=== PATIENT | male | born 1930 | race Caucasian/White ===

== ENCOUNTER 2017-07-18 13:16 | Inpatient (IN) | payer OTHER, MEDICARE ==
[~2017-07-18] VITALS: Ht 165.1 cm; Wt 74.8 kg
[~2017-07-18 13:16] MED LIST: 8 HOUR650 MG PO; ALLOPURINOL100 M1 PO; ALLOPURINOL100 MG PO; ASPIRIN EC81 M1 PO; BICARSIM80 MG PO; BUFFERIN LOW DO81 MG PO; CALCIUM ACETAT667 M3 PO; CLOPIDOGREL75 M1 PO; CLOPIDOGREL75 MG PO; COUMADIN3 M1 PO; DIOVAN80 M1 PO; DIOVAN80 MG PO; FLOMAX(MONOGRA0.4 MG PO; FLOMAX0.4 M1 PO; HYDROXYZINE HCL10 M1 PO; HYDROXYZINE HCL10 MG PO; HYDROXYZINE HCL25 M2 PO; LEVOTHYROXIN0.112 MG PO; LEVOTHYROXIN0.175 MG PO; LEVOTHYROXINE150 MCG PO; LIDODERM 5% PAT1 PAT TOP; LORATADINE10 M1 PO; LUBRIDERM DAIL177 ML TOP; LYRICA25 M1 PO; METOPROLOL SUCC25 M1 PO; MIDODRINE HCL2.5 M1 PO; MIDODRINE HCL5 M1 PO; MIRALAX119 GM PO; NEPHRO-VITE TA0.8 MG PO; NEPHROCAPS1 TAB PO; OMEPRAZOLE20 M2 PO; PERCOCET 5-3251 EACH PO; PROCRIT3000 UNIT/ IV; PROTONIX 20MG T20 MG PO; PROTONIX20 M1 PO; RENVELA800 M1 PO; RENVELA800 MG PO; RESTORIL30 M1 PO; ROBITUSSIN200 MG/10 PO; SENOKOT-S TABL1 EACH PO; SENSIPAR30 M1 PO; SENSIPAR30 MG PO; SYNTHROID0.137 MG PO; SYNTHROID112 MCG PO; TAMIFLU 75MG75 MG PO; TAMIFLU30 MG PO; TEMAZEPAM30 MG PO; TOPROL XL25 MG PO; TRAVATAN Z5 ML OPH; TRAVATAN Z50 GTT/1 B OPH; VALACYCLOVIR1000 MG PO; ZEMPLAR5 MCG/1 ML IV; ZOFRAN4 MG PO
[2017-07-18] MEDS ORDERED: DIOVAN80 M1 PO (14:19)
[2017-07-18] MEDS ORDERED: AMLODIPINE BESY10 M1 PO (14:20)
[2017-07-18] MEDS ORDERED: PANTOPRAZOLE SO20 M1 PO (14:20)
[2017-07-18] MEDS ORDERED: VITAMIN B-121000 MC3 PO (14:21)
[2017-07-18] MEDS ORDERED: TRAZODONE HCL50 M1 PO (14:21)
[2017-07-18] MEDS ORDERED: TRAMADOL HCL50 M1 PO (14:22)
--- NOTE | 2017-07-18 14:38 | ED GENERAL ADULT ---
History of Present Illness General Chief Complaint: Neuro Symptoms/ Deficit Stated Complaint: WEAK, SLURRED SPEACH, CONFUSION Source: family Exam Limitations: clinical condition Allergies Coded Allergies: No Known Allergies (08/21/15) Reconcile Medications Allopurinol 100 MG TABLET 1 TAB PO DAILY GOUT (Reported) Amlodipine Besylate 10 MG TABLET 1 TAB PO DAILY HEART (Reported) Aspirin (Ecotrin*) 81 MG TABLET.DR 1 TAB PO DAILY HEART/BLOOD (Reported) Cinacalcet HCl (Sensipar) 30 MG TABLET 1 TAB PO DAILY KIDNEY DISEASE ( Reported) Cyanocobalamin (Vitamin B-12) 1,000 MCG TABLET 1 TAB PO DAILY VITAMIN SUPPORT (Reported) Hydroxyzine Hydrochloride (Atarax) 25 MG TABLET 1 TAB PO BID PRN itching ( Reported) Levothyroxine Sodium 150 MCG TABLET 1 TAB PO DAILY thyropid (Reported) Metoprolol Succinate 25 MG TAB.ER.24H 1 TAB PO DAILY HEART/BP (Reported) Nephro-Vitamins (Nephro-Tye Tablet) (Unknown Strength) TABLET 1 TAB PO DAILY SUPPLEMENT (Reported) Omeprazole 20 MG CAPSULE.DR 1 CAP PO DAILY stomach (Reported) Pantoprazole Sodium 20 MG TABLET.DR 1 TAB PO DAILY GI (Reported) Sevelamer Carbonate (Renvela) 800 MG TABLET 1 TAB PO WITH MEALS kidney ( Reported) Tamsulosin HCl (Flomax) 0.4 MG CAP.ER.24H 1 CAP PO DAILY PROSTATE (Reported) Tramadol HCl 50 MG TABLET 1 TAB PO BID PAIN (Reported) Travoprost (Travatan Z) 5 ML DROPS 1 GTT OPH QPM BOTH EYES (Reported) Trazodone HCl 50 MG TABLET 1 TAB PO QPM SLEEP (Reported) Valsartan (Diovan) 80 MG TABLET 1 TAB PO DAILY HEART (Reported) Triage Note: PT TO ED WITH DAUGHTER FOR GENERALIZED WEAKNESS, CONFUSION, LETHARGY. PT WAS DISCHARGED FROM REHAB LAST WEDNESDAY 07/12. PT HAS BEEN LIVING WITH DAUGHTER. PT WAS SEEN AT [facility] ON 06/09 AND SENT TO [facility] FOR "BLOOD ON THE BRAIN" PER DAUGHTER. MORE TESTS WERE DONE AT [facility] AND NOTHING WAS FOUND PER DAUGHTER. PT WAS DISCHARGED TO REHAB FROM [facility]. PT ARRIVES TO ED, ALERT, WEAK. PT BROUGHT TO ROOM 10 VIA W/C. ASSIST OF 3 TO STRETCHER. NO NEURO S/S NOTED. Triage Nurses Notes Reviewed? yes Onset: Abrupt Duration: day(s): (1) Injury Environment: home Severity: moderate HPI: 87 yo M with PMH of , TIA, ESRD, HTN, HLD, prostate cancer, gout brought in to the ED after a mechanical fall yesterday. The patient was discharged from [facility] last week. The daughter states that the patient has been doing well for the most part since he was discharged. Yesterday the daughter feels that he was acting a little off and confused. Yesterday, she left him in the living room to use the bathroom and the went into the kitchen. During that time the patient got up and presumably lost his balance and fell down. The daughter found him on the floor. He complained of some pain in his left hip at the time. The daughter states the patient is not much of a complainer. Earlier today, when the OT/PT came in to see him, the patient refused to work with them since he was not feeling well. They called their PCP and he advised them to go to the ER. At his baseline the patient uses a walker. The daughter states the patient's mental status 'goes in and out' (Mary HENSON,Berna) Vital Signs & Intake/Output Vital Signs & Intake/Output Vital Signs Date Time Temp Pulse Resp B/P B/P Pulse O2 O2 Flow FiO2 Mean Ox Delivery Rate 07/18 1946 98.1 62 20 176/81 96 Room Air 07/18 1541 97.9 62 16 149/69 97 Room Air 07/18 1321 96.0 60 20 137/73 94 Room Air (Carol HENSON,Lucas Moreno) Past History Travel History Traveled to [place] past 21 day No Medical History Any Pertinent Medical History? 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 No (Berna Hernandez MD) Review of Systems Review of Systems Constitutional: Reports: fever. Denies: chills. EENTM: Reports: no symptoms. Respiratory: Reports: cough, short of breath. Cardiovascular: Denies: chest pain, palpitations. GI: Reports: diarrhea. Denies: abdominal pain. Genitourinary: Reports: no symptoms. Musculoskeletal: Reports: joint pain. Skin: Reports: rash. Neurological/Psychological: Reports: no symptoms. (Berna Hernandez MD) Review of Systems Hematologic/Endocrine: Reports: no symptoms. Immunologic/Allergic: Reports: no symptoms. All Other Systems: Reviewed and Negative (Nadir Headley MD) Physical Exam Physical Exam General Appearance: well developed/nourished, no apparent distress, alert, awake Head: atraumatic, normal appearance Eyes: Bilateral: normal appearance. Respiratory: normal breath sounds, chest non-tender, lungs clear Cardiovascular: regular rate/rhythm Gastrointestinal: soft, non-tender Extremities: no edema Neurologic/Psych: awake, alert, oriented x 2 Skin: rash Core Measures ACS in differential dx? No CVA/TIA Diagnosis: No Sepsis Present: No Sepsis Focused Exam Completed? No (Berna Hernandez MD) Physical Exam Ears, Nose, Throat: normal pharynx, normal ENT inspection Neck: normal inspection, supple, full range of motion Peripheral Pulses: 4+ carotid (R), 4+ carotid (L) Back: normal inspection, normal range of motion, no vertebral tenderness Reflexes: 2+: bicep (R), bicep (L). Lymphatic: no anterior cervical yousif (Nadir Headley MD) Progress Differential Diagnoses I considered the following diagnoses in my evaluation of the patient: [ mechanical fall, hip fracture, mastoiditis] Initial ED EKG: none Comments: His CT head showed evidence of mastoiditis on the right side. However, no pain/ symptoms can be elicited on physical examination which is suggestive of the findings being in chronic in nature. The patient himself denies any complains of pain. (Berna Hernandez MD) Differential Diagnoses I considered the following diagnoses in my evaluation of the patient: Plan of Care: Orders Procedure Date/time Status Regular Diet 07/19 B Active OXYGEN SETUP (GEN) 07/18 2129 Active Saline Lock 07/18 2129 Active Admit to inpatient 07/18 2129 Active Vital Signs 07/18 2129 Active Activity/Ambulation 07/18 2129 Active Code Status 07/18 2129 Active Add-on Test (ER Only) 07/18 2009 Active EKG 07/18 2009 Active CASE MANAGEMENT CONSULT 07/18 190 Active TROPONIN LEVEL 07/18 153 Complete COMPREHENSIVE METABOLIC PANEL 07/18 1441 Complete CBC WITHOUT DIFFERENTIAL 07/18 144 Complete Laboratory Tests 07/18/17 1530: Anion Gap 16, Estimated GFR 7 L, BUN/Creatinine Ratio 4.6 L, Glucose 95, Calcium 8.3 L, Total Bilirubin 1.0, AST 11 L, ALT 16 L, Alkaline Phosphatase 116, Troponin I 0.06, Total Protein 6.1 L, Albumin 3.5, Globulin 2.6, Albumin/ Globulin Ratio 1.3, CBC w Diff NO MAN DIFF REQ, RBC 3.55 L, MCV 107.3 H, MCH 34.0 H, MCHC 31.6 L, RDW 17.0 H, MPV 7.8, Gran % 66.7, Lymphocytes % 24.4, Monocytes % 6.2, Eosinophils % 2.6, Basophils % 0.1, Absolute Granulocytes 5.9, Absolute Lymphocytes 2.2, Absolute Monocytes 0.6, Absolute Eosinophils 0.2, Absolute Basophils 0 07/18/17 1442: Urine Color Cancelled, Urine Clarity Cancelled, Urine pH Cancelled, Ur Specific Sodus Cancelled, Urine Protein Cancelled, Urine Ketones Cancelled, Urine Nitrite Cancelled, Urine Bilirubin Cancelled, Urine Urobilinogen Cancelled, Ur Leukocyte Esterase Cancelled, Ur Microscopic Cancelled, Urine Hemoglobin Cancelled, Urine Glucose Cancelled Comments: 07/18/2017 8:11:35 PM patient's case discussed with the hospitalist who has asked for EKG and troponin prior to admission. Patient signed out to Dr. Headley. (Carol HENSON,Lucsa Moreno) Differential Diagnoses I considered the following diagnoses in my evaluation of the patient: (Fang HENSON,Nadir) Departure Departure Condition: Stable Referrals: Becki HENSON,Reggie Harman (PCP/Family) Departure Forms: Customer Survey General Discharge Information Comments Patient will require admission in the setting of gait instability, he is below level of functioning and unable to perform ADLs Admission Note Documentation of Exam: Documentation of any treatments & extenuating circumstances including Concerns Regarding Discharge (functional status, medication knowledge or non-compliance, living conditions, etc.) that warrant an admission rather than observation: ([facility] Departure Disposition: STILL A PATIENT Clinical Impression Primary Impression: Gait instability Secondary Impressions: Chronic kidney disease with end stage renal failure on dialysis, History of left hip replacement Admission Note Spoke With: Shawn Mitchell MD Documentation of Exam: Documentation of any treatments & extenuating circumstances including Concerns Regarding Discharge (functional status, medication knowledge or non-compliance, living conditions, etc.) that warrant an admission rather than observation: Patient presents for evaluation of weakness and confusion along with gait instability. Patient has not returned to baseline ambulation and continues to require two-person assist with a walker in order to ambulate. He is therefore a poor candidate for outpatient management at this time and would likely return in worse clinical condition, being at very high risk of fall with subsequent injury. Given his gait instability I feel that he would have great difficulty in complying with outpatient treatment plan. Likewise I feel he will be poorly capable of managing his ADLs. He now requires hospitalization for further evaluation of his gait instability to better define the cause and outline treatment. Physical therapy consultation should be obtained. Neurology consultation should be considered. Given this patient's advanced age and medical comorbidities, including left hip prosthesis, I predict his treatment and recovery will be prolonged and somewhat complicated. I feel he will require a multiple day hospitalization. PA/SHAG TRUCK DRIVER Co-Sign Statement Statement: ED Attending supervision documentation- [] I saw and evaluated the patient. I have also reviewed all the pertinent lab results and diagnostic results. I agree with the findings and the plan of care as documented in the PA's/SHAG TRUCK DRIVER's documentation. [] I have reviewed the ED Record and agree with the PA's/SHAG TRUCK DRIVER's documentation. [] Additions or exceptions (if any) to the PAs/SHAG TRUCK DRIVER's note and plan are summarized below: [] Resident Co-Sign Statement Statement: ED Attending supervision documentation- [x] I saw and evaluated the patient. I have also reviewed all the pertinent lab results and diagnostic results. I agree with the findings and the plan of care as documented in the Resident's documentation. [] I have reviewed the ED Record and agree with the Resident's documentation. [] Additions or exceptions (if any) to the Resident's note and plan are summarized below: [] (Carol HENSON,Lucas Moreno) Admission Note Documentation of Exam: Documentation of any treatments & extenuating circumstances including Concerns Regarding Discharge (functional status, medication knowledge or non-compliance, living conditions, etc.) that warrant an admission rather than observation: Resident Co-Sign Statement Statement: ED Attending supervision documentation- x I saw and evaluated the patient. I have also reviewed all the pertinent lab results and diagnostic results. I agree with the findings and the plan of care as documented in the Resident's documentation. [] I have reviewed the ED Record and agree with the Resident's documentation. [] Additions or exceptions (if any) to the Resident's note and plan are summarized below: [] (Fang HENSON,Nadir) Critical Care Note Critical Care Note Critical Care Time: non-applicable (Mary HENSON,Berna)
--- NOTE | 2017-07-18 14:40 | CT SCAN REPORT ---
EXAMINATION: CT HEAD WITHOUT CONTRAST CLINICAL INFORMATION: Slurred speech. COMPARISON: CT scan of the head dated 06/09/2017. TECHNIQUE: Contiguous axial imaging was performed from the skull base to vertex without intravenous administration of contrast. DLP: 307.75 mGy-cm FINDINGS: There is no evidence of acute intracranial hemorrhage or territorial infarction. No abnormal mass effect or midline shift is seen. Garcia to white matter differentiation is well preserved. No extra-axial fluid collections are identified. Again noted is substantial prominence of the bilateral ventricles, sulci, sylvian fissures and frontal extra-axial spaces, which are stable compared to the prior study. No new extra-axial fluid collection is present, however there are stable bilateral frontal subdural hematomas. No associated mass effect is noted. Prominent periventricular white matter changes are stable compared to the prior study consistent with chronic small vessel ischemic disease. The osseous structures and soft tissues are normal. The visualized portions of the paranasal sinuses are well aerated; there is interval development of fluid opacification of the right mastoid air cells with air-fluid levels in the inferior mastoid air cells.. IMPRESSION: 1. No acute intracranial pathology, no significant interval change is present compared to the recent previous study of 06/09/2017. 2. Stable significant cortical volume loss and small frontal subdural hematomas all stable compared to the prior study. 3. Interval development of fluid opacification of the right mastoid air cells with multiple air-fluid levels.
[2017-07-18 15:37] LABS: ABSOLUTE BASOPHIL COUNT 0 /CUMM (0.0-0.2); ABSOLUTE EOSINOPHIL COUNT 0.2 /CUMM (0.0-0.7); ABSOLUTE GRANULOCYTE CT 5.9 /CUMM (1.4-6.5); ABSOLUTE LYMPH COUNT 2.2 /CUMM (1.2-3.4); ABSOLUTE MONOCYTE COUNT 0.6 /CUMM (0.10-0.60); BASOPHIL % 0.1 % (0.0-2.0); EOSINOPHIL % 2.6 % (0-5); GRANULOCYTE % 66.7 % (42.2-75.2); HEMATOCRIT 38.1 % (42-52); MEAN CORPUSCULAR HGB CONC 31.6 G/DL (33.0-37.0); MEAN CORPUSCULAR VOLUME 107.3 FL (80.0-94.0); MEAN PLATELET VOLUME 7.8 FL (7.4-10.4); PLATELET COUNT 155 /CUMM (130-400); RED BLOOD CELL CT 3.55 /CUMM (4.70-6.10); WHITE BLOOD CELL COUNT 8.9 /CUMM (4.8-10.8)
--- NOTE | 2017-07-18 15:42 | RADIOLOGY REPORT ---
EXAMINATION: LEFT HIP. CLINICAL INFORMATION: Fall. COMPARISON: None TECHNIQUE: 2 views FINDINGS: No acute fracture or dislocation. There is osteopenia. Compression screw in place in the hip. Hardware intact. There is sclerosis along the intratrochanteric line consistent with healed fracture of the femur. No radiolucent fracture line. Heavy vascular calcification of the iliac and femoral arteries. IMPRESSION: Compression screw in left hip. Healed intratrochanteric fracture left hip. No acute abnormality.
--- NOTE | 2017-07-18 23:37 | History & Physical ---
Rosana HENSON,Mery 07/18/17 5277: General Information and HPI MD Statement: I have seen and personally examined HO LOPEZ and documented this H&P. The patient is a 87 year old M who presented with a patient stated chief complaint of [confusion, weakness]. 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 Most of the history was provided by his daughter on the phone because of language barrier and mild confusion of the patient. As per the daughter The patient was on the floor for a few minutes after which his and daughter helped him to get up. She also noticed that he was intermittently confused over the past few days after he was discharged from [facility] last week. The patient has a visiting physical therapist at home however this morning wasn't able to walk and he was dragging his feet, his daughter also noticed that he was slurring his speech and thought that he is having stroke. Patient was also noticed to have watery nonbloody diarrhea over the past week, 6 with Tamiflu when he was in the [facility] because there were many patients who had the flu and he was given Tamiflu prophylactically because he had fever and body aches however he wasn't tested for the flu. Patient had poor oral intake in the past few days due to loss of appetite, he also complained of widespread itchiness and scratches of his skin in addition to left-sided hip pain. Was not patient was recently discharged from [facility] in for brain hemorrhage and was sent to rehabilitation for 1 months thereafter. Patient has also history of hip fracture on February 2017 S/P ORIF Patient has history of ESRD, he receives dialysis Saturday, Saturday, Saturday, his last dialysis was on Saturday when he completed 34 hours however his daughter is not sure about his dry weight before and after the dialysis. He follow with Dr. Young He lives home and use a walker to ambulate. ED course: Vital signs: Blood pressure 176/81, pulse 62, temp 98.1, pulse ox 96 on room air Admission: WBC 8.9, Hemoglobin 12.1, Platelets 155, Sodium 142, Potassium 3.8. 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 spouse, child Services at Home: Nursing ETOH Use: denies use Illicit Drug Use: denies illicit drug use Functional Ability ADLs Independent: dressing, eating, toileting, bathing. Ambulation: independent, cane Review of Systems Review of Systems Constitutional: Reports: see HPI, malaise, weakness. Denies: chills, diaphoresis, fever. Cardiovascular: Denies: chest pain, edema, orthopena, palpitations, peripheral edema. Respiratory: Denies: cough, orthopnea, short of breath, sputum production. GI: Reports: diarrhea, nausea. Genitourinary: Denies: no symptoms. Musculoskeletal: Reports: joint pain. Skin: Denies: no symptoms. Neurological/Psychological: Reports: confusion, weakness. Exam & Diagnostic Data Last 24 Hrs of Vital Signs/I&O Vital Signs Date Time Temp Pulse Resp B/P B/P Pulse O2 O2 Flow FiO2 Mean Ox Delivery Rate 07/19 0021 98.9 59 20 144/70 97 Room Air 07/18 2158 98.6 59 16 142/67 97 Room Air 07/18 1947 98.1 62 20 176/81 96 Room Air 07/18 1541 97.9 62 16 149/69 97 Room Air 07/18 1321 96.0 60 20 137/73 94 Room Air Intake & Output 07/19 0800 07/19 0000 07/18 1600 Intake Total Output Total Balance Patient 145 lb 145 lb Weight Weight Bed scale Estimated Measurement Method Physical Exam General Appearance Alert, Cooperative, No Acute Distress, oriented X2 HEENT Atraumatic, PERRLA, EOMI, Mucous Membr. moist/pink Neck Supple, No JVD Cardiovascular Normal S1, Normal S2, No Murmurs Lungs Clear to Auscultation Abdomen Normal Bowel Sounds, Soft, No Tenderness Neurological Normal Speech, Strength at 5/5 X4 Ext, Normal Tone Extremities No Clubbing, No Cyanosis, No Edema, A-V shunt in the left arm , thrill was not felt Vascular Normal Pulses Last 24 Hrs of Labs/Jarod: Laboratory Tests 07/18/17 1530: Anion Gap 16, Estimated GFR 7 L, BUN/Creatinine Ratio 4.6 L, Glucose 95, Calcium 8.3 L, Total Bilirubin 1.0, AST 11 L, ALT 16 L, Alkaline Phosphatase 116, Troponin I 0.06, Total Protein 6.1 L, Albumin 3.5, Globulin 2.6, Albumin/ Globulin Ratio 1.3, CBC w Diff NO MAN DIFF REQ, RBC 3.55 L, MCV 107.3 H, MCH 34.0 H, MCHC 31.6 L, RDW 17.0 H, MPV 7.8, Gran % 66.7, Lymphocytes % 24.4, Monocytes % 6.2, Eosinophils % 2.6, Basophils % 0.1, Absolute Granulocytes 5.9, Absolute Lymphocytes 2.2, Absolute Monocytes 0.6, Absolute Eosinophils 0.2, Absolute Basophils 0 07/18/17 1442: Urine Color Cancelled, Urine Clarity Cancelled, Urine pH Cancelled, Ur Specific [employer] Cancelled, Urine Protein Cancelled, Urine Ketones Cancelled, Urine Nitrite Cancelled, Urine Bilirubin Cancelled, Urine Urobilinogen Cancelled, Ur Leukocyte Esterase Cancelled, Ur Microscopic Cancelled, Urine Hemoglobin Cancelled, Urine Glucose Cancelled Diagnostic Data EKG Results regular NSR , HR 63, QTC 488, no ST-Twave changes Other Results CT head: 1. No acute intracranial pathology, no significant interval change is present compared to the recent previous study of 06/09/2017. 2. Stable significant cortical volume loss and small frontal subdural hematomas all stable compared to the prior study. 3. Interval development of fluid opacification of the right mastoid air cells with multiple air-fluid levels. 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 In addition to intermittent confusion, nausea, vomiting, diarrhea, skin itchiness. Patient received hemodialysis yesterday. In addition the patient has a history of subdural hematoma and was admitted to [facility] last month however CT on admission didn't show any acute intracranial changes, fluid opacification of right mastoid air cells with multiple air-fluid level was noticed #Weakness and confusion: Differential diagnosis includes dehydration, deconditioning Admitted to general medicine floor Vitals every shift PT evaluation #Left frontal subdural hematoma CT didn't show any acute intracranial pathology or significant changes from previous one Avoid blood thinners #ESRD on hemodialysis Patient is due for his hemodialysis today Saturday hemodialysis Saturday Nephrology consult appreciated Close monitoring of kidney function #Chronic medical condition: Continue home meds DNR/DNI Renal dialysis Diet DVT prophylaxis with Alps As Ranked By This Provider Problem List: 1. Subdural hematoma 2. ESRD (end stage renal disease) on dialysis Core Measures/Misc (02/10) Acute Coronary Syndrome ACS Diagnosis: No Congestive Heart Failure Congestive Heart Failure Diagnosis No Cerebrovascular Accident CVA/TIA Diagnosis: No VTE (View Protocol) VTE Risk Factors Age>40 No Mechanical VTE Prophylaxis d/t N/A MechProphylax Ordered No VTE Pharm Prophylaxis d/t Medical Contraindication Sepsis (View protocol) Sepsis Present: No Kt Lee 07/19/17 0430: General Information and HPI Allergies/Medications Home Med list Allopurinol 100 MG TABLET 1 TAB PO DAILY GOUT (Reported) Amlodipine Besylate 10 MG TABLET 1 TAB PO DAILY HEART (Reported) Cinacalcet HCl (Sensipar) 30 MG TABLET 1 TAB PO DAILY KIDNEY DISEASE ( Reported) Cyanocobalamin (Vitamin B-12) 1,000 MCG TABLET 1 TAB PO DAILY VITAMIN SUPPORT (Reported) Hydroxyzine Hydrochloride (Atarax) 25 MG TABLET 1 TAB PO BID PRN itching ( Reported) Levothyroxine Sodium 150 MCG TABLET 1 TAB PO DAILY thyropid (Reported) Metoprolol Succinate 25 MG TAB.ER.24H 1 TAB PO DAILY HEART/BP (Reported) Nephro-Vitamins (Nephro-Tye Tablet) (Unknown Strength) TABLET 1 TAB PO DAILY SUPPLEMENT (Reported) Pantoprazole Sodium 20 MG TABLET.DR 1 TAB PO DAILY GI (Reported) Sevelamer Carbonate (Renvela) 800 MG TABLET 1 TAB PO WITH MEALS kidney ( Reported) Tamsulosin HCl (Flomax) 0.4 MG CAP.ER.24H 1 CAP PO DAILY PROSTATE (Reported) Travoprost (Travatan Z) 5 ML DROPS 1 GTT OPH QPM BOTH EYES (Reported) Trazodone HCl 50 MG TABLET 1 TAB PO QPM SLEEP (Reported) Valsartan (Diovan) 80 MG TABLET 1 TAB PO DAILY HEART (Reported) Resident Review Statement Resident Statement: examined this patient, discussed with brand marketing intern, agreed with brand marketing intern, discussed with family, reviewed EMR data (avail), discussed with nursing , discussed with case mgmt, reviewed images, amended to note Other Findings: This is 87-year-old gentleman with medical history of aortic stenosis, previous TIA, 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 Patient presented to the emergency department with a chief complain off mechanical fall. As per the daughter The patient was on the floor for a few minutes after which his and daughter helped him to get up. She also noticed that he was intermittently confused over the past few days after he was discharged from [facility] last week, where he spent one month of rehabilitation status post discharge from [facility] after been transferred from Hospital As a CAT Scan of the Head at That Time Showed Subdural Hematoma that was done 06/09/2017. Patient went for his scheduled dialysis on Saturday, he states his dry weight is 155 pound, he stated that he doesn't make any urine. Patient denies any dizziness or loss of consciousness, heart racing, chest pain, feeling nauseated, vomiting, seizure activity before or after the fall. Physical examination, laboratory and imaging as above. Problem list: -Status post mechanical fall -Generalized weakness/Confusion -Skin itchiness -History of left frontal subdural hematoma/stable. -End-stage renal disease on hemodialysis Plan: -Admit patient to general medicine floor -Vitals every shift -Nephrology consultation a.m. -Patient will need assessment of his AV fistula -Hydrocortisone 1% cream twice -Physical therapy consultation in a.m. -Continue his home medication for now -Renal dialysis diet -Pain pathway -DVT prophylaxis: subcutaneous heparin -DNI DNR according to his daughter. Stephen HENSON, [facility] 07/19/17 0810: Attending MD Review Statement Attending Statement Attending MD Statement: examined this patient, discuss w/resident/PA/PLASTIC MOLDER, agreed w/resident/PA/PLASTIC MOLDER, reviewed images, amended to note Attending Assessment/Plan: 87 yo M with h/o ESRD on HD (MWF), , TIA, HTN, is brought in from home after a mechanical fall and reported confusion one day prior to admission. He also c/o left hip pain and refused to work with PT this morning. They called their PCP who then advised patient to be brought to ER. Patient was recently diagnosed with subdural hematoma ([facility]) and went to short term rehab ([facility]), from where he was discharged 1 week ago. Since discharge, patient has had intermittent diarrhea that seems to be resolving now. Vitals stable. Exam remarkable for left AV fistula site CDI but unable to palpate a thrill. Labs: macrocytic anemia, BUN 36, creat 7.9, Ca 8.3, trop neg. CT head: no acute pathology, small frontal SDH stable, fluid opacification of right mastoid air cells. Hip/pelvis Xray: compression screw in left hip. Healed intertrochanteric fracture left hip, no acute abnormality. EKG: sinus rhythm, LVH, Qtc 488. Assessment and plan: 1. Mechanical fall, inability to ambulate 2. Physical deconditioning 3. Confusion, acute delirium 4. ESRD on hemodialysis 5. ?malfunction of AV fistula 6. History of subdural hematoma - Admit to General medicine - Fall precautions - Pain management with tylenol or tramadol - Avoid NSAIDS or opiates - Avoid delirium triggers - Nephro consult for dialysis - ?Vascular consult to assess AV fistula malfunction - PT eval - Case management consult DVT ppx Alps (due to SDH). DNR/I.
[2017-07-19 00:21] VITALS: BP 144/70
--- NOTE | 2017-07-19 03:55 | Admission Certification ---
Admission Certification Certification Statement - As attending physician, I certify that at the time of - admission, based on clinical presentation, severity of - symptoms, need for further diagnostic testing and - therapeutic interventions, and risk of adverse outcomes - without in-hospital treatment, in my clinical assessment, - this patient requires an acute hospital stay for a minimum - of two nights or longer. I have also considered psychsocial - factors such as support system, advanced age, financial - issues, cognitive issues, and failed out-patient treatments, - past re-admission history, safety of patient, and lack of - compliance as applicable. Specific rationale supporting this admission is: Gait instability, confusion, ESRD on dialysis, malfunctioning AV fistula.
[2017-07-19 06:48] VITALS: BP 140/68
[2017-07-19 08:58] LABS: ABSOLUTE BASOPHIL COUNT 0 /CUMM (0.0-0.2); ABSOLUTE EOSINOPHIL COUNT 0.2 /CUMM (0.0-0.7); ABSOLUTE LYMPH COUNT 2.3 /CUMM (1.2-3.4); ABSOLUTE MONOCYTE COUNT 0.4 /CUMM (0.10-0.60); GRANULOCYTE % 60.5 % (42.2-75.2); MEAN PLATELET VOLUME 8.1 FL (7.4-10.4); RED BLOOD CELL CT 3.11 /CUMM (4.70-6.10)
[2017-07-19 09:13] LABS: ABSOLUTE GRANULOCYTE CT 4.5 /CUMM (1.4-6.5); BASOPHIL % 0.3 % (0.0-2.0); EOSINOPHIL % 2.2 % (0-5); MEAN CORPUSCULAR HGB 34.9 PG (27.0-31.0); MEAN CORPUSCULAR VOLUME 105.7 FL (80.0-94.0); PLATELET COUNT 140 /CUMM (130-400); RBC DISTRIBUTION WIDTH 17.1 % (11.5-14.5); WHITE BLOOD CELL COUNT 7.4 /CUMM (4.8-10.8)
--- NOTE | 2017-07-19 09:14 | Cons- Nephrology ---
General Information and HPI Consulting Request Date of Consult: 07/19/17 Requested By: Juliet HENSON,Irene History of Present Illness: 87 yo male with ESRD due to obstructive uropathy from stones, hypertension, Chron's disease. He has had multiple falls over the last year. In May 2017 he conner a fall and subdural hematoma, was transferred to [facility] and then to [facility]. He came home last week, but daughter has noted intermittant confusion. He had a mechnanical fall yesterday, was complaining of some hip pain and had difficulty ambulating so was sent to the ED. CT scan showed no acute intracranial process but patient was unable to walk and was still confused, so he was admitted. FH: negative for renal diseas.e Allergies/Medications Allergies: Coded Allergies: No Known Allergies (08/21/15) Home Med List: Allopurinol 100 MG TABLET 1 TAB PO DAILY GOUT (Reported) Amlodipine Besylate 10 MG TABLET 1 TAB PO DAILY HEART (Reported) Cinacalcet HCl (Sensipar) 30 MG TABLET 1 TAB PO DAILY KIDNEY DISEASE ( Reported) Cyanocobalamin (Vitamin B-12) 1,000 MCG TABLET 1 TAB PO DAILY VITAMIN SUPPORT (Reported) Hydroxyzine Hydrochloride (Atarax) 25 MG TABLET 1 TAB PO BID PRN itching ( Reported) Levothyroxine Sodium 150 MCG TABLET 1 TAB PO DAILY thyropid (Reported) Metoprolol Succinate 25 MG TAB.ER.24H 1 TAB PO DAILY HEART/BP (Reported) Nephro-Vitamins (Nephro-Tye Tablet) (Unknown Strength) TABLET 1 TAB PO DAILY SUPPLEMENT (Reported) Pantoprazole Sodium 20 MG TABLET.DR 1 TAB PO DAILY GI (Reported) Sevelamer Carbonate (Renvela) 800 MG TABLET 1 TAB PO WITH MEALS kidney ( Reported) Tamsulosin HCl (Flomax) 0.4 MG CAP.ER.24H 1 CAP PO DAILY PROSTATE (Reported) Travoprost (Travatan Z) 5 ML DROPS 1 GTT OPH QPM BOTH EYES (Reported) Trazodone HCl 50 MG TABLET 1 TAB PO QPM SLEEP (Reported) Valsartan (Diovan) 80 MG TABLET 1 TAB PO DAILY HEART (Reported) Current Medications: Current Medications Sig/Harmeet Start time Last Medication Dose Route Stop Time Status Admin Acetaminophen 650 MG Q6P PRN 07/18 2345 AC PO Allopurinol 100 MG DAILY 07/19 1000 AC PO Amlodipine Besylate 10 MG DAILY 07/19 1000 AC PO Heparin Sodium 5,000 UNIT Q8 07/19 0600 CAN (Porcine) SC Hydrocodone Bitart/ 1 TAB Q6P PRN 07/18 2345 AC Acetaminophen PO Hydrocortisone 1 ZHANNA BID 07/18 2345 AC 07/19 EXT 0639 Hydroxyzine HCl 25 MG BID PRN 07/19 0015 AC 07/19 PO 0638 Hydroxyzine HCl 0 .STK-MED ONE 07/18 1927 DC PO Hydroxyzine HCl 25 MG ONCE ONE 07/18 1914 DC 07/18 PO 07/18 Levothyroxine Sodium 0.15 MG DAILY AC 07/19 0700 AC 07/19 PO 0638 Losartan Potassium 25 MG DAILY 07/19 1000 AC PO Metoprolol Succinate 25 MG DAILY 07/19 1000 AC PO Nystatin 1 ZHANNA BID 07/19 0047 AC 07/19 TOP 0639 Omeprazole 20 MG DAILY AC 07/19 0700 AC 07/19 PO 0638 Sevelamer Carbonate 800 MG WITH MEALS 07/19 0800 AC PO Tamsulosin HCl 0.4 MG DAILY 07/19 1000 AC PO Trazodone HCl 50 MG QPM 07/19 2200 AC PO Review of Systems Review of Systems: Negative except as noted above. 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 Home Who Do You Live With? spouse, child Services at Home: Nursing Smoking Status: Never Smoked ETOH Use: denies use Illicit Drug Use: denies illicit drug use Functional Ability ADLs Independent: dressing, eating, toileting, bathing. Ambulation: independent, cane Exam & Diagnostic Data Vital Signs and I&O Vital Signs Date Time Temp Pulse Resp B/P B/P Pulse O2 O2 Flow FiO2 Mean Ox Delivery Rate 07/19 0648 98.4 67 20 140/68 93 Room Air 07/19 0021 98.9 59 20 144/70 97 Room Air 07/18 2158 98.6 59 16 142/67 97 Room Air 07/18 1947 98.1 62 20 176/81 96 Room Air 07/18 1541 97.9 62 16 149/69 97 Room Air 07/18 1321 96.0 60 20 137/73 94 Room Air Intake & Output 07/19 1600 07/19 0400 07/18 0400 07/17 0400 Intake Total 100 Output Total Balance 100 Intake, Oral 100 Number 1 Bowel Movements Patient 145 lb 145 lb Weight Weight Bed scale Estimated Measurement Method Physical Exam: NAD VS as above. Eyes: anicteric, PERRLA Neck: no mass or thryomegaly Nodes: negative cervical/inguinal Skin: no rash or induration Lungs: clear P&A CV: no rub or murmur Abd: nontender, bs positive no organomegaly Exts: no edema, no bruit KEMI AVF Neuro: A&O, no asterixis. Results Pertinent Lab Results: Laboratory Tests 07/19 07/18 07/18 0805 1530 1442 Chemistry Sodium (137 - 145 mmol/L) Pending 142 Potassium (3.5 - 5.1 mmol/L) Pending 3.8 Chloride (98 - 107 mmol/L) Pending 101 Carbon Dioxide (22 - 30 mmol/L) Pending 25 Anion Gap (5 - 16) Pending 16 BUN (9 - 20 mg/dL) Pending 36 H Creatinine (0.7 - 1.2 mg/dL) Pending 7.9 *H Estimated GFR (>60 ml/min) 7 L BUN/Creatinine Ratio (7 - 25 %) Pending 4.6 L Glucose (65 - 99 mg/dL) 95 Calcium (8.4 - 10.2 mg/dL) 8.3 L Total Bilirubin (0.2 - 1.3 mg/dL) 1.0 AST (17 - 59 U/L) 11 L ALT (21 - 72 U/L) 16 L Alkaline Phosphatase (< 127 U/L) 116 Troponin I (<0.11 ng/ml) 0.06 Total Protein (6.3 - 8.2 g/dL) 6.1 L Albumin (3.5 - 5.0 g/dL) 3.5 Globulin (1.9 - 4.2 gm/dL) 2.6 Albumin/Globulin Ratio (1.1 - 2.2 %) 1.3 Hematology CBC w Diff Pending NO MAN DIFF REQ WBC (4.8 - 10.8 /CUMM) Pending 8.9 RBC (4.70 - 6.10 /CUMM) Pending 3.55 L Hgb (14.0 - 18.0 G/DL) Pending 12.1 L Hct (42 - 52 %) Pending 38.1 L MCV (80.0 - 94.0 FL) Pending 107.3 H MCH (27.0 - 31.0 PG) Pending 34.0 H MCHC (33.0 - 37.0 G/DL) Pending 31.6 L RDW (11.5 - 14.5 %) Pending 17.0 H Plt Count (130 - 400 /CUMM) Pending 155 MPV (7.4 - 10.4 FL) Pending 7.8 Gran % (42.2 - 75.2 %) 66.7 Lymphocytes % (20.5 - 51.1 %) 24.4 Monocytes % (1.7 - 9.3 %) 6.2 Eosinophils % (0 - 5 %) 2.6 Basophils % (0.0 - 2.0 %) 0.1 Absolute Granulocytes (1.4 - 6.5 /CUMM) 5.9 Absolute Lymphocytes (1.2 - 3.4 /CUMM) 2.2 Absolute Monocytes (0.10 - 0.60 /CUMM) 0.6 Absolute Eosinophils (0.0 - 0.7 /CUMM) 0.2 Absolute Basophils (0.0 - 0.2 /CUMM) 0 Urines Urine Color Cancelled Urine Clarity Cancelled Urine pH Cancelled Ur Specific [place] Cancelled Urine Protein Cancelled Urine Ketones Cancelled Urine Nitrite Cancelled Urine Bilirubin Cancelled Urine Urobilinogen Cancelled Ur Leukocyte Esterase Cancelled Ur Microscopic Cancelled Urine Hemoglobin Cancelled Urine Glucose Cancelled Assessment/Plan Assessment/Recommendations Assessment: ESRD s/p fall. He has had multiple falls over last year with hip fracture and SDH. After fall yesterday had difficulty with ambulation. Not clear patient is going to be able to return home. His AVF is occluded. This has been problematic in past as occluded in March, and according to daughter again while at [facility]. Labs yesterday acceptable and he does not appear extremely volume overloaded. Recommendations: I have spoke with Dr. Poole from IR and patient will either get thrombolysis or Eliu cathter today. If done early enough he can get dialysis today, otherwise may have to be held until tomorrow. No other dialysis issues today and would resume his usual medications.
[2017-07-19 09:23] LABS: HEMATOCRIT 32.9 % (42-52)
--- NOTE | 2017-07-19 11:04 | PN- Housestaff ---
See Addendum Rhett Sutherland MD,[facility] 07/19/17 1104: Subjective Follow-up For: Altered mental status ESRD on dialysis Failed AV fistula Subjective: Patient visited today, was lying in bed comfortably in no acute distress, patient was alert and oriented which is improvement compared to last night. No fever or chills, no shortness of breathing, no chest pain, no other events. Patient was complaining of itchiness. scratch murphy all over bilateral LEs. Patient ate breakfast, contacted IR for AV fistula who recommended to place patient NPO for tunneled catheter placement. We will follow. Review of Systems Constitutional: Reports: see HPI. Objective Last 24 Hrs of Vital Signs/I&O Vital Signs Date Time Temp Pulse Resp B/P B/P Pulse O2 O2 Flow FiO2 Mean Ox Delivery Rate 07/19 0942 98.4 67 20 140/68 07/19 0942 140/68 07/19 0941 98.4 67 140/68 07/19 0941 98.4 67 20 140/68 07/19 0648 98.4 67 20 140/68 93 Room Air 07/19 0021 98.9 59 20 144/70 97 Room Air 07/18 2158 98.6 59 16 142/67 97 Room Air 07/18 1947 98.1 62 20 176/81 96 Room Air 07/18 1541 97.9 62 16 149/69 97 Room Air Intake & Output 07/19 1600 07/19 0800 07/19 0000 Intake Total 100 Output Total Balance 100 Intake, Oral 100 Number 1 Bowel Movements Patient 145 lb Weight Weight Bed scale Measurement Method Physical Exam General Appearance: Alert, Oriented X3, Cooperative, No Acute Distress Skin: bilateral LE scratch murphy Skin Temp/Moisture Exam: Warm/Dry Sepsis Skin Exam (color): Normal for Ethnicity HEENT: Atraumatic, EOMI, Mucous Membr. moist/pink Cardiovascular: Normal S1, Normal S2 Lungs: Normal Air Movement Neurological: Normal Speech, grossly normal, mental condition grossly improved compared to last night Extremities: LUE fistula, no bruit Current Medications: Current Medications Sig/Harmeet Start time Last Medication Dose Route Stop Time Status Admin Acetaminophen 650 MG Q6P PRN 07/18 2345 AC PO Allopurinol 100 MG DAILY 07/19 1000 AC 07/19 PO 0941 Amlodipine Besylate 10 MG DAILY 07/19 1000 AC 07/19 PO 0941 Fentanyl Citrate 0 .STK-MED ONE 07/19 1324 DC .ROUTE Heparin Sodium 0 .STK-MED ONE 07/19 1235 DC (Porcine) IV Heparin Sodium 5,000 UNIT Q8 07/19 0600 CAN (Porcine) SC Hydrocodone Bitart/ 1 TAB Q6P PRN 07/18 2345 AC Acetaminophen PO Hydrocortisone 1 ZHANNA BID 07/18 2345 AC 07/19 EXT 0942 Hydroxyzine HCl 25 MG BID PRN 07/19 0015 AC 07/19 PO 0638 Hydroxyzine HCl 0 .STK-MED ONE 07/18 1928 DC PO Hydroxyzine HCl 25 MG ONCE ONE 07/18 191 DC 07/18 PO 07/18 Ioversol 0 .STK-MED ONE 07/19 1343 DC IV Levothyroxine Sodium 0.15 MG DAILY AC 07/19 0700 AC 07/19 PO 0638 Lidocaine 0 .STK-MED ONE 07/19 1235 DC .ROUTE Lidocaine/Epinephrine 0 .STK-MED ONE 07/19 1235 DC .ROUTE Losartan Potassium 25 MG DAILY 07/19 1000 AC 07/19 PO 0942 Metoprolol Succinate 25 MG DAILY 07/19 1000 AC 07/19 PO 0941 Nystatin 1 ZHANNA BID 07/19 0047 AC 07/19 TOP 0942 Omeprazole 20 MG DAILY AC 07/19 0700 AC 07/19 PO 0638 Sevelamer Carbonate 800 MG WITH MEALS 07/19 0800 AC 07/19 PO 0800 Tamsulosin HCl 0.4 MG DAILY 07/19 1000 AC 07/19 PO 0942 Trazodone HCl 50 MG QPM 07/19 2200 AC PO Last 24 Hrs of Lab/Jarod Results Last 24 Hrs of Labs/Mics: Laboratory Tests 07/19/17 0805: Anion Gap 16, Estimated GFR 5 L, BUN/Creatinine Ratio 4.8 L, CBC w Diff NO MAN DIFF REQ, RBC 3.11 L, MCV 105.7 H, MCH 34.9 H, MCHC 33.0, RDW 17.1 H, MPV 8.1, Gran % 60.5, Lymphocytes % 31.3, Monocytes % 5.7, Eosinophils % 2.2, Basophils % 0.3, Absolute Granulocytes 4.5, Absolute Lymphocytes 2.3, Absolute Monocytes 0.4, Absolute Eosinophils 0.2, Absolute Basophils 0 07/18/17 1530: Anion Gap 16, Estimated GFR 7 L, BUN/Creatinine Ratio 4.6 L, Glucose 95, Calcium 8.3 L, Total Bilirubin 1.0, AST 11 L, ALT 16 L, Alkaline Phosphatase 116, Troponin I 0.06, Total Protein 6.1 L, Albumin 3.5, Globulin 2.6, Albumin/ Globulin Ratio 1.3, CBC w Diff NO MAN DIFF REQ, RBC 3.55 L, MCV 107.3 H, MCH 34.0 H, MCHC 31.6 L, RDW 17.0 H, MPV 7.8, Gran % 66.7, Lymphocytes % 24.4, Monocytes % 6.2, Eosinophils % 2.6, Basophils % 0.1, Absolute Granulocytes 5.9, Absolute Lymphocytes 2.2, Absolute Monocytes 0.6, Absolute Eosinophils 0.2, Absolute Basophils 0 07/18/17 1442: Urine Color Cancelled, Urine Clarity Cancelled, Urine pH Cancelled, Ur Specific [place] Cancelled, Urine Protein Cancelled, Urine Ketones Cancelled, Urine Nitrite Cancelled, Urine Bilirubin Cancelled, Urine Urobilinogen Cancelled, Ur Leukocyte Esterase Cancelled, Ur Microscopic Cancelled, Urine Hemoglobin Cancelled, Urine Glucose Cancelled Assessment/Plan Assessment: 87-year-old gentleman presented after a fall complained of intermittent confusion, nausea, vomiting, diarrhea, skin itchiness h/o subdural hematoma and was admitted to [facility] last month PMH: aortic stenosis, previous TIA, 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 BUN 36, creatinine 7.9, glucose 95, AST 11, AST 16 Imagings at admission: hip Xray: Compression screw in left hip. Healed intratrochanteric fracture left hip. No acute abnormality. Head CT: 1. No acute intracranial pathology, no significant interval change is present compared to the recent previous study of 06/09/2017. 2. Stable significant cortical volume loss and small frontal subdural hematomas all stable compared to the prior study. 3. Interval development of fluid opacification of the right mastoid air cells with multiple air-fluid levels. Patient was admitted to GM floor for management of following conditions: #ESRD on hemodialysis hemodialysis Saturday, AV fistula most likely occluded per examination. - Nephrology consult appreciated - Close monitoring of kidney function - Tunneled catheter placement by IR -Hemodialysis today #Weakness and confusion: Differential diagnosis includes dehydration, deconditioning, as well as uremia. Intracranial acute pathology was rule out - continue general medicine floor - Vitals every shift - PT evaluation #Left frontal subdural hematoma CT didn't show any acute intracranial pathology or significant changes from previous one Avoid blood thinners - continue to monitor #Chronic medical condition: Continue home meds DNR/DNI Renal dialysis Diet DVT prophylaxis with Alps Problem List: 1. Chronic kidney disease with end stage renal failure on dialysis Pain Ratin Pain Location: None Pain Goal: Pain 4 or less Pain Plan: continue current plan Tomorrow's Labs & Rationales: CBC BEP Irene Chung 07/19/17 1111: Attending MD Review Statement Attending Statement Attending MD Statement: examined this patient, discuss w/resident/PA/ELECTRICAL ENGINEERING DESIGNER, agreed w/resident/PA/ELECTRICAL ENGINEERING DESIGNER, discussed with family, reviewed EMR data (avail), discussed with nursing, discussed with case mgmt, reviewed images, amended to note Attending Assessment/Plan: Patient seen/examined bedside. Working with PT. Nephrolgy noted. IR consult. Assessment and plan: 1. Mechanical fall, inability to ambulate, recurrent falls. 2. Physical deconditioning 3. Confusion, acute delirium 4. ESRD on hemodialysis 5. h/o SDH - CT head with stable findings. Frequent neurochecks. - Fall precautions - Pain management with tylenol or tramadol - Avoid NSAIDS or opiates - Avoid delirium triggers - Nephrology noted for dialysis, IR consult for cathter placement. AV fistula malfunctioning. Dilaysis plan as per nephrology. - PT eval ongoing. - Case management consult DVT ppx Hep SC. DNR/I.
[2017-07-19 14:45] VITALS: BP 114/70
--- NOTE | 2017-07-19 15:51 | ULTRASOUND REPORT ---
CLINICAL HISTORY: This patient is a 87 years old Male with ESRD and clotted fistula with contraindications to declotting (recent intracranial hemorrhage), who presents to Interventional Radiology for placement of a tunneled central venous catheter for hemodialysis. PROCEDURES: 1. Real-time ultrasound-guided access into the right internal jugular vein after documentation of selected vessel patency, and permanent imaging storing in the patient records. 2. Placement of a tunneled 16-Fr 23 cm tip to cuff dual lumen central venous catheter. PHYSICIANS: Dr. Jesica Poole (attending). MONITORING: The procedure was performed with continuous blood pressure, pulse oximetry as well as heart rate monitoring was performed by an independent registered nurse. MEDICATIONS: 1. Versed 0 mg, fentanyl 50 mcg IV were administered. 2. Lidocaine 1%, 5 mL SQ. 3. Lidocaine 1%, 10 mL with epinephrine SQ. CONTRAST: None FLUOROSCOPY TIME: 0.9 minutes DAP: 1.8 uGym2 COMPLICATIONS: None ESTIMATED BLOOD LOSS: <50 mL SPECIMENS: None IMPLANT: None SITE MARKING: As part of the preprocedure verification policy, a site marking procedure was initiated. Due to the nature the procedure, the insertion site could not be predetermined thus invoking the policy of exemption to site laterality and marking. Insertion site marking was performed in the procedure room in conjunction with imaging confirmation. PROCEDURE NOTE: Informed consent was obtained from the patient prior to the procedure. During this process, the procedure and potential alternatives were explained along with the intended outcome and benefits. The risks of the procedure, including the possibility of an unsuccessful procedure, as well as the risk of not doing the procedure, were discussed. The patient was given the opportunity to ask questions regarding the procedure and appeared competent to make decisions. A signed consent form documenting this discussion was placed in the medical record. A time-out procedure was performed. The patient was placed supine on the fluoroscopy table. All elements of maximal sterile barrier technique followed including use of cap, mask, sterile gown, sterile gloves, a sterile full body drape and hand hygiene. Also followed skin preparation with 2% chlorhexidine for cutaneous antisepsis, and sterile ultrasound preparation with sterile gel and probe cover when applicable. Local anesthesia was administered to the access site with lidocaine. The right internal jugular vein was accessed using ultrasound with a micropuncture Micropuncture set. The wire did not advance easily. Considering the patient's history of multiple axis series 4 dialysis, a venogram was performed through the needle which demonstrated a stenotic but patent superior vena cava. A 0.018 wire was able to be advanced into the high right atrium for measuring purposes. The 0.018 wire was subsequently exchanged for a 0.035 J wire that was advanced to the IVC to maintain access during the tunneling process. Next, subcutaneous lidocaine was administered to the chest, and a subcutaneous tunnel that connects to the venotomy site was created using blunt dissection. The dialysis catheter was sized for the correct tunnel length. The catheter was then pulled through the tunnel. The sheath in the IJ was exchanged over the wire for sequential dilators and lastly a peel-away sheath. The inner dilator and J wire were removed, and the catheter was advanced through the sheath. The sheath was peeled away. The catheter was tested, flushed, and sutured to the skin with its tip in the high right atrium. A Biopatch and sterile dressing were applied. A single nylon stitch was utilized to close the dermatotomy at the neck and to secure the catheter at its entry site. The patient tolerated the procedure well. FINDINGS: 1. Patent right internal jugular vein. Stenotic superior vena cava. 2. Tip of catheter in the high right atrium. 3. Catheter flushes and aspirates very well with a 10 mL syringe. 4. No pneumothorax. IMPRESSION: Successful and uncomplicated placement of a tunneled hemodialysis catheter. PLAN: 1. The patient was stable after the procedure and was transferred to the interventional recovery area. The patient will be transferred to the floor. 2. The catheter may be used immediately. 3. The suture securing the catheter should remain in place for 4 weeks or greater.
[2017-07-19 19:25] VITALS: BP 144/60
[2017-07-19 21:26] VITALS: BP 130/64
[2017-07-20 06:59] VITALS: BP 130/62
[2017-07-20 09:30] LABS: ABSOLUTE BASOPHIL COUNT 0 /CUMM (0.0-0.2); ABSOLUTE EOSINOPHIL COUNT 0.1 /CUMM (0.0-0.7); ABSOLUTE GRANULOCYTE CT 3.8 /CUMM (1.4-6.5); ABSOLUTE LYMPH COUNT 2.5 /CUMM (1.2-3.4); ABSOLUTE MONOCYTE COUNT 0.4 /CUMM (0.10-0.60); BASOPHIL % 0.4 % (0.0-2.0); GRANULOCYTE % 55.5 % (42.2-75.2); HEMATOCRIT 35.7 % (42-52); MEAN CORPUSCULAR HGB 34.6 PG (27.0-31.0); MEAN CORPUSCULAR HGB CONC 32.7 G/DL (33.0-37.0); MEAN CORPUSCULAR VOLUME 105.9 FL (80.0-94.0); MEAN PLATELET VOLUME 8.2 FL (7.4-10.4); PLATELET COUNT 167 /CUMM (130-400); RBC DISTRIBUTION WIDTH 16.9 % (11.5-14.5); RED BLOOD CELL CT 3.37 /CUMM (4.70-6.10); WHITE BLOOD CELL COUNT 6.9 /CUMM (4.8-10.8)
[2017-07-20 15:01] VITALS: BP 120/64
--- NOTE | 2017-07-20 16:35 | PN- Att Addend ---
Assessment/Plan Assessment/Plan ESRD on dialysis with non working AV fistula- Pt had Tunneled catheter placement by IR and got Hemodialysis on Saturday. Plan was to dc pt home but pts daughter feels the pt is not safe to go home. Pt complains of ringing in ears that has been going on for few months. Pt will be reevaluated by PT tomorrow as pt has had some falls recently at home. Left frontal subdural hematoma CT didn't show any acute intracranial pathology or significant changes from previous one Avoid blood thinners - continue to monitor Consult Acknowledgment - Thank you for your consult request. Review of Systems Review of Systems Constitutional: Denies: chills, fever. EENTM: Reports: see HPI (tinnitus b/l). Cardiovascular: Denies: chest pain. Respiratory: Denies: cough, short of breath. GI: Denies: abdominal pain. Genitourinary: Denies: pain. Neurological/Psychological: Denies: anxiety. Physical Exam Physical Exam General Appearance: well developed/nourished, no apparent distress Comments: General Appearance: Alert, Oriented X3, Cooperative, No Acute Distress Skin: bilateral LE scratch murphy Skin Temp/Moisture Exam: Warm/Dry Sepsis Skin Exam (color): Normal for Ethnicity HEENT: Atraumatic, EOMI, Mucous Membr. moist/pink Cardiovascular: Normal S1, Normal S2 Lungs: Normal Air Movement Neurological: Normal Speech, grossly normal, mental condition grossly improved compared to last night Core Measures ACS in differential dx? No CVA/TIA Diagnosis: No Sepsis Present: No Sepsis Focused Exam Completed? No
[2017-07-20 22:10] VITALS: BP 148/82
[2017-07-21 06:20] VITALS: BP 140/76
--- NOTE | 2017-07-21 08:19 | PN- Housestaff ---
Rhett Sutherland MD,[facility] 07/21/17 0819: Subjective Follow-up For: AMS ESRD on HD itchiness Subjective: Patient visited today, was lying in bed comfortably in no acute distress, patient was alert and oriented. No fever or chills, no shortness of breathing, no chest pain, no other events. Patient was still complaining of itchiness. scratch murphy all over bilateral LEs. adminstered benadryl cream. Review of Systems Constitutional: Reports: see HPI. Objective Last 24 Hrs of Vital Signs/I&O Vital Signs Date Time Temp Pulse Resp B/P B/P Pulse O2 O2 Flow FiO2 Mean Ox Delivery Rate 07/21 2212 98.6 57 20 138/62 95 Room Air 07/21 1458 98.0 64 20 136/88 95 07/21 0756 80 140/74 07/21 0756 80 140/74 07/21 0756 80 140/74 07/21 0756 80 140/74 Intake & Output 07/22 0800 07/22 0000 07/21 1600 Intake Total 900 Output Total Balance 900 Intake, Oral 900 Number 1 2 Bowel Movements Physical Exam General Appearance: Alert, Oriented X3, Cooperative, No Acute Distress Skin: scratch murphy Skin Temp/Moisture Exam: Warm/Dry Sepsis Skin Exam (color): Normal for Ethnicity HEENT: Atraumatic, EOMI, Mucous Membr. moist/pink Neck: tunneled cath in place Cardiovascular: Normal S1, Normal S2 Lungs: Normal Air Movement Abdomen: Soft, No Tenderness Neurological: Normal Speech Current Medications: Current Medications Sig/Harmeet Start time Last Medication Dose Route Stop Time Status Admin Acetaminophen 650 MG Q6P PRN 07/18 2344 AC 07/20 PO 0618 Allopurinol 100 MG DAILY 07/19 1000 AC 07/21 PO 0756 Amlodipine Besylate 10 MG DAILY 07/19 1000 AC 07/21 PO 0756 Diphenhydramine HCl 1 ZHANNA DAILY 07/21 1229 AC 07/21 TOP 1703 Epoetin [place] 1,000 UNIT MoWeFr PRN 07/19 1515 AC IV Hydrocodone Bitart/ 1 TAB Q6P PRN 07/18 2344 AC 07/20 Acetaminophen PO 0139 Hydrocortisone 1 ZHANNA BID 07/18 2345 AC 07/21 EXT 2017 Hydroxyzine HCl 25 MG BID PRN 07/19 0015 AC 07/21 PO 0800 Latanoprost 1 GTT AT BEDTIME 07/20 2200 AC 07/21 OPH 2108 Levothyroxine Sodium 0.15 MG DAILY AC 07/19 0700 AC 07/22 PO 0558 Losartan Potassium 25 MG DAILY 07/19 1000 AC 07/21 PO 0756 Metoprolol Succinate 25 MG DAILY 07/19 1000 AC 07/21 PO 0756 Nystatin 1 ZHANNA BID 07/19 0047 AC 07/21 TOP 210 Omeprazole 20 MG DAILY AC 07/19 0700 AC 07/22 PO 0557 Sevelamer Carbonate 800 MG WITH MEALS 07/19 0800 AC 07/21 PO 1703 Tamsulosin HCl 0.4 MG DAILY 07/19 1000 AC 07/21 PO 0756 Trazodone HCl 50 MG QPM 07/19 2199 AC 07/21 PO 210 Assessment/Plan Assessment: 87-year-old gentleman presented after a fall complained of intermittent confusion, nausea, vomiting, diarrhea, skin itchiness h/o subdural hematoma and was admitted to [facility] last month PMH: aortic stenosis, previous TIA, 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 BUN 36, creatinine 7.9, glucose 95, AST 11, AST 16 Imagings at admission: hip Xray: Compression screw in left hip. Healed intratrochanteric fracture left hip. No acute abnormality. Head CT: 1. No acute intracranial pathology, no significant interval change is present compared to the recent previous study of 06/09/2017. 2. Stable significant cortical volume loss and small frontal subdural hematomas all stable compared to the prior study. 3. Interval development of fluid opacification of the right mastoid air cells with multiple air-fluid levels. Patient was admitted to floor for management of following conditions: #ESRD on hemodialysis hemodialysis Saturday, AV fistula most likely occluded per examination. - Nephrology consult appreciated - Close monitoring of kidney function - Tunneled catheter placement by IR -Hemodialysis tomorrow #Weakness and confusion: Differential diagnosis includes dehydration, deconditioning, as well as uremia. Intracranial acute pathology was rule out - continue general medicine floor - Vitals every shift - PT evaluation #Left frontal subdural hematoma CT didn't show any acute intracranial pathology or significant changes from previous one Avoid blood thinners - continue to monitor #Chronic medical condition: Continue home meds Itchiness - benadryl cream DNR/DNI Renal dialysis Diet DVT prophylaxis with Alps Problem List: 1. Chronic kidney disease with end stage renal failure on dialysis Pain Ratin Pain Location: none Pain Goal: Pain 4 or less Pain Plan: continue current plan Tomorrow's Labs & Rationales: CBC bEp ItaloRaffylinda 07/21/17 1511: Attending MD Review Statement Attending Statement Attending MD Statement: examined this patient, discuss w/resident/PA/RUN BOAT OPERATOR, agreed w/resident/PA/RUN BOAT OPERATOR, reviewed EMR data (avail), discussed with nursing, discussed with case mgmt Attending Assessment/Plan: PT to reeval on saturday for possible placement on STR. Complaining of itching on the legs and have been scratching his legs. Getting Atarax prn and will add benadryl cream for itching. case management to work on placement.
[2017-07-21 14:58] VITALS: BP 136/88
[2017-07-21 22:13] VITALS: BP 138/62
[2017-07-22 06:20] VITALS: BP 132/60
--- NOTE | 2017-07-22 06:38 | PN- Housestaff ---
Rhett Sutherland MD,[facility] [address] 07/22/17 0638: Subjective Follow-up For: AMS ESRD on HD Itch[place] Subjective: Patient visited today, was lying in bed comfortably in no acute distress, was alert and oriented. was complaining of itchiness, minimal improvement with Benadryl cream No fever or chills, no shortness of breathing, no chest pain, no other events. Will had HD today pending placement considering family want to placement in STR Review of Systems Constitutional: Reports: see HPI. Objective Last 24 Hrs of Vital Signs/I&O Vital Signs Date Time Temp Pulse Resp B/P B/P Pulse O2 O2 Flow FiO2 Mean Ox Delivery Rate 07/22 1537 68 162/70 07/22 1530 99.0 68 18 162/70 95 Room Air 07/22 0620 98.4 62 18 132/60 93 Room Air 07/21 2213 98.6 57 20 138/62 95 Room Air Intake & Output 07/22 1600 07/22 0800 07/22 0000 Intake Total 400 Output Total Balance 400 Intake, Oral 400 Number 1 1 Bowel Movements Patient 146 lb 146 lb Weight Weight Bed scale Bed scale Measurement Method Physical Exam General Appearance: Alert, Oriented X3, Cooperative, No Acute Distress Skin: scratch murphy Skin Temp/Moisture Exam: Warm/Dry Sepsis Skin Exam (color): Normal for Ethnicity HEENT: Atraumatic, EOMI, Mucous Membr. moist/pink Cardiovascular: Normal S1, Normal S2 Lungs: Normal Air Movement Abdomen: Soft, No Tenderness Neurological: Normal Speech Extremities: AVF Current Medications: Current Medications Sig/Harmeet Start time Last Medication Dose Route Stop Time Status Admin Acetaminophen 650 MG Q6P PRN 07/185 AC 07/20 PO 0618 Allopurinol 100 MG DAILY 07/19 1000 AC 07/22 PO 0939 Amlodipine Besylate 10 MG DAILY 07/19 1000 AC 07/22 PO 1537 Diphenhydramine HCl 1 ZHANNA DAILY 07/21 1229 07/22 TOP 0939 Epoetin Bolivar 1,000 UNIT MoWeFr PRN 07/19 1515 AC IV Hydrocodone Bitart/ 1 TAB Q6P PRN 07/18 2345 AC 07/20 Acetaminophen PO 0139 Hydrocortisone 1 ZHANNA BID 07/18 2345 AC 07/22 EXT 0939 Hydroxyzine HCl 25 MG BID PRN 07/19 0015 AC 07/21 PO 0800 Latanoprost 1 GTT AT BEDTIME 07/200 AC 07/21 OPH 2108 Levothyroxine Sodium 0.15 MG DAILY AC 07/19 0700 AC 07/22 PO 0558 Losartan Potassium 25 MG DAILY 07/19 1000 AC 07/22 PO 1537 Metoprolol Succinate 25 MG DAILY 07/19 1000 AC 07/22 PO 1537 Nystatin 1 ZHANNA BID 07/19 0047 AC 07/22 TOP 1000 Omeprazole 20 MG DAILY AC 07/19 0700 AC 07/22 PO 0557 Sevelamer Carbonate 800 MG WITH MEALS 07/19 0800 AC 07/22 PO 1211 Tamsulosin HCl 0.4 MG DAILY 07/19 1000 AC 07/22 PO 1537 Trazodone HCl 50 MG QPM 07/19 2199 AC 07/21 PO 210 Last 24 Hrs of Lab/Jarod Results Last 24 Hrs of Labs/Mics: Laboratory Tests 07/22/17 1100: Anion Gap 16, Estimated GFR 5 L, BUN/Creatinine Ratio 5.2 L, CBC w Diff NO MAN DIFF REQ, RBC 3.12 L, MCV 104.1 H, MCH 34.7 H, MCHC 33.3, RDW 15.7 H, MPV 8.3, Gran % 57.5, Lymphocytes % 34.1, Monocytes % 6.1, Eosinophils % 1.9, Basophils % 0.4, Absolute Granulocytes 3.6, Absolute Lymphocytes 2.1, Absolute Monocytes 0.4, Absolute Eosinophils 0.1, Absolute Basophils 0 Assessment/Plan Assessment: 87-year-old gentleman presented after a fall complained of intermittent confusion, nausea, vomiting, diarrhea, skin itchiness h/o subdural hematoma and was admitted to [facility] last month PMH: aortic stenosis, previous TIA, 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 BUN 36, creatinine 7.9, glucose 95, AST 11, AST 16 Imagings at admission: hip Xray: Compression screw in left hip. Healed intratrochanteric fracture left hip. No acute abnormality. Head CT: 1. No acute intracranial pathology, no significant interval change is present compared to the recent previous study of 06/09/2017. 2. Stable significant cortical volume loss and small frontal subdural hematomas all stable compared to the prior study. 3. Interval development of fluid opacification of the right mastoid air cells with multiple air-fluid levels. Patient was admitted to GM floor for management of following conditions: # safe Placement Family requested to be placed in STR - case management associate consulted - will follow placement #ESRD on hemodialysis hemodialysis Saturday, AV fistula most likely occluded per examination. - Nephrology consult appreciated - Close monitoring of kidney function - Tunneled catheter placement by IR - Hemodialysis today #Weakness and confusion: Differential diagnosis includes dehydration, deconditioning, as well as uremia. Intracranial acute pathology was rule out - continue general medicine floor - Vitals every shift - PT evaluation #Left frontal subdural hematoma CT didn't show any acute intracranial pathology or significant changes from previous one Avoid blood thinners - continue to monitor #Chronic medical condition: Continue home meds Itchiness - benadryl cream DNR/DNI Renal dialysis Diet DVT prophylaxis with Alps Problem List: 1. ESRD (end stage renal disease) on dialysis Pain Ratin Pain Location: None Pain Goal: Pain 4 or less Pain Plan: Continue current plan Tomorrow's Labs & Rationales: CBC BEP JulietIrene sotelo 07/22/17 1243: Attending Review Statement Attending Statement Attending MD Statement: examined this patient, discuss w/resident/PA/DEICER INSPECTOR ELECTRIC, agreed w/resident/PA/DEICER INSPECTOR ELECTRIC, discussed with family, reviewed EMR data (avail), discussed with nursing, discussed with case mgmt, reviewed images, amended to note Attending Assessment/Plan: PT to reeval for possible placement on STR. Patient receiving dialysis as per nephrology. Continue Atarax prn and benadryl cream for itching. case management to work on placement.
--- NOTE | 2017-07-22 12:18 | PN- Nephrology ---
Assessment/Plan Nephrology Assessment: 1 end-stage renal disease on hemodialysis 2. Thrombosed access. Suggestion: 1. Hemodialysis again on Saturday Subjective Subjective: Patient seen with hemodialysis in progress. He offers no complaints. Objective Vital Signs and I&Os Vital Signs Date Time Temp Pulse Resp B/P B/P Pulse O2 O2 Flow FiO2 Mean Ox Delivery Rate 07/22 0620 98.4 62 18 132/60 93 Room Air 07/21 2213 98.6 57 20 138/62 95 Room Air 07/21 1458 98.0 64 20 136/88 95 Intake & Output 07/22 1600 07/22 0400 07/21 1600 07/21 0400 07/20 1600 07/20 040 Intake Total 1100 2150 480 Output Total Balance 1100 2150 480 Intake, Oral 1100 2150 480 Number 1 1 4 1 Bowel Movements Patient 146 lb 145 lb Weight Weight Bed scale Measurement Method Physical Exam General Appearance: well developed/nourished, no apparent distress, alert Head: atraumatic, normal appearance Ears, Nose, Throat: normal pharynx, normal ENT inspection Neck: tender midline Respiratory: normal breath sounds, chest non-tender, lungs clear Cardiovascular: regular rate/rhythm, JVD Abdomen: normal bowel sounds, soft, non-tender, no organomegaly Extremities: normal inspection, normal capillary refill, normal range of motion Neurologic/Psychiatric: no motor/sensory deficits, awake, alert, confusion? Current Medications: Current Medications Sig/Harmeet Start time Last Medication Dose Route Stop Time Status Admin Acetaminophen 650 MG Q6P PRN 07/18 2344 AC 07/20 PO 0618 Allopurinol 100 MG DAILY 07/19 1000 07/22 PO 0939 Amlodipine Besylate 10 MG DAILY 07/19 1000 AC 07/21 PO 0756 Diphenhydramine HCl 1 ZHANNA DAILY 07/21 1229 07/22 TOP 0939 Epoetin Bolivar 1,000 UNIT MoWeFr PRN 07/19 1515 AC IV Hydrocodone Bitart/ 1 TAB Q6P PRN 07/18 Acetaminophen PO 0139 Hydrocortisone 1 ZHANNA BID 07/185 07/22 EXT 0939 Hydroxyzine HCl 25 MG BID PRN 07/19 0015 AC 07/21 PO 0800 Latanoprost 1 GTT AT BEDTIME 07/20 2200 07/21 OPH 2108 Levothyroxine Sodium 0.15 MG DAILY AC 07/19 0700 AC 07/22 PO 0558 Losartan Potassium 25 MG DAILY 07/19 1000 AC 07/21 PO 0756 Metoprolol Succinate 25 MG DAILY 07/19 1000 AC 07/21 PO 0756 Nystatin 1 ZHANNA BID 07/19 0047 AC 07/21 TOP 2106 Omeprazole 20 MG DAILY AC 07/19 0700 AC 07/22 PO 0557 Sevelamer Carbonate 800 MG WITH MEALS 07/19 0800 AC 07/22 PO 1211 Tamsulosin HCl 0.4 MG DAILY 07/19 1000 AC 07/21 PO 0756 Trazodone HCl 50 MG QPM 07/19 220 AC 07/21 PO 2106 Results Pertinent Lab Results: Laboratory Tests 07/20 08 Chemistry Sodium (137 - 145 mmol/L) 140 Potassium (3.5 - 5.1 mmol/L) 4.3 Chloride (98 - 107 mmol/L) 102 Carbon Dioxide (22 - 30 mmol/L) 25 Anion Gap (5 - 16) 14 BUN (9 - 20 mg/dL) 24 H Creatinine (0.7 - 1.2 mg/dL) 6.0 *H Estimated GFR (>60 ml/min) 9 L BUN/Creatinine Ratio (7 - 25 %) 4.0 L Hematology CBC w Diff NO MAN DIFF REQ WBC (4.8 - 10.8 /CUMM) 6.9 RBC (4.70 - 6.10 /CUMM) 3.37 L Hgb (14.0 - 18.0 G/DL) 11.7 L Hct (42 - 52 %) 35.7 L MCV (80.0 - 94.0 FL) 105.9 H MCH (27.0 - 31.0 PG) 34.6 H MCHC (33.0 - 37.0 G/DL) 32.7 L RDW (11.5 - 14.5 %) 16.9 H Plt Count (130 - 400 /CUMM) 167 MPV (7.4 - 10.4 FL) 8.2 Gran % (42.2 - 75.2 %) 55.5 Lymphocytes % (20.5 - 51.1 %) 36.3 Monocytes % (1.7 - 9.3 %) 5.8 Eosinophils % (0 - 5 %) 2.0 Basophils % (0.0 - 2.0 %) 0.4 Absolute Granulocytes (1.4 - 6.5 /CUMM) 3.8 Absolute Lymphocytes (1.2 - 3.4 /CUMM) 2.5 Absolute Monocytes (0.10 - 0.60 /CUMM) 0.4 Absolute Eosinophils (0.0 - 0.7 /CUMM) 0.1 Absolute Basophils (0.0 - 0.2 /CUMM) 0
[2017-07-22 13:40] LABS: ABSOLUTE BASOPHIL COUNT 0 /CUMM (0.0-0.2); ABSOLUTE EOSINOPHIL COUNT 0.1 /CUMM (0.0-0.7); ABSOLUTE GRANULOCYTE CT 3.6 /CUMM (1.4-6.5); ABSOLUTE LYMPH COUNT 2.1 /CUMM (1.2-3.4); ABSOLUTE MONOCYTE COUNT 0.4 /CUMM (0.10-0.60); BASOPHIL % 0.4 % (0.0-2.0); EOSINOPHIL % 1.9 % (0-5); GRANULOCYTE % 57.5 % (42.2-75.2); HEMATOCRIT 32.5 % (42-52); MEAN CORPUSCULAR HGB 34.7 PG (27.0-31.0); MEAN CORPUSCULAR HGB CONC 33.3 G/DL (33.0-37.0); MEAN CORPUSCULAR VOLUME 104.1 FL (80.0-94.0); MEAN PLATELET VOLUME 8.3 FL (7.4-10.4); PLATELET COUNT 162 /CUMM (130-400); RBC DISTRIBUTION WIDTH 15.7 % (11.5-14.5); RED BLOOD CELL CT 3.12 /CUMM (4.70-6.10); WHITE BLOOD CELL COUNT 6.3 /CUMM (4.8-10.8)
[2017-07-22 15:30] VITALS: BP 162/70
[2017-07-22 22:14] VITALS: BP 132/60
[2017-07-23 06:39] VITALS: BP 150/64
--- NOTE | 2017-07-23 08:02 | PN- Housestaff ---
Rhett Sutherland MD,[facility] 07/23/17 0802: Subjective Follow-up For: AMS ESRD on dialysis Subjective: Initial evaluation on 7:30: Patient visited today, south african speaking gentleman, was lying in bed comfortably in no acute distress, was alert and oriented. No fever or chills, no shortness of breathing, no chest pain, no other events. Patient was complaining of itichiness with relative improvement with lotion. HD was done yesterday, pending placement. 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 on hemodialysis Saturday, prostate cancer in 2008 after chemotherapy and radiation, hypertension, hyperlipidemia, and gout complained of intermittent confusion, nausea, vomiting, diarrhea, skin itchiness h/o subdural hematoma and was admitted to [facility] last month intial CT scan was negative patient was placed in GM floor, HD was done through tunneled cath patient was pending palcement A and P: There was obvious deterioration in patient's mental condition, despite he was completely alert and oriented in the a.m., he was not oriented at the time of event, was talking in Occitan, could not respond to questions, neuro exam grossly no change compared to yesterday. CT scan stat was ordered, patient was then transferred to [facility] (placed in ICU pending placement). ICU team will follow. please see residents note for further info. Review of Systems Constitutional: Reports: see HPI. Objective Last 24 Hrs of Vital Signs/I&O Vital Signs Date Time Temp Pulse Resp B/P B/P Pulse O2 O2 Flow FiO2 Mean Ox Delivery Rate 07/23 1110 97.9 60 18 158/74 95 Room Air 07/23 0917 87 148/74 07/23 0916 87 148/74 07/23 0916 87 148/74 07/23 0915 87 148/74 07/23 0639 98.0 63 20 150/64 92 Room Air 07/22 2214 99.2 63 20 132/60 95 07/22 1537 68 162/70 07/22 1530 99.0 68 18 162/70 95 Room Air Intake & Output 07/23 1600 07/23 0800 07/23 0000 Intake Total 240 240 Output Total Balance 240 240 Intake, Oral 240 240 Number 1 Bowel Movements Patient 142 lb Weight Physical Exam General Appearance: Alert, Oriented X3, Cooperative, No Acute Distress Skin: scratch murphy, relative improvement Skin Temp/Moisture Exam: Warm/Dry Sepsis Skin Exam (color): Normal for Ethnicity HEENT: Atraumatic, EOMI, Mucous Membr. moist/pink Cardiovascular: Normal S1, Normal S2 Lungs: Clear to Auscultation, Normal Air Movement Abdomen: Soft, No Tenderness Neurological: Strength at 5/5 X4 Ext, Cranial Nerves 3-12 NL, grossly normal, no change compared to yesterday. Extremities: No Edema Current Medications: Current Medications Sig/Harmeet Start time Last Medication Dose Route Stop Time Status Admin Acetaminophen 650 MG Q6P PRN 07/18 2345 AC 07/20 PO 0618 Allopurinol 100 MG DAILY 07/19 1000 AC 07/23 PO 0916 Amlodipine Besylate 10 MG DAILY 07/19 1000 AC 07/23 PO 0916 Aspirin 81 MG DAILY 07/23 1306 AC 07/23 PO 1319 Atorvastatin Calcium 80 MG 1700 07/23 1700 AC PO Diphenhydramine HCl 1 ZHANNA DAILY 07/21 1229 AC 07/23 TOP 0918 Epoetin Bolivar 1,000 UNIT MoWeFr PRN 07/19 1515 AC IV Hydrocodone Bitart/ 1 TAB Q6P PRN 07/18 2345 AC 07/20 Acetaminophen PO 0139 Hydrocortisone 1 ZHANNA BID 07/18 2345 AC 07/23 EXT 0918 Hydroxyzine HCl 25 MG BID PRN 07/19 0015 AC 07/21 PO 0800 Latanoprost 1 GTT AT BEDTIME 07/20 2200 AC 07/22 OPH 2138 Levothyroxine Sodium 0.15 MG DAILY AC 07/19 0700 AC 07/23 PO 0609 Losartan Potassium 25 MG DAILY 07/19 1000 AC 07/23 PO 0917 Metoprolol Succinate 25 MG DAILY 07/19 1000 AC 07/23 PO 0915 Nystatin 1 ZHANNA BID 07/19 0047 DC 07/22 TOP 2138 Omeprazole 20 MG DAILY AC 07/19 0700 AC 07/23 PO 0609 Sevelamer Carbonate 800 MG WITH MEALS 07/19 0800 AC 07/23 PO 1319 Tamsulosin HCl 0.4 MG DAILY 07/19 1000 AC 07/23 PO 0916 Trazodone HCl 50 MG QPM 07/19 2200 AC 07/22 PO 2138 Last 24 Hrs of Lab/Jarod Results Last 24 Hrs of Labs/Mics: Laboratory Tests 07/23/17 1230: Sodium Pending, Potassium Pending, Chloride Pending, Carbon Dioxide Pending, Anion Gap Pending, BUN Pending, Creatinine Pending, BUN/Creatinine Ratio Pending , Prolactin Pending 07/23/17 0750: Anion Gap 13, Estimated GFR 8 L, BUN/Creatinine Ratio 3.8 L, CBC w Diff NO MAN DIFF REQ, RBC 3.16 L, MCV 104.9 H, MCH 34.1 H, MCHC 32.5 L, RDW 16.8 H, MPV 8.0, Gran % 56.8, Lymphocytes % 35.1, Monocytes % 6.1, Eosinophils % 1.6, Basophils % 0.4, Absolute Granulocytes 3.2, Absolute Lymphocytes 2.0, Absolute Monocytes 0.3, Absolute Eosinophils 0.1, Absolute Basophils 0 Assessment/Plan Assessment: 87-year-old gentleman presented after a fall complained of intermittent confusion, nausea, vomiting, diarrhea, skin itchiness h/o subdural hematoma and was admitted to [facility] last month PMH: aortic stenosis, previous TIA, 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 BUN 36, creatinine 7.9, glucose 95, AST 11, AST 16 Imagings at admission: hip Xray: Compression screw in left hip. Healed intratrochanteric fracture left hip. No acute abnormality. Head CT: 1. No acute intracranial pathology, no significant interval change is present compared to the recent previous study of 06/09/2017. 2. Stable significant cortical volume loss and small frontal subdural hematomas all stable compared to the prior study. 3. Interval development of fluid opacification of the right mastoid air cells with multiple air-fluid levels. Patient was admitted to floor for management of following conditions: # safe Placement Family requested to be placed in STR - case technician consulted - will follow placement #ESRD on hemodialysis hemodialysis Saturday, AV fistula most likely occluded per examination. - Nephrology consult appreciated - Close monitoring of kidney function - Tunneled catheter placement by IR - Hemodialysis today #Weakness and confusion: Differential diagnosis includes dehydration, deconditioning, as well as uremia. Intracranial acute pathology was rule out - continue general medicine floor - Vitals every shift - PT evaluation #Left frontal subdural hematoma CT didn't show any acute intracranial pathology or significant changes from previous one Avoid blood thinners - continue to monitor #Chronic medical condition: Continue home meds Itchiness - benadryl cream DNR/DNI Renal dialysis Diet DVT prophylaxis with Alps Change in mental status: intial CT scan was negative for acute pathology. Current change in mental status is new. - CT scan stat - transfer to tele floor Problem List: 1. ESRD (end stage renal disease) on dialysis 2. Confusion Pain Ratin Pain Location: None Pain Goal: Pain 4 or less Pain Plan: Continue current plan Tomorrow's Labs & Rationales: CBC ICU bundle Irene Chung 07/23/17 1229: Attending MD Review Statement Attending Statement Attending MD Statement: examined this patient, discuss w/resident/PA/SINGEING TORCH OPERATOR, agreed w/resident/PA/SINGEING TORCH OPERATOR, discussed with family, reviewed EMR data (avail), discussed with nursing, discussed with case mgmt, reviewed images, amended to note Attending Assessment/Plan: Patient found to have slurred speech. Rapid response and stroke alert called. Patient underwent CT head with no acute change, stable subdural hematoma and no large infarct. NIHSS score 2. Patient not candidate of tpa. Neurology employee relations assistant Dr Stevens consulted and recommended telemetry monitoring, frequent neurochecks, if clinical worsens call neurology. NPO , consult speech/swallow, PT/OT ongoing. hbaic, lipid profile. Inform nephrology. cont current care.. gi/dvt prophyalxis
[2017-07-23 08:51] LABS: ABSOLUTE BASOPHIL COUNT 0 /CUMM (0.0-0.2); ABSOLUTE EOSINOPHIL COUNT 0.1 /CUMM (0.0-0.7); ABSOLUTE GRANULOCYTE CT 3.2 /CUMM (1.4-6.5); ABSOLUTE MONOCYTE COUNT 0.3 /CUMM (0.10-0.60); BASOPHIL % 0.4 % (0.0-2.0); EOSINOPHIL % 1.6 % (0-5); GRANULOCYTE % 56.8 % (42.2-75.2); HEMATOCRIT 33.1 % (42-52); MEAN CORPUSCULAR HGB 34.1 PG (27.0-31.0); MEAN CORPUSCULAR HGB CONC 32.5 G/DL (33.0-37.0); MEAN CORPUSCULAR VOLUME 104.9 FL (80.0-94.0); PLATELET COUNT 154 /CUMM (130-400); RBC DISTRIBUTION WIDTH 16.8 % (11.5-14.5); RED BLOOD CELL CT 3.16 /CUMM (4.70-6.10); WHITE BLOOD CELL COUNT 5.7 /CUMM (4.8-10.8)
[2017-07-23 11:10] VITALS: BP 158/74
--- NOTE | 2017-07-23 11:49 | Event Note ---
Event Note Event Note: Stroke alert called for patient last seen normal at 10:50 am. Patient developed slurring of his speech and replied with inappropriate words. Stroke alert and rapid response was called at 11:05 am. On examination patient had slight slurring of speech which appeared to be resolving compared to initial and also had wrong answers to questions to identify objects. He was alert and oriented X 3 and his aphasia improved during evaluation. Neurological exam showed normal strength in all limbs with no drift. No facial assymetry. PERRLA, EOMI, No visual field defects. NIH stroke scale was 2 Cardiovascular exam showed normal S1, S2 with aortic stenosis murmur. Chest was clear to auscultation. Bedside side swallow deferred for quick head CT scan. Stat EKG showed Sinus rhythym and heart rate of 59 bpm. Attending, Dr. Chung present during evaluation. Case was discussed with stroke alert neurologist, Dr. Stevens. Patient was not deemed to be a candidate for TPA given recent subdural bleed and the fact that his symptoms appeared to be resolving. She advised stat CT head and to reevaluate the patient and discuss with her. Plan -CT head stat -Transfer to ICU after head CT for frequent Q 2 hr neurochecks -Reevaluate with NIH stroke scale and neuroexam and discuss with neurologist, Dr. Stevens -Do bedside swallow evaluation.
--- NOTE | 2017-07-23 11:50 | CT SCAN REPORT ---
EXAMINATION: CT HEAD WITHOUT CONTRAST CLINICAL INFORMATION: Evaluation for stroke. TIA. Change in orientation with slurred speech. COMPARISON: Head CT 07/18/2017. TECHNIQUE: Contiguous axial imaging was performed from the skull base to vertex without intravenous administration of contrast. DLP: 613 mGy-cm. FINDINGS: There is redemonstration of small bilateral frontal convexity subdural collections which are predominantly isoattenuating to hypoattenuating and measuring up to 6 mm on the right and up to 2 mm on the left. No new hyperdense components have developed within the small collections. There is no associated mass effect. There is no parenchymal hemorrhage or CT evidence of large territory infarction. There is redemonstration of a chronic lacunar infarct within the posterior right lentiform nucleus. There is mild scattered hypoattenuation in the bilateral cerebral white matter, which is nonspecific but likely reflects small vessel disease. There is mild diffuse brain parenchymal volume loss with prominence of the ventricles and sulci. There is no evidence of hydrocephalus. There is no mass lesion. The paranasal sinuses are clear. There is mild fluid in the right mastoid air cells, middle ear cavities, and petrous apex. There are atherosclerotic calcification of the carotid siphons and vertebral arteries. There are severe atheromatous calcifications of the extracranial vessels reflecting sequela of end-stage renal disease. IMPRESSION: 1. Stable appearance of small subdural collections along the bilateral frontal convexities measuring up to 6 mm on the right and without associated mass effect. 2. No new intracranial hemorrhage, mass, or CT evidence of large territory infarction. 3. Mild diffuse brain parenchymal volume loss and background of mild small vessel ischemic changes. 4. Redemonstration of opacification of the right mastoid, middle ear, and petrous apex.
--- NOTE | 2017-07-23 12:11 | Event Note ---
Event Note Event Note: Reassessed patient at 12:00 PM. He has no neurological deficit and his NIH stroke scale score is now 0. Patient states that he feels less confused. Patient passed a bedside swallow evaluation now. His head CT scan showed no evidence of a large infarct and a stable appearance of his known bilateral subdural hematoma. Patient was discussed with on stroke alert neurologist, Dr. Stevens. She recommended continued telemetry monitoring, neurochecks and carotid doppler ultrasound scan. She also recommended placing the patient on aspirin and statin if no contraindication. Primary ICU team informed.
--- NOTE | 2017-07-23 13:06 | Event Note ---
Event Note Event Note: Spoke over the phone with the neurologist, Dr. Stevens. Dr. Sauceda states that she has checked patient's records and at that time, his Plavix was stopped given intracranial bleed and he was maintained on aspirin. Dr. Stevens suggests starting the patient on low-dose aspirin. Also statin.
--- NOTE | 2017-07-23 13:16 | PN- Nephrology ---
Assessment/Plan Nephrology Assessment: 1 end-stage renal disease on hemodialysis 2. Thrombosed access. 3. TIA? Suggestion: 1. Hemodialysis tomorrow 2. Await neuro eval. Subjective Subjective: Patient was discussing his episode earlier today with slurred speech and difficulty finding words. He feels better now. Objective Vital Signs and I&Os Vital Signs Date Time Temp Pulse Resp B/P B/P Pulse O2 O2 Flow FiO2 Mean Ox Delivery Rate 07/23 1110 97.9 60 18 158/74 95 Room Air 07/23 0917 87 148/74 07/23 0916 87 148/74 07/23 0916 87 148/74 07/23 0915 87 148/74 07/23 0639 98.0 63 20 150/64 92 Room Air 07/22 2214 99.2 63 20 132/60 95 07/22 1537 68 162/70 07/22 1530 99.0 68 18 162/70 95 Room Air Intake & Output 07/23 1600 07/23 0400 07/22 1600 07/22 0400 07/21 1600 07/21 0400 Intake Total 240 709 789 6754 Output Total Balance 240 605 333 6755 Intake, Oral 240 549 030 7795 Number 1 1 1 4 Bowel Movements Patient 142 lb 146 lb Weight Weight Bed scale Measurement Method Physical Exam: General Appearance: well developed/nourished, no apparent distress, alert Head: atraumatic, normal appearance Neck: No midline tenderness Respiratory: normal breath sounds, chest non-tender, lungs clear Cardiovascular: regular rate/rhythm, JVD Abdomen: normal bowel sounds, soft, non-tender, no organomegaly Extremities: normal inspection, normal capillary refill, normal range of motion Neurologic/Psychiatric: Actually more awake and alert than yesterday. Current Medications: Current Medications Sig/Harmeet Start time Last Medication Dose Route Stop Time Status Admin Acetaminophen 650 MG Q6P PRN 07/18 2345 AC 07/20 PO 0618 Allopurinol 100 MG DAILY 07/19 1000 AC 07/23 PO 0916 Amlodipine Besylate 10 MG DAILY 07/19 1000 AC 07/23 PO 0916 Aspirin 81 MG DAILY 07/23 1306 UNVr PO Atorvastatin Calcium 80 MG 1700 07/23 1700 UNVr PO Diphenhydramine HCl 1 ZHANNA DAILY 07/21 1229 AC 07/23 TOP 0918 Epoetin Bolivar 1,000 UNIT MoWeFr PRN 07/19 1515 AC IV Hydrocodone Bitart/ 1 TAB Q6P PRN 07/18 2345 AC 07/20 Acetaminophen PO 0139 Hydrocortisone 1 ZHANNA BID 07/18 2345 AC 07/23 EXT 0918 Hydroxyzine HCl 25 MG BID PRN 07/19 0015 AC 07/21 PO 0800 Latanoprost 1 GTT AT BEDTIME 07/20 2200 AC 07/22 OPH 2138 Levothyroxine Sodium 0.15 MG DAILY AC 07/19 0700 AC 07/23 PO 0609 Losartan Potassium 25 MG DAILY 07/19 1000 AC 07/23 PO 0917 Metoprolol Succinate 25 MG DAILY 07/19 1000 AC 07/23 PO 0915 Nystatin 1 ZHANNA BID 07/19 0047 DC 07/22 TOP 2138 Omeprazole 20 MG DAILY AC 07/19 0700 AC 07/23 PO 0609 Sevelamer Carbonate 800 MG WITH MEALS 07/19 0800 AC 07/23 PO 0755 Tamsulosin HCl 0.4 MG DAILY 07/19 1000 AC 07/23 PO 0916 Trazodone HCl 50 MG QPM 07/19 2200 AC 07/22 PO 2138 Results Pertinent Lab Results: Laboratory Tests 07/23 07/23 1230 0750 Chemistry Sodium (137 - 145 mmol/L) Pending 140 Potassium (3.5 - 5.1 mmol/L) Pending 4.6 Chloride (98 - 107 mmol/L) Pending 102 Carbon Dioxide (22 - 30 mmol/L) Pending 25 Anion Gap (5 - 16) Pending 13 BUN (9 - 20 mg/dL) Pending 26 H Creatinine (0.7 - 1.2 mg/dL) Pending 6.8 *H Estimated GFR (>60 ml/min) 8 L BUN/Creatinine Ratio (7 - 25 %) Pending 3.8 L Prolactin Pending Hematology CBC w Diff NO MAN DIFF REQ WBC (4.8 - 10.8 /CUMM) 5.7 RBC (4.70 - 6.10 /CUMM) 3.16 L Hgb (14.0 - 18.0 G/DL) 10.8 L Hct (42 - 52 %) 33.1 L MCV (80.0 - 94.0 FL) 104.9 H MCH (27.0 - 31.0 PG) 34.1 H MCHC (33.0 - 37.0 G/DL) 32.5 L RDW (11.5 - 14.5 %) 16.8 H Plt Count (130 - 400 /CUMM) 154 MPV (7.4 - 10.4 FL) 8.0 Gran % (42.2 - 75.2 %) 56.8 Lymphocytes % (20.5 - 51.1 %) 35.1 Monocytes % (1.7 - 9.3 %) 6.1 Eosinophils % (0 - 5 %) 1.6 Basophils % (0.0 - 2.0 %) 0.4 Absolute Granulocytes (1.4 - 6.5 /CUMM) 3.2 Absolute Lymphocytes (1.2 - 3.4 /CUMM) 2.0 Absolute Monocytes (0.10 - 0.60 /CUMM) 0.3 Absolute Eosinophils (0.0 - 0.7 /CUMM) 0.1 Absolute Basophils (0.0 - 0.2 /CUMM) 0 02/26 1100 Chemistry Sodium (137 - 145 mmol/L) 138 Potassium (3.5 - 5.1 mmol/L) 4.5 Chloride (98 - 107 mmol/L) 99 Carbon Dioxide (22 - 30 mmol/L) 24 Anion Gap (5 - 16) 16 BUN (9 - 20 mg/dL) 55 H Creatinine (0.7 - 1.2 mg/dL) 10.5 *H Estimated GFR (>60 ml/min) 5 L BUN/Creatinine Ratio (7 - 25 %) 5.2 L Hematology CBC w Diff NO MAN DIFF REQ WBC (4.8 - 10.8 /CUMM) 6.3 RBC (4.70 - 6.10 /CUMM) 3.12 L Hgb (14.0 - 18.0 G/DL) 10.8 L Hct (42 - 52 %) 32.5 L MCV (80.0 - 94.0 FL) 104.1 H MCH (27.0 - 31.0 PG) 34.7 H MCHC (33.0 - 37.0 G/DL) 33.3 RDW (11.5 - 14.5 %) 15.7 H Plt Count (130 - 400 /CUMM) 162 MPV (7.4 - 10.4 FL) 8.3 Gran % (42.2 - 75.2 %) 57.5 Lymphocytes % (20.5 - 51.1 %) 34.1 Monocytes % (1.7 - 9.3 %) 6.1 Eosinophils % (0 - 5 %) 1.9 Basophils % (0.0 - 2.0 %) 0.4 Absolute Granulocytes (1.4 - 6.5 /CUMM) 3.6 Absolute Lymphocytes (1.2 - 3.4 /CUMM) 2.1 Absolute Monocytes (0.10 - 0.60 /CUMM) 0.4 Absolute Eosinophils (0.0 - 0.7 /CUMM) 0.1 Absolute Basophils (0.0 - 0.2 /CUMM) 0
--- NOTE | 2017-07-23 15:24 | ULTRASOUND REPORT ---
EXAMINATION: US DUPLEX CAROTID AND VERTEBRAL CLINICAL INFORMATION: 87-year-old male with TIA. COMPARISON: None TECHNIQUE: Real-time ultrasound and Doppler techniques (integrating B-mode 2D vascular images, Doppler spectral analysis and color flow Doppler imaging) were utilized to interrogate the extracranial carotid and vertebral arteries bilaterally. The degree of stenosis determined by criteria similar to NASCET. FINDINGS: 1. On the right: No plaque is present at the carotid bifurcation and all velocity measurements are normal and do not suggest a stenosis of greater than 50% diameter reduction in the right ICA. The vertebral artery is patent demonstrating antegrade flow. The common carotid artery velocity is 65 cm/s. The internal carotid artery velocities are 47 cm/s systolic and 10 cm/s diastolic. The external carotid artery velocity is 86 cm/s. 2. On the left: Plaque is present at the carotid bifurcation but velocity measurements are normal and do not suggest a stenosis of greater than 50% diameter reduction in the left ICA. The vertebral artery is patent demonstrating antegrade flow. The common carotid artery velocity is 76 cm/s. The internal carotid artery velocities are 50 cm/s systolic and 11 cm/s diastolic. The external carotid artery velocity is 63 cm/s. The external carotid arteries appear unremarkable. IMPRESSION: There is plaque present in the left internal carotid artery with normal velocities consistent with a minimal 0-49% stenosis. The right side is normal with no plaque seen.
[2017-07-23 16:00] VITALS: BP 132/70
[2017-07-23 23:00] VITALS: BP 150/60
[2017-07-24 04:40] LABS: ABSOLUTE BASOPHIL COUNT 0 /CUMM (0.0-0.2); ABSOLUTE EOSINOPHIL COUNT 0.2 /CUMM (0.0-0.7); ABSOLUTE GRANULOCYTE CT 3.7 /CUMM (1.4-6.5); ABSOLUTE LYMPH COUNT 1.9 /CUMM (1.2-3.4); ABSOLUTE MONOCYTE COUNT 0.5 /CUMM (0.10-0.60); BASOPHIL % 0.4 % (0.0-2.0); EOSINOPHIL % 2.5 % (0-5); GRANULOCYTE % 58.7 % (42.2-75.2); HEMATOCRIT 32.4 % (42-52); MEAN CORPUSCULAR HGB 34.3 PG (27.0-31.0); MEAN CORPUSCULAR HGB CONC 32.7 G/DL (33.0-37.0); MEAN PLATELET VOLUME 7.6 FL (7.4-10.4); PLATELET COUNT 150 /CUMM (130-400); RBC DISTRIBUTION WIDTH 16.7 % (11.5-14.5); RED BLOOD CELL CT 3.09 /CUMM (4.70-6.10); WHITE BLOOD CELL COUNT 6.3 /CUMM (4.8-10.8)
[2017-07-24 08:00] VITALS: BP 154/60
--- NOTE | 2017-07-24 08:05 | PN- Housestaff ---
Farnaz Rutledge 07/24/17 0804: Subjective Follow-up For: Possible TIA AMS ESRD on dialysis Subjective: The patient was seen and examined. AAO 3, normal speech. Denies any headache, dizziness, lightheadedness, nausea, vomiting, chest pain, shortness of breath, abdominal pain. Vital signs remained stable. No overnight events reported. Carotid Doppler study reveals: plaque present in the left internal carotid artery with normal velocities consistent with a minimal 0-49% stenosis. The right side is normal with no plaque seen. Review of Systems Constitutional: Reports: no symptoms. Objective Last 24 Hrs of Vital Signs/I&O Vital Signs Date Time Temp Pulse Resp B/P B/P Pulse O2 O2 Flow FiO2 Mean Ox Delivery Rate 07/24 1445 98.2 60 18 144/60 07/24 1400 98.3 58 20 118/78 95 Room Air 07/24 1227 64 168/70 07/24 1200 98.7 64 18 168/70 95 Room Air 07/24 0800 Room Air 07/24 0800 99.0 60 18 154/60 96 Room Air 07/24 0000 96 Room Air 07/23 2300 99.5 64 15 150/60 96 Room Air Intake & Output 07/24 1600 07/24 0800 07/24 0000 Intake Total 480 120 240 Output Total Balance 480 120 240 Intake, Oral 480 120 240 Number 1 1 Bowel Movements Patient 144 lb Weight Weight Bed scale Measurement Method Physical Exam General Appearance: Alert, Oriented X3, Cooperative, No Acute Distress Skin: No Rashes, scratch murphy Skin Temp/Moisture Exam: Warm/Dry Sepsis Skin Exam (color): Normal for Ethnicity HEENT: Atraumatic, PERRLA, EOMI, Mucous Membr. moist/pink Neck: Supple, No JVD, No thryomegaly, +2 Carotid Pulse wo Bruit, No LAD Lymphatic: Axillary nl, Cervical nl Cardiovascular: Regular Rate, Systolic murmur Lungs: Clear to Auscultation, Normal Air Movement Abdomen: Normal Bowel Sounds, Soft, No Tenderness, No Hepatospenomegaly, No Masses Neurological: Normal Speech, Strength at 5/5 X4 Ext, Normal Tone, Sensation Intact, Cranial Nerves 3-12 NL, Reflexes 2+ Extremities: No Clubbing, No Cyanosis, No Edema, Normal Pulses, No Tenderness/ Swelling Vascular: Normal Pulses, Pulses Symmetrical Current Medications: Current Medications Sig/Harmeet Start time Last Medication Dose Route Stop Time Status Admin Acetaminophen 650 MG Q6P PRN 07/18 2345 AC 07/20 PO 0618 Allopurinol 100 MG DAILY 07/19 1000 AC 07/24 PO 1227 Amlodipine Besylate 10 MG DAILY 07/19 1000 AC 07/24 PO 1228 Aspirin 81 MG DAILY 07/23 1306 AC 07/24 PO 1227 Atorvastatin Calcium 80 MG 1700 07/23 1700 AC 07/23 PO 1701 Diphenhydramine HCl 1 ZHANNA DAILY 07/21 1229 AC 07/24 TOP 0819 Epoetin Bolivar 1,000 UNIT MoWeFr PRN 07/19 1515 AC IV Hydrocodone Bitart/ 1 TAB Q6P PRN 07/18 2345 AC 07/20 Acetaminophen PO 0139 Hydrocortisone 1 ZHANNA BID 07/18 2345 AC 07/24 EXT 0819 Hydroxyzine HCl 25 MG BID PRN 07/19 0015 AC 07/24 PO 1854 Latanoprost 1 GTT AT BEDTIME 07/20 2200 AC 07/23 OPH 2114 Levothyroxine Sodium 0.15 MG DAILY AC 07/19 0700 AC 07/24 PO 0548 Losartan Potassium 25 MG DAILY 07/19 1000 AC 07/24 PO 1227 Metoprolol Succinate 25 MG DAILY 07/19 1000 AC 07/23 PO 0915 Omeprazole 20 MG DAILY AC 07/19 0700 AC 07/24 PO 0548 Sevelamer Carbonate 800 MG WITH MEALS 07/19 0800 AC 07/24 PO 1646 Tamsulosin HCl 0.4 MG DAILY 07/19 1000 AC 07/24 PO 1228 Trazodone HCl 50 MG QPM 07/19 2200 AC 07/23 PO 2114 Last 24 Hrs of Lab/Jarod Results Last 24 Hrs of Labs/Mics: Laboratory Tests 07/24/17 0331: Anion Gap 14, Estimated GFR 6 L, Glucose 104 H, Calcium 9.3, Phosphorus 4.0, Magnesium 1.3 L, Total Bilirubin 0.5, AST 10 L, ALT 9 L, Albumin 3.0 L, CBC w Diff NO MAN DIFF REQ, RBC 3.09 L, MCV 105.0 H, MCH 34.3 H, MCHC 32.7 L, RDW 16.7 H, MPV 7.6, Gran % 58.7, Lymphocytes % 30.8, Monocytes % 7.6, Eosinophils % 2.5, Basophils % 0.4, Absolute Granulocytes 3.7, Absolute Lymphocytes 1.9, Absolute Monocytes 0.5, Absolute Eosinophils 0.2, Absolute Basophils 0 Assessment/Plan Assessment: This is a 87-year-old gentleman with past medical history significant for previous TIAs, recent subdural hematoma(was admitted to [facility] last month), aortic stenosis, ESRD on hemodialysis prostate cancer in 2008 after chemotherapy and radiation, hypertension, hyperlipidemia, and gout who was brought to the hospital status post fall. Was transferred to the ICU as attending hold after rapid response yesterday(brief episode of aphasia); now is back to baseline. Problem list: #Possible TIA #Altered mental status, weakness and confusion #ESRD on hemodialysis #Left frontal subdural hematoma Plan: * Continue neuro checks * Was not a candidate for TPA given her recent subdural hematoma; neurology recommended aspirin and statin. * Lipid panel, TFT, Hb A1c checked * Swallow evaluation, speech therapy, physical therapy * No intervention recommended for left carotid plaque. * Continue with hemodialysis * Continue with [employer] medications * DVT prophylaxis: Alps * Patient is DNI/DNR Problem List: 1. Subdural hematoma 2. Weakness Pain Ratin Pain Location: NA Pain Goal: Remain pain free Pain Plan: NA Tomorrow's Labs & Rationales: CBC to monitor H&H BEP to monitor electrolytes Irene Chung 07/24/17 1148: Attending MD Review Statement Attending Statement Attending MD Statement: examined this patient, discuss w/resident/PA[employer], agreed w/resident/[employer], discussed with family, reviewed EMR data (avail), discussed with nursing, discussed with case mgmt, reviewed images, amended to note Attending Assessment/Plan: Patient seen/examined bedside. Patient was transferred to telemetry for stroke alert likely had TIA. Patient underwent CT head with no acute change, stable subdural hematoma and no large infarct. NIHSS score 0. Patient not candidate of tpa. Neurology exploration driller Dr Stevens consulted and recommended telemetry monitoring, frequent neurochecks, asa, statin started, if clinical worsens call neurology. Bedside speech/swallow, PT/OT ongoing. hbaic f/u, lipid profile f/u. Carotid USG wit plaque with minimal stenosis. f/u nephrology and neurology. cont current care.. gi/dvt prophyalxis. Stable patient can be transferred out of ICU.
--- NOTE | 2017-07-24 09:13 | Cons- Neurology ---
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 Underwent Eliu cath placement. Yesterday, July 23, a stroke alert was called when he was found to have an episode of garbled speech, which he states lasted several hours. Head CT showed no acute abnormalities, and speech had completely returned to normal after he returned from the head CT. He does have a history of bilateral subdural hematomas/hygromas, first noted during a recent hospitalization at [facility], and stable on repeat imaging done here on admission and also done yesterday as part of the stroke alert. He denies headache, dizziness, visual changes, numbness or tingling, limb weakness, facial droop. There is no history of seizures. Allergies/Medications Allergies: Coded Allergies: lactose (DIARRHEA 07/24/17) Home Med List: Allopurinol 100 MG TABLET 1 TAB PO DAILY GOUT (Reported) Amlodipine Besylate 10 MG TABLET 1 TAB PO DAILY HEART (Reported) Cinacalcet HCl (Sensipar) 30 MG TABLET 1 TAB PO DAILY KIDNEY DISEASE ( Reported) Cyanocobalamin (Vitamin B-12) 1,000 MCG TABLET 1 TAB PO DAILY VITAMIN SUPPORT (Reported) Hydroxyzine Hydrochloride (Atarax) 25 MG TABLET 1 TAB PO BID PRN itching ( Reported) Levothyroxine Sodium 150 MCG TABLET 1 TAB PO DAILY thyropid (Reported) Metoprolol Succinate 25 MG TAB.ER.24H 1 TAB PO DAILY HEART/BP (Reported) Nephro-Vitamins (Nephro-Tye Tablet) (Unknown Strength) TABLET 1 TAB PO DAILY SUPPLEMENT (Reported) Pantoprazole Sodium 20 MG TABLET.DR 1 TAB PO DAILY GI (Reported) Sevelamer Carbonate (Renvela) 800 MG TABLET 1 TAB PO WITH MEALS kidney ( Reported) Tamsulosin HCl (Flomax) 0.4 MG CAP.ER.24H 1 CAP PO DAILY PROSTATE (Reported) Travoprost (Travatan Z) 5 ML DROPS 1 GTT OPH QPM BOTH EYES (Reported) Trazodone HCl 50 MG TABLET 1 TAB PO QPM SLEEP (Reported) Valsartan (Diovan) 80 MG TABLET 1 TAB PO DAILY HEART (Reported) Current Medications: Current Medications Sig/Harmeet Start time Last Medication Dose Route Stop Time Status Admin Acetaminophen 650 MG Q6P PRN 07/18 2345 AC 07/20 PO 0618 Allopurinol 100 MG DAILY 07/19 1000 AC 07/23 PO 0916 Amlodipine Besylate 10 MG DAILY 07/19 1000 AC 07/23 PO 0916 Aspirin 81 MG DAILY 07/23 1306 AC 07/23 PO 1319 Atorvastatin Calcium 80 MG 1700 07/23 1700 AC 07/23 PO 1701 Diphenhydramine HCl 1 ZHANNA DAILY 07/21 1229 AC 07/24 TOP 0819 Epoetin Bolivar 1,000 UNIT MoWeFr PRN 07/19 1515 AC IV Hydrocodone Bitart/ 1 TAB Q6P PRN 07/18 2345 AC 07/20 Acetaminophen PO 0139 Hydrocortisone 1 ZHANNA BID 07/18 2345 AC 07/24 EXT 0819 Hydroxyzine HCl 25 MG BID PRN 07/19 0015 AC 07/21 PO 0800 Latanoprost 1 GTT AT BEDTIME 07/20 2200 AC 07/23 OPH 2114 Levothyroxine Sodium 0.15 MG DAILY AC 07/19 0700 AC 07/24 PO 0548 Losartan Potassium 25 MG DAILY 07/19 1000 AC 07/23 PO 0917 Metoprolol Succinate 25 MG DAILY 07/19 1000 AC 07/23 PO 0915 Omeprazole 20 MG DAILY AC 07/19 0700 AC 07/24 PO 0548 Sevelamer Carbonate 800 MG WITH MEALS 07/19 0800 AC 07/24 PO 0819 Tamsulosin HCl 0.4 MG DAILY 07/19 1000 AC 07/23 PO 0916 Trazodone HCl 50 MG QPM 07/19 2200 AC 07/23 PO 2114 Review of Systems Review of Systems: REVIEW OF SYSTEMS: (-) = negative / normal blank = not discussed Neurologic: see HPI Eyes: Wears eyeglasses ENT: Hard of hearing Constitutional: (-) CV: (-) Respiratory: (-) /Renal: See HPI Musculoskeletal: (-) Skin: Chronic itching attributed to renal disease. Multiple excoriations on his legs. Reports mild left heel discomfort. 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 Home Who Do You Live With? spouse, child Services at Home: Nursing Smoking Status: Never Smoked ETOH Use: denies use Illicit Drug Use: denies illicit drug use Functional Ability ADLs Independent: dressing, eating, toileting, bathing. Ambulation: independent, cane Exam & Diagnostic Data Vital Signs and I&O Vital Signs Date Time Temp Pulse Resp B/P B/P Pulse O2 O2 Flow FiO2 Mean Ox Delivery Rate 07/24 0800 Room Air 07/24 0800 99.0 60 18 154/60 96 Room Air 07/24 0000 96 Room Air 07/23 2300 99.5 64 15 150/60 96 Room Air 07/23 1600 97 07/23 1600 99.2 63 20 132/70 97 Room Air 07/23 1507 Room Air 07/23 1110 97.9 60 18 158/74 95 Room Air 07/23 0917 87 148/74 07/23 0916 87 148/74 07/23 0916 87 148/74 07/23 0915 87 148/74 Intake & Output 07/24 1600 07/24 0800 07/24 0000 Intake Total 120 240 Output Total Balance 120 240 Intake, Oral 120 240 Number 1 Bowel Movements Patient 144 lb Weight Weight Bed scale Measurement Method Physical Exam: Awake, alert, pleasant, cooperative, in no apparent distress Head normocephalic atraumatic Neck supple No audible carotid or cranial bruits Heart regular rate and rhythm Extremities without clubbing cyanosis or edema. Arthritic changes noted. Multiple excoriations on the legs. Intact peripheral pulses Neurologic exam: Awake, alert, oriented to person, stated the year was "78 ", then changed his answer to "82 ", then changed his answer to "1918" he knew the month and knew that it was the last day in June. He knew the name of the current [place] president. He knew he was in a hospital in [place], but could not recall the name Speech was fluent with intact naming repetition and comprehension Cranial nerves: Visual pizarro full to confrontation Unable to visualize fundi Pupils equal round and reactive to light Extra ocular movements full Facial sensation intact Intact muscles of mastication and facial expression Symmetric elevation of the uvula and palate Symmetric shoulder shrug Midline tongue protrusion Hearing reduced to finger rub Motor: Normal muscle bulk, tone, and strength No abnormal involuntary movements No ataxia on finger-nose or [id number] testing Sensation of light touch and joint position intact Tendon reflexes symmetrically trace to absent Plantar responses flexor Gait not tested Last 48 Hours of Lab Results: Laboratory Tests 07/24 07/23 0331 1230 Chemistry Sodium (137 - 145 mmol/L) 141 140 Potassium (3.5 - 5.1 mmol/L) 4.6 4.6 Chloride (98 - 107 mmol/L) 104 101 Carbon Dioxide (22 - 30 mmol/L) 23 23 Anion Gap (5 - 16) 14 15 BUN (9 - 20 mg/dL) 38 H 27 H Creatinine (0.7 - 1.2 mg/dL) 8.3 *H 7.3 *H Estimated GFR (>60 ml/min) 6 L 7 L BUN/Creatinine Ratio (7 - 25 %) 3.7 L Glucose (65 - 99 mg/dL) 104 H Hemoglobin A1c (4.2 - 5.8 %) 4.7 Calcium (8.4 - 10.2 mg/dL) 9.3 Phosphorus (2.5 - 4.5 mg/dL) 4.0 Magnesium (1.6 - 2.3 mg/dL) 1.3 L Total Bilirubin (0.2 - 1.3 mg/dL) 0.5 AST (17 - 59 U/L) 10 L ALT (21 - 72 U/L) 9 L Albumin (3.5 - 5.0 g/dL) 3.0 L Triglycerides (<150 mg/dL) 142 Cholesterol (< 200 MG/DL) 95 LDL Cholesterol, Calc (65 - 129 mg/dL) 35 L HDL Cholesterol (40 - 60 mg/dL) 32 L Cholesterol/HDL Ratio (0.00 - 4.88 %) 3 Prolactin (3.7 - 17.9 ng/mL) 33.1 H Hematology CBC w Diff NO MAN DIFF REQ WBC (4.8 - 10.8 /CUMM) 6.3 RBC (4.70 - 6.10 /CUMM) 3.09 L Hgb (14.0 - 18.0 G/DL) 10.6 L Hct (42 - 52 %) 32.4 L MCV (80.0 - 94.0 FL) 105.0 H MCH (27.0 - 31.0 PG) 34.3 H MCHC (33.0 - 37.0 G/DL) 32.7 L RDW (11.5 - 14.5 %) 16.7 H Plt Count (130 - 400 /CUMM) 150 MPV (7.4 - 10.4 FL) 7.6 Gran % (42.2 - 75.2 %) 58.7 Lymphocytes % (20.5 - 51.1 %) 30.8 Monocytes % (1.7 - 9.3 %) 7.6 Eosinophils % (0 - 5 %) 2.5 Basophils % (0.0 - 2.0 %) 0.4 Absolute Granulocytes (1.4 - 6.5 /CUMM) 3.7 Absolute Lymphocytes (1.2 - 3.4 /CUMM) 1.9 Absolute Monocytes (0.10 - 0.60 /CUMM) 0.5 Absolute Eosinophils (0.0 - 0.7 /CUMM) 0.2 Absolute Basophils (0.0 - 0.2 /CUMM) 0 07/23 07/22 0750 1100 Chemistry Sodium (137 - 145 mmol/L) 140 138 Potassium (3.5 - 5.1 mmol/L) 4.6 4.5 Chloride (98 - 107 mmol/L) 102 99 Carbon Dioxide (22 - 30 mmol/L) 25 24 Anion Gap (5 - 16) 13 16 BUN (9 - 20 mg/dL) 26 H 55 H Creatinine (0.7 - 1.2 mg/dL) 6.8 *H 10.5 *H Estimated GFR (>60 ml/min) 8 L 5 L BUN/Creatinine Ratio (7 - 25 %) 3.8 L 5.2 L Hematology CBC w Diff NO MAN DIFF REQ NO MAN DIFF REQ WBC (4.8 - 10.8 /CUMM) 5.7 6.3 RBC (4.70 - 6.10 /CUMM) 3.16 L 3.12 L Hgb (14.0 - 18.0 G/DL) 10.8 L 10.8 L Hct (42 - 52 %) 33.1 L 32.5 L MCV (80.0 - 94.0 FL) 104.9 H 104.1 H MCH (27.0 - 31.0 PG) 34.1 H 34.7 H MCHC (33.0 - 37.0 G/DL) 32.5 L 33.3 RDW (11.5 - 14.5 %) 16.8 H 15.7 H Plt Count (130 - 400 /CUMM) 154 162 MPV (7.4 - 10.4 FL) 8.0 8.3 Gran % (42.2 - 75.2 %) 56.8 57.5 Lymphocytes % (20.5 - 51.1 %) 35.1 34.1 Monocytes % (1.7 - 9.3 %) 6.1 6.1 Eosinophils % (0 - 5 %) 1.6 1.9 Basophils % (0.0 - 2.0 %) 0.4 0.4 Absolute Granulocytes (1.4 - 6.5 /CUMM) 3.2 3.6 Absolute Lymphocytes (1.2 - 3.4 /CUMM) 2.0 2.1 Absolute Monocytes (0.10 - 0.60 /CUMM) 0.3 0.4 Absolute Eosinophils (0.0 - 0.7 /CUMM) 0.1 0.1 Absolute Basophils (0.0 - 0.2 /CUMM) 0 0 Imaging/Other Studies: EXAM TYPE: CAT - CT HEAD WO IV CONTRAST EXAMINATION: CT HEAD WITHOUT CONTRAST CLINICAL INFORMATION: Evaluation for stroke. TIA. Change in orientation with slurred speech. COMPARISON: Head CT 07/18/2017. TECHNIQUE: Contiguous axial imaging was performed from the skull base to vertex without intravenous administration of contrast. DLP: 613 mGy-cm. FINDINGS: There is redemonstration of small bilateral frontal convexity subdural collections which are predominantly isoattenuating to hypoattenuating and measuring up to 6 mm on the right and up to 2 mm on the left. No new hyperdense components have developed within the small collections. There is no associated mass effect. There is no parenchymal hemorrhage or CT evidence of large territory infarction. There is redemonstration of a chronic lacunar infarct within the posterior right lentiform nucleus. There is mild scattered hypoattenuation in the bilateral cerebral white matter, which is nonspecific but likely reflects small vessel disease. There is mild diffuse brain parenchymal volume loss with prominence of the ventricles and sulci. There is no evidence of hydrocephalus. There is no mass lesion. The paranasal sinuses are clear. There is mild fluid in the right mastoid air cells, middle ear cavities, and petrous apex. There are atherosclerotic calcification of the carotid siphons and vertebral arteries. There are severe atheromatous calcifications of the extracranial vessels reflecting sequela of end-stage renal disease. IMPRESSION: 1. Stable appearance of small subdural collections along the bilateral frontal convexities measuring up to 6 mm on the right and without associated mass effect. 2. No new intracranial hemorrhage, mass, or CT evidence of large territory infarction. 3. Mild diffuse brain parenchymal volume loss and background of mild small vessel ischemic changes. 4. Redemonstration of opacification of the right mastoid, middle ear, and petrous apex. DICTATED BY: Kalin Nguyen MD DATE/TIME DICTATED:07/23/179 EXAM TYPE: US - [id number] DOPPLER EXAMINATION: US DUPLEX CAROTID AND VERTEBRAL CLINICAL INFORMATION: 87-year-old male with TIA. COMPARISON: None TECHNIQUE: Real-time ultrasound and Doppler techniques (integrating B-mode 2D vascular images, Doppler spectral analysis and color flow Doppler imaging) were utilized to interrogate the extracranial carotid and vertebral arteries bilaterally. The degree of stenosis determined by criteria similar to NASCET. FINDINGS: 1. On the right: No plaque is present at the carotid bifurcation and all velocity measurements are normal and do not suggest a stenosis of greater than 50% diameter reduction in the right ICA. The vertebral artery is patent demonstrating antegrade flow. The common carotid artery velocity is 65 cm/s. The internal carotid artery velocities are 47 cm/s systolic and 10 cm/s diastolic. The external carotid artery velocity is 86 cm/s. 2. On the left: Plaque is present at the carotid bifurcation but velocity measurements are normal and do not suggest a stenosis of greater than 50% diameter reduction in the left ICA. The vertebral artery is patent demonstrating antegrade flow. The common carotid artery velocity is 76 cm/s. The internal carotid artery velocities are 50 cm/s systolic and 11 cm/s diastolic. The external carotid artery velocity is 63 cm/s. The external carotid arteries appear unremarkable. IMPRESSION: There is plaque present in the left internal carotid artery with normal velocities consistent with a minimal 0-49% stenosis. The right side is normal with no plaque seen. DICTATED BY: Reji Tran DO DATE/TIME DICTATED:07/23/171518 Assessment/Plan Assessment: Probable left MCA territory TIA Asymptomatic bilateral subdural fluid collections Of note, while he was a patient at [facility], he was taken off of Plavix but continued on aspirin. At the time of yesterday's event, he had been off aspirin Recommendations: Okay to transfer out of the critical care unit from a neurologic standpoint Continue aspirin and statin Reconsult if we can be of further assist Consult Acknowledgment - Thank you for your consult request.
--- NOTE | 2017-07-24 11:57 | PN- Nephrology ---
Assessment/Plan Nephrology Assessment: 1 end-stage renal disease on hemodialysis. Hemodialysis planned for this afternoon 2. Thrombosed access. This will be adjusted later date. 3. TIA seen earlier by Dr. Stevens Suggestion: 1. Hemodialysis this afternoon Subjective Subjective: Patient feels fairly well. Just finished his lunch. He may have had another episode. He was seen by Dr. Stevens earlier today. Objective Vital Signs and I&Os Vital Signs Date Time Temp Pulse Resp B/P B/P Pulse O2 O2 Flow FiO2 Mean Ox Delivery Rate 07/24 0800 Room Air 07/24 0800 99.0 60 18 154/60 96 Room Air 07/24 0000 96 Room Air 07/23 2300 99.5 64 15 150/60 96 Room Air 07/23 1600 97 07/23 1600 99.2 63 20 132/70 97 Room Air 07/23 1507 Room Air Intake & Output 07/24 1600 07/24 0400 07/23 1600 07/23 0400 07/22 1600 07/22 0400 Intake Total 120 240 480 240 400 Output Total Balance 120 240 480 240 400 Intake, IV 0 Intake, Oral 120 240 480 240 400 Number 1 1 1 1 1 Bowel Movements Patient 144 lb 142 lb 146 lb Weight Weight Bed scale Bed scale Measurement Method Physical Exam: General Appearance: well developed/nourished, no apparent distress, alert Head: atraumatic, normal appearance Neck: No midline tenderness Respiratory: normal breath sounds, chest non-tender, lungs clear Cardiovascular: regular rate/rhythm, JVD Abdomen: normal bowel sounds, soft, non-tender, no organomegaly Extremities: normal inspection, normal capillary refill, normal range of motion Neurologic/Psychiatric: Actually more awake and alert than yesterday. Current Medications: Current Medications Sig/Harmeet Start time Last Medication Dose Route Stop Time Status Admin Acetaminophen 650 MG Q6P PRN 07/18 2345 AC 07/20 PO 0618 Allopurinol 100 MG DAILY 07/19 1000 AC 07/23 PO 0916 Amlodipine Besylate 10 MG DAILY 07/19 1000 AC 07/23 PO 0916 Aspirin 81 MG DAILY 07/23 1306 AC 07/23 PO 1319 Atorvastatin Calcium 80 MG 1700 07/23 1700 AC 07/23 PO 1701 Diphenhydramine HCl 1 ZHANNA DAILY 07/21 1229 AC 07/24 TOP 0819 Epoetin Bolivar 1,000 UNIT MoWeFr PRN 07/19 1515 AC IV Hydrocodone Bitart/ 1 TAB Q6P PRN 07/18 2345 AC 07/20 Acetaminophen PO 0139 Hydrocortisone 1 ZHANNA BID 07/18 234 AC 07/24 EXT 0819 Hydroxyzine HCl 25 MG BID PRN 07/19 0015 AC 07/21 PO 0800 Latanoprost 1 GTT AT BEDTIME 07/20 2200 AC 07/23 OPH 2114 Levothyroxine Sodium 0.15 MG DAILY AC 07/19 0700 AC 07/24 PO 0548 Losartan Potassium 25 MG DAILY 07/19 1000 AC 07/23 PO 0917 Metoprolol Succinate 25 MG DAILY 07/19 1000 AC 07/23 PO 0915 Omeprazole 20 MG DAILY AC 07/19 07 AC 07/24 PO 0548 Sevelamer Carbonate 800 MG WITH MEALS 07/19 0800 AC 07/24 PO 0819 Tamsulosin HCl 0.4 MG DAILY 07/19 1000 AC 07/23 PO 0916 Trazodone HCl 50 MG QPM 07/19 2199 AC 07/23 PO 211 Results Pertinent Lab Results: Laboratory Tests 07/24 07/23 0331 1230 Chemistry Sodium (137 - 145 mmol/L) 141 140 Potassium (3.5 - 5.1 mmol/L) 4.6 4.6 Chloride (98 - 107 mmol/L) 104 101 Carbon Dioxide (22 - 30 mmol/L) 23 23 Anion Gap (5 - 16) 14 15 BUN (9 - 20 mg/dL) 38 H 27 H Creatinine (0.7 - 1.2 mg/dL) 8.3 *H 7.3 *H Estimated GFR (>60 ml/min) 6 L 7 L BUN/Creatinine Ratio (7 - 25 %) 3.7 L Glucose (65 - 99 mg/dL) 104 H Hemoglobin A1c (4.2 - 5.8 %) 4.7 Calcium (8.4 - 10.2 mg/dL) 9.3 Phosphorus (2.5 - 4.5 mg/dL) 4.0 Magnesium (1.6 - 2.3 mg/dL) 1.3 L Total Bilirubin (0.2 - 1.3 mg/dL) 0.5 AST (17 - 59 U/L) 10 L ALT (21 - 72 U/L) 9 L Albumin (3.5 - 5.0 g/dL) 3.0 L Triglycerides (<150 mg/dL) 142 Cholesterol (< 200 MG/DL) 95 LDL Cholesterol, Calc (65 - 129 mg/dL) 35 L HDL Cholesterol (40 - 60 mg/dL) 32 L Cholesterol/HDL Ratio (0.00 - 4.88 %) 3 Prolactin (3.7 - 17.9 ng/mL) 33.1 H Hematology CBC w Diff NO MAN DIFF REQ WBC (4.8 - 10.8 /CUMM) 6.3 RBC (4.70 - 6.10 /CUMM) 3.09 L Hgb (14.0 - 18.0 G/DL) 10.6 L Hct (42 - 52 %) 32.4 L MCV (80.0 - 94.0 FL) 105.0 H MCH (27.0 - 31.0 PG) 34.3 H MCHC (33.0 - 37.0 G/DL) 32.7 L RDW (11.5 - 14.5 %) 16.7 H Plt Count (130 - 400 /CUMM) 150 MPV (7.4 - 10.4 FL) 7.6 Gran % (42.2 - 75.2 %) 58.7 Lymphocytes % (20.5 - 51.1 %) 30.8 Monocytes % (1.7 - 9.3 %) 7.6 Eosinophils % (0 - 5 %) 2.5 Basophils % (0.0 - 2.0 %) 0.4 Absolute Granulocytes (1.4 - 6.5 /CUMM) 3.7 Absolute Lymphocytes (1.2 - 3.4 /CUMM) 1.9 Absolute Monocytes (0.10 - 0.60 /CUMM) 0.5 Absolute Eosinophils (0.0 - 0.7 /CUMM) 0.2 Absolute Basophils (0.0 - 0.2 /CUMM) 0 07/23 07/22 0750 1100 Chemistry Sodium (137 - 145 mmol/L) 140 138 Potassium (3.5 - 5.1 mmol/L) 4.6 4.5 Chloride (98 - 107 mmol/L) 102 99 Carbon Dioxide (22 - 30 mmol/L) 25 24 Anion Gap (5 - 16) 13 16 BUN (9 - 20 mg/dL) 26 H 55 H Creatinine (0.7 - 1.2 mg/dL) 6.8 *H 10.5 *H Estimated GFR (>60 ml/min) 8 L 5 L BUN/Creatinine Ratio (7 - 25 %) 3.8 L 5.2 L Hematology CBC w Diff NO MAN DIFF REQ NO MAN DIFF REQ WBC (4.8 - 10.8 /CUMM) 5.7 6.3 RBC (4.70 - 6.10 /CUMM) 3.16 L 3.12 L Hgb (14.0 - 18.0 G/DL) 10.8 L 10.8 L Hct (42 - 52 %) 33.1 L 32.5 L MCV (80.0 - 94.0 FL) 104.9 H 104.1 H MCH (27.0 - 31.0 PG) 34.1 H 34.7 H MCHC (33.0 - 37.0 G/DL) 32.5 L 33.3 RDW (11.5 - 14.5 %) 16.8 H 15.7 H Plt Count (130 - 400 /CUMM) 154 162 MPV (7.4 - 10.4 FL) 8.0 8.3 Gran % (42.2 - 75.2 %) 56.8 57.5 Lymphocytes % (20.5 - 51.1 %) 35.1 34.1 Monocytes % (1.7 - 9.3 %) 6.1 6.1 Eosinophils % (0 - 5 %) 1.6 1.9 Basophils % (0.0 - 2.0 %) 0.4 0.4 Absolute Granulocytes (1.4 - 6.5 /CUMM) 3.2 3.6 Absolute Lymphocytes (1.2 - 3.4 /CUMM) 2.0 2.1 Absolute Monocytes (0.10 - 0.60 /CUMM) 0.3 0.4 Absolute Eosinophils (0.0 - 0.7 /CUMM) 0.1 0.1 Absolute Basophils (0.0 - 0.2 /CUMM) 0 0
[2017-07-24 12:00] VITALS: BP 168/70
[2017-07-24 14:00] VITALS: BP 118/78
[2017-07-24 14:45] VITALS: BP 144/60
[2017-07-24 22:20] VITALS: BP 160/80
[2017-07-25 06:53] VITALS: BP 194/86
--- NOTE | 2017-07-25 07:08 | PN- Housestaff ---
Rosana HENSON,Mery 07/25/17 0708: Subjective Follow-up For: Possible TIA AMS ESRD on dialysis Tele-Events Since Last Visit: Sinus bradycardia 58/65 no events Subjective: The patient was seen and examined. 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 Denies any headache, dizziness, lightheadedness, nausea, vomiting, chest pain, shortness of breath, abdominal pain. The patient was noticed to be increasingly confused and agitated during the night's likely because he changed his room and was confused about that Review of Systems Constitutional: Reports: see HPI. Objective Last 24 Hrs of Vital Signs/I&O Vital Signs Date Time Temp Pulse Resp B/P B/P Pulse O2 O2 Flow FiO2 Mean Ox Delivery Rate 07/25 0810 64 170/80 07/25 0810 64 170/80 07/25 0809 64 170/80 07/25 0653 98.2 56 20 194/86 95 Room Air 07/25 0627 58 194/86 07/24 2220 98.3 73 20 160/80 95 Room Air 07/24 2048 70 166/80 07/24 1445 98.2 60 18 144/60 07/24 1400 98.3 58 20 118/78 95 Room Air 07/24 1227 64 168/70 Intake & Output 07/25 1600 07/25 0800 07/25 0000 Intake Total 210 380 Output Total Balance 210 380 Intake, 0 Dialysate Intake, IV 10 Intake, Oral 200 380 Number 1 Bowel Movements Patient 145 lb Weight Physical Exam General Appearance: Alert, Oriented X3, Cooperative, No Acute Distress HEENT: Atraumatic, PERRLA, EOMI Neck: Supple, No JVD Cardiovascular: Normal S1, Normal S2, No Murmurs Lungs: Clear to Auscultation Abdomen: Normal Bowel Sounds, Soft, No Tenderness Neurological: Normal Speech, Strength at 5/5 X4 Ext, Normal Tone Extremities: No Clubbing, No Cyanosis, No Edema Vascular: Normal Pulses Assessment/Plan Assessment: This is a 87-year-old gentleman with past medical history significant for previous TIAs, recent subdural hematoma(was admitted to [facility] last month), aortic stenosis, ESRD on hemodialysis prostate cancer in 2008 after chemotherapy and radiation, hypertension, hyperlipidemia, and gout who was brought to the hospital status post fall. Was transferred to the ICU as attending hold after rapid response yesterday(brief episode of aphasia); now is back to baseline. Problem list: #AMS, weakness and confusion #? TIA #ESRD on hemodialysis #Left frontal subdural hematoma( Stable) Plan: Continue to monitor on telemetry -Continue aspirin and statin. -Continue neuro checks - left carotid plaque( no role for surgical intervention) -Continue with hemodialysis -Continue with home medications -Avoid delirium triggers -DVT prophylaxis: Alps -Patient is DNI/DNR Problem List: 1. Weakness 2. Confusion 3. 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 Agree with plan of care as outlined. Nephrology input appreciated.
[2017-07-25 08:20] LABS: ABSOLUTE BASOPHIL COUNT 0 /CUMM (0.0-0.2); ABSOLUTE EOSINOPHIL COUNT 0.2 /CUMM (0.0-0.7); ABSOLUTE LYMPH COUNT 2.4 /CUMM (1.2-3.4); ABSOLUTE MONOCYTE COUNT 0.5 /CUMM (0.10-0.60); BASOPHIL % 0.3 % (0.0-2.0); EOSINOPHIL % 2.2 % (0-5); GRANULOCYTE % 61.2 % (42.2-75.2); HEMATOCRIT 34.7 % (42-52); MEAN CORPUSCULAR HGB 34.9 PG (27.0-31.0); MEAN CORPUSCULAR HGB CONC 33.1 G/DL (33.0-37.0); MEAN CORPUSCULAR VOLUME 105.5 FL (80.0-94.0); PLATELET COUNT 169 /CUMM (130-400); RBC DISTRIBUTION WIDTH 16.5 % (11.5-14.5); RED BLOOD CELL CT 3.29 /CUMM (4.70-6.10); WHITE BLOOD CELL COUNT 8.2 /CUMM (4.8-10.8)
--- NOTE | 2017-07-25 13:24 | PN- Nephrology ---
Assessment/Plan Nephrology Assessment: ESRD - No HD need today. TIA - Neuro following. On ASA and statin. Suggestion: -HD tomorrow Please call [phone] with ?'s Subjective Subjective: c/o some expressive aphasia but no issues with comprehension Head CT on 07/23 neg - has been seen by Neuro - thought to have a propable L MCA territory TIA c/o pruritis with lesions (?from scratching) on legs/arms Objective Vital Signs and I&Os Vital Signs Date Time Temp Pulse Resp B/P B/P Pulse O2 O2 Flow FiO2 Mean Ox Delivery Rate 07/25 0810 64 170/80 07/25 0810 64 170/80 07/25 0809 64 170/80 07/25 0653 98.2 56 20 194/86 95 Room Air 07/25 0627 58 194/86 07/24 2220 98.3 73 20 160/80 95 Room Air 07/24 2048 70 166/80 07/24 1445 98.2 60 18 144/60 07/24 1400 98.3 58 20 118/78 95 Room Air Intake & Output 07/25 1600 07/25 0400 07/24 1600 07/24 0400 07/23 1600 07/23 0400 Intake Total 210 380 600 240 480 240 Output Total Balance 210 380 600 240 480 240 Intake, 0 Dialysate Intake, IV 10 0 Intake, Oral 200 380 600 240 480 240 Number 1 2 1 1 Bowel Movements Patient 145 lb 144 lb 142 lb Weight Weight Bed scale Measurement Method Physical Exam: Gen - OK appearance HEENT - supple CV - RRR, no m/r/g Chest - clear, no w/r/r, +CVC Abd - soft, NTND Ext - no edema, KEMI AVF thrombosed Neuro - AOX3, grossly nonfocal Current Medications: Current Medications Sig/Harmeet Start time Last Medication Dose Route Stop Time Status Admin Acetaminophen 650 MG Q6P PRN 07/18 2345 AC 07/20 PO 0618 Allopurinol 100 MG DAILY 07/19 1000 AC 07/25 PO 0810 Amlodipine Besylate 10 MG DAILY 07/19 1000 AC 07/25 PO 0627 Aspirin 81 MG DAILY 07/23 1306 AC 07/25 PO 0809 Atorvastatin Calcium 80 MG 1700 07/23 1700 AC 07/24 PO 2048 Diphenhydramine HCl 1 ZHANNA DAILY 07/21 1229 AC 07/25 TOP 0810 Epoetin Bolivar 1,000 UNIT MoWeFr PRN 07/19 1515 AC IV Hydrocodone Bitart/ 1 TAB Q6P PRN 07/18 2345 AC 07/20 Acetaminophen PO 0139 Hydrocortisone 1 ZHANNA BID 07/18 2345 AC 07/25 EXT 0810 Hydroxyzine HCl 25 MG BID PRN 07/19 0015 AC 07/24 PO 1854 Latanoprost 1 GTT AT BEDTIME 07/20 2200 AC 07/24 OPH 2120 Levothyroxine Sodium 0.15 MG DAILY AC 07/19 0700 AC 07/25 PO 0615 Losartan Potassium 25 MG DAILY 07/19 1000 AC 07/25 PO 0809 Metoprolol Succinate 25 MG DAILY 07/19 1000 AC 07/25 PO 0810 Omeprazole 20 MG DAILY AC 07/19 0700 AC 07/25 PO 0615 Sevelamer Carbonate 800 MG WITH MEALS 07/19 0800 AC 07/25 PO 1151 Tamsulosin HCl 0.4 MG DAILY 07/19 1000 AC 07/25 PO 0810 Trazodone HCl 50 MG QPM 07/19 220 AC 07/24 PO 2120 Results Pertinent Lab Results: Laboratory Tests 07/25 07/24 0627 0331 Chemistry Sodium (137 - 145 mmol/L) 143 141 Potassium (3.5 - 5.1 mmol/L) 5.0 4.6 Chloride (98 - 107 mmol/L) 106 104 Carbon Dioxide (22 - 30 mmol/L) 23 23 Anion Gap (5 - 16) 14 14 BUN (9 - 20 mg/dL) 26 H 38 H Creatinine (0.7 - 1.2 mg/dL) 5.5 *H 8.3 *H Estimated GFR (>60 ml/min) 10 L 6 L BUN/Creatinine Ratio (7 - 25 %) 4.7 L Glucose (65 - 99 mg/dL) 104 H Calcium (8.4 - 10.2 mg/dL) 9.3 Phosphorus (2.5 - 4.5 mg/dL) 4.0 Magnesium (1.6 - 2.3 mg/dL) 1.3 L Total Bilirubin (0.2 - 1.3 mg/dL) 0.5 AST (17 - 59 U/L) 10 L ALT (21 - 72 U/L) 9 L Albumin (3.5 - 5.0 g/dL) 3.0 L Hematology CBC w Diff NO MAN DIFF REQ NO MAN DIFF REQ WBC (4.8 - 10.8 /CUMM) 8.2 6.3 RBC (4.70 - 6.10 /CUMM) 3.29 L 3.09 L Hgb (14.0 - 18.0 G/DL) 11.5 L 10.6 L Hct (42 - 52 %) 34.7 L 32.4 L MCV (80.0 - 94.0 FL) 105.5 H 105.0 H MCH (27.0 - 31.0 PG) 34.9 H 34.3 H MCHC (33.0 - 37.0 G/DL) 33.1 32.7 L RDW (11.5 - 14.5 %) 16.5 H 16.7 H Plt Count (130 - 400 /CUMM) 169 150 MPV (7.4 - 10.4 FL) 8.0 7.6 Gran % (42.2 - 75.2 %) 61.2 58.7 Lymphocytes % (20.5 - 51.1 %) 29.7 30.8 Monocytes % (1.7 - 9.3 %) 6.6 7.6 Eosinophils % (0 - 5 %) 2.2 2.5 Basophils % (0.0 - 2.0 %) 0.3 0.4 Absolute Granulocytes (1.4 - 6.5 /CUMM) 5.0 3.7 Absolute Lymphocytes (1.2 - 3.4 /CUMM) 2.4 1.9 Absolute Monocytes (0.10 - 0.60 /CUMM) 0.5 0.5 Absolute Eosinophils (0.0 - 0.7 /CUMM) 0.2 0.2 Absolute Basophils (0.0 - 0.2 /CUMM) 0 0 07/23 07/23 1230 0750 Chemistry Sodium (137 - 145 mmol/L) 140 140 Potassium (3.5 - 5.1 mmol/L) 4.6 4.6 Chloride (98 - 107 mmol/L) 101 102 Carbon Dioxide (22 - 30 mmol/L) 23 25 Anion Gap (5 - 16) 15 13 BUN (9 - 20 mg/dL) 27 H 26 H Creatinine (0.7 - 1.2 mg/dL) 7.3 *H 6.8 *H Estimated GFR (>60 ml/min) 7 L 8 L BUN/Creatinine Ratio (7 - 25 %) 3.7 L 3.8 L Hemoglobin A1c (4.2 - 5.8 %) 4.7 Triglycerides (<150 mg/dL) 142 Cholesterol (< 200 MG/DL) 95 LDL Cholesterol, Calc (65 - 129 mg/dL) 35 L HDL Cholesterol (40 - 60 mg/dL) 32 L Cholesterol/HDL Ratio (0.00 - 4.88 %) 3 Prolactin (3.7 - 17.9 ng/mL) 33.1 H Hematology CBC w Diff NO MAN DIFF REQ WBC (4.8 - 10.8 /CUMM) 5.7 RBC (4.70 - 6.10 /CUMM) 3.16 L Hgb (14.0 - 18.0 G/DL) 10.8 L Hct (42 - 52 %) 33.1 L MCV (80.0 - 94.0 FL) 104.9 H MCH (27.0 - 31.0 PG) 34.1 H MCHC (33.0 - 37.0 G/DL) 32.5 L RDW (11.5 - 14.5 %) 16.8 H Plt Count (130 - 400 /CUMM) 154 MPV (7.4 - 10.4 FL) 8.0 Gran % (42.2 - 75.2 %) 56.8 Lymphocytes % (20.5 - 51.1 %) 35.1 Monocytes % (1.7 - 9.3 %) 6.1 Eosinophils % (0 - 5 %) 1.6 Basophils % (0.0 - 2.0 %) 0.4 Absolute Granulocytes (1.4 - 6.5 /CUMM) 3.2 Absolute Lymphocytes (1.2 - 3.4 /CUMM) 2.0 Absolute Monocytes (0.10 - 0.60 /CUMM) 0.3 Absolute Eosinophils (0.0 - 0.7 /CUMM) 0.1 Absolute Basophils (0.0 - 0.2 /CUMM) 0 Imaging/Other Studies: CT Head reviewed
[2017-07-25 14:00] VITALS: BP 188/78
[2017-07-25 22:23] VITALS: BP 162/78
[2017-07-26 06:36] VITALS: BP 180/80
--- NOTE | 2017-07-26 07:04 | PN- Housestaff ---
Rosana HENSON,Mery 07/26/17 0703: Subjective Follow-up For: Possible TIA AMS improved ESRD on dialysis Subjective: The patient was seen and examined. Alert and oriented for place normal speech. Denies any headache, dizziness, lightheadedness, nausea, vomiting, chest pain, shortness of breath, abdominal pain. Patient had hemodialysis today The patient was noticed hypertertensive over night with systolic blood pressure 180, will discuss with her bag adjuster Review of Systems Constitutional: Reports: see HPI. Objective Last 24 Hrs of Vital Signs/I&O Vital Signs Date Time Temp Pulse Resp B/P B/P Pulse O2 O2 Flow FiO2 Mean Ox Delivery Rate 07/26 0636 97.7 52 20 180/80 92 Room Air 07/25 2223 98.0 54 16 162/78 97 Room Air 07/25 1400 98.3 60 20 188/78 96 Intake & Output 07/26 1600 07/26 0800 07/26 0000 Intake Total 110 338 Output Total 0 Balance 110 338 Intake, IV 10 Intake, Oral 100 338 Number 2 Bowel Movements Output, Urine 0 Patient 164 lb Weight Weight Bed scale Measurement Method Physical Exam General Appearance: Alert, Cooperative, No Acute Distress, oriented X2 HEENT: Atraumatic, PERRLA, EOMI, Mucous Membr. moist/pink Neck: Supple, No JVD Cardiovascular: Normal S1, Normal S2, No Murmurs Lungs: Clear to Auscultation Abdomen: Normal Bowel Sounds, Soft, No Tenderness Neurological: Normal Speech, Strength at 5/5 X4 Ext, Normal Tone, Sensation Intact Extremities: No Clubbing, No Cyanosis, No Edema Vascular: Normal Pulses Assessment/Plan Assessment: This is a 87-year-old gentleman with past medical history significant for previous TIAs, recent subdural hematoma(was admitted to [facility] last month), aortic stenosis, ESRD on hemodialysis prostate cancer in 2008 after chemotherapy and radiation, hypertension, hyperlipidemia, and gout who was brought to the hospital status post fall. Was transferred to the ICU as attending hold after rapid response yesterday(brief episode of aphasia); now is back to baseline. Problem list: #AMS, weakness and confusion #? TIA #ESRD on hemodialysis #Left frontal subdural hematoma( Stable) Plan: DC telemetry -DC neuro checks -Continue aspirin and statin. - left carotid plaque( no role for surgical intervention) -Continue with hemodialysis -Continue with home medications -Patient was noticed to have high blood pressure in the past few days, discussed with bag adjuster who recommended to follow up the blood pressure after dialysis today - If blood pressure remains elevated will Increase the dose of Cozaar to 50 mg -Avoid delirium triggers Pt is stable to be discharged to STR today -DVT prophylaxis: Alps -Patient is DNI/DNR Problem List: 1. Hypertension 2. Weakness 3. Confusion Pain Ratin Pain Location: N/A Pain Goal: Remain pain free Pain Plan: PATWAY Tomorrow's Labs & Rationales: CBC BEP DVT/Prophylaxis: mechanical Luis Pena MD 07/26/17 2243: Attending MD Review Statement Attending Statement Attending MD Statement: examined this patient, discuss w/resident/PA/STUDENT LIFE VICE PRESIDENT, agreed w/resident/PA/STUDENT LIFE VICE PRESIDENT, reviewed EMR data (avail), discussed with case mgmt, amended to note Attending Assessment/Plan: The patient was seen and discussed with house staff and case management. OK to discharge to STR today.
[2017-07-26 07:57] LABS: ABSOLUTE BASOPHIL COUNT 0 /CUMM (0.0-0.2); ABSOLUTE EOSINOPHIL COUNT 0.1 /CUMM (0.0-0.7); ABSOLUTE GRANULOCYTE CT 4.1 /CUMM (1.4-6.5); ABSOLUTE MONOCYTE COUNT 0.4 /CUMM (0.10-0.60); BASOPHIL % 0.3 % (0.0-2.0); EOSINOPHIL % 2.2 % (0-5); GRANULOCYTE % 60.8 % (42.2-75.2); HEMATOCRIT 32.7 % (42-52); MEAN CORPUSCULAR HGB 34.5 PG (27.0-31.0); MEAN CORPUSCULAR VOLUME 104.6 FL (80.0-94.0); MEAN PLATELET VOLUME 8.1 FL (7.4-10.4); PLATELET COUNT 150 /CUMM (130-400); RBC DISTRIBUTION WIDTH 15.9 % (11.5-14.5); RED BLOOD CELL CT 3.12 /CUMM (4.70-6.10); WHITE BLOOD CELL COUNT 6.7 /CUMM (4.8-10.8)
[2017-07-26 08:23] LABS: ABSOLUTE BASOPHIL COUNT 0 /CUMM (0.0-0.2); ABSOLUTE EOSINOPHIL COUNT 0.1 /CUMM (0.0-0.7); ABSOLUTE GRANULOCYTE CT 4.3 /CUMM (1.4-6.5); ABSOLUTE LYMPH COUNT 2.1 /CUMM (1.2-3.4); ABSOLUTE MONOCYTE COUNT 0.4 /CUMM (0.10-0.60); BASOPHIL % 0.3 % (0.0-2.0); EOSINOPHIL % 1.8 % (0-5); GRANULOCYTE % 62.8 % (42.2-75.2); HEMATOCRIT 32.8 % (42-52); MEAN CORPUSCULAR HGB 34.6 PG (27.0-31.0); MEAN CORPUSCULAR HGB CONC 33.3 G/DL (33.0-37.0); MEAN CORPUSCULAR VOLUME 103.9 FL (80.0-94.0); MEAN PLATELET VOLUME 8.1 FL (7.4-10.4); PLATELET COUNT 161 /CUMM (130-400); RED BLOOD CELL CT 3.15 /CUMM (4.70-6.10); WHITE BLOOD CELL COUNT 6.9 /CUMM (4.8-10.8)
--- NOTE | 2017-07-26 10:06 | Patient Discharge Instructions ---
Discharge Instructions General Discharge Information You were seen/treated for: Possible TIA AMS ESRD on dialysis Special Instructions: 1- please follow up with your PCP in 1 week of discharge 2- Please follow up with your planning rn in 1 week of discharge Diet Continue normal diet: Yes Acute Coronary Syndrome Inclusion Criteria At DC or during hospital stay patient has or had the following: ACS DIAGNOSIS No Discharge Core Measures Meds if any: Prescribed or Continued at Discharge Meds if any: NOT Prescribed or Continued at Discharge Congestive Heart Failure Inclusion Criteria At DC or during hospital stay patient has or had the following: CHF DIAGNOSIS No Discharge Core Measures Meds if any: Prescribed or Continued at Discharge Meds if any: NOT Prescribed or Continued at Discharge Cerebrovascular accident Inclusion Criteria At DC or during hospital stay patient has or had the following: CVA/TIA Diagnosis No Discharge Core Measures Meds if any: Prescribed or Continued at Discharge Meds if any: NOT Prescribed or Continued at Discharge Venous thromboembolism Inclusion Criteria VTE Diagnosis No VTE Type NONE VTE Confirmed by (Test) NONE Discharge Core Measures - Per Current guidelines, there needs to be overlap - treatment for the first 5 days of Warfarin therapy. - If discharged on Warfarin prior to 5 days of - overlap therapy, the patient will need to be - assessed for post discharge needs including - *Post discharge parental anticoagulation - *Warfarin and/or parental anticoagulation education - *Follow up date to check INR post discharge At least 5 days overlap therapy as Inpatient No Meds if any: Prescribed or Continued at Discharge Note: Overlap Therapy is Warfarin and Anticoagulant Meds if any: NOT Prescribed or Continued at Discharge
--- NOTE | 2017-07-26 11:03 | PN- Nephrology ---
Assessment/Plan Nephrology Assessment: ESRD - Routine HD today. Will need to pursue new permanent access as outpatient. Switching to 2K bath today because of elevated potassium - will need to be closely monitored as outpatient. HTN - BP has been elevated the last couple of days. Well controlled previously and as an outpatient. I am a bit hesitant to go up on his meds given his age and fragility just based on how things have been the last couple of days. He will be finishing up dialysis soon and has not gotten his BP meds yet - hopefully this will help. Skin lesions - appears to be secondary to pruritis. Suspicion for calciphylaxis much lower - his calcium x phos product is low. Suggestion: -HD today - UF to EDW -Monitor K as outpatient -Maintain current BP meds -PRN anti-pruritics such as Hydroxyzine - may need derm referral as outpatient depending on clinical course Please call [phone] with ?'s Subjective Subjective: Pt seen and examined on dialysis No specific complaints BP elevated Objective Vital Signs and I&Os Vital Signs Date Time Temp Pulse Resp B/P B/P Pulse O2 O2 Flow FiO2 Mean Ox Delivery Rate 07/26 0953 Room Air 07/26 0636 97.7 52 20 180/80 92 Room Air 07/25 2223 98.0 54 16 162/78 97 Room Air 07/25 1400 98.3 60 20 188/78 96 Intake & Output 07/26 1600 07/26 0400 07/25 1600 07/25 0400 07/24 1600 07/24 0400 Intake Total 110 338 710 380 600 240 Output Total 0 0 Balance 110 338 710 380 600 240 Intake, 0 Dialysate Intake, IV 10 10 Intake, Oral 100 338 700 380 600 240 Number 2 2 2 Bowel Movements Output, Urine 0 0 Patient 164 lb 145 lb 144 lb Weight Weight Bed scale Bed scale Measurement Method Physical Exam: Gen - NAD HEENT - supple CV - RRR, no m/r/g Chest - clear anteriorly, no m/r/g, CVC Abd - soft, NTND Ext - warm, no edema, thrombosed KEMI AVF Skin - multiple macular and papular skin lesions on arms/legs Neuro - AOX3, grossly nonfocal Current Medications: Current Medications Sig/Harmeet Start time Last Medication Dose Route Stop Time Status Admin Acetaminophen 650 MG Q6P PRN 07/18 2345 AC 07/20 PO 0618 Allopurinol 100 MG DAILY 07/19 1000 AC 07/25 PO 0810 Amlodipine Besylate 10 MG DAILY 07/19 1000 AC 07/25 PO 0627 Aspirin 81 MG DAILY 07/23 1306 AC 07/25 PO 0809 Atorvastatin Calcium 80 MG 1700 07/23 1700 AC 07/25 PO 1703 Diphenhydramine HCl 1 ZHANNA DAILY 07/21 1229 AC 07/25 TOP 0810 Epoetin Bolivar 1,000 UNIT MoWeFr PRN 07/19 1515 AC IV Hydrocodone Bitart/ 1 TAB Q6P PRN 07/18 2345 DC 07/20 Acetaminophen PO 0139 Hydrocortisone 1 ZHANNA BID 07/18 2345 AC 07/25 EXT 2115 Hydroxyzine HCl 25 MG BID PRN 07/19 0015 AC 07/24 PO 1854 Latanoprost 1 GTT AT BEDTIME 07/20 2200 AC 07/25 OPH 2115 Levothyroxine Sodium 0.15 MG DAILY AC 07/19 0700 AC 07/26 PO 0444 Losartan Potassium 25 MG DAILY 07/19 1000 AC 07/25 PO 0809 Metoprolol Succinate 25 MG DAILY 07/19 1000 AC 07/25 PO 0810 Omeprazole 20 MG DAILY AC 07/19 0700 AC 07/26 PO 0444 Sevelamer Carbonate 800 MG WITH MEALS 07/19 0800 AC 07/25 PO 1703 Tamsulosin HCl 0.4 MG DAILY 07/19 1000 AC 07/25 PO 0810 Trazodone HCl 50 MG QPM 07/19 2200 AC 07/25 PO 2115 Results Pertinent Lab Results: Laboratory Tests 07/26 07/26 0745 0626 Chemistry Sodium (137 - 145 mmol/L) 144 142 Potassium (3.5 - 5.1 mmol/L) 5.5 H 5.4 H Chloride (98 - 107 mmol/L) 106 107 Carbon Dioxide (22 - 30 mmol/L) 24 22 Anion Gap (5 - 16) 13 14 BUN (9 - 20 mg/dL) 42 H 39 H Creatinine (0.7 - 1.2 mg/dL) 7.8 *H 7.8 *H Estimated GFR (>60 ml/min) 7 L 7 L BUN/Creatinine Ratio (7 - 25 %) 5.4 L 5.0 L Calcium (8.4 - 10.2 mg/dL) 9.7 Hematology CBC w Diff NO MAN DIFF REQ NO MAN DIFF REQ WBC (4.8 - 10.8 /CUMM) 6.9 6.7 RBC (4.70 - 6.10 /CUMM) 3.15 L 3.12 L Hgb (14.0 - 18.0 G/DL) 10.9 L 10.8 L Hct (42 - 52 %) 32.8 L 32.7 L MCV (80.0 - 94.0 FL) 103.9 H 104.6 H MCH (27.0 - 31.0 PG) 34.6 H 34.5 H MCHC (33.0 - 37.0 G/DL) 33.3 33.0 RDW (11.5 - 14.5 %) 16.0 H 15.9 H Plt Count (130 - 400 /CUMM) 161 150 MPV (7.4 - 10.4 FL) 8.1 8.1 Gran % (42.2 - 75.2 %) 62.8 60.8 Lymphocytes % (20.5 - 51.1 %) 30.0 30.2 Monocytes % (1.7 - 9.3 %) 5.1 6.5 Eosinophils % (0 - 5 %) 1.8 2.2 Basophils % (0.0 - 2.0 %) 0.3 0.3 Absolute Granulocytes (1.4 - 6.5 /CUMM) 4.3 4.1 Absolute Lymphocytes (1.2 - 3.4 /CUMM) 2.1 2.0 Absolute Monocytes (0.10 - 0.60 /CUMM) 0.4 0.4 Absolute Eosinophils (0.0 - 0.7 /CUMM) 0.1 0.1 Absolute Basophils (0.0 - 0.2 /CUMM) 0 0 07/25 07/24 0627 0331 Chemistry Sodium (137 - 145 mmol/L) 143 141 Potassium (3.5 - 5.1 mmol/L) 5.0 4.6 Chloride (98 - 107 mmol/L) 106 104 Carbon Dioxide (22 - 30 mmol/L) 23 23 Anion Gap (5 - 16) 14 14 BUN (9 - 20 mg/dL) 26 H 38 H Creatinine (0.7 - 1.2 mg/dL) 5.5 *H 8.3 *H Estimated GFR (>60 ml/min) 10 L 6 L BUN/Creatinine Ratio (7 - 25 %) 4.7 L Glucose (65 - 99 mg/dL) 104 H Calcium (8.4 - 10.2 mg/dL) 9.3 Phosphorus (2.5 - 4.5 mg/dL) 4.0 Magnesium (1.6 - 2.3 mg/dL) 1.3 L Total Bilirubin (0.2 - 1.3 mg/dL) 0.5 AST (17 - 59 U/L) 10 L ALT (21 - 72 U/L) 9 L Albumin (3.5 - 5.0 g/dL) 3.0 L Hematology CBC w Diff NO MAN DIFF REQ NO MAN DIFF REQ WBC (4.8 - 10.8 /CUMM) 8.2 6.3 RBC (4.70 - 6.10 /CUMM) 3.29 L 3.09 L Hgb (14.0 - 18.0 G/DL) 11.5 L 10.6 L Hct (42 - 52 %) 34.7 L 32.4 L MCV (80.0 - 94.0 FL) 105.5 H 105.0 H MCH (27.0 - 31.0 PG) 34.9 H 34.3 H MCHC (33.0 - 37.0 G/DL) 33.1 32.7 L RDW (11.5 - 14.5 %) 16.5 H 16.7 H Plt Count (130 - 400 /CUMM) 169 150 MPV (7.4 - 10.4 FL) 8.0 7.6 Gran % (42.2 - 75.2 %) 61.2 58.7 Lymphocytes % (20.5 - 51.1 %) 29.7 30.8 Monocytes % (1.7 - 9.3 %) 6.6 7.6 Eosinophils % (0 - 5 %) 2.2 2.5 Basophils % (0.0 - 2.0 %) 0.3 0.4 Absolute Granulocytes (1.4 - 6.5 /CUMM) 5.0 3.7 Absolute Lymphocytes (1.2 - 3.4 /CUMM) 2.4 1.9 Absolute Monocytes (0.10 - 0.60 /CUMM) 0.5 0.5 Absolute Eosinophils (0.0 - 0.7 /CUMM) 0.2 0.2 Absolute Basophils (0.0 - 0.2 /CUMM) 0 0 07/23 1230 Chemistry Sodium (137 - 145 mmol/L) 140 Potassium (3.5 - 5.1 mmol/L) 4.6 Chloride (98 - 107 mmol/L) 101 Carbon Dioxide (22 - 30 mmol/L) 23 Anion Gap (5 - 16) 15 BUN (9 - 20 mg/dL) 27 H Creatinine (0.7 - 1.2 mg/dL) 7.3 *H Estimated GFR (>60 ml/min) 7 L BUN/Creatinine Ratio (7 - 25 %) 3.7 L Hemoglobin A1c (4.2 - 5.8 %) 4.7 Triglycerides (<150 mg/dL) 142 Cholesterol (< 200 MG/DL) 95 LDL Cholesterol, Calc (65 - 129 mg/dL) 35 L HDL Cholesterol (40 - 60 mg/dL) 32 L Cholesterol/HDL Ratio (0.00 - 4.88 %) 3 Prolactin (3.7 - 17.9 ng/mL) 33.1 H Imaging/Other Studies: None new
--- NOTE | 2017-07-26 13:45 | Discharge Summary ---
See Addendum Visit Information Visit Dates Admission Date: 07/18/17 Discharge Date: 07/26/2017 Hospital Course Course Attending Physician: Luis Pena MD Primary Care Physician: Reggie Connell MD Hospital Course: 87 yo M with h/o ESRD on HD (MWF), , TIA, HTN, is brought in from home after a mechanical fall and reported confusion one day prior to admission. He also c/o left hip pain and refused to work with PT this morning. They called their PCP who then advised patient to be brought to ER. ED course - Vitals stable. Exam remarkable for left AV fistula site CDI but unable to palpate a thrill. Labs: macrocytic anemia, BUN 36, creat 7.9, Ca 8.3, trop neg. CT head: no acute pathology, small frontal SDH stable, fluid opacification of right mastoid air cells. Hip/pelvis Xray: compression screw in left hip. Healed intertrochanteric fracture left hip, no acute abnormality. EKG: sinus rhythm, LVH, Qtc 488. Mechanical fall, most likely secondary to TIA and inability to ambulate secondary to physical deconditioning - no evidence of stoke. Patient was initially admitted to general medicine floor but later he was transferred to the ICU secondary to slight slurring of speech ? stroke. CT scan of the head did not show any new evidence of ischemia or infarct or hemorrhage. Discussed with Dr. Stevens over the phone as the patient has history of subdural hematoma it was decided that he is not a candidate for TPA to transfer for the ICU for observation. ICU course was uneventful. Carotid Dopplers showed plaque in the left internal carotid artery otherwise normal flow. He was transferred to telemetry floor. We discharged him to rehabilitation. We advised to follow up with neurologist /geriatric psychiatrist for further evaluation and management. Altered mental status -multifactorial, dementia/chronic disease/hospital/ unfamiliar surrounding - We treated him symptomatically. End-stage renal disease -on hemodialysis Patient has history of ESRD, he receives dialysis Saturday, Saturday, Saturday. We obtained a consult from the fish cleaner machine tender. As his AV fistula was occluded, we did IR guided Eliu catheter( 07/19/2017).He got hemodialysis on 07/22;07/24;07/26. At the time of discharge patient was not fluid overloaded. We advised to follow with fish cleaner machine tender for further evaluation and management of the end-stage renal disease and regular hemodialysis. Hypertension - Patient was having high blood pressure.We discussed with fish cleaner machine tender,advised to continue the same medicine as we decrease the blood pressure and there is more chances for fall. Advised to follow-up with the fish cleaner machine tender and regular monitoring of serum electrolyte. Allergies: Coded Allergies: lactose (DIARRHEA 07/24/17) Disposition Summary Disposition Principal Diagnosis: Mechanical fall, most likely secondary to TIA and inability to ambulate secondary to physical deconditioning - no evidence of stoke. 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 Please follow-up with fish cleaner machine tender within a week of discharge Please go for regular dialysis Please take all fall precaution Medications at Discharge Discharge Medications: Continue taking these medications: Cinacalcet HCl (Sensipar) 30 MG TABLET 1 Tablet ORAL DAILY Comments: Last Taken: 03/14/17 Time: 10:30 AM Allopurinol (Allopurinol) 100 MG TABLET 1 Tablet ORAL DAILY Comments: Last Taken: 03/14/17 Time: 10:30 AM Sevelamer Carbonate (Renvela) 800 MG TABLET 1 Tablet ORAL WITH MEALS Comments: Last Taken: 03/14/17 Time: 1230 Tamsulosin HCl (Flomax) 0.4 MG CAP.ER.24H 1 Capsule ORAL DAILY Comments: Last Taken: 03/14/17 Time: 10:30 AM Metoprolol Succinate (Metoprolol Succinate) 25 MG TAB.ER.24H 1 Tablet ORAL DAILY Comments: Last Taken: 03/14/17 Time: 10:30 AM Nephro-Vitamins (Nephro-Tye Tablet) (Unknown Strength) TABLET 1 Tablet ORAL DAILY Comments: Last Taken: 03/14/17 Time: 1230 Travoprost (Travatan Z) 5 ML DROPS 1 Drop In the eye Every night Comments: NOT GIVEN IN HOSPITAL Levothyroxine Sodium (Levothyroxine Sodium) 150 MCG TABLET 1 Tablet ORAL DAILY Comments: Last Taken: 03/14/17 Time: 10:30 AM Hydroxyzine Hydrochloride (Atarax) 25 MG TABLET 1 Tablet ORAL TWICE DAILY as needed for itching Comments: NOT GIVEN IN HOSPITAL Valsartan (Diovan) 80 MG TABLET 1 Tablet ORAL DAILY Pantoprazole Sodium (Pantoprazole Sodium) 20 MG TABLET.DR 1 Tablet ORAL DAILY Amlodipine Besylate (Amlodipine Besylate) 10 MG TABLET 1 Tablet ORAL DAILY Trazodone HCl (Trazodone HCl) 50 MG TABLET 1 Tablet ORAL Every night Cyanocobalamin (Vitamin B-12) 1,000 MCG TABLET 1 Tablet ORAL DAILY Copies To: Becki HENSON,Reggie Harman; Nabil HENSON,Luis Harman; Rodney HENSON,Laureen Mercedes Attending MD Review Statement Documenting Attending: Luis Pena MD
[2017-07-26 14:18] VITALS: BP 150/72
[2017-07-26 17:09] VITALS: BP 150/72
== END 2017-07-26 19:45 | DRG 69 ==
LOC: ERH 13:16 → ERHI 21:30 → CRI 21:30 → 2NA 21:30 → ENRESERV 22:21 → ENTRNSPT 23:04 → 2NA 23:19 → CMPTRNSPT 07-19 07:15 → 2NA 07-19 08:39 → CRI 07-23 11:46 → ENTRNSPT 07-24 14:34 → CMPTRNSPT 07-24 14:43 → 1NO 07-24 14:46 → ENPENDDIS 07-26 15:24 → 1NO 07-26 15:28 → ENPENDDIS 07-26 16:11 → 1NO 07-26 19:45
PROVIDERS: Internal Medicine; Internal Medicine Hematology & Oncology; Internal Medicine Nephrology; Radiology Vascular & Interventional Radiology; Student in an Organized Health Care Education/Training Program
PROC: 0JH63XZ Insertion of Tunneled Vascular Access Device into Chest Subcutaneous Tissue and Fascia, Percutaneous Approach (ICD-10-PCS; principal; 2017-07-19)
PROC: 02H633Z Insertion of Infusion Device into Right Atrium, Percutaneous Approach (ICD-10-PCS; principal; 2017-07-19)
PROC: 5A1D70Z Performance of Urinary Filtration, Intermittent, Less than 6 Hours Per Day (ICD-10-PCS; 2017-07-19)
DX: G45.9 Transient cerebral ischemic attack, unspecified (principal); I12.0 Hypertensive chronic kidney disease with stage 5 chronic kidney disease or end stage renal disease; F05 Delirium due to known physiological condition; B02.9 Zoster without complications; N18.6 End stage renal disease; T82.898A Other specified complication of vascular prosthetic devices, implants and grafts, initial encounter; K50.90 Crohn's disease, unspecified, without complications; R47.01 Aphasia; I35.0 Nonrheumatic aortic (valve) stenosis; E03.9 Hypothyroidism, unspecified; E78.5 Hyperlipidemia, unspecified; R53.1 Weakness; Z86.73 Personal history of transient ischemic attack (TIA), and cerebral infarction without residual deficits; Z99.2 Dependence on renal dialysis; Z85.46 Personal history of malignant neoplasm of prostate; M10.9 Gout, unspecified; K21.9 Gastro-esophageal reflux disease without esophagitis; Z66 Do not resuscitate; S06.5X9D Traumatic subdural hemorrhage with loss of consciousness of unspecified duration, subsequent encounter; W19.XXXD Unspecified fall, subsequent encounter; Z87.81 Personal history of (healed) traumatic fracture; Z96.642 Presence of left artificial hip joint; Y83.8 Other surgical procedures as the cause of abnormal reaction of the patient, or of later complication, without mention of misadventure at the time of the procedure
CPT/HCPCS: 04007; 1NP; 2NASP; CCU; 36415; 36592; 73523; 77001; 82436; 93005; 93010; 97110-GO; 97116-GO; 97161-GP; 97164-GP; 97530-GO; C1752; C1769; J0885; J1644; J3490

== ENCOUNTER 2017-08-07 10:50 | Inpatient (IN) | payer OTHER, MEDICARE ==
[~2017-08-07] VITALS: Ht 160 cm; Wt 65.5 kg
[~2017-08-07 10:50] MED LIST changes: +AMLODIPINE BESY10 M1 PO; +PANTOPRAZOLE SO20 M1 PO; +TRAMADOL HCL50 M1 PO; +TRAZODONE HCL50 M1 PO; +VITAMIN B-121000 MC3 PO
--- NOTE | 2017-08-07 11:11 | ED INFLUENZA/URI COMPLAINT ---
History of Present Illness General Chief Complaint: General Adult Stated Complaint: PORT INFECTION Source: patient, family, old records Exam Limitations: confusion, poor historian Vital Signs & Intake/Output Vital Signs & Intake/Output Vital Signs Date Time Temp Pulse Resp B/P B/P Pulse O2 O2 Flow FiO2 Mean Ox Delivery Rate 08/08 2304 99.2 67 20 152/68 94 Room Air 08/08 1335 98.0 70 20 140/70 95 Room Air 08/08 0907 81 144/70 08/08 0907 81 144/70 08/08 0907 81 144/70 08/08 0907 81 144/70 08/08 0628 99.1 81 20 144/70 98 Room Air ED Intake and Output 08/09 0000 08/08 1200 Intake Total 900 290 Output Total 0 Balance 900 290 Intake, IV 60 240 Intake, Oral 840 50 Number 9 2 Bowel Movements Output, Urine 0 Patient 145 lb Weight Weight Standing Scale Measurement Method Allergies Coded Allergies: lactose (DIARRHEA 07/24/17) Reconcile Medications Acetaminophen 325 MG TABLET 2 TAB PO Q4H PRN PAIN/TEMP>100 (Reported) Acetaminophen (Acephen) 650 MG SUPP.RECT 1 SUPP [place] Q4H PRN PAIN/TEMP>100 ( Reported) Allopurinol 100 MG TABLET 1 TAB PO DAILY GOUT (Reported) Amlodipine Besylate 10 MG TABLET 1 TAB PO DAILY HEART (Reported) Bisacodyl 10 MG SUPP.RECT 1 SUP RC PRN CONSTIPATION (Reported) Ceftriaxone Sodium (Ceftriaxone) 500 MG VIAL 1 GM IM DAILY ABX (Reported) Cinacalcet HCl (Sensipar) 30 MG TABLET 1 TAB PO DAILY KIDNEY DISEASE ( Reported) Cyanocobalamin (Vitamin B-12) 1,000 MCG TABLET 1 TAB PO DAILY VITAMIN SUPPORT (Reported) Guaifenesin 100 MG/5 ML LIQUID 10 ML PO TID EXPECTORANT (Reported) Hydroxyzine Hydrochloride (Atarax) 25 MG TABLET 1 TAB PO BID PRN itching ( Reported) Levothyroxine Sodium (Levoxyl) 175 MCG TABLET 1 TAB PO DAILY THYROID ( Reported) Magnesium Hydroxide (Milk Of Magnesia) 400 MG/5 ML ORAL.SUSP 30 ML PO DAILY PRN CONSTIPATION (Reported) Metoprolol Succinate 25 MG TAB.ER.24H 1 TAB PO DAILY HEART/BP (Reported) Na Phos,M-B/Na Phos,Di-Ba (Fleet Enema) 19 GRAM-7 GRAM/118 ML ENEMA 1 E RC DAILY PRN CONSTIPATION (Reported) [NEPHRO] 120 ML PO DAILY SUPPLEMENT (Reported) Nephro-Vitamins (Nephro-Tye Tablet) (Unknown Strength) TABLET 1 TAB PO DAILY SUPPLEMENT (Reported) Pantoprazole Sodium 20 MG TABLET.DR 1 TAB PO DAILY GI (Reported) Sevelamer Carbonate (Renvela) 800 MG TABLET 1 TAB PO WITH MEALS kidney ( Reported) Tamsulosin HCl (Flomax) 0.4 MG CAP.ER.24H 1 CAP PO DAILY PROSTATE (Reported) Travoprost (Travatan Z) 5 ML DROPS 1 GTT OPH QPM BOTH EYES (Reported) Trazodone HCl 50 MG TABLET 1 TAB PO QPM SLEEP (Reported) Trazodone HCl 50 MG TABLET 12.5 MG PO Q8H PRN ANXIETY & AGITATION (Reported) Valsartan (Diovan) 80 MG TABLET 1 TAB PO DAILY HEART (Reported) Triage Nurses Notes Reviewed? yes HPI: Patient presents for evaluation of a fever and possible dialysis catheter infection. According to the patient's family he has been spiking a fever since yesterday. He tested negative yesterday for influenza. Although patient's family told he had a "infection", the source was unclear. The patient himself is unable to provide history given confusion likely induced by fever. Thong received dialysis today but was sent to the emergency department for evaluation for possible dialysis catheter infection. Past History Travel History Traveled to [place] past 21 day No Medical History Any Pertinent Medical History? 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 No Review of Systems Review of Systems Constitutional: Reports: fever. EENTM: Reports: no symptoms. Respiratory: Reports: no symptoms. Cardiovascular: Reports: no symptoms. GI: Reports: no symptoms. Genitourinary: Reports: no symptoms. Musculoskeletal: Reports: no symptoms. Skin: Reports: see HPI. Neurological/Psychological: Reports: no symptoms. Hematologic/Endocrine: Reports: no symptoms. Immunologic/Allergic: Reports: no symptoms. All Other Systems: Reviewed and Negative Physical Exam Physical Exam Ears, Nose, Throat: SEE BELOW Comments: Gen.: Well-nourished, well-developed, no acute respiratory distress. Head: Normocephalic, atraumatic. Eyes: Normal inspection bilaterally Ears: Normal inspection bilaterally Nose: Normal inspection Throat/mouth : Moist mucosa Neck: Supple, full range of motion, no goiter Heart: Regular rate and rhythm, 2 over 5 systolic murmur best appreciated at the left sternal border Lungs: Clear to auscultation bilaterally with normal air entry Chest: Nontender Back: Normal range of motion Abdomen: Soft, diffuse tenderness without rebound or guarding, mildly distended and tympanitic on exam, normal bowel sounds Extremities: Normal range of motion grossly, equal radial pulses, no cyanosis clubbing or edema Neurologic: Cranial nerves grossly intact, speech is clear Skin: warm and dry Psychiatric: Calm, cooperative, no apparent delusions or hallucinations Core Measures Sepsis Present: No Sepsis Focused Exam Completed? No Progress Differential Diagnosis: CATHETER INFECTION, CELLULITIS, ABSCESS Plan of Care: Orders Procedure Date/time Status Nothing by Mouth 08/09 B Active CBC WITHOUT DIFFERENTIAL 08/09 0600 Active BASIC ELECTROLYTES PLUS BUN&CR 08/09 0600 Active Renal Dialysis Diet 08/08 D Complete C.DIFFICILE 08/08 1649 Active BLOOD CULTURE 08/08 1310 Active Wound Care/Dressing 08/08 1117 Active Hemo-Dialysis 08/08 1117 Active CBC WITHOUT DIFFERENTIAL 08/08 0911 Complete BASIC ELECTROLYTES PLUS BUN&CR 08/08 0911 Complete Change service to 08/08 0758 Active XRY-FLUOROSCOPY,INDEPEND PROC 08/08 UNK Active ECHOCARDIOGRAM 08/08 UNK Active OXYGEN SETUP CHG 08/07 UNK Complete OXYGEN 08/07 UNK Complete OXYGEN TRANSPORT 08/07 UNK Complete Current Medications Sig/Harmeet Start time Last Medication Dose Stop Time Status Admin Cinacalcet 30 MG DAILY 08/08 1000 AC 08/08 (Sensipar) 0907 Cyanocobalamin 1,000 MCG DAILY 08/08 1000 AC 08/08 (Vitamin B12) 0907 Losartan Potassium 50 MG DAILY 08/08 1000 AC 08/08 (Cozaar) 0907 Metoprolol Succinate 25 MG DAILY 08/08 1000 AC 08/08 (Toprol XL) 0907 Tamsulosin HCl 0.4 MG DAILY 08/08 1000 AC 08/08 (Flomax) 0907 Levothyroxine Sodium 0.15 MG DAILY AC 08/08 0700 AC 08/08 (Synthroid) 0604 Omeprazole 20 MG DAILY AC 08/08 0700 AC 08/08 (Prilosec) 0604 Trazodone HCl 50 MG QPM 08/07 2200 AC 08/08 (Desyrel) 211 Diphenhydramine HCl 1 ZHANNA BID PRN 08/07 2015 AC 08/08 (Benadryl) 211 Sevelamer Carbonate 800 MG WITH MEALS 08/07 1700 AC 08/08 (Renvela) 1741 Hydroxyzine HCl 25 MG BID PRN 08/07 1430 AC 08/09 (Atarax) 0035 Heparin Sodium 5,000 UNIT Q8 08/07 1428 AC 08/08 (Porcine) 2119 Multivitamins 1 TAB DAILY 08/07 1417 AC 08/08 (Nephrocaps) 0907 Allopurinol 100 MG DAILY 08/07 1416 AC 08/08 (Zyloprim) 0907 Amlodipine Besylate 10 MG DAILY 08/07 1416 AC 08/08 (Norvasc) 0907 Laboratory Tests 08/08/17 1355: Anion Gap 14, Estimated GFR 7 L, BUN/Creatinine Ratio 5.2 L, CBC w Diff NO MAN DIFF REQ, RBC 2.86 L, MCV 103.8 H, MCH 34.0 H, MCHC 32.7 L, RDW 16.1 H, MPV 8.0, Gran % 72.4, Lymphocytes % 16.2 L, Monocytes % 9.8 H, Eosinophils % 1.3, Basophils % 0.3, Absolute Granulocytes 6.1, Absolute Lymphocytes 1.4, Absolute Monocytes 0.8 H, Absolute Eosinophils 0.1, Absolute Basophils 0 Microbiology 08/08 1655 STOOL: Clostridium difficile Toxin A & B - RECD 08/08 1417 BLOOD: Blood Culture - RECD 08/08 1355 BLOOD: Blood Culture - RECD Initial ED EKG: none Comments: 08/07/2017 11:56:04 AM according to the patient's nurse, ton has been treated with a dose of IV Rocephin yesterday and an IV dose of vancomycin at the conclusion of his dialysis today. 08/07/2017 12:08:28 PM patient's case discussed with the interventional radiologist who feels that if the catheter requires removal that it could be done via their department. I will contact the guest experience manager. 08/07/2017 12:20:33 PM patient's case discussed with Dr. Posada who feels he should be admitted and treated initially with antibiotics. The catheter may remain in place unless the patient's fever does not resolve at which point the catheter should be removed and cultured. 08/07/2017 12:40:35 PM after evaluating patient in the emergency department, Dr. Posada recommends admission for IV antibiotics. Patient's case discussed with Dr. Ritchie. Departure Departure Disposition: STILL A PATIENT Condition: Stable Clinical Impression Primary Impression: Hemodialysis catheter infection Qualifiers: Encounter type: initial encounter Qualified Code: T82.7XXA - Infection and inflammatory reaction due to other cardiac and vascular devices, implants and grafts, initial encounter Referrals: Reggie Connell MD (PCP/Family) Departure Forms: Customer Survey General Discharge Information Admission Note Spoke With: Sydney Nicole MD Documentation of Exam: Documentation of any treatments & extenuating circumstances including Concerns Regarding Discharge (functional status, medication knowledge or non-compliance, living conditions, etc.) that warrant an admission rather than observation: Patient presents for evaluation of fever likely secondary to a temporary dialysis catheter. There is purulent drainage emanating from the site of the catheter and this must now be removed in order to prevent secondary bacteremia and sepsis. Since the patient is spiking a fever and is likely that he has become bacteremic and should be treated aggressively with IV antibiotics and close clinical monitoring due to the possibility of sepsis and mortality. I do not feel he can be treated safely as an outpatient under the circumstances and would likely return in worse clinical condition. In addition he would no longer have an access for dialysis and would be at high risk of consequences of renal failure including metabolic acidosis and volume overload. He should have a nephrology consultation. He should have consultation with interventional radiology to remove the catheter and send it for testing. He should be treated until he defervesces and dialysis access obtained. I feel he will require a multiple day hospitalization.
[2017-08-07 11:29] LABS: ABSOLUTE BASOPHIL COUNT 0 /CUMM (0.0-0.2); ABSOLUTE EOSINOPHIL COUNT 0 /CUMM (0.0-0.7); ABSOLUTE GRANULOCYTE CT 13.5 /CUMM (1.4-6.5); ABSOLUTE LYMPH COUNT 0.3 /CUMM (1.2-3.4); ABSOLUTE MONOCYTE COUNT 0.5 /CUMM (0.10-0.60); BASOPHIL % 0.1 % (0.0-2.0); EOSINOPHIL % 0 % (0-5); GRANULOCYTE % 94.6 % (42.2-75.2); HEMATOCRIT 32.9 % (42-52); MEAN CORPUSCULAR HGB 34.1 PG (27.0-31.0); MEAN CORPUSCULAR HGB CONC 33.4 G/DL (33.0-37.0); MEAN CORPUSCULAR VOLUME 102.2 FL (80.0-94.0); MEAN PLATELET VOLUME 7.4 FL (7.4-10.4); PLATELET COUNT 143 /CUMM (130-400); RBC DISTRIBUTION WIDTH 15.9 % (11.5-14.5); RED BLOOD CELL CT 3.22 /CUMM (4.70-6.10); WHITE BLOOD CELL COUNT 14.3 /CUMM (4.8-10.8)
--- NOTE | 2017-08-07 11:47 | RADIOLOGY REPORT ---
EXAMINATION: XR PORTABLE CHEST CLINICAL INFORMATION: Fever. Possible right subclavian catheter infection. COMPARISON: 06/09/2017 TECHNIQUE: Portable frontal view of the chest was obtained. FINDINGS: Partial visualization of a right axillary stent. Left axillary and subclavian stents also noted. Right subclavian central venous catheter terminates over the right atrium. Right upper quadrant surgical clips noted. Lung volumes are low. Mild central vascular prominence without overt edema. No pleural effusion or pneumothorax. No dense consolidation. The cardiomediastinal silhouette is unchanged, with a tortuous and calcified aorta. IMPRESSION: Central vascular prominence without overt edema. No consolidation.
--- NOTE | 2017-08-07 11:57 | CT SCAN REPORT ---
EXAMINATION: CT ABDOMEN AND PELVIS WITHOUT CONTRAST CLINICAL INFORMATION: Fever. Abdominal pain and tenderness. COMPARISON: None TECHNIQUE: Multidetector volumetric imaging was performed from the superior aspect of the liver through the pubic symphysis. Sagittal and coronal reformatted images were obtained on the technologist's workstation. DLP: 290 mGy-cm FINDINGS: LUNG BASES: Small pleural effusions. Bibasilar atelectasis. Coronary artery calcifications are noted. Partial visualization of a central venous catheter. LIVER, GALLBLADDER, AND BILIARY TREE: The liver is normal in size, shape, and attenuation. There is a 3.1 cm cyst in the caudate. No additional hepatic lesion or biliary ductal dilatation is present. Cholecystectomy. PANCREAS: Mild atrophy with no focal abnormality. SPLEEN: Unremarkable. ADRENAL GLANDS: Unremarkable. KIDNEYS AND URETERS: The kidneys are atrophic. Multiple calcifications seen at both kidneys. Some of which are likely vascular, although bilateral renal calculi are also likely present. For instance, there is a cluster of calcifications at the left lower pole measuring 0.9 x 0.5 cm, 7 cm from the posterior axillary line, measuring 350 Hounsfield units. Additional cluster of calcifications of the right lower pole measures up to 0.6 cm, 8.5 cm from the posterior axillary line. There are multiple exophytic lesions from both kidneys. Many of which are cysts. Hyperdense lesion extends superiorly from the left kidney measuring 0.7 cm. BLADDER: Unremarkable. GASTROINTESTINAL TRACT: The stomach is unremarkable. The small bowel is normal in caliber. No obstruction. There is an anastomotic suture line noted involving the colon in the right abdomen. There is no bowel wall thickening or inflammatory change. No free air or free fluid. ABDOMINAL WALL: Bilateral fat-containing inguinal hernias. LYMPH NODES: Normal. VASCULAR: Normal caliber aorta with extensive atherosclerotic calcifications. PELVIC VISCERA: Radiopaque seeds in the prostate. The seminal vesicles are unremarkable. OSSEOUS STRUCTURES: No acute or suspicious osseous abnormality. Radiopaque hardware in the left femur. DISH. Heterogeneous appearance of the right hemipelvis with mild cortical thickening and trabeculation. Paget's disease is a consideration. IMPRESSION: No acute findings in the abdomen or pelvis. No inflammatory changes. Small bilateral pleural effusions. Atrophic kidneys. No hydronephrosis. Bilateral calculi and vascular calcifications. Bilateral renal cysts. Additional hyperattenuating lesions noted which favor hemorrhagic or proteinaceous cysts.
--- NOTE | 2017-08-07 13:09 | Cons- Nephrology ---
General Information and HPI Consulting Request Date of Consult: 08/07/17 Requested By: Dr. Lucas Medina Reason for Consult: ESRD Source of Information: family, old records, Dialysis unit Exam Limitations: confusion History of Present Illness: Patient is an 87-year-old male with past medical history most significant for end-stage renal disease on hemodialysis, HFpEF with moderate , prior TIA, HTN who presents with fever/confusion. The patient has been undergoing HD via a R chest wall tunneled dialysis catheter because of clotting of his permanent access. He has been staying at an ECF after a recent hospitalization and they noticed a fever for which he was given Ceftriaxone (sounds like initially thought to be a lung source). He went to his HD treatment earlier today where the nurses that I spoke to report that he had a significant amount of pus drainage from the catheter site. He reportedly had a fever up to 102 while at dialysis. The patient himself is with his daughter who reports that he is confused and he is unable to contribute to the history. Should note that he was given 1g of Vancomycin at the end of dialysis today. No issues with his blood pressure with dialysis today - not sure what his post- weight was but he has not been having issues reaching his dry weight. On presentation, BP 130/72 - Temp 99.0. Chest x-ray with central vascular prominence without over edema. CT A/P pelvis performed as well - no acute findings. Labs notable for WBC 14.3. Allergies/Medications Allergies: Coded Allergies: lactose (DIARRHEA 07/24/17) Home Med List: Allopurinol 100 MG TABLET 1 TAB PO DAILY GOUT (Reported) Amlodipine Besylate 10 MG TABLET 1 TAB PO DAILY HEART (Reported) Cinacalcet HCl (Sensipar) 30 MG TABLET 1 TAB PO DAILY KIDNEY DISEASE ( Reported) Cyanocobalamin (Vitamin B-12) 1,000 MCG TABLET 1 TAB PO DAILY VITAMIN SUPPORT (Reported) Hydroxyzine Hydrochloride (Atarax) 25 MG TABLET 1 TAB PO BID PRN itching ( Reported) Levothyroxine Sodium 150 MCG TABLET 1 TAB PO DAILY thyropid (Reported) Metoprolol Succinate 25 MG TAB.ER.24H 1 TAB PO DAILY HEART/BP (Reported) Nephro-Vitamins (Nephro-Tye Tablet) (Unknown Strength) TABLET 1 TAB PO DAILY SUPPLEMENT (Reported) Pantoprazole Sodium 20 MG TABLET.DR 1 TAB PO DAILY GI (Reported) Sevelamer Carbonate (Renvela) 800 MG TABLET 1 TAB PO WITH MEALS kidney ( Reported) Tamsulosin HCl (Flomax) 0.4 MG CAP.ER.24H 1 CAP PO DAILY PROSTATE (Reported) Travoprost (Travatan Z) 5 ML DROPS 1 GTT OPH QPM BOTH EYES (Reported) Trazodone HCl 50 MG TABLET 1 TAB PO QPM SLEEP (Reported) Valsartan (Diovan) 80 MG TABLET 1 TAB PO DAILY HEART (Reported) Review of Systems Review of Systems: Unable to obtain ROS 2/2 confusion Past History Travel History Traveled to [place] past 21 day No Medical History Neurological: TIA EENT: NONE Cardiovascular: hypertension, hyperlipidemia Respiratory: NONE Gastrointestinal: GERD Hepatic: NONE Renal: KIDNEY FAILURE DIALYSIS M,W,F Musculoskeletal: gout, L HIP REPL Psychiatric: NONE Endocrine: hypothyroidism Blood Disorders: NONE 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 spouse, child Services at Home: Nursing ETOH Use: denies use Illicit Drug Use: denies illicit drug use Functional Ability ADLs Independent: dressing, eating, toileting, bathing. Ambulation: independent, cane Exam & Diagnostic Data Vital Signs and I&O Vital Signs Date Time Temp Pulse Resp B/P B/P Pulse O2 O2 Flow FiO2 Mean Ox Delivery Rate 08/07 1131 99.0 94 22 130/72 96 Nasal 2.0L Cannula Physical Exam: Gen - OK appearing, confused Head - NCAT Eyes - anicteric sclera, EOMI Neck - supple, no LAD CV - RRR, no m/r/g Chest - clear to auscultation anteriorly, R chest wall ENZO cath with expressable pus Abd - soft, NTND Upper ext - warm, no edema, KEMI access without bruit/thrill Lower ext - warm, no edema Skin - no rash or jaundice Neuro - confused but trying to converse, limited exam Results Pertinent Lab Results: Laboratory Tests 08/07 08/07 1115 1113 Chemistry Sodium (137 - 145 mmol/L) 137 Potassium (3.5 - 5.1 mmol/L) 3.9 Chloride (98 - 107 mmol/L) 100 Carbon Dioxide (22 - 30 mmol/L) 19 L Anion Gap (5 - 16) 17 H BUN (9 - 20 mg/dL) 18 Creatinine (0.7 - 1.2 mg/dL) 4.9 H Estimated GFR (>60 ml/min) 11 L BUN/Creatinine Ratio (7 - 25 %) 3.7 L Glucose (65 - 99 mg/dL) 117 H Lactic Acid (0.7 - 2.1 mmol/L) 3.4 H Cancelled Calcium (8.4 - 10.2 mg/dL) 9.1 Total Bilirubin (0.2 - 1.3 mg/dL) 1.5 H AST (17 - 59 U/L) 16 L ALT (21 - 72 U/L) 26 Alkaline Phosphatase (< 127 U/L) 127 H Total Protein (6.3 - 8.2 g/dL) 6.7 Albumin (3.5 - 5.0 g/dL) 3.7 Globulin (1.9 - 4.2 gm/dL) 3.0 Albumin/Globulin Ratio (1.1 - 2.2 %) 1.2 Hematology CBC w Diff MAN DIFF ORDERED WBC (4.8 - 10.8 /CUMM) 14.3 H RBC (4.70 - 6.10 /CUMM) 3.22 L Hgb (14.0 - 18.0 G/DL) 11.0 L Hct (42 - 52 %) 32.9 L MCV (80.0 - 94.0 FL) 102.2 H MCH (27.0 - 31.0 PG) 34.1 H MCHC (33.0 - 37.0 G/DL) 33.4 RDW (11.5 - 14.5 %) 15.9 H Plt Count (130 - 400 /CUMM) 143 MPV (7.4 - 10.4 FL) 7.4 Gran % (42.2 - 75.2 %) 94.6 H Lymphocytes % (20.5 - 51.1 %) 1.9 L Monocytes % (1.7 - 9.3 %) 3.4 Eosinophils % (0 - 5 %) 0 Basophils % (0.0 - 2.0 %) 0.1 Absolute Granulocytes (1.4 - 6.5 /CUMM) 13.5 H Segmented Neutrophils (42.2 - 75.2 %) 89 H Band Neutrophils (0.0 - 5.0 %) 3 Absolute Lymphocytes (1.2 - 3.4 /CUMM) 0.3 L Lymphocytes (20.5 - 51.1 %) 2 L Monocytes (1.7 - 9.3 %) 6 Absolute Monocytes (0.10 - 0.60 /CUMM) 0.5 Absolute Eosinophils (0.0 - 0.7 /CUMM) 0 Absolute Basophils (0.0 - 0.2 /CUMM) 0 Platelet Estimate (ADEQUATE) ADEQUATE Normochromic RBCs VERIFIED Poikilocytosis 1+ Anisocytosis 1+ Macrocytic Cells 1+ Stomatocytes 1+ Other Body Source Fld Total RBCs Counted (%) 100 Imaging/Other Studies: Chest X-ray and CT A/P reviewed Assessment/Plan Assessment/Recommendations Assessment: ESRD - Received HD earlier today. Appears to have tunnel infection of dialysis catheter which needs to be removed. No HD need today but will eventually need a catheter to be replaced - either a tunneled or nontunneled on Saturday depending on clinical situation. Fever - Catheter the likely source. Received 1g IV Vanc after HD today and had received Ceftriaxone previously at the [facility]. Needs the catheter to be taken out. \ Confusion - Likely related to the infection. Recommendations: -No HD need for today -IR consult to remove HD catheter -Tentative plans for new catheter placement on Saturday - either tunneled or nontunneled depending on clinical situation - plans for dialysis either Saturday or Saturday -f/u cultures; would get wound culture as well - ?need for Ceftazidime (already got Vanc) - would get culture of catheter tip once removed - may need ID input Please call [phone] with ?'s
--- NOTE | 2017-08-07 13:16 | History & Physical ---
Rubin HENSON,Macy 08/07/17 1258: General Information and HPI MD Statement: I have seen and personally examined HO LOPEZ and documented this H&P. The patient is a 87 year old M who presented with a patient stated chief complaint of []. 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 Most of the history is taken from the daughter.He was recently discharged from the [facility] (07/18/2017-07/26/2017) and treated for mechanical fall possibly secondary TIA. He was discharged to the extended care facility -[facility]. He was anorexic since couple of days and even had episodes of falls and confusion. Yesterday he had temperature of 101 and was given Tylenol.They talked to Dr. Connell, who advised to be tested for flu which was negative. He went to the dialysis in the morning and was found to have temperature of 102 and there was brownish discharge, coming out of the Abdirizak catheter.He was given 1 g of vancomycin at the dialysis in the morning. Past medical history - Hypertension Hyperlipidemia History of TIA ( Multiple episodes) History of dialysis for end-stage renal disease x 8yrs (MWF) Hypothyroidism History of prostate cancer s/p CT/RT History of herpes zoster History of gout History of subdural hematoma Surgical history - history of appendicectomy History of cholecystectomy History of hip replacement History of exploratory laparotomy secondary to bowel obstruction Personal history -patient was at [facility], baseline confusion, history of recurrent fall, walks with a walker, denies smoking, alcohol use, illicit drug abuse. Allergies/Medications Allergies: Coded Allergies: lactose (DIARRHEA 07/24/17) Home Med list Acetaminophen 325 MG TABLET 2 TAB PO Q4H PRN PAIN/TEMP>100 (Reported) Acetaminophen (Acephen) 650 MG SUPP.RECT 1 SUPP AZ Q4H PRN PAIN/TEMP>100 ( Reported) Allopurinol 100 MG TABLET 1 TAB PO DAILY GOUT (Reported) Amlodipine Besylate 10 MG TABLET 1 TAB PO DAILY HEART (Reported) Bisacodyl 10 MG SUPP.RECT 1 SUP RC PRN CONSTIPATION (Reported) Ceftriaxone Sodium (Ceftriaxone) 500 MG VIAL 1 GM IM DAILY ABX (Reported) Cinacalcet HCl (Sensipar) 30 MG TABLET 1 TAB PO DAILY KIDNEY DISEASE ( Reported) Cyanocobalamin (Vitamin B-12) 1,000 MCG TABLET 1 TAB PO DAILY VITAMIN SUPPORT (Reported) Guaifenesin 100 MG/5 ML LIQUID 10 ML PO TID EXPECTORANT (Reported) Hydroxyzine Hydrochloride (Atarax) 25 MG TABLET 1 TAB PO BID PRN itching ( Reported) Levothyroxine Sodium (Levoxyl) 175 MCG TABLET 1 TAB PO DAILY THYROID ( Reported) Magnesium Hydroxide (Milk Of Magnesia) 400 MG/5 ML ORAL.SUSP 30 ML PO DAILY PRN CONSTIPATION (Reported) Metoprolol Succinate 25 MG TAB.ER.24H 1 TAB PO DAILY HEART/BP (Reported) Na Phos,M-B/Na Phos,Di-Ba (Fleet Enema) 19 GRAM-7 GRAM/118 ML ENEMA 1 E RC DAILY PRN CONSTIPATION (Reported) [NEPHRO] 120 ML PO DAILY SUPPLEMENT (Reported) Nephro-Vitamins (Nephro-Tye Tablet) (Unknown Strength) TABLET 1 TAB PO DAILY SUPPLEMENT (Reported) Pantoprazole Sodium 20 MG TABLET.DR 1 TAB PO DAILY GI (Reported) Sevelamer Carbonate (Renvela) 800 MG TABLET 1 TAB PO WITH MEALS kidney ( Reported) Tamsulosin HCl (Flomax) 0.4 MG CAP.ER.24H 1 CAP PO DAILY PROSTATE (Reported) Travoprost (Travatan Z) 5 ML DROPS 1 GTT OPH QPM BOTH EYES (Reported) Trazodone HCl 50 MG TABLET 1 TAB PO QPM SLEEP (Reported) Trazodone HCl 50 MG TABLET 12.5 MG PO Q8H PRN ANXIETY & AGITATION (Reported) Valsartan (Diovan) 80 MG TABLET 1 TAB PO DAILY HEART (Reported) Past History Travel History Traveled to [place] past 21 day No Medical History Neurological: TIA EENT: NONE Cardiovascular: hypertension, hyperlipidemia Respiratory: NONE Gastrointestinal: GERD Hepatic: NONE Renal: KIDNEY FAILURE DIALYSIS M,W,F Musculoskeletal: gout, L HIP REPL Psychiatric: NONE Endocrine: hypothyroidism Blood Disorders: NONE Cancer(s): 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 spouse, child Services at Home: Nursing ETOH Use: denies use Illicit Drug Use: denies illicit drug use Functional Ability ADLs Independent: dressing, eating, toileting, bathing. Ambulation: independent, cane Review of Systems Review of Systems Constitutional: Reports: no symptoms, weakness. EENTM: Reports: no symptoms (tinnitus/ itching). Exam & Diagnostic Data Last 24 Hrs of Vital Signs/I&O Vital Signs Date Time Temp Pulse Resp B/P B/P Pulse O2 O2 Flow FiO2 Mean Ox Delivery Rate 08/07 1335 97.2 88 22 122/74 96 Nasal 2.0L Cannula 08/07 1131 99.0 94 22 130/72 96 Nasal 2.0L Cannula Physical Exam General Appearance Alert, Cooperative, No Acute Distress Skin pale, multiple scrach murphy HEENT Atraumatic, PERRLA, EOMI Neck right upper part of chest swelling and tenderness with brownish secretions coming out of the catheter. Cardiovascular Normal S1, Normal S2 Lungs Clear to Auscultation, Normal Air Movement Abdomen Soft, mild tenderness in epigastrium Neurological Normal Speech Extremities No Clubbing, No Cyanosis, No Edema Last 24 Hrs of Labs/Jarod: Laboratory Tests 08/07/17 1430: Lactic Acid Pending 08/07/17 1115: Anion Gap 17 H, Estimated GFR 11 L, BUN/Creatinine Ratio 3.7 L, Glucose 117 H, Lactic Acid 3.4 H, Calcium 9.1, Total Bilirubin 1.5 H, AST 16 L, ALT 26, Alkaline Phosphatase 127 H, Total Protein 6.7, Albumin 3.7, Globulin 3.0, Albumin/Globulin Ratio 1.2, CBC w Diff MAN DIFF ORDERED, RBC 3.22 L, MCV 102.2 H, MCH 34.1 H, MCHC 33.4, RDW 15.9 H, MPV 7.4, Gran % 94.6 H, Lymphocytes % 1.9 L, Monocytes % 3.4, Eosinophils % 0, Basophils % 0.1, Absolute Granulocytes 13.5 H, Segmented Neutrophils 89 H, Band Neutrophils 3, Absolute Lymphocytes 0.3 L, Lymphocytes 2 L, Monocytes 6, Absolute Monocytes 0.5, Absolute Eosinophils 0, Absolute Basophils 0, Platelet Estimate ADEQUATE, Normochromic RBCs VERIFIED, Poikilocytosis 1+, Anisocytosis 1+, Macrocytic Cells 1+, Stomatocytes 1+, Fld Total RBCs Counted 100 08/07/17 1113: Lactic Acid Cancelled Microbiology 08/07 1415 CATH TIP: Catheter Tip Culture - RECD 08/07 1230 BLOOD: Blood Culture - RECD 08/07 1115 BLOOD: Blood Culture - RECD Assessment/Plan Assessment: Patient is an 87-year-old male past medical history of 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 ED course - Vital signs -temperature 99.0, pulse 94, respiratory 22, blood pressure 130/72, SPO2 96% on 2 L of nasal cannula. blood workup -hemoglobin 11.0, hematocrit 32.9, MCV 102, platelet count 143, lactic acid 2.4 lymphocytes 1.9, absolute granulocyte 13.5, segmented neutrophils 89, Band cells 3, serum sodium 137, potassium 3.9, chloride 100, carbon 19, anion gap 17, BUN 18, creatinine 4.9, GFR 11, glucose 117, Calcium 9.5,Total bilirubin 1.5, AST 16, ALT 16, alkaline phosphatase 127, albumin 3.7.Blood cultures were already sent. Chest x-ray -Central vascular prominence without overt edema. No consolidation. CT abdomen and pelvis - 1. No acute findings in the abdomen or pelvis. No inflammatory changes. 2. Small bilateral pleural effusions. 3. Atrophic kidneys. No hydronephrosis. Bilateral calculi and vascular calcifications. Bilateral renal cysts. Additional hyperattenuating lesions noted which favor hemorrhagic or proteinaceous cysts. Patient was already seen by Dr. Posada in the ED and he advised to have a cardiac consult and remove the hemodialysis catheter and send the tip for the culture.We will start patient on injection ceftazidime after removal of the catheter. Assessment and plan - Patient is an 87-year-old male, end-stage renal disease currently on hemodialysis presented with, history of fever, anorexia, confusion and found to have brown secretions and swelling surrounding the Abdirizak catheter on the right side of the chest. He was given an injection ceftriaxone at the facility and 1 g vancomycin at the dialysis today.In the ED he was conscious, cooperative, having temperature of 99. His blood workup showed 3 band cells.We took the blood culture and send the patient to IR for removal of Abdirizak catheter and send the tip for culture and followed by injection ceftazidime 1 g IV state.We obtain a consult from nephrology and infectious disease. Patient's right-sided fistula is not working left-sided was clotted, and need evaluation by vascular surgery.He is due for his outpatient appointment with vascular surgery tomorrow.We will place a consult with vascular surgery and ask for recommendation. Sepsis secondary to Abdirizak catheter infection -leading to anion gap metabolic acidosis, lactic acidosis, hyperbilirubinemia, high alkaline phosphatase - * Admitted to general medicine floor * Follow nephrology recommendation * Follow ID Recommendation * We will start patient on injection ceftazidime 1 g IV state and then reconsider the dose according to the creatinine clearance * Hemodialysis on Saturday or Saturday according to nephrology recommendation * We will start patient on IV fluids normal saline 30 cc/h * Please place vascular surgery consult and a recommendation regarding recanalization of left-sided AV fistula. * Follow lactic acid CODE STATUS -full code, discussed with the daughter in the detail who is a power of ip attorney. DVT prophylaxis - ALP S/ heparin Diet -renal dialysis diet. As Ranked By This Provider Problem List: 1. Hemodialysis catheter infection Qualifiers Encounter type: initial encounter Qualified Code: T82.7XXA - Infection and inflammatory reaction due to other cardiac and vascular devices, implants and grafts, initial encounter 2. Chronic kidney disease with end stage renal failure on dialysis Core Measures/Misc (02/10) Acute Coronary Syndrome ACS Diagnosis: No Congestive Heart Failure Congestive Heart Failure Diagnosis No Cerebrovascular Accident CVA/TIA Diagnosis: No VTE (View Protocol) VTE Risk Factors Age>40 No Mechanical VTE Prophylaxis d/t N/A MechProphylax Ordered No VTE Pharm Prophylaxis d/t Other Comment: PATIENT IS ON ALPS Sepsis (View protocol) Sepsis Present: No Neli Gee MD 08/07/17 1339: Attending MD Review Statement Attending Statement Attending MD Statement: examined this patient, discuss w/resident/PA/COMPUTER TYPESETTER KEYLINER, agreed w/resident/PA/COMPUTER TYPESETTER KEYLINER, discussed with family, reviewed EMR data (avail), reviewed images, amended to note Attending Assessment/Plan: 87 y/o M with pmh sig for aortic stenosis, previous TIA, ESRD status post obstructive uropathy on dialysis for 8 years on hemodialysis Saturday, prostate cancer in 2008 after chemotherapy and radiation, hypertension, hyperlipidemia, chronic diastolic congestive heart failure and gout with recent admission to [facility] with a fall/TIA. At that point patient's permanent access was obstructed and he was started on dialysis through right chest wall tunneled catheter. Patient spiked a fever yesterday at the rehabilitation. He was given ceftriaxone for an unknown source of infection. According to patient's daughter the blood work showed evidence of infection. Today a dialysis patient spiked another fever of 102 and according to the report from the dialysis nurse the catheter site did drain pustular discharge. Patient did complain of dry cough. He has these skin lesions on the skin which according to the daughter have been chronic. He has followed up with a ribbon tier. The skin lesions do not look infected. There is some erythema around the chest wall catheter site. It is nontender on palpation. Patient also complained of lower abdominal pain. He does not make any urine and he denies constipation. His CT abdomen and pelvis does not show anything acute. Off note his flu swab was negative at that the rehabilitation. Vital Signs Date Time Temp Pulse Resp B/P B/P Pulse O2 O2 Flow FiO2 Mean Ox Delivery Rate 08/07 1131 99.0 94 22 130/72 96 Nasal 2.0L Cannula on exam; awake, nad. cv; s1,s2, rrr, + systolic murmur. resp; mil b/l basal crackles. abd; soft, nt, bs+ ext; no edema skin; scar murphy on the skin at multiple sites especially lower extremities from scratching. Laboratory Tests 08/07 08/07 1115 1113 Chemistry Sodium (137 - 145 mmol/L) 137 Potassium (3.5 - 5.1 mmol/L) 3.9 Chloride (98 - 107 mmol/L) 100 Carbon Dioxide (22 - 30 mmol/L) 19 L Anion Gap (5 - 16) 17 H BUN (9 - 20 mg/dL) 18 Creatinine (0.7 - 1.2 mg/dL) 4.9 H Estimated GFR (>60 ml/min) 11 L BUN/Creatinine Ratio (7 - 25 %) 3.7 L Glucose (65 - 99 mg/dL) 117 H Lactic Acid (0.7 - 2.1 mmol/L) 3.4 H Cancelled Calcium (8.4 - 10.2 mg/dL) 9.1 Total Bilirubin (0.2 - 1.3 mg/dL) 1.5 H AST (17 - 59 U/L) 16 L ALT (21 - 72 U/L) 26 Alkaline Phosphatase (< 127 U/L) 127 H Total Protein (6.3 - 8.2 g/dL) 6.7 Albumin (3.5 - 5.0 g/dL) 3.7 Globulin (1.9 - 4.2 gm/dL) 3.0 Albumin/Globulin Ratio (1.1 - 2.2 %) 1.2 Hematology CBC w Diff MAN DIFF ORDERED WBC (4.8 - 10.8 /CUMM) 14.3 H RBC (4.70 - 6.10 /CUMM) 3.22 L Hgb (14.0 - 18.0 G/DL) 11.0 L Hct (42 - 52 %) 32.9 L MCV (80.0 - 94.0 FL) 102.2 H MCH (27.0 - 31.0 PG) 34.1 H MCHC (33.0 - 37.0 G/DL) 33.4 RDW (11.5 - 14.5 %) 15.9 H Plt Count (130 - 400 /CUMM) 143 MPV (7.4 - 10.4 FL) 7.4 Gran % (42.2 - 75.2 %) 94.6 H Lymphocytes % (20.5 - 51.1 %) 1.9 L Monocytes % (1.7 - 9.3 %) 3.4 Eosinophils % (0 - 5 %) 0 Basophils % (0.0 - 2.0 %) 0.1 Absolute Granulocytes (1.4 - 6.5 /CUMM) 13.5 H Segmented Neutrophils (42.2 - 75.2 %) 89 H Band Neutrophils (0.0 - 5.0 %) 3 Absolute Lymphocytes (1.2 - 3.4 /CUMM) 0.3 L Lymphocytes (20.5 - 51.1 %) 2 L Monocytes (1.7 - 9.3 %) 6 Absolute Monocytes (0.10 - 0.60 /CUMM) 0.5 Absolute Eosinophils (0.0 - 0.7 /CUMM) 0 Absolute Basophils (0.0 - 0.2 /CUMM) 0 Platelet Estimate (ADEQUATE) ADEQUATE Normochromic RBCs VERIFIED Poikilocytosis 1+ Anisocytosis 1+ Macrocytic Cells 1+ Stomatocytes 1+ Other Body Source Fld Total RBCs Counted (%) 100 All imaging studies reviewed. A/P; 87 y/o M with pmh sig for aortic stenosis, previous TIA, ESRD status post obstructive uropathy on dialysis for 8 years on hemodialysis Saturday, prostate cancer in 2008 after chemotherapy and radiation, hypertension, hyperlipidemia, chronic diastolic congestive heart failure and gout with recent admission to [facility] with a fall/TIA. At that point patient's permanent access was obstructed and he was started on dialysis through right chest wall tunneled catheter. Patient today will be admitted with fever with likely source of infection from the dialysis catheter. He received vancomycin at the dialysis. He did receive ceftriaxone yesterday at the rehabilitation. Appreciate nephrology input. Please contact IR for the removal of the dialysis catheter and culture the catheter tip. Blood cultures have been obtained, will follow. Will give 1 dose off IV ceftaz after confirming with infectious disease. Please consult infectious disease. Trend lactate, gentle IV hydration x 500 cc. Please confirm and continue the rest of the home medications. Will avoid any narcotics, benzos, any other unnecessary medications that would lead to confusion. Further hemodialysis plans per nephrology. DVT px: Heparin subcutaneous. D/W patient's daughter at bedside.
--- NOTE | 2017-08-07 15:24 | Cons- Infect Disease ---
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, maintained on hemodialysis Mondays, Wednesdays and Fridays via a left upper extremity fistula until recently, prostate cancer, status post chemotherapy and radiation therapy, status post multiple TIAs and multiple falls , resulting in a left hip fracture 5 months prior to admission, requiring repair , subdural hematomas 2 months prior to admission, for which he was hospitalized at [facility], and a more recent hospitalization at [facility] 3 weeks prior to admission , with his hospital course complicated by a TIA and occlusion of his fistula, requiring placement of a Abdirizak catheter in the right IJ, with the development of a fever one day prior to admission, associated with a white blood cell count of 16,000 and a negative rapid flu swab, given one dose of Ceftriaxone, with no blood cultures obtained, admitted today after he was found to be febrile at dialysis with purulent drainage from the Abdirizak catheter site. He was given 1 dose of Vancomycin at the end of dialysis and transferred to the ER. On admission he was afebrile. Laboratory data revealed a white blood cell count of 14,000, BUN/creatinine 18 and 4.9, lactic acid 3.4, bilirubin 1.5, alkaline phosphatase 127. Chest x-ray revealed central vascular prominence. CT of the abdomen and pelvis was negative for any acute process. His Abdirizak catheter was removed, and he was given 1 dose of Ceftazidime. At present he notes mild nausea but offers no other complaints. He denies any chest pain, shortness of breath or cough and he reports no abdominal pain. Allergies/Medications Allergies: Coded Allergies: lactose (DIARRHEA 07/24/17) Home Med List: Allopurinol 100 MG TABLET 1 TAB PO DAILY GOUT (Reported) Amlodipine Besylate 10 MG TABLET 1 TAB PO DAILY HEART (Reported) Cinacalcet HCl (Sensipar) 30 MG TABLET 1 TAB PO DAILY KIDNEY DISEASE ( Reported) Cyanocobalamin (Vitamin B-12) 1,000 MCG TABLET 1 TAB PO DAILY VITAMIN SUPPORT (Reported) Hydroxyzine Hydrochloride (Atarax) 25 MG TABLET 1 TAB PO BID PRN itching ( Reported) Levothyroxine Sodium 150 MCG TABLET 1 TAB PO DAILY thyropid (Reported) Metoprolol Succinate 25 MG TAB.ER.24H 1 TAB PO DAILY HEART/BP (Reported) Nephro-Vitamins (Nephro-Tye Tablet) (Unknown Strength) TABLET 1 TAB PO DAILY SUPPLEMENT (Reported) Pantoprazole Sodium 20 MG TABLET.DR 1 TAB PO DAILY GI (Reported) Sevelamer Carbonate (Renvela) 800 MG TABLET 1 TAB PO WITH MEALS kidney ( Reported) Tamsulosin HCl (Flomax) 0.4 MG CAP.ER.24H 1 CAP PO DAILY PROSTATE (Reported) Travoprost (Travatan Z) 5 ML DROPS 1 GTT OPH QPM BOTH EYES (Reported) Trazodone HCl 50 MG TABLET 1 TAB PO QPM SLEEP (Reported) Valsartan (Diovan) 80 MG TABLET 1 TAB PO DAILY HEART (Reported) Past History Travel History Traveled to [place] past 21 day No Medical History Neurological: TIA, status post recent subdural hematomas EENT: NONE Cardiovascular: diastolic CHF, hypertension, hyperlipidemia Respiratory: NONE Gastrointestinal: GERD Hepatic: NONE Renal: KIDNEY FAILURE DIALYSIS M,W,F Musculoskeletal: gout Psychiatric: NONE Endocrine: hypothyroidism Blood Disorders: NONE Cancer(s): prostate cancer 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 spouse, child Services at Home: Nursing ETOH Use: denies use Illicit Drug Use: denies illicit drug use Functional Ability ADLs Independent: dressing, eating, toileting, bathing. Ambulation: independent, cane Review of Systems Review of Systems All Other Systems: Reviewed and Negative Exam & Diagnostic Data Last 24 Hrs of Vital Signs/I&O Vital Signs Date Time Temp Pulse Resp B/P B/P Pulse O2 O2 Flow FiO2 Mean Ox Delivery Rate 08/07 1505 97.2 88 22 122/74 08/07 1335 97.2 88 22 122/74 96 Nasal 2.0L Cannula 08/07 1131 99.0 94 22 130/72 96 Nasal 2.0L Cannula Physical Exam Other Physical Findings: Afebrile. He is awake and alert in no acute distress. Skin reveals no rash. HEENT negative. Neck is supple with no adenopathy. Chest dressing intact over the right upper chest status post removal of the Abdirizak catheter. Lungs are clear. Heart regular rhythm with no murmur. Abdomen is soft, nontender with positive bowel sounds. Back no CVA tenderness. Extremities no cyanosis, clubbing or edema; left upper extremity fistula with no bruit or thrill, with no surrounding inflammation. Neuro is without focality. Last 24 Hours of Lab Results: Laboratory Tests 08/07 08/07 08/07 1430 1115 1113 Chemistry Sodium (137 - 145 mmol/L) 137 Potassium (3.5 - 5.1 mmol/L) 3.9 Chloride (98 - 107 mmol/L) 100 Carbon Dioxide (22 - 30 mmol/L) 19 L Anion Gap (5 - 16) 17 H BUN (9 - 20 mg/dL) 18 Creatinine (0.7 - 1.2 mg/dL) 4.9 H Estimated GFR (>60 ml/min) 11 L BUN/Creatinine Ratio (7 - 25 %) 3.7 L Glucose (65 - 99 mg/dL) 117 H Lactic Acid (0.7 - 2.1 mmol/L) 1.5 3.4 H Cancelled Calcium (8.4 - 10.2 mg/dL) 9.1 Total Bilirubin (0.2 - 1.3 mg/dL) 1.5 H AST (17 - 59 U/L) 16 L ALT (21 - 72 U/L) 26 Alkaline Phosphatase (< 127 U/L) 127 H Total Protein (6.3 - 8.2 g/dL) 6.7 Albumin (3.5 - 5.0 g/dL) 3.7 Globulin (1.9 - 4.2 gm/dL) 3.0 Albumin/Globulin Ratio (1.1 - 2.2 %) 1.2 Hematology CBC w Diff MAN DIFF ORDERED WBC (4.8 - 10.8 /CUMM) 14.3 H RBC (4.70 - 6.10 /CUMM) 3.22 L Hgb (14.0 - 18.0 G/DL) 11.0 L Hct (42 - 52 %) 32.9 L MCV (80.0 - 94.0 FL) 102.2 H MCH (27.0 - 31.0 PG) 34.1 H MCHC (33.0 - 37.0 G/DL) 33.4 RDW (11.5 - 14.5 %) 15.9 H Plt Count (130 - 400 /CUMM) 143 MPV (7.4 - 10.4 FL) 7.4 Gran % (42.2 - 75.2 %) 94.6 H Lymphocytes % (20.5 - 51.1 %) 1.9 L Monocytes % (1.7 - 9.3 %) 3.4 Eosinophils % (0 - 5 %) 0 Basophils % (0.0 - 2.0 %) 0.1 Absolute Granulocytes (1.4 - 6.5 /CUMM) 13.5 H Segmented Neutrophils (42.2 - 75.2 %) 89 H Band Neutrophils (0.0 - 5.0 %) 3 Absolute Lymphocytes (1.2 - 3.4 /CUMM) 0.3 L Lymphocytes (20.5 - 51.1 %) 2 L Monocytes (1.7 - 9.3 %) 6 Absolute Monocytes (0.10 - 0.60 /CUMM) 0.5 Absolute Eosinophils (0.0 - 0.7 /CUMM) 0 Absolute Basophils (0.0 - 0.2 /CUMM) 0 Platelet Estimate (ADEQUATE) ADEQUATE Normochromic RBCs VERIFIED Poikilocytosis 1+ Anisocytosis 1+ Macrocytic Cells 1+ Stomatocytes 1+ Other Body Source Fld Total RBCs Counted (%) 100 Last 24 Hours of Jarod Results: Blood cultures 2 August 07 negative Abdirizak catheter tip culture August 07 pending Diagnostic Data Recent Imaging Findings: Chest x-ray August [address] of the abdomen and pelvis August 07 no acute process Assessment/Plan Assessment/Plan Impression: This is an 87-year-old man with a history of 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 His clinical picture is consistent with a catheter-related infection. This is most likely secondary to Staph aureus, including MRSA, though gram negatives are also possible. He has no other obvious source of infection. His elevated liver enzymes might suggest a biliary process (status post cholecystectomy) and he does report nausea, though he has no abdominal tenderness and suspect this is secondary to sepsis. He was given a dose of Vancomycin at dialysis and received a dose of Ceftazidime in the emergency room; therefore he can be followed off antibiotics overnight with reevaluation in the a.m. based on his preliminary cultures. Suggestion: 1. Follow-up blood and catheter tip cultures 2. New catheter placement later this week as noted per Renal, based on cultures and clinical picture 3. Further antibiotics based on above Consult Acknowledgment - Thank you for your consult request.
--- NOTE | 2017-08-07 17:21 | INTERVENTIONAL RADIOLOGY RPT ---
CLINICAL HISTORY: This patient is a 87 years old Male with persistent fevers of unknown etiology, who requires removal of a right internal jugular hemodialysis catheter as there is discharge coming out from around the catheter entry site. This case was discussed with Dr. Posada from nephrology as this could be the patient's sole remaining jugular access. During placement in June, it was noted that the SVC was quite stenotic and access was difficult. Removing this line could result in lack of access if the left internal jugular vein is unavailable. The patient has had multiple jugular access these in the past, although at outside institutions and the imaging is not available to me. These issues were discussed with Dr. Posada who still wishes for the line to be removed completely for a line holiday. PROCEDURES: 1. Removal of central venous catheter. 2. Culture of catheter tip. PHYSICIANS: Dr. Jesica Poole (attending). MEDICATIONS: Lidocaine 1%, 0 mL SQ. CONTRAST: None FLUOROSCOPY TIME: 0 minutes DAP: 0 uGym2 COMPLICATIONS: None ESTIMATED BLOOD LOSS: <5 mL SPECIMENS: Catheter tip IMPLANT: None SITE MARKING: As part of the preprocedure verification policy, a site marking procedure was initiated. Due to the nature the procedure, the insertion site could not be predetermined thus invoking the policy of exemption to site laterality and marking. Insertion site marking was performed in the procedure room in conjunction with imaging confirmation. PROCEDURE NOTE: Informed consent was obtained from the patient prior to the procedure. During this process, the procedure and potential alternatives were explained along with the intended outcome and benefits. The risks of the procedure, including the possibility of an unsuccessful procedure, as well as the risk of not doing the procedure, were discussed. The patient was given the opportunity to ask questions regarding the procedure and appeared competent to make decisions. A signed consent form documenting this discussion was placed in the medical record. A time-out procedure was performed. The patient was placed supine on the stretcher. The catheter entry site was prepped and draped in the usual sterile fashion. All elements of maximal sterile barrier technique followed including use of cap, mask, sterile gown, sterile gloves, a sterile full body drape and hand hygiene. Also followed skin preparation with 2% chlorhexidine for cutaneous antisepsis, and sterile ultrasound preparation with sterile gel and probe cover when applicable. The catheter was removed using traction. The cuff was removed with the catheter. Direct pressure was applied at the venotomy site and along the tunnel until hemostasis was achieved. The exit site of the tunnel was covered with a sterile dressing. The catheter tip was sent for culture. The patient tolerated the procedure well. FINDINGS: The exit site of the catheter tunnel was nonerythematous and nontender. IMPRESSION: Successful removal of the tunneled central venous catheter in the right chest. PLAN: The patient was stable after the procedure and will be transferred back to the emergency room for final disposition.
[2017-08-07] MEDS ORDERED: LEVOXYL175 MCG PO (18:31)
[2017-08-07] MEDS ORDERED: TRAZODONE HCL50 M1 PO (18:32)
[2017-08-07] MEDS ORDERED: CEFTRIAXONE500 MG IM (18:34)
[2017-08-07] MEDS ORDERED: GUAIFENESI100 MG/5 M PO (18:35)
[2017-08-07] MEDS ORDERED: NEPHRO PO (18:36)
[2017-08-07] MEDS ORDERED: MILK OF MA400 MG/52 PO (18:37)
[2017-08-07] MEDS ORDERED: BISACODYL10 M1 RC (18:37)
[2017-08-07] MEDS ORDERED: FLEET ENEMA133 ML RC (18:38)
[2017-08-07] MEDS ORDERED: ACETAMINOPHEN325 M2 PO (18:39)
[2017-08-07] MEDS ORDERED: ACEPHEN650 M1 PR (18:40)
[2017-08-07 19:00] VITALS: BP 130/80
[2017-08-07 22:19] VITALS: BP 132/70
[2017-08-08 06:28] VITALS: BP 144/70
--- NOTE | 2017-08-08 07:54 | PN- Housestaff ---
Juve HENSON,Carmen 08/08/17 0754: Subjective Follow-up For: tunneled catheter infection with s.aureus Altered mentation Subjective: Seen at bedside He is alert and oriented X 3. Reports he still have some pain. Review of Systems Constitutional: Reports: see HPI. Objective Last 24 Hrs of Vital Signs/I&O Vital Signs Date Time Temp Pulse Resp B/P B/P Pulse O2 O2 Flow FiO2 Mean Ox Delivery Rate 08/08 0628 99.1 81 20 144/70 98 Room Air 08/07 2219 98.2 84 20 132/70 99 Nasal Cannula 08/07 1900 99.0 79 20 130/80 95 Nasal Cannula 08/07 1851 Nasal 2.0L Cannula 08/07 1720 100.2 88 20 140/67 98 Room Air 08/07 1704 Room Air 08/07 1535 84 20 128/72 98 Nasal 2.0L Cannula 08/07 1505 97.2 88 22 122/74 08/07 1335 97.2 88 22 122/74 96 Nasal 2.0L Cannula 08/07 1131 99.0 94 22 130/72 96 Nasal 2.0L Cannula Intake & Output 08/08 0800 08/08 0000 08/07 1600 Intake Total 810 Output Total Balance 810 Intake, IV 90 Intake, Oral 720 Number 1 Bowel Movements Patient 65.771 kg 70.307 kg Weight Weight Standing Scale Reported by Patient Measurement Method Physical Exam General Appearance: Alert, Oriented X3, Cooperative Skin: No Rashes, No Breakdown HEENT: Atraumatic, PERRLA, EOMI Neck: Supple Cardiovascular: Normal S1, Normal S2, pansystolic murmur Lungs: Clear to Auscultation, Normal Air Movement Abdomen: Normal Bowel Sounds, Soft, No Tenderness Neurological: Normal Speech Extremities: No Clubbing, No Cyanosis Vascular: Normal Pulses Current Medications: Current Medications Sig/Harmeet Start time Last Medication Dose Route Stop Time Status Admin Allopurinol 100 MG DAILY 08/07 1416 AC 08/08 PO 09 Amlodipine Besylate 10 MG DAILY 08/07 1416 AC 08/08 PO 09 Cinacalcet 30 MG DAILY 08/08 1000 AC 08/08 PO 0907 Cyanocobalamin 1,000 MCG DAILY 08/08 1000 AC 08/08 PO 09 Diphenhydramine HCl 1 ZHANNA BID PRN 032014 AC 08/08 [facility] 1411 Heparin Sodium 5,000 UNIT Q8 08/07 1428 AC 08/08 (Porcine) SC 1411 Hydroxyzine HCl 25 MG BID PRN 08/07 1430 AC 08/08 PO 1426 Levothyroxine Sodium 0.15 MG DAILY AC 08/08 0700 AC 08/08 PO 0604 Losartan Potassium 50 MG DAILY 08/08 1000 AC 08/08 PO 0907 Metoprolol Succinate 25 MG DAILY 08/08 1000 AC 08/08 PO 0907 Metoprolol Tartrate 25 MG DAILY 08/08 1000 DC PO Multivitamins 1 TAB DAILY 08/07 1417 AC 08/08 PO 0907 Omeprazole 20 MG DAILY AC 08/08 0700 AC 08/08 PO 0604 Sevelamer Carbonate 800 MG WITH MEALS 08/07 1700 AC 08/08 PO 1741 Sodium Chloride 1,000 ML Q24H 08/07 1430 DC 08/07 IV 1658 Tamsulosin HCl 0.4 MG DAILY 08/08 1000 AC 08/08 PO 0907 Trazodone HCl 50 MG QPM 08/07 2200 AC 08/07 PO 2144 Last 24 Hrs of Lab/Jarod Results Last 24 Hrs of Labs/Mics: Laboratory Tests 08/08/17 1355: Anion Gap 14, Estimated GFR 7 L, BUN/Creatinine Ratio 5.2 L, CBC w Diff NO MAN DIFF REQ, RBC 2.86 L, MCV 103.8 H, MCH 34.0 H, MCHC 32.7 L, RDW 16.1 H, MPV 8.0, Gran % 72.4, Lymphocytes % 16.2 L, Monocytes % 9.8 H, Eosinophils % 1.3, Basophils % 0.3, Absolute Granulocytes 6.1, Absolute Lymphocytes 1.4, Absolute Monocytes 0.8 H, Absolute Eosinophils 0.1, Absolute Basophils 0 Microbiology 08/08 1655 STOOL: Clostridium difficile Toxin A & B - RECD 08/08 1417 BLOOD: Blood Culture - RECD 08/08 135 BLOOD: Blood Culture - RECD Assessment/Plan Assessment: Patient is 87-year-old male with past medical history of 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 Vital signs at presentation Tmax 99.0, pulse 94, blood pressure 130/72, SPO2 96% on 2 L of nasal cannula. Physical exam altered with pansystolic murmur, yellowish discharge from the catheter site. Labs did show H/H 11/32.9, MCV 102, platelet count 143, lactic acid 2.4 lymphocytes 1.9, absolute granulocyte 13.5, segmented neutrophils 89, Band cells 3, serum Na 137, K 3.9, Cl 100, HCo3 19, AG 17, BUN/cr 18/4.9, GFR 11, glucose 117, Calcium 9.5,Total bilirubin 1.5, AST 16, ALT 16, alkaline phosphatase 127, albumin 3.7.Blood cultures were already sent. Chest x-ray -Central vascular prominence without overt edema. No consolidation. CT abdomen and pelvis did show Small bilateral pleural effusions with Atrophic kidneys. Problem list: Tunneled catheter infection ESRD on dialysis - AVF bilateral nonfunctional HTN Hypothyroidism Moderate Multiple falls Hemodialysis Catheter infection Patient did have significant discharge from his catheter site. He did have elevated white count with lactic acidosis. Spiked a temperature of 100.2 max yesterday. Culture catheter tip and blood cultures were sent. Staph aureus grew at the tip of the catheter with negative blood culture so far. He is single dose of IV vancomycin and IV ceftazidime after coming to hospital. * IR guided catheter removal yesterday * IV vancomycin with dialysis. * Nothing by mouth for dialysis catheter tomorrow * Await blood cultures tomorrow ESRD on dialysis Likely get a catheter placement tomorrow. Continue Sevelamir, cinacalcet, multivitamin. HTN Continue amlodipine 10 mg daily, losartan 50 mg daily. Hypothyroidism Continue levothyroxine home dose Benign prostatic hypertrophy Continue tamsulosin 0.4 mg daily Pain control with trazodone DVT prophylaxis Subcutaneous heparin CODE STATUS Full code Problem List: 1. Hemodialysis catheter infection 2. Weakness 3. Confusion 4. Gait instability Pain Ratin Pain Location: n/a Pain Goal: Pain 4 or less Pain Plan: tylenol prn Tomorrow's Labs & Rationales: cbc,bep Gerard HENSON,Neli 08/08/17 1059: Attending Review Statement Attending Statement Attending MD Statement: examined this patient, discuss w/resident/PA/[employer], agreed w/resident/PA/[employer], reviewed EMR data (avail), discussed with nursing, discussed with case mgmt, reviewed images, amended to note Attending Assessment/Plan: Patient seen and examined, feels ok. Offers no compliants. Denies any pain. Low grade temp spike last evening. Vital Signs Date Time Temp Pulse Resp B/P B/P Pulse O2 O2 Flow FiO2 Mean Ox Delivery Rate 08/08 906 81 144/70 08/08 0907 81 144/70 08/08 0907 81 144/70 08/08 0907 81 144/70 08/08 0628 99.1 81 20 144/70 98 Room Air 08/07 2219 98.2 84 20 132/70 99 Nasal Cannula 08/07 1900 99.0 79 20 130/80 95 Nasal Cannula 08/07 1851 Nasal 2.0L Cannula 08/07 1720 100.2 88 20 140/67 98 Room Air 08/07 1704 Room Air 08/07 1535 84 20 128/72 98 Nasal 2.0L Cannula 08/07 1505 97.2 88 22 122/74 08/07 1335 97.2 88 22 122/74 96 Nasal 2.0L Cannula 08/07 1131 99.0 94 22 130/72 96 Nasal 2.0L Cannula on exam; awake, nad. cv; s1,s2, rrr, + systolic murmur. resp; clear abd; soft, nt, bs+ ext; no edema skin: slightly erythema surrounding the joseph site. cath was removed yesterday. Laboratory Tests 08/07 08/07 08/07 1430 1412 1115 Chemistry Sodium (137 - 145 mmol/L) 137 Potassium (3.5 - 5.1 mmol/L) 3.9 Chloride (98 - 107 mmol/L) 100 Carbon Dioxide (22 - 30 mmol/L) 19 L Anion Gap (5 - 16) 17 H BUN (9 - 20 mg/dL) 18 Creatinine (0.7 - 1.2 mg/dL) 4.9 H Estimated GFR (>60 ml/min) 11 L BUN/Creatinine Ratio (7 - 25 %) 3.7 L Glucose (65 - 99 mg/dL) 117 H Lactic Acid (0.7 - 2.1 mmol/L) 1.5 Cancelled 3.4 H Calcium (8.4 - 10.2 mg/dL) 9.1 Total Bilirubin (0.2 - 1.3 mg/dL) 1.5 H AST (17 - 59 U/L) 16 L ALT (21 - 72 U/L) 26 Alkaline Phosphatase (< 127 U/L) 127 H Total Protein (6.3 - 8.2 g/dL) 6.7 Albumin (3.5 - 5.0 g/dL) 3.7 Globulin (1.9 - 4.2 gm/dL) 3.0 Albumin/Globulin Ratio (1.1 - 2.2 %) 1.2 Hematology CBC w Diff MAN DIFF ORDERED WBC (4.8 - 10.8 /CUMM) 14.3 H RBC (4.70 - 6.10 /CUMM) 3.22 L Hgb (14.0 - 18.0 G/DL) 11.0 L Hct (42 - 52 %) 32.9 L MCV (80.0 - 94.0 FL) 102.2 H MCH (27.0 - 31.0 PG) 34.1 H MCHC (33.0 - 37.0 G/DL) 33.4 RDW (11.5 - 14.5 %) 15.9 H Plt Count (130 - 400 /CUMM) 143 MPV (7.4 - 10.4 FL) 7.4 Gran % (42.2 - 75.2 %) 94.6 H Lymphocytes % (20.5 - 51.1 %) 1.9 L Monocytes % (1.7 - 9.3 %) 3.4 Eosinophils % (0 - 5 %) 0 Basophils % (0.0 - 2.0 %) 0.1 Absolute Granulocytes (1.4 - 6.5 /CUMM) 13.5 H Segmented Neutrophils (42.2 - 75.2 %) 89 H Band Neutrophils (0.0 - 5.0 %) 3 Absolute Lymphocytes (1.2 - 3.4 /CUMM) 0.3 L Lymphocytes (20.5 - 51.1 %) 2 L Monocytes (1.7 - 9.3 %) 6 Absolute Monocytes (0.10 - 0.60 /CUMM) 0.5 Absolute Eosinophils (0.0 - 0.7 /CUMM) 0 Absolute Basophils (0.0 - 0.2 /CUMM) 0 Platelet Estimate (ADEQUATE) ADEQUATE Normochromic RBCs VERIFIED Poikilocytosis 1+ Anisocytosis 1+ Macrocytic Cells 1+ Stomatocytes 1+ Other Body Source Fld Total RBCs Counted (%) 100 08/07 08/07 1113 1112 Chemistry Lactic Acid Cancelled Cancelled A/P; 87 y/o M with pmh sig for aortic stenosis, previous TIA, ESRD status post obstructive uropathy on dialysis for 8 years on hemodialysis Saturday, prostate cancer in 2008 after chemotherapy and radiation, hypertension, hyperlipidemia, chronic diastolic congestive heart failure and gout with recent admission to [facility] with a fall/TIA. Patient received tunneled catheter placement in the right IJ secondary to blocked permanent access. Now admitted with fever likely secondary to central line infection. Condition catheter has been removed yesterday. Patient did receive a dose of vancomycin ceftaz. Appreciate infectious disease and nephrology input. We need to discuss about putting the catheter for the dialysis. Patient was also supposed to see a vascular surgeon for the blocked permanent access. He had AV fistula and AV graft. He is complaining of some mouth sore, will order Orajel. Continue the rest of the management. DVT prophylaxis: Heparin subcutaneous.
--- NOTE | 2017-08-08 12:01 | PN- Nephrology ---
Assessment/Plan Nephrology Assessment: ESRD - Now without access. Suspect will need non-tunneled dialysis catheter tomorrow vs being able to place a tunneled line - will need to follow cultures and clinical status. Fever - 2/2 catheter/tunnel infection. Staph from tip culture. Confusion - Likely related to the infection. Seems a bit better today. Suggestion: -No HD need for today -IR consult for catheter placement tomorrow - tentative plans for non-tunneled line on L side but will see - will plan for dialysis on Saturday so that the catheter placement can happen later in the day if needed -Cont empiric abx including Vanc as you are - f/u further ID recs Please call [phone] with ?'s Subjective Subjective: Dialysis catheter removed yesterday Tmax 100.2 yesterday afternoon Catheter tip culture with staph aureus (sensitivities pending); blood cultures pending Objective Vital Signs and I&Os Vital Signs Date Time Temp Pulse Resp B/P B/P Pulse O2 O2 Flow FiO2 Mean Ox Delivery Rate 08/08 09 81 144/70 08/08 09 81 144/70 08/08 0907 81 144/70 08/08 0907 81 144/70 08/08 0628 99.1 81 20 144/70 98 Room Air 08/07 2219 98.2 84 20 132/70 99 Nasal Cannula 08/07 1900 99.0 79 20 130/80 95 Nasal Cannula 08/07 1851 Nasal 2.0L Cannula 08/07 1720 100.2 88 20 140/67 98 Room Air 08/07 1704 Room Air 08/07 1535 84 20 128/72 98 Nasal 2.0L Cannula 08/07 1505 97.2 88 22 122/74 08/07 1335 97.2 88 22 122/74 96 Nasal 2.0L Cannula Intake & Output 08/08 1600 08/08 0400 08/07 1600 08/07 0400 08/06 1600 08/06 0400 Intake Total 290 810 Output Total Balance 290 810 Intake, IV 240 90 Intake, Oral 50 720 Number 2 Bowel Movements Patient 145 lb 155 lb Weight Weight Standing Scale Reported by Patient Measurement Method Physical Exam: Gen - OK appearing HEENT - supple CV - RRR, no m/r/g Chest - clear, no w/r/r, R chest wall ENZO s/p removal and dressing in place Abd - soft, NTND Ext - warm, no edema, LUE AVF no bruit/thrill Neuro - alert, conversive Current Medications: Current Medications Sig/Harmeet Start time Last Medication Dose Route Stop Time Status Admin Allopurinol 100 MG DAILY 08/07 1416 AC 08/08 PO 0907 Amlodipine Besylate 0 .STK-MED ONE 08/07 1508 DC PO Amlodipine Besylate 10 MG DAILY 08/07 1416 AC 08/08 PO 0907 Ceftazidime 0 .STK-MED ONE 08/07 1443 DC .ROUTE Ceftazidime 1,000 MG ONCE ONE 08/07 1415 DC 08/07 IV 08/07 1416 1442 Cinacalcet 30 MG DAILY 08/08 1000 AC 08/08 PO 0907 Cyanocobalamin 1,000 MCG DAILY 08/08 1000 AC 08/08 PO 0907 Diphenhydramine HCl 1 ZHANNA BID PRN 08/07 2015 AC 08/07 TOP 2144 Heparin Sodium 5,000 UNIT Q8 08/07 1428 AC 08/08 (Porcine) SC 0604 Hydroxyzine HCl 25 MG BID PRN 08/07 1430 AC 08/07 PO 2026 Levothyroxine Sodium 0.15 MG DAILY AC 08/08 0700 AC 08/08 PO 0604 Losartan Potassium 50 MG DAILY 08/08 1000 AC 08/08 PO 0907 Metoprolol Succinate 25 MG DAILY 08/08 1000 AC 08/08 PO 0907 Metoprolol Tartrate 25 MG DAILY 08/08 1000 DC PO Multivitamins 1 TAB DAILY 08/07 1417 AC 08/08 PO 0907 Omeprazole 20 MG DAILY AC 08/08 0700 AC 08/08 PO 0604 Sevelamer Carbonate 800 MG WITH MEALS 08/07 1700 AC 08/08 PO 0908 Sodium Chloride 1,000 ML Q24H 08/07 1430 DC 08/07 IV 1658 Tamsulosin HCl 0.4 MG DAILY 08/08 1000 AC 08/08 PO 0907 Trazodone HCl 50 MG QPM 08/07 2200 AC 08/07 PO 2144 Results Pertinent Lab Results: Laboratory Tests 08/07 08/07 08/07 1430 1412 1115 Chemistry Sodium (137 - 145 mmol/L) 137 Potassium (3.5 - 5.1 mmol/L) 3.9 Chloride (98 - 107 mmol/L) 100 Carbon Dioxide (22 - 30 mmol/L) 19 L Anion Gap (5 - 16) 17 H BUN (9 - 20 mg/dL) 18 Creatinine (0.7 - 1.2 mg/dL) 4.9 H Estimated GFR (>60 ml/min) 11 L BUN/Creatinine Ratio (7 - 25 %) 3.7 L Glucose (65 - 99 mg/dL) 117 H Lactic Acid (0.7 - 2.1 mmol/L) 1.5 Cancelled 3.4 H Calcium (8.4 - 10.2 mg/dL) 9.1 Total Bilirubin (0.2 - 1.3 mg/dL) 1.5 H AST (17 - 59 U/L) 16 L ALT (21 - 72 U/L) 26 Alkaline Phosphatase (< 127 U/L) 127 H Total Protein (6.3 - 8.2 g/dL) 6.7 Albumin (3.5 - 5.0 g/dL) 3.7 Globulin (1.9 - 4.2 gm/dL) 3.0 Albumin/Globulin Ratio (1.1 - 2.2 %) 1.2 Hematology CBC w Diff MAN DIFF ORDERED WBC (4.8 - 10.8 /CUMM) 14.3 H RBC (4.70 - 6.10 /CUMM) 3.22 L Hgb (14.0 - 18.0 G/DL) 11.0 L Hct (42 - 52 %) 32.9 L MCV (80.0 - 94.0 FL) 102.2 H MCH (27.0 - 31.0 PG) 34.1 H MCHC (33.0 - 37.0 G/DL) 33.4 RDW (11.5 - 14.5 %) 15.9 H Plt Count (130 - 400 /CUMM) 143 MPV (7.4 - 10.4 FL) 7.4 Gran % (42.2 - 75.2 %) 94.6 H Lymphocytes % (20.5 - 51.1 %) 1.9 L Monocytes % (1.7 - 9.3 %) 3.4 Eosinophils % (0 - 5 %) 0 Basophils % (0.0 - 2.0 %) 0.1 Absolute Granulocytes (1.4 - 6.5 /CUMM) 13.5 H Segmented Neutrophils (42.2 - 75.2 %) 89 H Band Neutrophils (0.0 - 5.0 %) 3 Absolute Lymphocytes (1.2 - 3.4 /CUMM) 0.3 L Lymphocytes (20.5 - 51.1 %) 2 L Monocytes (1.7 - 9.3 %) 6 Absolute Monocytes (0.10 - 0.60 /CUMM) 0.5 Absolute Eosinophils (0.0 - 0.7 /CUMM) 0 Absolute Basophils (0.0 - 0.2 /CUMM) 0 Platelet Estimate (ADEQUATE) ADEQUATE Normochromic RBCs VERIFIED Poikilocytosis 1+ Anisocytosis 1+ Macrocytic Cells 1+ Stomatocytes 1+ Other Body Source Fld Total RBCs Counted (%) 100 08/07 08/07 1113 1112 Chemistry Lactic Acid Cancelled Cancelled Imaging/Other Studies: None new
[2017-08-08 13:35] VITALS: BP 140/70
--- NOTE | 2017-08-08 13:52 | PN- Infect Dx ---
Subjective Subjective: MAXIMUM TEMPERATURE 100.2. He does not offer any complaints. Objective Last 24 Hrs of Vital Signs/I&O Vital Signs Date Time Temp Pulse Resp B/P B/P Pulse O2 O2 Flow FiO2 Mean Ox Delivery Rate 08/08 1335 98.0 70 20 140/70 95 Room Air 08/08 0907 81 144/70 08/08 0907 81 144/70 08/08 0907 81 144/70 08/08 0907 81 144/70 08/08 0628 99.1 81 20 144/70 98 Room Air 08/07 2219 98.2 84 20 132/70 99 Nasal Cannula 08/07 1900 99.0 79 20 130/80 95 Nasal Cannula 08/07 1851 Nasal 2.0L Cannula 08/07 1720 100.2 88 20 140/67 98 Room Air 08/07 1704 Room Air 08/07 1535 84 20 128/72 98 Nasal 2.0L Cannula 08/07 1505 97.2 88 22 122/74 Intake & Output 08/08 1600 08/08 0800 08/08 0000 Intake Total 290 810 Output Total Balance 290 810 Intake, IV 240 90 Intake, Oral 50 720 Number 2 1 Bowel Movements Patient 145 lb 155 lb Weight Weight Standing Scale Reported by Patient Measurement Method Physical Exam Other Physical Findings: He appears comfortable in no acute distress Skin multiple open pustules scattered throughout his body Chest dressing intact over the right upper chest at the site of the recent Abdirizak catheter Lungs are clear Heart regular rhythm with a 3/6 systolic ejection murmur Extremities no cyanosis, clubbing or edema Results Last 24 Hours of Lab Results: Laboratory Tests 08/08 08/07 08/07 0911 1430 1412 Chemistry Lactic Acid (0.7 - 2.1 mmol/L) 1.5 Cancelled Hematology CBC w Diff Cancelled WBC Cancelled RBC Cancelled Hgb Cancelled Hct Cancelled MCV Cancelled MCH Cancelled MCHC Cancelled RDW Cancelled Plt Count Cancelled MPV Cancelled Last 24 Hours of Jarod Results: Blood cultures 2 August 07 negative Abdirizak catheter tip culture August 07 greater than 15 colonies of Staph aureus Assessment/Plan ID Impression: Stable with temperatures normal, status post doses of Vancomycin and Ceftazidime yesterday, for presumed line sepsis secondary to an infected Abdirizak catheter, which was removed yesterday. The catheter tip culture is positive for Staph aureus; therefore he will only need to be continued on Vancomycin, which can be dosed after each dialysis. Renal comments noted regarding timing of placement of a new dialysis catheter. His skin lesions are apparently chronic, for at least the past year, and he has been evaluated in the past by ID and Dermatology. Suggestion: 1. Follow-up results of blood cultures sent from dialysis and the ER 2. Echocardiogram 3. Await placement of a new catheter per Renal 4. Continue Vancomycin, with dosing after each dialysis, per protocol
[2017-08-08 14:12] LABS: ABSOLUTE BASOPHIL COUNT 0 /CUMM (0.0-0.2); ABSOLUTE EOSINOPHIL COUNT 0.1 /CUMM (0.0-0.7); ABSOLUTE GRANULOCYTE CT 6.1 /CUMM (1.4-6.5); ABSOLUTE LYMPH COUNT 1.4 /CUMM (1.2-3.4); ABSOLUTE MONOCYTE COUNT 0.8 /CUMM (0.10-0.60); BASOPHIL % 0.3 % (0.0-2.0); EOSINOPHIL % 1.3 % (0-5); GRANULOCYTE % 72.4 % (42.2-75.2); HEMATOCRIT 29.7 % (42-52); MEAN CORPUSCULAR HGB CONC 32.7 G/DL (33.0-37.0); MEAN CORPUSCULAR VOLUME 103.8 FL (80.0-94.0); PLATELET COUNT 124 /CUMM (130-400); RBC DISTRIBUTION WIDTH 16.1 % (11.5-14.5); RED BLOOD CELL CT 2.86 /CUMM (4.70-6.10); WHITE BLOOD CELL COUNT 8.5 /CUMM (4.8-10.8)
[2017-08-08 23:04] VITALS: BP 152/68
--- NOTE | 2017-08-09 00:09 | Event Note ---
Event Note Event Note: I was paged that Patient's blood culture 2 sets out of 4 are for positive Gram- positive cocci with clusters. I discussed this with my resident and attending. Patient is already getting vancomycin after every dialysis. Patient will get another dose of vancomycin tomorrow as he is scheduled for dialysis.
[2017-08-09 06:40] VITALS: BP 144/72
--- NOTE | 2017-08-09 07:26 | PN- Housestaff ---
Juve HENSON,Carmen 08/09/17 0725: Subjective Follow-up For: Catheter related blood stream infection with S.aureus ESRD on dialysis Nontunneled dialysis catheter placement Subjective: seen and examined Patient reports feeling ok. He woke up around 3am, started having around 6 bowel movements so far, loose and watery, foul smelling. No dizziness, lightheadedness , shortness of breath. NPO overnight for catheter placement. Review of Systems Constitutional: Reports: see HPI. Objective Last 24 Hrs of Vital Signs/I&O Vital Signs Date Time Temp Pulse Resp B/P B/P Pulse O2 O2 Flow FiO2 Mean Ox Delivery Rate 08/09 0640 98.5 68 20 144/72 93 Room Air 08/08 2304 99.2 67 20 152/68 94 Room Air 08/08 1335 98.0 70 20 140/70 95 Room Air 08/08 0907 81 144/70 08/08 0907 81 144/70 08/08 0907 81 144/70 08/08 0907 81 144/70 Intake & Output 08/09 0800 08/09 0000 08/08 1600 Intake Total 600 300 Output Total 0 Balance 600 300 Intake, IV 60 Intake, Oral 600 240 Number 1 7 3 Bowel Movements Output, Urine 0 Physical Exam General Appearance: Alert, Oriented X3, Cooperative Skin: No Rashes HEENT: Atraumatic, PERRLA Neck: Supple, prominent JVD Cardiovascular: Normal S1, Normal S2, systolic murmur present Lungs: Normal Air Movement, crackles present extending up to the middle of the lungs bilaterally Abdomen: Normal Bowel Sounds, Soft, No Tenderness Neurological: Normal Speech, Sensation Intact, Cranial Nerves 3-12 NL Extremities: No Clubbing, No Cyanosis Current Medications: Current Medications Sig/Harmeet Start time Last Medication Dose Route Stop Time Status Admin Allopurinol 100 MG DAILY 08/07 1416 AC 08/09 PO 1145 Amlodipine Besylate 10 MG DAILY 08/07 1416 AC 08/09 PO 1144 Cinacalcet 30 MG DAILY 08/08 1000 AC 08/08 PO 0907 Cyanocobalamin 1,000 MCG DAILY 08/08 1000 AC 08/08 PO 0907 Diphenhydramine HCl 1 ZHANNA BID PRN 08/07 2014 AC 08/08 [facility] 2119 Heparin Sodium 5,000 UNIT Q8 08/07 1428 AC 03/16 (Porcine) SC 0649 Hydroxyzine HCl 25 MG BID PRN 08/07 1430 AC 08/09 PO 0035 Levothyroxine Sodium 0.15 MG DAILY AC 08/08 0700 AC 08/09 PO 0649 Lidocaine 15 ML BID 08/09 1135 AC 08/09 PO 1153 Losartan Potassium 50 MG DAILY 08/08 1000 AC 08/09 PO 1143 Metoprolol Succinate 25 MG DAILY 08/08 1000 AC 08/09 PO 1145 Multivitamins 1 TAB DAILY 08/07 1417 AC 08/08 PO 0907 Omeprazole 20 MG DAILY AC 08/08 0700 AC 08/09 PO 0649 Sevelamer Carbonate 800 MG WITH MEALS 08/07 1700 AC 08/08 PO 1741 Tamsulosin HCl 0.4 MG DAILY 08/08 1000 AC 08/09 PO 1144 Trazodone HCl 50 MG QPM 08/07 2200 AC 08/08 PO 211 Last 24 Hrs of Lab/Jarod Results Last 24 Hrs of Labs/Mics: Laboratory Tests 08/09/17 0938: Anion Gap 16, Estimated GFR 5 L, BUN/Creatinine Ratio 6.0 L, CBC w Diff NO MAN DIFF REQ, RBC 2.75 L, MCV 103.0 H, MCH 34.0 H, MCHC 33.0, RDW 16.0 H, MPV 8.4, Gran % 73.8, Lymphocytes % 17.9 L, Monocytes % 6.5, Eosinophils % 1.5, Basophils % 0.3, Absolute Granulocytes 5.2, Absolute Lymphocytes 1.3, Absolute Monocytes 0.5, Absolute Eosinophils 0.1, Absolute Basophils 0 08/08/17 1355: Anion Gap 14, Estimated GFR 7 L, BUN/Creatinine Ratio 5.2 L, CBC w Diff NO MAN DIFF REQ, RBC 2.86 L, MCV 103.8 H, MCH 34.0 H, MCHC 32.7 L, RDW 16.1 H, MPV 8.0, Gran % 72.4, Lymphocytes % 16.2 L, Monocytes % 9.8 H, Eosinophils % 1.3, Basophils % 0.3, Absolute Granulocytes 6.1, Absolute Lymphocytes 1.4, Absolute Monocytes 0.8 H, Absolute Eosinophils 0.1, Absolute Basophils 0 Microbiology 08/09 0902 STOOL: Clostridium difficile Toxin A & B - ORD 08/08 1655 STOOL: Clostridium difficile Toxin A & B - RECD 08/08 1417 BLOOD: Blood Culture - RES 08/08 1355 BLOOD: Blood Culture - RES Assessment/Plan Assessment: Patient is 87-year-old male with past medical history of 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 Vital signs at presentation Tmax 99.0, pulse 94, blood pressure 130/72, SPO2 96% on 2 L of nasal cannula. Physical exam altered with pansystolic murmur, yellowish discharge from the catheter site. Labs did show H/H 11/32.9, MCV 102, platelet count 143, lactic acid 2.4 lymphocytes 1.9, absolute granulocyte 13.5, segmented neutrophils 89, Band cells 3, serum Na 137, K 3.9, Cl 100, HCo3 19, AG 17, BUN/cr 18/4.9, GFR 11, glucose 117, Calcium 9.5,Total bilirubin 1.5, AST 16, ALT 16, alkaline phosphatase 127, albumin 3.7.Blood cultures were already sent. Chest x-ray -Central vascular prominence without overt edema. No consolidation. CT abdomen and pelvis did show Small bilateral pleural effusions with Atrophic kidneys. Problem list: Catheter related blood stream infection with MSSA ESRD on dialysis - AVF bilateral nonfunctional HTN Hypothyroidism Moderate Multiple falls Sepsis secondary to Catheter related blood stream infection with MSSA Patient did have significant discharge from his catheter site. Tmax of 100.2 with Labs revealed elevated white count with lactic acidosis. Afebile overnight. Culture catheter tip and blood cultures grew MSSA. He got a single dose of IV vancomycin and IV ceftazidime after coming to hospital. Underwent IR guided catheter removal on the day of presentation. * IV cefazolin 1.5gm after dialysis tomorrow * Underwent nontunneled dialysis catheter placement today. * Repeat blood cultures if second set are also positive. * TTE negative for vegetations. ARSEN possibly on saturday to understand the duration of antibiotics. Diarrhea He did have loose watery diarrhea - 10 bowel movements so far. * C.diff sent * Other possiblities are sepsis leading to hypotension and bowel ischemia - unlikely. Scrotal erythema Probably secondary to persistantly being wet from diarrhea. * Desitin cream ESRD on dialysis Dialysis today after catheter placement. Continue Sevelamir, cinacalcet, multivitamin. HTN Continue amlodipine 10 mg daily, losartan 50 mg daily. Hypothyroidism Continue levothyroxine home dose Benign prostatic hypertrophy Continue tamsulosin 0.4 mg daily Pain control with trazodone DVT prophylaxis Subcutaneous heparin CODE STATUS Full code Problem List: 1. ESRD (end stage renal disease) on dialysis 2. Altered mental status 3. Hemodialysis catheter infection Pain Ratin Pain Location: n/a Pain Goal: Pain 4 or less Pain Plan: tylenol prn Trazodone Tomorrow's Labs & Rationales: cbc, bep to follow up white count and electrolytes Gerard HENSON,Neli 08/09/17 1355: Attending MD Review Statement Attending Statement Attending MD Statement: examined this patient, discuss w/resident/PA/SHIP STEWARD, agreed w/resident/PA/SHIP STEWARD, reviewed EMR data (avail), discussed with nursing, discussed with case mgmt, reviewed images, amended to note Attending Assessment/Plan: Patient seen and examined, denies any complaints. Patient is now bacteremic with gram-positive cocci. Catheter tip grew staph aureus which is MSSA. Vital Signs Date Time Temp Pulse Resp B/P B/P Pulse O2 O2 Flow FiO2 Mean Ox Delivery Rate 08/09 1145 64 150/78 08/09 1144 64 150/78 08/09 1144 64 150/78 08/09 1143 64 150/78 08/09 0640 98.5 68 20 144/72 93 Room Air 08/08 2304 99.2 67 20 152/68 94 Room Air on exam; awake, nad. cv; s1,s2, rrr, + murmur. resp; Clear abd; soft, nt, bs+ ext; no edema Laboratory Tests 08/09 0938 Chemistry Sodium (137 - 145 mmol/L) 136 L Potassium (3.5 - 5.1 mmol/L) 4.6 Chloride (98 - 107 mmol/L) 103 Carbon Dioxide (22 - 30 mmol/L) 18 L Anion Gap (5 - 16) 16 BUN (9 - 20 mg/dL) 58 H Creatinine (0.7 - 1.2 mg/dL) 9.6 *H Estimated GFR (>60 ml/min) 5 L BUN/Creatinine Ratio (7 - 25 %) 6.0 L Hematology CBC w Diff NO MAN DIFF REQ WBC (4.8 - 10.8 /CUMM) 7.1 RBC (4.70 - 6.10 /CUMM) 2.75 L Hgb (14.0 - 18.0 G/DL) 9.3 L Hct (42 - 52 %) 28.3 L MCV (80.0 - 94.0 FL) 103.0 H MCH (27.0 - 31.0 PG) 34.0 H MCHC (33.0 - 37.0 G/DL) 33.0 RDW (11.5 - 14.5 %) 16.0 H Plt Count (130 - 400 /CUMM) 123 L MPV (7.4 - 10.4 FL) 8.4 Gran % (42.2 - 75.2 %) 73.8 Lymphocytes % (20.5 - 51.1 %) 17.9 L Monocytes % (1.7 - 9.3 %) 6.5 Eosinophils % (0 - 5 %) 1.5 Basophils % (0.0 - 2.0 %) 0.3 Absolute Granulocytes (1.4 - 6.5 /CUMM) 5.2 Absolute Lymphocytes (1.2 - 3.4 /CUMM) 1.3 Absolute Monocytes (0.10 - 0.60 /CUMM) 0.5 Absolute Eosinophils (0.0 - 0.7 /CUMM) 0.1 Absolute Basophils (0.0 - 0.2 /CUMM) 0 A/P; 87 y/o M with pmh sig for aortic stenosis, previous TIA, ESRD status post obstructive uropathy on dialysis for 8 years on hemodialysis Saturday, prostate cancer in 2008 after chemotherapy and radiation, hypertension, hyperlipidemia, chronic diastolic congestive heart failure and gout with recent admission to [facility] with a fall/TIA. Patient received tunneled catheter placement in the right IJ secondary to blocked permanent access. Now admitted with fever likely secondary to central line infection. Patient is bacteremic with gram-positive cocci. Catheter tip grew MSSA. Patient to receive non-tunneled dialysis catheter today so that his dialysis can be done likely tomorrow. Please discuss with infectious disease about the antibiotics. We'll also discuss with infectious disease about if he needs echocardiogram. Hemodialysis per nephrology. Continue the rest of the management. We will follow-up on the final culture results. DVT px; hep sq.
[2017-08-09 10:13] LABS: ABSOLUTE BASOPHIL COUNT 0 /CUMM (0.0-0.2); ABSOLUTE EOSINOPHIL COUNT 0.1 /CUMM (0.0-0.7); ABSOLUTE GRANULOCYTE CT 5.2 /CUMM (1.4-6.5); ABSOLUTE LYMPH COUNT 1.3 /CUMM (1.2-3.4); ABSOLUTE MONOCYTE COUNT 0.5 /CUMM (0.10-0.60); BASOPHIL % 0.3 % (0.0-2.0); EOSINOPHIL % 1.5 % (0-5); GRANULOCYTE % 73.8 % (42.2-75.2); HEMATOCRIT 28.3 % (42-52); MEAN PLATELET VOLUME 8.4 FL (7.4-10.4); PLATELET COUNT 123 /CUMM (130-400); RED BLOOD CELL CT 2.75 /CUMM (4.70-6.10); WHITE BLOOD CELL COUNT 7.1 /CUMM (4.8-10.8)
--- NOTE | 2017-08-09 10:56 | ECHOCARDIOGRAM REPORT ---
HO LOPEZ Age: 87 : 1930 Gender: M Exam Date: 08/08/2017 18:41 Exam Location: 2 [address] A Ht (in): 63 Wt (lb): 145 BSA: 1.72 BP: 140 / 70 Ordering Physician: Carmen An MD Referring Physician: Avery Nicole MD Technologist: Shawna Joseph [facility] Room Number: 220-02 Indications: INFECTIVE ENDOCARDITIS Rhythm: Technical Quality: Fair FINDINGS Left Ventricle Left ventricular cavity size normal. Left ventricular wall thickness mildly increased. No obvious regional wall motion abnormalities. Left ventricular ejection fraction is estimated at > 55 %. Right Ventricle Normal right ventricular size and function. Right Atrium Normal right atrial size. Left Atrium Mild left atrial dilatation. Mitral Valve Mild mitral annular calcification. Mild mitral regurgitation. Aortic Valve Mild aortic regurgitation. Diffuse thickening of the aortic valve cusps with reduced excursion. Moderate aortic stenosis (mean gradient 34 mmHg). Tricuspid Valve Structurally normal tricuspid valve. Mild tricuspid regurgitation. Unable to estimate the right ventricular systolic pressure. Pulmonic Valve Pulmonic valve not well visualized. Pericardium No pericardial effusion. Great Vessels Normal size aortic root. Mildly dilated proximal ascending aorta (4.0 cm). CONCLUSIONS Left ventricular cavity size normal. Left ventricular wall thickness mildly increased. No obvious regional wall motion abnormalities. Left ventricular ejection fraction is estimated at > 55 %. Normal right ventricular size and function. Mild left atrial dilatation. Moderate aortic stenosis (mean gradient 34 mmHg). No pericardial effusion. Mildly dilated proximal ascending aorta (4.0 cm). Unable to estimate the right ventricular systolic pressure. Fred Aguayo M.D. (Electronically Signed) Final Date: 09 August 2017 10:56 MEASUREMENTS (Male / Female) Normal Values 2D ECHO LV Diastolic Diameter PLAX 4.2 cm 4.2 - 5.9 / 3.9 - 5.3 cm LV Systolic Diameter PLAX 3.0 cm 2.1 - 4.0 cm LV Fractional Shortening PLAX 28.6 % 25 - 46 % LV Ejection Fraction 2D Teich 55.5 % IVS Diastolic Thickness 1.3 cm LVPW Diastolic Thickness 1.3 cm LV Relative Wall Thickness 0.6 RV Internal Dim ED PLAX 2.7 cm 1.9 - 3.8 cm LVOT Diameter 2.0 cm Aortic Root Diameter 3.3 cm LA Systolic Diameter LX 3.9 cm 3.0 - 4.0 / 2.7 - 3.8 cm LA Volume 35.0 cm 18 - 58 / 22 - 52 cm Ascending Aorta Diameter 4.0 cm DOPPLER AV Peak Velocity 370.0 cm/s AV Peak Gradient 54.8 mmHg AV Mean Velocity 253.0 cm/s AV Mean Gradient 30.0 mmHg AV Velocity Time Integral 87.2 cm AI Deceleration [place] 260.0 cm/s AI Peak Velocity 386.0 cm/s AI Pressure Half Time 435.0 ms AI Peak Gradient 59.6 mmHg LVOT Peak Velocity 82.7 cm/s LVOT Peak Gradient 2.7 mmHg LVOT Mean Velocity 53.9 cm/s LVOT Mean Gradient 1.0 mmHg LVOT Velocity Time Integral 20.9 cm LVOT Stroke Volume 65.7 cm AV Area Cont Eq vti 0.8 cm AV Area Cont Eq pk 0.7 cm MV Peak Velocity 128.0 cm/s MV Peak Gradient 6.6 mmHg MV Mean Velocity 71.9 cm/s MV Mean Gradient 2.0 mmHg Mitral E Point Velocity 103.0 cm/s Mitral A Point Velocity 121.0 cm/s Mitral E to A Ratio 0.9 MV PHT Velocity 108.0 cm/s MV Deceleration [place] 308.0 cm/s MV Pressure Half Time 105.2 ms MV Area PHT 2.1 cm MV Deceleration Time 264.0 ms TR Peak Velocity 262.0 cm/s TR Peak Gradient 27.5 mmHg Right Atrial Pressure 5.0 mmHg Pulmonary Artery Systolic Pressu 32.5 mmHg Right Ventricular Systolic Press 32.5 mmHg PV Peak Velocity 106.0 cm/s PV Peak Gradient 4.5 mmHg PV Mean Velocity 76.0 cm/s PV Mean Gradient 3.0 mmHg PV Velocity Time Integral 25.2 cm LV E' Lateral Velocity 7.1 cm/s Mitral E to LV E' Lateral Ratio 14.5 LV E' Septal Velocity 4.5 cm/s Mitral E to LV E' Septal Ratio 23.0
--- NOTE | 2017-08-09 12:01 | PN- Nephrology ---
Assessment/Plan Nephrology Assessment: ESRD - Will need non-tunneled access placed with tentative plans for dialysis tomorrow. Once confirmed that infection really is cleared, we can convert back to a tunneled line. He was under evaluation for permanent access as an outpatient but this will end up being delayed because of this infection. Fever - 2/2 catheter/tunnel infection. Staph from tip culture. On treatment - clinically improving. Confusion - Likely related to the infection. Still a bit confused. Suggestion: -Non-tunneled dialysis catheter -Daily blood cultures until confirmed clear - ID following -May need to dose Vancomycin today - ?check level - last dose on Saturday - plan for HD today Please call [phone] with ?'s Subjective Subjective: Pt c/o groin irritation when he has a BM Catheter tip cx from 08/07 with staph - 2/2 positive blood cultures that day as well Afebrile; WBC down to 7.1 Objective Vital Signs and I&Os Vital Signs Date Time Temp Pulse Resp B/P B/P Pulse O2 O2 Flow FiO2 Mean Ox Delivery Rate 08/09 1145 64 150/78 08/09 1144 64 150/78 08/09 1144 64 150/78 08/09 1143 64 150/78 08/09 0640 98.5 68 20 144/72 93 Room Air 08/08 2304 99.2 67 20 152/68 94 Room Air 08/08 1335 98.0 70 20 140/70 95 Room Air Intake & Output 08/09 1600 08/09 0400 08/08 1600 08/08 0400 08/07 1600 08/07 0400 Intake Total 10 600 590 810 Output Total 0 0 Balance 10 600 590 810 Intake, IV 300 90 Intake, Oral 10 600 290 720 Number 4 7 4 Bowel Movements Output, Urine 0 0 Patient 145 lb 155 lb Weight Weight Standing Scale Reported by Patient Measurement Method Physical Exam: Gen - OK appearing HEENT - supple CV - RRR, no m/r/g Chest - clear, no w/r/r, R chest wall ENZO s/p removal and dressing in place Abd - soft, NTND Ext - warm, no edema, LUE AVF no bruit/thrill Neuro - alert, confused as to who I am Current Medications: Current Medications Sig/Harmeet Start time Last Medication Dose Route Stop Time Status Admin Allopurinol 100 MG DAILY 08/07 1416 AC 08/09 PO 1145 Amlodipine Besylate 10 MG DAILY 08/07 1416 AC 08/09 PO 1144 Cinacalcet 30 MG DAILY 08/08 1000 AC 08/08 PO 0907 Cyanocobalamin 1,000 MCG DAILY 08/08 1000 AC 08/08 PO 0907 Diphenhydramine HCl 1 ZHANNA BID PRN 08/07 2015 AC 08/08 TOP 2119 Heparin Sodium 5,000 UNIT Q8 08/07 1428 AC 08/09 (Porcine) SC 0649 Hydroxyzine HCl 25 MG BID PRN 08/07 1430 AC 08/09 PO 0035 Levothyroxine Sodium 0.15 MG DAILY AC 08/08 0700 AC 08/09 PO 0649 Lidocaine 15 ML BID 08/09 1135 AC 08/09 PO 1153 Losartan Potassium 50 MG DAILY 08/08 1000 AC 08/09 PO 1143 Metoprolol Succinate 25 MG DAILY 08/08 1000 AC 08/09 PO 1145 Multivitamins 1 TAB DAILY 08/07 1417 AC 08/08 PO 0907 Omeprazole 20 MG DAILY AC 08/08 0700 AC 08/09 PO 0649 Sevelamer Carbonate 800 MG WITH MEALS 08/07 1700 AC 08/08 PO 1741 Tamsulosin HCl 0.4 MG DAILY 08/08 1000 AC 08/09 PO 1144 Trazodone HCl 50 MG QPM 08/07 2200 AC 08/08 PO 2119 Results Pertinent Lab Results: Laboratory Tests 08/09 08/08 0938 1355 Chemistry Sodium (137 - 145 mmol/L) 136 L 135 L Potassium (3.5 - 5.1 mmol/L) 4.6 4.3 Chloride (98 - 107 mmol/L) 103 100 Carbon Dioxide (22 - 30 mmol/L) 18 L 21 L Anion Gap (5 - 16) 16 14 BUN (9 - 20 mg/dL) 58 H 41 H Creatinine (0.7 - 1.2 mg/dL) 9.6 *H 7.9 *H Estimated GFR (>60 ml/min) 5 L 7 L BUN/Creatinine Ratio (7 - 25 %) 6.0 L 5.2 L Hematology CBC w Diff NO MAN DIFF REQ NO MAN DIFF REQ WBC (4.8 - 10.8 /CUMM) 7.1 8.5 RBC (4.70 - 6.10 /CUMM) 2.75 L 2.86 L Hgb (14.0 - 18.0 G/DL) 9.3 L 9.7 L Hct (42 - 52 %) 28.3 L 29.7 L MCV (80.0 - 94.0 FL) 103.0 H 103.8 H MCH (27.0 - 31.0 PG) 34.0 H 34.0 H MCHC (33.0 - 37.0 G/DL) 33.0 32.7 L RDW (11.5 - 14.5 %) 16.0 H 16.1 H Plt Count (130 - 400 /CUMM) 123 L 124 L MPV (7.4 - 10.4 FL) 8.4 8.0 Gran % (42.2 - 75.2 %) 73.8 72.4 Lymphocytes % (20.5 - 51.1 %) 17.9 L 16.2 L Monocytes % (1.7 - 9.3 %) 6.5 9.8 H Eosinophils % (0 - 5 %) 1.5 1.3 Basophils % (0.0 - 2.0 %) 0.3 0.3 Absolute Granulocytes (1.4 - 6.5 /CUMM) 5.2 6.1 Absolute Lymphocytes (1.2 - 3.4 /CUMM) 1.3 1.4 Absolute Monocytes (0.10 - 0.60 /CUMM) 0.5 0.8 H Absolute Eosinophils (0.0 - 0.7 /CUMM) 0.1 0.1 Absolute Basophils (0.0 - 0.2 /CUMM) 0 0 08/07 08/07 08/07 1430 1412 1115 Chemistry Sodium (137 - 145 mmol/L) 137 Potassium (3.5 - 5.1 mmol/L) 3.9 Chloride (98 - 107 mmol/L) 100 Carbon Dioxide (22 - 30 mmol/L) 19 L Anion Gap (5 - 16) 17 H BUN (9 - 20 mg/dL) 18 Creatinine (0.7 - 1.2 mg/dL) 4.9 H Estimated GFR (>60 ml/min) 11 L BUN/Creatinine Ratio (7 - 25 %) 3.7 L Glucose (65 - 99 mg/dL) 117 H Lactic Acid (0.7 - 2.1 mmol/L) 1.5 Cancelled 3.4 H Calcium (8.4 - 10.2 mg/dL) 9.1 Total Bilirubin (0.2 - 1.3 mg/dL) 1.5 H AST (17 - 59 U/L) 16 L ALT (21 - 72 U/L) 26 Alkaline Phosphatase (< 127 U/L) 127 H Total Protein (6.3 - 8.2 g/dL) 6.7 Albumin (3.5 - 5.0 g/dL) 3.7 Globulin (1.9 - 4.2 gm/dL) 3.0 Albumin/Globulin Ratio (1.1 - 2.2 %) 1.2 Hematology CBC w Diff MAN DIFF ORDERED WBC (4.8 - 10.8 /CUMM) 14.3 H RBC (4.70 - 6.10 /CUMM) 3.22 L Hgb (14.0 - 18.0 G/DL) 11.0 L Hct (42 - 52 %) 32.9 L MCV (80.0 - 94.0 FL) 102.2 H MCH (27.0 - 31.0 PG) 34.1 H MCHC (33.0 - 37.0 G/DL) 33.4 RDW (11.5 - 14.5 %) 15.9 H Plt Count (130 - 400 /CUMM) 143 MPV (7.4 - 10.4 FL) 7.4 Gran % (42.2 - 75.2 %) 94.6 H Lymphocytes % (20.5 - 51.1 %) 1.9 L Monocytes % (1.7 - 9.3 %) 3.4 Eosinophils % (0 - 5 %) 0 Basophils % (0.0 - 2.0 %) 0.1 Absolute Granulocytes (1.4 - 6.5 /CUMM) 13.5 H Segmented Neutrophils (42.2 - 75.2 %) 89 H Band Neutrophils (0.0 - 5.0 %) 3 Absolute Lymphocytes (1.2 - 3.4 /CUMM) 0.3 L Lymphocytes (20.5 - 51.1 %) 2 L Monocytes (1.7 - 9.3 %) 6 Absolute Monocytes (0.10 - 0.60 /CUMM) 0.5 Absolute Eosinophils (0.0 - 0.7 /CUMM) 0 Absolute Basophils (0.0 - 0.2 /CUMM) 0 Platelet Estimate (ADEQUATE) ADEQUATE Normochromic RBCs VERIFIED Poikilocytosis 1+ Anisocytosis 1+ Macrocytic Cells 1+ Stomatocytes 1+ Other Body Source Fld Total RBCs Counted (%) 100 08/07 08/07 1113 1112 Chemistry Lactic Acid Cancelled Cancelled Imaging/Other Studies: TTE CONCLUSIONS Left ventricular cavity size normal. Left ventricular wall thickness mildly increased. No obvious regional wall motion abnormalities. Left ventricular ejection fraction is estimated at > 55 %. Normal right ventricular size and function. Mild left atrial dilatation. Moderate aortic stenosis (mean gradient 34 mmHg). No pericardial effusion. Mildly dilated proximal ascending aorta (4.0 cm). Unable to estimate the right ventricular systolic pressure.
--- NOTE | 2017-08-09 12:10 | Patient Discharge Instructions ---
Discharge Instructions General Discharge Information You were seen/treated for: Catheter related blood stream infection Special Instructions: Please follow up with your PCP in a week Please make sure you receive antibiotic Cefazoline 1.5gm Mon, Sat, Saturday typically after dialysis till September 05 2017. Please follow up with neprhology in a week Diet Recommended Diet: Renal Dialysis Activity Activity Self Limited: Yes Acute Coronary Syndrome Inclusion Criteria At DC or during hospital stay patient has or had the following: ACS DIAGNOSIS No Discharge Core Measures Meds if any: Prescribed or Continued at Discharge Meds if any: NOT Prescribed or Continued at Discharge Congestive Heart Failure Inclusion Criteria At DC or during hospital stay patient has or had the following: CHF DIAGNOSIS No Discharge Core Measures Meds if any: Prescribed or Continued at Discharge Meds if any: NOT Prescribed or Continued at Discharge Cerebrovascular accident Inclusion Criteria At DC or during hospital stay patient has or had the following: CVA/TIA Diagnosis No Discharge Core Measures Meds if any: Prescribed or Continued at Discharge Meds if any: NOT Prescribed or Continued at Discharge Venous thromboembolism Inclusion Criteria VTE Diagnosis No VTE Type NONE VTE Confirmed by (Test) NONE Discharge Core Measures - Per Current guidelines, there needs to be overlap - treatment for the first 5 days of Warfarin therapy. - If discharged on Warfarin prior to 5 days of - overlap therapy, the patient will need to be - assessed for post discharge needs including - *Post discharge parental anticoagulation - *Warfarin and/or parental anticoagulation education - *Follow up date to check INR post discharge At least 5 days overlap therapy as Inpatient No Meds if any: Prescribed or Continued at Discharge Note: Overlap Therapy is Warfarin and Anticoagulant Meds if any: NOT Prescribed or Continued at Discharge
--- NOTE | 2017-08-09 14:05 | PN- Infect Dx ---
Subjective Subjective: Afebrile. He has had significant diarrhea, with 10 bowel movements reported yesterday and 5 overnight. Objective Last 24 Hrs of Vital Signs/I&O Vital Signs Date Time Temp Pulse Resp B/P B/P Pulse O2 O2 Flow FiO2 Mean Ox Delivery Rate 08/09 1145 64 150/78 08/09 1144 64 150/78 08/09 1144 64 150/78 08/09 1143 64 150/78 08/09 0640 98.5 68 20 144/72 93 Room Air 08/08 2304 99.2 67 20 152/68 94 Room Air Intake & Output 08/09 1600 08/09 0800 08/09 0000 Intake Total 10 600 Output Total 0 Balance 10 600 Intake, Oral 10 600 Number 4 7 Bowel Movements Output, Urine 0 Physical Exam Other Physical Findings: He appears comfortable in no acute distress Chest dressing intact over the right upper chest at the site of the recent Abdirizak catheter, with no inflammation at the site Lungs crackles at the right base Heart regular rhythm with a 3/6 systolic ejection murmur Extremities no cyanosis, clubbing or edema mild erythema in the groin, with no evidence of candidiasis Results Last 24 Hours of Lab Results: Laboratory Tests 08/09 08/08 0938 1355 Chemistry Sodium (137 - 145 mmol/L) 136 L 135 L Potassium (3.5 - 5.1 mmol/L) 4.6 4.3 Chloride (98 - 107 mmol/L) 103 100 Carbon Dioxide (22 - 30 mmol/L) 18 L 21 L Anion Gap (5 - 16) 16 14 BUN (9 - 20 mg/dL) 58 H 41 H Creatinine (0.7 - 1.2 mg/dL) 9.6 *H 7.9 *H Estimated GFR (>60 ml/min) 5 L 7 L BUN/Creatinine Ratio (7 - 25 %) 6.0 L 5.2 L Hematology CBC w Diff NO MAN DIFF REQ NO MAN DIFF REQ WBC (4.8 - 10.8 /CUMM) 7.1 8.5 RBC (4.70 - 6.10 /CUMM) 2.75 L 2.86 L Hgb (14.0 - 18.0 G/DL) 9.3 L 9.7 L Hct (42 - 52 %) 28.3 L 29.7 L MCV (80.0 - 94.0 FL) 103.0 H 103.8 H MCH (27.0 - 31.0 PG) 34.0 H 34.0 H MCHC (33.0 - 37.0 G/DL) 33.0 32.7 L RDW (11.5 - 14.5 %) 16.0 H 16.1 H Plt Count (130 - 400 /CUMM) 123 L 124 L MPV (7.4 - 10.4 FL) 8.4 8.0 Gran % (42.2 - 75.2 %) 73.8 72.4 Lymphocytes % (20.5 - 51.1 %) 17.9 L 16.2 L Monocytes % (1.7 - 9.3 %) 6.5 9.8 H Eosinophils % (0 - 5 %) 1.5 1.3 Basophils % (0.0 - 2.0 %) 0.3 0.3 Absolute Granulocytes (1.4 - 6.5 /CUMM) 5.2 6.1 Absolute Lymphocytes (1.2 - 3.4 /CUMM) 1.3 1.4 Absolute Monocytes (0.10 - 0.60 /CUMM) 0.5 0.8 H Absolute Eosinophils (0.0 - 0.7 /CUMM) 0.1 0.1 Absolute Basophils (0.0 - 0.2 /CUMM) 0 0 Last 24 Hours of Jarod Results: Blood cultures 2 August 07 positive for gram-positive cocci in clusters Abdirizak catheter tip culture August 07 greater than 15 colonies of Staph aureus sensitive to Oxacillin Blood cultures August 08 negative Stool C. difficile August 08 negative Recent Imaging Studies: Echocardiogram August 08 reveals moderate aortic stenosis, with no report of any vegetation Assessment/Plan ID Impression: Stable, with temperatures and white blood cell count normal, status post a dose of Vancomycin 2 days ago for line sepsis secondary to an infected Abdirizak catheter, that was removed 2 days ago. His catheter tip culture is positive for methicillin sensitive Staph aureus, which is the presumed pathogen in the blood cultures as well, and his antibiotics can be adjusted. He has severe aortic stenosis, increasing his risk for endocarditis, and, though the transthoracic echo is negative, a ARSEN may need to be considered. He is scheduled for placement of a non-tunneled catheter later today, followed by dialysis. His diarrhea is of unclear etiology, with C. difficile negative. Suggestion: 1. Follow-up final blood cultures 2. Await placement of a tunneled catheter later today 3. Will need to consider a ARSEN 4. Begin Cefazolin 1.5 g IV after dialysis today and continue after each dialysis
[2017-08-09 16:20] VITALS: BP 140/68
--- NOTE | 2017-08-09 16:34 | ULTRASOUND REPORT ---
PROCEDURE: ULTRASOUND AND FLUOROSCOPICALLY GUIDED RIGHT INTERNAL JUGULAR VEIN TEMPORARY HEMODIALYSIS CATHETER PLACEMENT Interventional radiologist: Lukas Sheehan M.D. CLINICAL HISTORY: 87-year-old male with renal failure. Tunneled hemodialysis catheter removed on August 07 secondary to infection. Blood cultures are still positive, however, the patient requires dialysis. A temporary hemodialysis catheter was requested. COMPARISON: Hemodialysis catheter placement 07/19/2017 MEDICATION: 1% lidocaine was used for local anesthetic. FLUOROSCOPY TIME: 5.6 minutes DOSE AREA PRODUCT: 83 mGy-m2 (milligray-meter squared) TECHNIQUE: Informed consent was obtained from the patient's daughter prior to the procedure. The procedure was also discussed with the patient. During this process, the procedure and potential alternatives were explained along with the intended outcome and benefits. The risks of the procedure, including the possibility of an unsuccessful procedure, as well as the risk of not doing the procedure were discussed. The patient and his daughter were given the opportunity to ask questions regarding the procedure. A consent form which documents this discussion was placed in the medical record. A timeout procedure was performed. Following informed consent the patient was placed supine on the fluoroscopic table. The right neck and chest were prepped and draped in usual sterile fashion. All elements of maximal sterile barrier technique were followed including use of cap, mask, sterile gown, sterile gloves, a sterile full body drape and hand hygiene. The skin was prepared with 2% chlorhexidine for cutaneous antisepsis and sterile ultrasound preparation with sterile gel and probe cover was performed when applicable. Using ultrasound guidance the right internal jugular vein was localized. The majority of the right internal jugular vein was occluded. Ultrasound was utilized to assess the vascular structures for access. A standard puncture into the right internal jugular vein was performed with a Micro-Stick system. After several unsuccessful attempts, a wire finally passed through the distal most aspect of the right internal jugular vein into the SVC. The wire was advanced into the IVC to confirm venous placement. Over the wire dilatation was performed and a 16 cm temporary hemodialysis catheter was advanced over the wire. Catheter terminates in the proximal right atrium Silk suture was utilized for catheter securement. The patient tolerated the procedure well. The patient was transferred back to the floor in stable condition. ULTRASOUND-GUIDED VASCULAR ACCESS: Ultrasound was used to identify the right internal jugular vein. The right internal jugular vein was primarily occluded. Real time imaging confirmed needle access into the right internal jugular vein. An image was saved for permanent recording in PACS. IMPRESSION: Successful placement of nontunneled hemodialysis catheter via the right internal jugular vein.
[2017-08-09 23:06] VITALS: BP 142/80
[2017-08-10 07:28] VITALS: BP 120/64
[2017-08-10 09:04] LABS: ABSOLUTE BASOPHIL COUNT 0 /CUMM (0.0-0.2); ABSOLUTE EOSINOPHIL COUNT 0.1 /CUMM (0.0-0.7); ABSOLUTE GRANULOCYTE CT 4.9 /CUMM (1.4-6.5); ABSOLUTE LYMPH COUNT 1.7 /CUMM (1.2-3.4); ABSOLUTE MONOCYTE COUNT 0.4 /CUMM (0.10-0.60); BASOPHIL % 0.4 % (0.0-2.0); EOSINOPHIL % 1.9 % (0-5); GRANULOCYTE % 68.2 % (42.2-75.2); HEMATOCRIT 27.9 % (42-52); MEAN CORPUSCULAR HGB 34.7 PG (27.0-31.0); MEAN CORPUSCULAR HGB CONC 33.8 G/DL (33.0-37.0); MEAN CORPUSCULAR VOLUME 102.4 FL (80.0-94.0); MEAN PLATELET VOLUME 8.2 FL (7.4-10.4); PLATELET COUNT 139 /CUMM (130-400); RBC DISTRIBUTION WIDTH 16.6 % (11.5-14.5); RED BLOOD CELL CT 2.73 /CUMM (4.70-6.10); WHITE BLOOD CELL COUNT 7.1 /CUMM (4.8-10.8)
--- NOTE | 2017-08-10 13:41 | PN- Nephrology ---
Assessment/Plan Nephrology Assessment: ESRD: HD earlier today Line sepsis: continue antibiotics Suggestion: HD Mon Subjective Subjective: No new issues HD earlier today w/o problem Objective Vital Signs and I&Os Vital Signs Date Time Temp Pulse Resp B/P B/P Pulse O2 O2 Flow FiO2 Mean Ox Delivery Rate 08/10 1132 76 142/86 08/10 1129 76 142/86 08/10 1128 76 142/86 08/10 1128 76 142/86 08/10 0728 98.6 67 20 120/64 95 Room Air 08/09 2306 98.9 68 20 142/80 96 08/09 1620 97.9 74 16 140/68 95 Room Air Intake & Output 08/10 1600 08/10 0400 08/09 1600 08/09 0400 08/08 1600 08/08 0400 Intake Total 240 630 10 600 590 810 Output Total 0 0 Balance 240 630 10 600 590 810 Intake, IV 300 90 Intake, Oral 240 630 10 600 290 720 Number 3 5 4 7 4 Bowel Movements Output, Urine 0 0 Patient 145 lb 155 lb Weight Weight Standing Scale Reported by Patient Measurement Method Physical Exam General Appearance: well developed/nourished, no apparent distress Head: atraumatic, normal appearance Neck: R IJ HD cath Respiratory: normal breath sounds, quiet respiration, lungs clear Cardiovascular: regular rate/rhythm, friction rub (none) Abdomen: soft, non-tender Extremities: no edema Neurologic/Psychiatric: awake, alert Current Medications: Current Medications Sig/Harmeet Start time Last Medication Dose Route Stop Time Status Admin Allopurinol 100 MG DAILY 08/07 1416 AC 08/10 PO 1127 Amlodipine Besylate 10 MG DAILY 08/07 1416 AC 08/10 PO 1128 Cefazolin Sodium 1,500 MG Saturday .. 08/12 1000 AC Sodium Chloride 100 ML IV Cefazolin Sodium 1,500 MG ONCE ONE 08/10 1745 AC Sodium Chloride 100 ML IV 08/10 1844 Cefazolin Sodium 1.5 GM SEE ADMIN CRITERIA 08/10 1999 CAN N/A 1 UNIT IV Cefazolin Sodium 1,500 MG MoWeFr@1700 08/09 1700 DC Sodium Chloride 100 ML IV Cinacalcet 30 MG DAILY 08/08 1000 AC 08/10 PO 1128 Cyanocobalamin 1,000 MCG DAILY 08/08 1000 AC 08/10 PO 1127 Diphenhydramine HCl 1 ZHANNA BID PRN 08/07 2015 AC 08/09 TOP 2109 Epoetin [place] 1,000 UNIT MoWeFr PRN 08/10 1015 AC IV Heparin Sodium 0 .STK-MED ONE 08/09 1412 DC (Porcine) IV Heparin Sodium 5,000 UNIT Q8 08/07 1428 AC 08/10 (Porcine) SC 0600 Hydroxyzine HCl 25 MG BID PRN 08/07 1430 AC 08/10 PO 1143 Levothyroxine Sodium 0.15 MG DAILY AC 08/08 0700 AC 08/10 PO 0600 Lidocaine 0 .STK-MED ONE 08/09 1411 DC .ROUTE Lidocaine 15 ML BID 08/09 1135 AC 08/10 PO 1130 Losartan Potassium 50 MG DAILY 08/08 1000 AC 08/10 PO 1132 Metoprolol Succinate 25 MG DAILY 08/08 1000 AC 08/10 PO 1128 Multivitamins 1 TAB DAILY 08/07 1417 AC 08/10 PO 1131 Omeprazole 20 MG DAILY AC 08/08 0700 AC 08/10 PO 0600 Paricalcitol 4 MCG MoWeFr PRN 08/10 1015 AC IV Sevelamer Carbonate 800 MG WITH MEALS 08/07 1700 AC 08/10 PO 1129 Tamsulosin HCl 0.4 MG DAILY 08/08 1000 AC 08/10 PO 1129 Trazodone HCl 50 MG QPM 08/07 2200 AC 08/09 PO 2108 Zinc Oxide 1 ZHANNA BID 08/09 1225 AC 08/10 TOP 1130 Results Pertinent Lab Results: Laboratory Tests 08/10 08/10 0800 0600 Chemistry Sodium (137 - 145 mmol/L) 137 Cancelled Potassium (3.5 - 5.1 mmol/L) 3.6 Cancelled Chloride (98 - 107 mmol/L) 102 Cancelled Carbon Dioxide (22 - 30 mmol/L) 22 Cancelled Anion Gap (5 - 16) 13 Cancelled BUN (9 - 20 mg/dL) 45 H Cancelled Creatinine (0.7 - 1.2 mg/dL) 7.8 *H Cancelled Estimated GFR (>60 ml/min) 7 L BUN/Creatinine Ratio (7 - 25 %) 5.8 L Cancelled Hematology CBC w Diff NO MAN DIFF REQ WBC (4.8 - 10.8 /CUMM) 7.1 RBC (4.70 - 6.10 /CUMM) 2.73 L Hgb (14.0 - 18.0 G/DL) 9.4 L Hct (42 - 52 %) 27.9 L MCV (80.0 - 94.0 FL) 102.4 H MCH (27.0 - 31.0 PG) 34.7 H MCHC (33.0 - 37.0 G/DL) 33.8 RDW (11.5 - 14.5 %) 16.6 H Plt Count (130 - 400 /CUMM) 139 MPV (7.4 - 10.4 FL) 8.2 Gran % (42.2 - 75.2 %) 68.2 Lymphocytes % (20.5 - 51.1 %) 23.4 Monocytes % (1.7 - 9.3 %) 6.1 Eosinophils % (0 - 5 %) 1.9 Basophils % (0.0 - 2.0 %) 0.4 Absolute Granulocytes (1.4 - 6.5 /CUMM) 4.9 Absolute Lymphocytes (1.2 - 3.4 /CUMM) 1.7 Absolute Monocytes (0.10 - 0.60 /CUMM) 0.4 Absolute Eosinophils (0.0 - 0.7 /CUMM) 0.1 Absolute Basophils (0.0 - 0.2 /CUMM) 0 Serology Hep Bs Antigen (NONREACTIVE) NONREACTIVE Hep Bs Antibody (NONREACTIVE) REACTIVE 08/09 08/08 0938 1355 Chemistry Sodium (137 - 145 mmol/L) 136 L 135 L Potassium (3.5 - 5.1 mmol/L) 4.6 4.3 Chloride (98 - 107 mmol/L) 103 100 Carbon Dioxide (22 - 30 mmol/L) 18 L 21 L Anion Gap (5 - 16) 16 14 BUN (9 - 20 mg/dL) 58 H 41 H Creatinine (0.7 - 1.2 mg/dL) 9.6 *H 7.9 *H Estimated GFR (>60 ml/min) 5 L 7 L BUN/Creatinine Ratio (7 - 25 %) 6.0 L 5.2 L Hematology CBC w Diff NO MAN DIFF REQ NO MAN DIFF REQ WBC (4.8 - 10.8 /CUMM) 7.1 8.5 RBC (4.70 - 6.10 /CUMM) 2.75 L 2.86 L Hgb (14.0 - 18.0 G/DL) 9.3 L 9.7 L Hct (42 - 52 %) 28.3 L 29.7 L MCV (80.0 - 94.0 FL) 103.0 H 103.8 H MCH (27.0 - 31.0 PG) 34.0 H 34.0 H MCHC (33.0 - 37.0 G/DL) 33.0 32.7 L RDW (11.5 - 14.5 %) 16.0 H 16.1 H Plt Count (130 - 400 /CUMM) 123 L 124 L MPV (7.4 - 10.4 FL) 8.4 8.0 Gran % (42.2 - 75.2 %) 73.8 72.4 Lymphocytes % (20.5 - 51.1 %) 17.9 L 16.2 L Monocytes % (1.7 - 9.3 %) 6.5 9.8 H Eosinophils % (0 - 5 %) 1.5 1.3 Basophils % (0.0 - 2.0 %) 0.3 0.3 Absolute Granulocytes (1.4 - 6.5 /CUMM) 5.2 6.1 Absolute Lymphocytes (1.2 - 3.4 /CUMM) 1.3 1.4 Absolute Monocytes (0.10 - 0.60 /CUMM) 0.5 0.8 H Absolute Eosinophils (0.0 - 0.7 /CUMM) 0.1 0.1 Absolute Basophils (0.0 - 0.2 /CUMM) 0 0 08/07 08/07 1430 1412 Chemistry Lactic Acid (0.7 - 2.1 mmol/L) 1.5 Cancelled
--- NOTE | 2017-08-10 14:10 | PN- Infect Dx ---
Subjective Subjective: Afebrile without complaints status post dialysis earlier today. He continued to have diarrhea yesterday but none reported this morning. Objective Last 24 Hrs of Vital Signs/I&O Vital Signs Date Time Temp Pulse Resp B/P B/P Pulse O2 O2 Flow FiO2 Mean Ox Delivery Rate 08/10 1132 76 142/86 08/10 1129 76 142/86 08/10 1128 76 142/86 08/10 1128 76 142/86 08/10 0728 98.6 67 20 120/64 95 Room Air 08/09 2306 98.9 68 20 142/80 96 08/09 1620 97.9 74 16 140/68 95 Room Air Intake & Output 08/10 1600 08/10 0800 08/10 0000 Intake Total 240 630 Output Total Balance 240 630 Intake, Oral 240 630 Number 3 5 Bowel Movements Physical Exam Other Physical Findings: He appears comfortable in no acute distress Neck right IJ Abdirizak catheter in place with no inflammation at the site Lungs crackles at the left base Heart regular rhythm with a 3/6 systolic murmur Abdomen is soft, nontender with positive bowel sounds Extremities no cyanosis, clubbing or edema Results Last 24 Hours of Lab Results: Laboratory Tests 08/10 08/10 0800 0600 Chemistry Sodium (137 - 145 mmol/L) 137 Cancelled Potassium (3.5 - 5.1 mmol/L) 3.6 Cancelled Chloride (98 - 107 mmol/L) 102 Cancelled Carbon Dioxide (22 - 30 mmol/L) 22 Cancelled Anion Gap (5 - 16) 13 Cancelled BUN (9 - 20 mg/dL) 45 H Cancelled Creatinine (0.7 - 1.2 mg/dL) 7.8 *H Cancelled Estimated GFR (>60 ml/min) 7 L BUN/Creatinine Ratio (7 - 25 %) 5.8 L Cancelled Hematology CBC w Diff NO MAN DIFF REQ WBC (4.8 - 10.8 /CUMM) 7.1 RBC (4.70 - 6.10 /CUMM) 2.73 L Hgb (14.0 - 18.0 G/DL) 9.4 L Hct (42 - 52 %) 27.9 L MCV (80.0 - 94.0 FL) 102.4 H MCH (27.0 - 31.0 PG) 34.7 H MCHC (33.0 - 37.0 G/DL) 33.8 RDW (11.5 - 14.5 %) 16.6 H Plt Count (130 - 400 /CUMM) 139 MPV (7.4 - 10.4 FL) 8.2 Gran % (42.2 - 75.2 %) 68.2 Lymphocytes % (20.5 - 51.1 %) 23.4 Monocytes % (1.7 - 9.3 %) 6.1 Eosinophils % (0 - 5 %) 1.9 Basophils % (0.0 - 2.0 %) 0.4 Absolute Granulocytes (1.4 - 6.5 /CUMM) 4.9 Absolute Lymphocytes (1.2 - 3.4 /CUMM) 1.7 Absolute Monocytes (0.10 - 0.60 /CUMM) 0.4 Absolute Eosinophils (0.0 - 0.7 /CUMM) 0.1 Absolute Basophils (0.0 - 0.2 /CUMM) 0 Serology Hep Bs Antigen (NONREACTIVE) NONREACTIVE Hep Bs Antibody (NONREACTIVE) REACTIVE Last 24 Hours of Jarod Results: Blood cultures August 07 positive for Staph aureus Blood cultures August 08 negative Stool C. difficile August 08 and August 10 negative Assessment/Plan ID Impression: Stable, with temperatures and white blood cell count remaining normal, status post a dose of Vancomycin 3 days ago for Staph aureus sepsis secondary to an infected Abdirizak catheter, status post removal 3 days ago and replacement with a new non-tunneled catheter yesterday. His Staph aureus is sensitive to Oxacillin ; therefore his antibiotics can be changed to Cefazolin, which can be dosed after each dialysis. He has severe aortic stenosis, increasing his risk for endocarditis, and, though the transthoracic echo is negative, a ARSEN may need to be considered. His diarrhea is of unclear etiology, with C. difficile negative Suggestion: 1. Would consider a ARSEN 2. Cefazolin 1.5 g IV 1 today and continue after each dialysis
[2017-08-10 14:16] VITALS: BP 165/75
--- NOTE | 2017-08-10 16:03 | PN- Gen Med ---
Assessment/Plan Medical Problem List: 1. End-stage renal disease on hemodialysis 2. Gait instability 3. History of left hip replacement 4. Weakness 5. MSSA (methicillin susceptible Staphylococcus aureus) infection Plan: A/P; 87 y/o M with pmh sig for aortic stenosis, previous TIA, ESRD status post obstructive uropathy on dialysis for 8 years on hemodialysis Saturday, prostate cancer in 2008 after chemotherapy and radiation, hypertension, hyperlipidemia, chronic diastolic congestive heart failure and gout with recent admission to [facility] with a fall/TIA. Patient received tunneled catheter placement in the right IJ secondary to blocked permanent access and catheter-related bloodstream MSSA infection. Febrile on admission. Patient is bacteremic with gram-positive cocci. Catheter tip grew MSSA. Patient received non-tunneled dialysis catheter today, dialysis completed today. Transthoracic echocardiogram was negative. As per infectious disease recommendations continue with Cephazolin 1.5 g IV today and continue after every dialysis. Will obtain cardiology consultation and transesophageal echocardiogram, especially considering the patient has severe aortic stenosis. Hemodialysis per nephrology. Continue the rest of the management. Subjective Follow-up For: MSSA bacteremia ESRD on HD Subjective: Patient resting comfortably without any acute distress. Underwent dialysis today. Had 1-2 loose bowel movements the past 1 day however denies any loose bowel movements today Review of Systems Constitutional: Reports: no symptoms. Objective Last 24 Hrs of Vital Signs/I&O Vital Signs Date Time Temp Pulse Resp B/P B/P Pulse O2 O2 Flow FiO2 Mean Ox Delivery Rate 08/10 1416 98.7 73 18 165/75 95 Room Air 08/10 1132 76 142/86 08/10 1129 76 142/86 08/10 1128 76 142/86 08/10 1128 76 142/86 08/10 0728 98.6 67 20 120/64 95 Room Air 08/09 2306 98.9 68 20 142/80 96 08/09 1620 97.9 74 16 140/68 95 Room Air Intake & Output 08/10 1600 08/10 0800 08/10 0000 Intake Total 240 630 Output Total Balance 240 630 Intake, Oral 240 630 Number 3 5 Bowel Movements Physical Exam General Appearance: Alert, No Acute Distress Skin: Right IJ catheter in place Cardiovascular: Regular Rate, Normal S1, Normal S2, Systolic murmur present in all 4 areas Lungs: Clear to Auscultation Abdomen: Soft, No Tenderness Neurological: No focal neurological deficits Current Medications: Current Medications Sig/Harmeet Start time Last Medication Dose Route Stop Time Status Admin Allopurinol 100 MG DAILY 08/07 1416 AC 08/10 PO 1127 Amlodipine Besylate 10 MG DAILY 08/07 1416 AC 08/10 PO 1128 Cefazolin Sodium 1,500 MG Saturday .. 08/12 1000 AC Sodium Chloride 100 ML IV Cefazolin Sodium 1,500 MG ONCE ONE 08/10 1745 AC Sodium Chloride 100 ML IV 08/10 1844 Cefazolin Sodium 1,500 MG ONCE ONE 08/10 1415 DC IV 08/10 1416 Cefazolin Sodium 1,500 MG MoWeFr@1700 08/09 1700 DC Sodium Chloride 100 ML IV Cinacalcet 30 MG DAILY 08/08 1000 AC 08/10 PO 1128 Cyanocobalamin 1,000 MCG DAILY 08/08 1000 AC 08/10 PO 1127 Diphenhydramine HCl 1 ZHANNA BID PRN 08/07 2015 AC 08/09 TOP 2109 Epoetin Bolivar 1,000 UNIT MoWeFr PRN 08/10 1015 AC IV Heparin Sodium 5,000 UNIT Q8 08/07 1428 AC 08/10 (Porcine) SC 1414 Hydroxyzine HCl 25 MG BID PRN 08/07 1430 AC 08/10 PO 1143 Levothyroxine Sodium 0.15 MG DAILY AC 08/08 0700 AC 08/10 PO 0600 Lidocaine 15 ML BID 08/09 1135 AC 08/10 PO 1130 Losartan Potassium 50 MG DAILY 08/08 1000 AC 08/10 PO 1132 Metoprolol Succinate 25 MG DAILY 08/08 1000 AC 08/10 PO 1128 Multivitamins 1 TAB DAILY 08/07 1417 AC 08/10 PO 1131 Omeprazole 20 MG DAILY AC 08/08 0700 AC 08/10 PO 0600 Paricalcitol 4 MCG MoWeFr PRN 08/10 1015 AC IV Sevelamer Carbonate 800 MG WITH MEALS 08/07 1700 AC 08/10 PO 1557 Tamsulosin HCl 0.4 MG DAILY 08/08 1000 AC 08/10 PO 1129 Trazodone HCl 50 MG QPM 08/07 2200 AC 08/09 PO 2108 Zinc Oxide 1 ZHANNA BID 08/09 1225 AC 08/10 TOP 1130 Last 24 Hrs of Labs/Mics: Laboratory Tests 08/10/17 0800: Anion Gap 13, Estimated GFR 7 L, BUN/Creatinine Ratio 5.8 L, CBC w Diff NO MAN DIFF REQ, RBC 2.73 L, MCV 102.4 H, MCH 34.7 H, MCHC 33.8, RDW 16.6 H, MPV 8.2, Gran % 68.2, Lymphocytes % 23.4, Monocytes % 6.1, Eosinophils % 1.9, Basophils % 0.4, Absolute Granulocytes 4.9, Absolute Lymphocytes 1.7, Absolute Monocytes 0.4, Absolute Eosinophils 0.1, Absolute Basophils 0, Hep Bs Antigen NONREACTIVE, Hep Bs Antibody REACTIVE 08/10/17 0600: Sodium Cancelled, Potassium Cancelled, Chloride Cancelled, Carbon Dioxide Cancelled, Anion Gap Cancelled, BUN Cancelled, Creatinine Cancelled, BUN/ Creatinine Ratio Cancelled Microbiology 08/10 0620 STOOL: Clostridium difficile Toxin A & B - COMP
[2017-08-10 22:45] VITALS: BP 146/68
[2017-08-11 06:32] VITALS: BP 132/70
--- NOTE | 2017-08-11 09:10 | PN- Housestaff ---
Angleina HENSON,Caroline 08/11/17 0910: Subjective Follow-up For: -Catheter related blood stream infection with methicillin sensitive S.aureus -ESRD on dialysis -s/p Nontunneled (abdirizak) dialysis catheter placement -Diarrhea Complaints: no complaints Subjective: Pt seen and examined. Complains of multiple watery yellowish colored bowel movements. Has had 2 BM so far today. Patient is lactose intolerant but has been getting lactose containing foods since admission into hospital. Denies abd distension, abd pain, nausea or vomiting. Review of Systems Constitutional: Reports: no symptoms. Objective Last 24 Hrs of Vital Signs/I&O Vital Signs Date Time Temp Pulse Resp B/P B/P Pulse O2 O2 Flow FiO2 Mean Ox Delivery Rate 08/11 1039 69 132/70 08/11 1039 69 132/70 08/11 1037 69 132/70 08/11 1037 132/70 08/11 0632 98.8 69 20 132/70 96 Room Air 08/10 2245 98.8 71 18 146/68 95 Room Air 08/10 1416 98.7 73 18 165/75 95 Room Air Intake & Output 08/11 1600 08/11 0800 08/11 0000 Intake Total 100 700 Output Total 0 Balance 100 700 Intake, IV 0 Intake, Oral 100 700 Number 1 1 Bowel Movements Output, Urine 0 Patient 142 lb Weight Physical Exam General Appearance: Alert Skin: erythema around the perineal area Cardiovascular: Regular Rate, Normal S1, Normal S2, 3/6 systolic murmur Lungs: Clear to Auscultation, Normal Air Movement Abdomen: Normal Bowel Sounds, Soft, No Tenderness Extremities: No Edema, Normal Pulses Current Medications: Current Medications Sig/Harmeet Start time Last Medication Dose Route Stop Time Status Admin Allopurinol 100 MG DAILY 08/07 1416 AC 08/11 PO 1037 Amlodipine Besylate 10 MG DAILY 08/07 1416 AC 08/11 PO 1037 Cefazolin Sodium 1,500 MG Saturday .. 08/12 1000 AC Sodium Chloride 100 ML IV Cefazolin Sodium 1,500 MG ONCE ONE 08/10 1745 DC 08/10 Sodium Chloride 100 ML IV 08/10 1844 1652 Cinacalcet 30 MG DAILY 08/08 1000 AC 08/11 PO 1039 Cyanocobalamin 1,000 MCG DAILY 08/08 1000 AC 08/11 PO 1037 Diphenhydramine HCl 1 ZHANNA BID PRN 08/07 2014 AC 08/09 TOP 2109 Epoetin Bolivar 1,000 UNIT MoWeFr PRN 08/10 1015 AC IV Heparin Sodium 5,000 UNIT Q8 08/07 1428 AC 08/11 (Porcine) SC 1216 Hydroxyzine HCl 25 MG BID PRN 08/07 1430 AC 08/10 PO 1143 Levothyroxine Sodium 0.15 MG DAILY AC 08/08 0700 AC 08/11 PO 0612 Lidocaine 15 ML BID 08/09 1135 AC 08/11 PO 1037 Losartan Potassium 50 MG DAILY 08/08 1000 AC 08/11 PO 1039 Metoprolol Succinate 25 MG DAILY 08/08 1000 AC 08/11 PO 1037 Multivitamins 1 TAB DAILY 08/07 1417 AC 08/11 PO 1038 Omeprazole 20 MG DAILY AC 08/08 0700 AC 08/11 PO 0612 Paricalcitol 4 MCG MoWeFr PRN 08/10 1015 AC IV Sevelamer Carbonate 800 MG WITH MEALS 08/07 1700 AC 08/11 PO 1215 Tamsulosin HCl 0.4 MG DAILY 08/08 1000 AC 08/11 PO 1039 Trazodone HCl 50 MG QPM 08/07 2200 AC 08/10 PO 2027 Zinc Oxide 1 ZHANNA BID 08/09 1225 AC 08/11 TOP 1036 Last 24 Hrs of Lab/Jarod Results Last 24 Hrs of Labs/Mics: Laboratory Tests 08/11/17 0751: Anion Gap 14, Estimated GFR 7 L, BUN/Creatinine Ratio 3.7 L, CBC w Diff NO MAN DIFF REQ, RBC 2.87 L, MCV 103.4 H, MCH 33.8 H, MCHC 32.7 L, RDW 16.2 H, MPV 8.4, Gran % 59.4, Lymphocytes % 30.9, Monocytes % 7.0, Eosinophils % 2.3, Basophils % 0.4, Absolute Granulocytes 3.8, Absolute Lymphocytes 2.0, Absolute Monocytes 0.4, Absolute Eosinophils 0.1, Absolute Basophils 0 Lines/Diet/Fluids Lines: peripheral lines Assessment/Plan Assessment: #Sepsis secondary to Catheter related blood stream infection with MSSA * Patient remains afebrile * IV cefazolin 1.5gm after dialysis tomorrow * S/p nontunneled (Abdirizak) catheter placement for dialysis yesterday * Repeat blood cultures so far negative * TTE negative for vegetations. ARSEN possibly on saturday to help determine the duration of antibiotics. Patient has severe aortic stenosis. #Diarrhea * Likely due to his lactose intolerance * Dietary message sent to the elevator repairer via [employer]. I also spoke with one of the dietary personnel who confirmed that the diet msg was received and that patient will no longer be getting lactose-containing food options on his menu. * C.diff neg x 2 * Monitor closely and watch for dehydration #Scrotal erythema * Likely secondary to persistantly being wet from diarrhea. * Continue desitin cream * Keep area dry as much as possible #ESRD on dialysis * S/P non-tunnelled abdirizak catheter placement * Hemodialysis in AM (// schedule) * Continue Sevelamir, cinacalcet, multivitamin #HTN * Continue amlodipine 10 mg daily, losartan 50 mg daily #Hypothyroidism * Continue levothyroxine 0.15mg #Benign prostatic hypertrophy * Continue tamsulosin 0.4 mg daily Problem List: 1. MSSA (methicillin susceptible Staphylococcus aureus) infection 2. Hemodialysis catheter infection 3. ESRD (end stage renal disease) on dialysis Pain Ratin Pain Location: na Pain Goal: Remain pain free Pain Plan: na Tomorrow's Labs & Rationales: cbc bep Cody Beard MD 08/11/17 1330: Attending MD Review Statement Attending Statement Attending MD Statement: examined this patient, discuss w/resident/PA/BOILER HOUSE INSPECTOR, agreed w/resident/PA/BOILER HOUSE INSPECTOR, discussed with nursing Attending Assessment/Plan: A/P; 87 y/o M with pmh sig for aortic stenosis, previous TIA, ESRD status post obstructive uropathy on dialysis for 8 years on hemodialysis Saturday, prostate cancer in 2008 after chemotherapy and radiation, hypertension, hyperlipidemia, chronic diastolic congestive heart failure and gout with recent admission to [facility] with a fall/TIA. Patient received tunneled catheter placement in the right IJ secondary to blocked permanent access and catheter-related bloodstream MSSA infection. Febrile on admission. Patient is bacteremic with gram-positive cocci. Catheter tip grew MSSA. Patient received non-tunneled dialysis catheter today, dialysis completed today. Transthoracic echocardiogram was negative. As per infectious disease recommendations continue with Cephazolin 1.5 g IV today and continue after every dialysis. Will obtain cardiology consultation and transesophageal echocardiogram, especially considering the patient has severe aortic stenosis. Hemodialysis per nephrology. Continue the rest of the management. Has been having 2-3 loose bowel movements. If patient continues to have bowel movements we will obtain C. difficile.
[2017-08-11 09:26] LABS: ABSOLUTE BASOPHIL COUNT 0 /CUMM (0.0-0.2); ABSOLUTE EOSINOPHIL COUNT 0.1 /CUMM (0.0-0.7); ABSOLUTE GRANULOCYTE CT 3.8 /CUMM (1.4-6.5); ABSOLUTE MONOCYTE COUNT 0.4 /CUMM (0.10-0.60); BASOPHIL % 0.4 % (0.0-2.0); EOSINOPHIL % 2.3 % (0-5); GRANULOCYTE % 59.4 % (42.2-75.2); HEMATOCRIT 29.6 % (42-52); MEAN CORPUSCULAR HGB 33.8 PG (27.0-31.0); MEAN CORPUSCULAR HGB CONC 32.7 G/DL (33.0-37.0); MEAN CORPUSCULAR VOLUME 103.4 FL (80.0-94.0); MEAN PLATELET VOLUME 8.4 FL (7.4-10.4); PLATELET COUNT 136 /CUMM (130-400); RBC DISTRIBUTION WIDTH 16.2 % (11.5-14.5); RED BLOOD CELL CT 2.87 /CUMM (4.70-6.10); WHITE BLOOD CELL COUNT 6.4 /CUMM (4.8-10.8)
--- NOTE | 2017-08-11 09:38 | Cons- Cardiology ---
General Information and HPI Consulting Request Date of Consult: 08/11/17 Requested By: Neli Gee MD Reason for Consult: Staph bacteremia; Possible ARSEN Source of Information: patient, old records Exam Limitations: no limitations History of Present Illness: The patient is an 87-year-old male who is usually followed by Dr. Avery Barnes. He is now admitted to the hospital. His past Meckel history is remarkable for end-stage renal disease on dialysis, moderate aortic stenosis, prior TIAs, hypertension, multiple falls, etc. The patient was admitted with infection of his Abdirizka catheter site. He has subsequently been noted to have staph bacteremia. I was asked see the patient due to the fact that infectious disease service requested a transesophageal echocardiogram on this patient which remains to be scheduled. Allergies/Medications Allergies: Coded Allergies: lactose (Severe, DIARRHEA 08/11/17) Home Med List: Acetaminophen 325 MG TABLET 2 TAB PO Q4H PRN PAIN/TEMP>100 (Reported) Acetaminophen (Acephen) 650 MG SUPP.RECT 1 SUPP [place] Q4H PRN PAIN/TEMP>100 ( Reported) Allopurinol 100 MG TABLET 1 TAB PO DAILY GOUT (Reported) Amlodipine Besylate 10 MG TABLET 1 TAB PO DAILY HEART (Reported) Bisacodyl 10 MG SUPP.RECT 1 SUP RC PRN CONSTIPATION (Reported) Ceftriaxone Sodium (Ceftriaxone) 500 MG VIAL 1 GM IM DAILY ABX (Reported) Cinacalcet HCl (Sensipar) 30 MG TABLET 1 TAB PO DAILY KIDNEY DISEASE ( Reported) Cyanocobalamin (Vitamin B-12) 1,000 MCG TABLET 1 TAB PO DAILY VITAMIN SUPPORT (Reported) Guaifenesin 100 MG/5 ML LIQUID 10 ML PO TID EXPECTORANT (Reported) Hydroxyzine Hydrochloride (Atarax) 25 MG TABLET 1 TAB PO BID PRN itching ( Reported) Levothyroxine Sodium (Levoxyl) 175 MCG TABLET 1 TAB PO DAILY THYROID ( Reported) Magnesium Hydroxide (Milk Of Magnesia) 400 MG/5 ML ORAL.SUSP 30 ML PO DAILY PRN CONSTIPATION (Reported) Metoprolol Succinate 25 MG TAB.ER.24H 1 TAB PO DAILY HEART/BP (Reported) Na Phos,M-B/Na Phos,Di-Ba (Fleet Enema) 19 GRAM-7 GRAM/118 ML ENEMA 1 E RC DAILY PRN CONSTIPATION (Reported) [NEPHRO] 120 ML PO DAILY SUPPLEMENT (Reported) Nephro-Vitamins (Nephro-Tye Tablet) (Unknown Strength) TABLET 1 TAB PO DAILY SUPPLEMENT (Reported) Pantoprazole Sodium 20 MG TABLET.DR 1 TAB PO DAILY GI (Reported) Sevelamer Carbonate (Renvela) 800 MG TABLET 1 TAB PO WITH MEALS kidney ( Reported) Tamsulosin HCl (Flomax) 0.4 MG CAP.ER.24H 1 CAP PO DAILY PROSTATE (Reported) Travoprost (Travatan Z) 5 ML DROPS 1 GTT OPH QPM BOTH EYES (Reported) Trazodone HCl 50 MG TABLET 1 TAB PO QPM SLEEP (Reported) Trazodone HCl 50 MG TABLET 12.5 MG PO Q8H PRN ANXIETY & AGITATION (Reported) Valsartan (Diovan) 80 MG TABLET 1 TAB PO DAILY HEART (Reported) Current Medications: Current Medications Sig/Harmeet Start time Last Medication Dose Route Stop Time Status Admin Allopurinol 100 MG DAILY 08/07 1416 AC 08/10 PO 1127 Amlodipine Besylate 10 MG DAILY 08/07 1416 AC 08/10 PO 1128 Cefazolin Sodium 1,500 MG Saturday .. 08/12 1000 AC Sodium Chloride 100 ML IV Cefazolin Sodium 1,500 MG ONCE ONE 08/10 1745 DC 08/10 Sodium Chloride 100 ML IV 08/10 1844 1652 Cefazolin Sodium 1,500 MG ONCE ONE 08/10 1415 DC IV 08/10 1416 Cinacalcet 30 MG DAILY 08/08 1000 AC 08/10 PO 1128 Cyanocobalamin 1,000 MCG DAILY 08/08 1000 AC 08/10 PO 1127 Diphenhydramine HCl 1 ZHANNA BID PRN 08/07 2015 AC 08/09 TOP 2109 Epoetin Bolivar 1,000 UNIT MoWeFr PRN 08/10 1015 AC IV Heparin Sodium 5,000 UNIT Q8 08/07 1428 AC 08/11 (Porcine) SC 0612 Hydroxyzine HCl 25 MG BID PRN 08/07 1430 AC 08/10 PO 1143 Levothyroxine Sodium 0.15 MG DAILY AC 08/08 0700 AC 08/11 PO 0612 Lidocaine 15 ML BID 08/09 1135 AC 08/10 PO 2027 Losartan Potassium 50 MG DAILY 08/08 1000 AC 08/10 PO 1132 Metoprolol Succinate 25 MG DAILY 08/08 1000 AC 08/10 PO 1128 Multivitamins 1 TAB DAILY 08/07 1417 AC 08/10 PO 1131 Omeprazole 20 MG DAILY AC 08/08 0700 AC 08/11 PO 0612 Paricalcitol 4 MCG MoWeFr PRN 08/10 1015 AC IV Sevelamer Carbonate 800 MG WITH MEALS 08/07 1700 AC 08/11 PO 0830 Tamsulosin HCl 0.4 MG DAILY 08/08 1000 AC 08/10 PO 1129 Trazodone HCl 50 MG QPM 08/07 2200 AC 08/10 PO 202 Zinc Oxide 1 ZHANNA BID 08/09 1225 AC 08/10 TOP 2026 Past History Travel History Traveled to [place] past 21 day No Medical History Blood Transfusion Hx: No Neurological: TIA, status post recent subdural hematomas EENT: NONE Cardiovascular: diastolic CHF, hypertension, hyperlipidemia Respiratory: NONE Gastrointestinal: GERD Hepatic: NONE Renal: KIDNEY FAILURE DIALYSIS M,W,F Musculoskeletal: gout Psychiatric: NONE Endocrine: hypothyroidism Blood Disorders: NONE Cancer(s): prostate cancer TEXTILE BROKER/Reproductive: NONE Other Medical Hx: herpes zoster, gout, subdural hematoma Surgical History Surgical History: appendectomy, cholecystectomy, exploratory laparotomy secondary to bowel obstruction status post left hip ORIF February 2017 Family History Relations & Conditions If Any: Relation not specified for: *No pertinent family history Psychosocial History Where Do You Live? Snf Facility Who Do You Live With? spouse, child Services at Home: Nursing Smoking Status: Never Smoked ETOH Use: denies use Illicit Drug Use: denies illicit drug use Functional Ability ADLs Independent: dressing, eating, toileting, bathing. Ambulation: independent, cane Exam & Diagnostic Data Vital Signs and I&O Vital Signs Date Time Temp Pulse Resp B/P B/P Pulse O2 O2 Flow FiO2 Mean Ox Delivery Rate 08/11 0632 98.8 69 20 132/70 96 Room Air 08/10 2245 98.8 71 18 146/68 95 Room Air 08/10 1416 98.7 73 18 165/75 95 Room Air 08/10 1132 76 142/86 08/10 1129 76 142/86 08/10 1128 76 142/86 08/10 1128 76 142/86 Intake & Output 08/11 1600 08/11 0800 08/11 0000 08/10 1600 08/10 0800 08/10 0000 Intake Total 100 700 600 240 630 Output Total 0 Balance 100 700 600 240 630 Intake, IV 0 Intake, Oral 100 700 600 240 630 Number 1 3 5 Bowel Movements Output, Urine 0 Patient 142 lb Weight Physical Exam: General Appearance: Alert, Oriented X3, Cooperative Skin: Normal HEENT: Atraumatic, PERRLA Neck: Supple, prominent JVD, carotids normal bilaterally. No audible bruits. Cardiovascular: Normal S1, Normal S2, 2/6 systolic murmur Lungs: Scattered bilateral rhonchi Abdomen: Normal Bowel Sounds, Soft, No Tenderness Neurological: Normal last nonfocal Extremities: No Clubbing, No Cyanosis Labs/Jarod Results: Laboratory Tests 08/11 08/10 08/10 0751 0800 0600 Chemistry Sodium (137 - 145 mmol/L) Pending 137 Cancelled Potassium (3.5 - 5.1 mmol/L) Pending 3.6 Cancelled Chloride (98 - 107 mmol/L) Pending 102 Cancelled Carbon Dioxide (22 - 30 mmol/L) Pending 22 Cancelled Anion Gap (5 - 16) Pending 13 Cancelled BUN (9 - 20 mg/dL) Pending 45 H Cancelled Creatinine (0.7 - 1.2 mg/dL) Pending 7.8 *H Cancelled Estimated GFR (>60 ml/min) 7 L BUN/Creatinine Ratio (7 - 25 %) Pending 5.8 L Cancelled Hematology CBC w Diff Pending NO MAN DIFF REQ WBC (4.8 - 10.8 /CUMM) Pending 7.1 RBC (4.70 - 6.10 /CUMM) Pending 2.73 L Hgb (14.0 - 18.0 G/DL) Pending 9.4 L Hct (42 - 52 %) Pending 27.9 L MCV (80.0 - 94.0 FL) Pending 102.4 H MCH (27.0 - 31.0 PG) Pending 34.7 H MCHC (33.0 - 37.0 G/DL) Pending 33.8 RDW (11.5 - 14.5 %) Pending 16.6 H Plt Count (130 - 400 /CUMM) Pending 139 MPV (7.4 - 10.4 FL) Pending 8.2 Gran % (42.2 - 75.2 %) 68.2 Lymphocytes % (20.5 - 51.1 %) 23.4 Monocytes % (1.7 - 9.3 %) 6.1 Eosinophils % (0 - 5 %) 1.9 Basophils % (0.0 - 2.0 %) 0.4 Absolute Granulocytes (1.4 - 6.5 /CUMM) 4.9 Absolute Lymphocytes (1.2 - 3.4 /CUMM) 1.7 Absolute Monocytes (0.10 - 0.60 /CUMM) 0.4 Absolute Eosinophils (0.0 - 0.7 /CUMM) 0.1 Absolute Basophils (0.0 - 0.2 /CUMM) 0 Serology Hep Bs Antigen (NONREACTIVE) NONREACTIVE Hep Bs Antibody (NONREACTIVE) REACTIVE 08/09 0985 Chemistry Sodium (137 - 145 mmol/L) 136 L Potassium (3.5 - 5.1 mmol/L) 4.6 Chloride (98 - 107 mmol/L) 103 Carbon Dioxide (22 - 30 mmol/L) 18 L Anion Gap (5 - 16) 16 BUN (9 - 20 mg/dL) 58 H Creatinine (0.7 - 1.2 mg/dL) 9.6 *H Estimated GFR (>60 ml/min) 5 L BUN/Creatinine Ratio (7 - 25 %) 6.0 L Hematology CBC w Diff NO MAN DIFF REQ WBC (4.8 - 10.8 /CUMM) 7.1 RBC (4.70 - 6.10 /CUMM) 2.75 L Hgb (14.0 - 18.0 G/DL) 9.3 L Hct (42 - 52 %) 28.3 L MCV (80.0 - 94.0 FL) 103.0 H MCH (27.0 - 31.0 PG) 34.0 H MCHC (33.0 - 37.0 G/DL) 33.0 RDW (11.5 - 14.5 %) 16.0 H Plt Count (130 - 400 /CUMM) 123 L MPV (7.4 - 10.4 FL) 8.4 Gran % (42.2 - 75.2 %) 73.8 Lymphocytes % (20.5 - 51.1 %) 17.9 L Monocytes % (1.7 - 9.3 %) 6.5 Eosinophils % (0 - 5 %) 1.5 Basophils % (0.0 - 2.0 %) 0.3 Absolute Granulocytes (1.4 - 6.5 /CUMM) 5.2 Absolute Lymphocytes (1.2 - 3.4 /CUMM) 1.3 Absolute Monocytes (0.10 - 0.60 /CUMM) 0.5 Absolute Eosinophils (0.0 - 0.7 /CUMM) 0.1 Absolute Basophils (0.0 - 0.2 /CUMM) 0 Diagnostic Data Other Results Echocardiogram: FINDINGS Left Ventricle Left ventricular cavity size normal. Left ventricular wall thickness mildly increased. No obvious regional wall motion abnormalities. Left ventricular ejection fraction is estimated at > 55 %. Right Ventricle Normal right ventricular size and function. Right Atrium Normal right atrial size. Left Atrium Mild left atrial dilatation. Mitral Valve Mild mitral annular calcification. Mild mitral regurgitation. Aortic Valve Mild aortic regurgitation. Diffuse thickening of the aortic valve cusps with reduced excursion. Moderate aortic stenosis (mean gradient 34 mmHg). Tricuspid Valve Structurally normal tricuspid valve. Mild tricuspid regurgitation. Unable to estimate the right ventricular systolic pressure. Pulmonic Valve Pulmonic valve not well visualized. Pericardium No pericardial effusion. Great Vessels Normal size aortic root. Mildly dilated proximal ascending aorta (4.0 cm). CONCLUSIONS Left ventricular cavity size normal. Left ventricular wall thickness mildly increased. No obvious regional wall motion abnormalities. Left ventricular ejection fraction is estimated at > 55 %. Normal right ventricular size and function. Mild left atrial dilatation. Moderate aortic stenosis (mean gradient 34 mmHg). No pericardial effusion. Mildly dilated proximal ascending aorta (4.0 cm). Unable to estimate the right ventricular systolic pressure. Fred Aguayo M.D. Assessment/Plan Assessment/Plan Assessment: 1. MSSA bacteremia, likely related to catheter. 2. End-stage renal disease on hemodialysis 3. Hypertension 4. Hypothyroidism 5. Moderate aortic stenosis 6. History of multiple falls Recommendation: -Transesophageal echocardiogram has been requested by ID service. I discussed this with the patient, although it is not clear to me that he completely understands the concept of the procedure. -Please keep the patient nothing by mouth after midnight tonight in case the procedure can be performed tomorrow, however, the patient is apparently scheduled for dialysis at 10 AM and the performance of the ARSEN may not be feasible for tomorrow. -Fred Aguayo MD will be back tomorrow and can decide on the timing of the ARSEN with Kenrick Gutierrez MD. Consult Acknowledgment - Thank you for your consult request.
[2017-08-11 15:00] VITALS: BP 150/90
[2017-08-11 22:24] VITALS: BP 160/80
[2017-08-12 06:34] VITALS: BP 128/66
--- NOTE | 2017-08-12 07:42 | PN- Housestaff ---
Juve HENSON,Carmen 08/12/17 0742: Subjective Follow-up For: -Catheter related blood stream infection with MSSA -ESRD on dialysis -s/p Nontunneled (abdirizak) dialysis catheter placement -Diarrhea Subjective: seen and examined Undergoing dialysis, denies any complaints. Review of Systems Constitutional: Reports: see HPI. Objective Last 24 Hrs of Vital Signs/I&O Vital Signs Date Time Temp Pulse Resp B/P B/P Pulse O2 O2 Flow FiO2 Mean Ox Delivery Rate 08/12 0634 98.1 73 18 128/66 95 Room Air 08/11 2224 98.4 66 18 160/80 96 08/11 1500 98.8 72 20 150/90 95 08/11 1039 69 132/70 08/11 1039 69 132/70 08/11 1037 69 132/70 08/11 1037 132/70 Intake & Output 08/12 0800 08/12 0000 08/11 1600 Intake Total 360 600 Output Total Balance 360 600 Intake, Oral 360 600 Number 2 2 Bowel Movements Patient 65.459 kg Weight Weight Standing Scale Measurement Method Physical Exam General Appearance: Alert, Oriented X3, Cooperative, No Acute Distress Skin: No Rashes, No Breakdown, lesions on his hands Skin Temp/Moisture Exam: Warm/Dry HEENT: Atraumatic, PERRLA, EOMI Cardiovascular: Normal S1, Normal S2, systolic murmur present Lungs: Clear to Auscultation, Normal Air Movement Current Medications: Current Medications Sig/Harmeet Start time Last Medication Dose Route Stop Time Status Admin Allopurinol 100 MG DAILY 08/07 1416 AC 08/11 PO 1037 Amlodipine Besylate 10 MG DAILY 08/07 1416 AC 08/12 PO 1120 Cefazolin Sodium 1,500 MG MoWeFr@1200 08/12 1200 AC 08/12 Sodium Chloride 100 ML IV 1211 Cefazolin Sodium 1,500 MG 08/12 1000 CAN Sodium Chloride 100 ML IV Cinacalcet 30 MG DAILY 08/08 1000 AC 08/11 PO 1039 Cyanocobalamin 1,000 MCG DAILY 08/08 1000 AC 08/11 PO 1037 Diphenhydramine HCl 1 ZHANNA BID PRN 08/07 2015 AC 08/12 TOP 0537 Epoetin Bolivar 1,000 UNIT MoWeFr PRN 08/10 1015 AC IV Heparin Sodium 5,000 UNIT Q8 08/07 1428 AC 08/12 (Porcine) SC 1423 Hydroxyzine HCl 25 MG BID PRN 08/07 1430 AC 08/12 PO 0644 Levothyroxine Sodium 0.15 MG DAILY AC 08/08 0700 AC 08/12 PO 0535 Lidocaine 15 ML BID 08/09 1135 AC 08/11 PO 2109 Losartan Potassium 50 MG DAILY 08/08 1000 AC 08/12 PO 1120 Metoprolol Succinate 25 MG DAILY 08/08 1000 AC 08/12 PO 1120 Multivitamins 1 TAB DAILY 08/07 1417 AC 08/11 PO 1038 Omeprazole 20 MG DAILY AC 08/08 0700 AC 08/12 PO 0535 Paricalcitol 4 MCG MoWeFr PRN 08/10 1015 AC IV Patient Medication 1 ED ONE ONE 08/12 1515 DC Teaching ED 08/12 1516 Sevelamer Carbonate 800 MG WITH MEALS 08/07 1700 AC 08/12 PO 1652 Tamsulosin HCl 0.4 MG DAILY 08/08 1000 AC 08/11 PO 1039 Trazodone HCl 50 MG QPM 08/07 2200 AC 08/11 PO 2110 Zinc Oxide 1 ZHANNA BID 08/09 1225 AC 08/12 TOP 1123 Last 24 Hrs of Lab/Jarod Results Last 24 Hrs of Labs/Mics: Laboratory Tests 08/12/17 0720: Anion Gap 14, Estimated GFR 5 L, BUN/Creatinine Ratio 3.7 L, Calcium 8.5, CBC w Diff NO MAN DIFF REQ, RBC 2.76 L, MCV 102.7 H, MCH 33.5 H, MCHC 32.6 L, RDW 15.7 H, MPV 8.4, Gran % 59.7, Lymphocytes % 31.5, Monocytes % 6.1, Eosinophils % 2.5, Basophils % 0.2, Absolute Granulocytes 3.8, Absolute Lymphocytes 2.0, Absolute Monocytes 0.4, Absolute Eosinophils 0.2, Absolute Basophils 0 Assessment/Plan Assessment: Patient is 87-year-old male with past medical history of 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 Vital signs at presentation Tmax 99.0, pulse 94, blood pressure 130/72, SPO2 96% on 2 L of nasal cannula. Physical exam altered with pansystolic murmur, yellowish discharge from the catheter site. Labs did show H/H 11/32.9, MCV 102, platelet count 143, lactic acid 2.4 lymphocytes 1.9, absolute granulocyte 13.5, segmented neutrophils 89, Band cells 3, serum Na 137, K 3.9, Cl 100, HCo3 19, AG 17, BUN/cr 18/4.9, GFR 11, glucose 117, Calcium 9.5,Total bilirubin 1.5, AST 16, ALT 16, alkaline phosphatase 127, albumin 3.7.Blood cultures were already sent. Chest x-ray -Central vascular prominence without overt edema. No consolidation. CT abdomen and pelvis did show Small bilateral pleural effusions with Atrophic kidneys. Problem list: Catheter related blood stream infection with MSSA ESRD on dialysis - AVF bilateral nonfunctional HTN Hypothyroidism Moderate Multiple falls Sepsis secondary to Catheter related blood stream infection with MSSA Patient did have significant discharge from his catheter site. Tmax of 100.2 with Labs revealed elevated white count with lactic acidosis. Afebile overnight. Culture catheter tip and blood cultures grew MSSA. He got a single dose of IV vancomycin and IV ceftazidime after coming to hospital. Underwent IR guided catheter removal on the day of presentation. Underwent nontunneled dialysis catheter placement today. * IV cefazolin 1.5gm with dialysis * NPO tomorrow night for ARSEN on saturday. * TTE negative for vegetations. Diarrhea He did have loose watery diarrhea * C.diff negative ESRD on dialysis Dialysis M/W/F . Continue Sevelamir, cinacalcet, multivitamin. HTN Continue amlodipine 10 mg daily, losartan 50 mg daily. Hypothyroidism Continue levothyroxine home dose Benign prostatic hypertrophy Continue tamsulosin 0.4 mg daily Pain control with trazodone DVT prophylaxis Subcutaneous heparin CODE STATUS Full code Problem List: 1. Hemodialysis catheter infection 2. MSSA (methicillin susceptible Staphylococcus aureus) infection 3. Weakness Pain Ratin Pain Location: n/a Pain Goal: Pain 4 or less Pain Plan: tylenol prn Tomorrow's Labs & Rationales: aries Gee MD,Neli 08/12/17 1134: Attending Review Statement Attending Statement Attending Statement: examined this patient, discuss w/resident/PA/UNDERWRITING SERVICE REPRESENTATIVE, agreed w/resident/PA/UNDERWRITING SERVICE REPRESENTATIVE, reviewed EMR data (avail), discussed with nursing, discussed with case mgmt, reviewed images, amended to note Attending Assessment/Plan: Patient seen and examined, denies any complaints. Patient was seen in dialysis. He has Abdirizak cath in right IJ. Patient is currently scheduled tentatively for ARSEN on Saturday. Vital Signs Date Time Temp Pulse Resp B/P B/P Pulse O2 O2 Flow FiO2 Mean Ox Delivery Rate 08/12 1120 167/72 08/12 0634 98.1 73 18 128/66 95 Room Air 08/11 2224 98.4 66 18 160/80 96 08/11 1500 98.8 72 20 150/90 95 onexam; aox3, nad. cv; s1,s2, + systolic murmur. resp; clear abd; soft, nt, bs+ ext; no edema. Laboratory Tests 08/12 0720 Chemistry Sodium (137 - 145 mmol/L) 141 Potassium (3.5 - 5.1 mmol/L) 3.6 Chloride (98 - 107 mmol/L) 107 Carbon Dioxide (22 - 30 mmol/L) 20 L Anion Gap (5 - 16) 14 BUN (9 - 20 mg/dL) 35 H Creatinine (0.7 - 1.2 mg/dL) 9.5 *H Estimated GFR (>60 ml/min) 5 L BUN/Creatinine Ratio (7 - 25 %) 3.7 L Calcium (8.4 - 10.2 mg/dL) 8.5 Hematology CBC w Diff NO MAN DIFF REQ WBC (4.8 - 10.8 /CUMM) 6.3 RBC (4.70 - 6.10 /CUMM) 2.76 L Hgb (14.0 - 18.0 G/DL) 9.3 L Hct (42 - 52 %) 28.4 L MCV (80.0 - 94.0 FL) 102.7 H MCH (27.0 - 31.0 PG) 33.5 H MCHC (33.0 - 37.0 G/DL) 32.6 L RDW (11.5 - 14.5 %) 15.7 H Plt Count (130 - 400 /CUMM) 140 MPV (7.4 - 10.4 FL) 8.4 Gran % (42.2 - 75.2 %) 59.7 Lymphocytes % (20.5 - 51.1 %) 31.5 Monocytes % (1.7 - 9.3 %) 6.1 Eosinophils % (0 - 5 %) 2.5 Basophils % (0.0 - 2.0 %) 0.2 Absolute Granulocytes (1.4 - 6.5 /CUMM) 3.8 Absolute Lymphocytes (1.2 - 3.4 /CUMM) 2.0 Absolute Monocytes (0.10 - 0.60 /CUMM) 0.4 Absolute Eosinophils (0.0 - 0.7 /CUMM) 0.2 Absolute Basophils (0.0 - 0.2 /CUMM) 0 A/P; 87 y/o M with pmh sig for aortic stenosis, previous TIA, ESRD status post obstructive uropathy on dialysis for 8 years on hemodialysis Saturday, prostate cancer in 2008 after chemotherapy and radiation, hypertension, hyperlipidemia, chronic diastolic congestive heart failure and gout with recent admission to [facility] with a fall/TIA. Patient received tunneled catheter placement in the right IJ secondary to blocked permanent access. Now admitted with fever likely secondary to central line infection. Patient bacteremic with MSSA. Catheter tip also was positive for MSSA. Patient has received temporary/non-tunneled catheter for dialysis. Plan is to make sure that cultures remain negative before putting a permanent access. Patient scheduled for ARSEN tentatively on Saturday per cardiology. Currently getting cefazolin per infectious disease. Hemodialysis per nephrology. Continue the rest of the current management. DVT prophylaxis: Heparin subcutaneous.
[2017-08-12 08:49] LABS: ABSOLUTE BASOPHIL COUNT 0 /CUMM (0.0-0.2); ABSOLUTE EOSINOPHIL COUNT 0.2 /CUMM (0.0-0.7); ABSOLUTE GRANULOCYTE CT 3.8 /CUMM (1.4-6.5); ABSOLUTE MONOCYTE COUNT 0.4 /CUMM (0.10-0.60); BASOPHIL % 0.2 % (0.0-2.0); EOSINOPHIL % 2.5 % (0-5); GRANULOCYTE % 59.7 % (42.2-75.2); HEMATOCRIT 28.4 % (42-52); MEAN CORPUSCULAR HGB 33.5 PG (27.0-31.0); MEAN CORPUSCULAR HGB CONC 32.6 G/DL (33.0-37.0); MEAN CORPUSCULAR VOLUME 102.7 FL (80.0-94.0); MEAN PLATELET VOLUME 8.4 FL (7.4-10.4); PLATELET COUNT 140 /CUMM (130-400); RBC DISTRIBUTION WIDTH 15.7 % (11.5-14.5); RED BLOOD CELL CT 2.76 /CUMM (4.70-6.10); WHITE BLOOD CELL COUNT 6.3 /CUMM (4.8-10.8)
--- NOTE | 2017-08-12 11:21 | PN- Cardiology ---
Subjective Subjective: Patient seen today while undergoing dialysis. Laying flat and resting comfortably. Objective Vital Signs and I&Os Vital Signs Date Time Temp Pulse Resp B/P B/P Pulse O2 O2 Flow FiO2 Mean Ox Delivery Rate 08/12 0634 98.1 73 18 128/66 95 Room Air 08/11 2224 98.4 66 18 160/80 96 08/11 1500 98.8 72 20 150/90 95 Intake & Output 08/12 1600 08/12 0800 08/12 0000 08/11 1600 08/11 0800 08/11 0000 Intake Total 360 600 100 700 Output Total 0 Balance 360 600 100 700 Intake, IV 0 Intake, Oral 360 600 100 700 Number 2 2 1 Bowel Movements Output, Urine 0 Patient 143 lb 144 lb 142 lb Weight Weight Standing Scale Measurement Method Physical Exam: General: no apparent distress. Alert. Eyes: No obvious scleral icterus. HEENT: No jugular venous distention or abnormal jugular venous pulsations. Cardiovascular: Normal intensity S1/S2. Regular, 3/6 systolic murmur Respiratory: Lungs clear to auscultation bilaterally. Abdomen: Soft, nontender with no guarding or rebound tenderness. Musculoskeletal: No clubbing or cyanosis noted, no edema Skin: Warm Neurologic: No gross focal deficits noted. Current Medications: Current Medications Sig/Harmeet Start time Last Medication Dose Route Stop Time Status Admin Allopurinol 100 MG DAILY 08/07 1416 AC 08/11 PO 1037 Amlodipine Besylate 10 MG DAILY 08/07 1416 AC 08/11 PO 1037 Cefazolin Sodium 1,500 MG Saturday .. 08/12 1000 AC Sodium Chloride 100 ML IV Cinacalcet 30 MG DAILY 08/08 1000 AC 08/11 PO 1039 Cyanocobalamin 1,000 MCG DAILY 08/08 1000 AC 08/11 PO 1037 Diphenhydramine HCl 1 ZHANNA BID PRN 08/07 2015 AC 08/12 TOP 0537 Epoetin Bolivar 1,000 UNIT MoWeFr PRN 08/10 1015 AC IV Heparin Sodium 5,000 UNIT Q8 08/07 1428 AC 08/12 (Porcine) SC 0535 Hydroxyzine HCl 25 MG BID PRN 08/07 1430 AC 08/12 PO 0644 Levothyroxine Sodium 0.15 MG DAILY AC 08/08 0700 AC 08/12 PO 0535 Lidocaine 15 ML BID 08/09 1135 AC 08/11 PO 2109 Losartan Potassium 50 MG DAILY 08/08 1000 AC 08/11 PO 1039 Metoprolol Succinate 25 MG DAILY 08/08 1000 AC 08/11 PO 1037 Multivitamins 1 TAB DAILY 08/07 1417 AC 08/11 PO 1038 Omeprazole 20 MG DAILY AC 08/08 0700 AC 08/12 PO 0535 Paricalcitol 4 MCG MoWeFr PRN 08/10 1015 AC IV Sevelamer Carbonate 800 MG WITH MEALS 08/07 1700 AC 08/11 PO 1716 Tamsulosin HCl 0.4 MG DAILY 08/08 1000 AC 08/11 PO 1039 Trazodone HCl 50 MG QPM 08/07 2200 AC 08/11 PO 2110 Zinc Oxide 1 ZHANNA BID 08/09 1225 AC 08/11 [facility] 2111 Results Last 48 Hrs of Labs/Mics: Laboratory Tests 08/12/17 0720: Anion Gap 14, Estimated GFR 5 L, BUN/Creatinine Ratio 3.7 L, Calcium 8.5, CBC w Diff NO MAN DIFF REQ, RBC 2.76 L, MCV 102.7 H, MCH 33.5 H, MCHC 32.6 L, RDW 15.7 H, MPV 8.4, Gran % 59.7, Lymphocytes % 31.5, Monocytes % 6.1, Eosinophils % 2.5, Basophils % 0.2, Absolute Granulocytes 3.8, Absolute Lymphocytes 2.0, Absolute Monocytes 0.4, Absolute Eosinophils 0.2, Absolute Basophils 0 08/11/17 0751: Anion Gap 14, Estimated GFR 7 L, BUN/Creatinine Ratio 3.7 L, CBC w Diff NO MAN DIFF REQ, RBC 2.87 L, MCV 103.4 H, MCH 33.8 H, MCHC 32.7 L, RDW 16.2 H, MPV 8.4, Gran % 59.4, Lymphocytes % 30.9, Monocytes % 7.0, Eosinophils % 2.3, Basophils % 0.4, Absolute Granulocytes 3.8, Absolute Lymphocytes 2.0, Absolute Monocytes 0.4, Absolute Eosinophils 0.1, Absolute Basophils 0 Recent Imaging Studies: Echo: Left ventricular cavity size normal. Left ventricular wall thickness mildly increased. No obvious regional wall motion abnormalities. Left ventricular ejection fraction is estimated at > 55 %. Normal right ventricular size and function. Mild left atrial dilatation. Moderate aortic stenosis (mean gradient 34 mmHg). No pericardial effusion. Mildly dilated proximal ascending aorta (4.0 cm). Unable to estimate the right ventricular systolic pressure. Fred Aguayo M.D. (Electronically Signed) Final Date: 09 August 2017 10:56 Assessment/Plan Assessment/Plan 1. MSSA bacteremia, likely related to catheter. 2. End-stage renal disease on hemodialysis 3. Hypertension/HLD 4. Hypothyroidism 5. Moderate aortic stenosis 6. History of multiple falls with prior hip fx 7. history of heart failure with preserved ejection fraction, compensated 8. Mild aortic dilatation by echo I discussed with Dr Gutierrez (ID) today and given the patient's staph bacteremia it is reasonable to consider transesophageal echocardiogram to evaluate for endocarditis as the result would effect the patient's duration of intravenous antibiotic therapy and the patient is currently stable. I also discussed this with the medical house staff; I have tentatively scheduled the patient for ARSEN on Saturday morning assuming his dialysis schedule can be adjusted to accommodate the procedure. Mat Aguayo MD [facility] Continue telemetry? Not applicable
--- NOTE | 2017-08-12 12:51 | PN- Infect Dx ---
Subjective Subjective: Afebrile. He continues to complain of pruritus from his multiple skin lesions Objective Last 24 Hrs of Vital Signs/I&O Vital Signs Date Time Temp Pulse Resp B/P B/P Pulse O2 O2 Flow FiO2 Mean Ox Delivery Rate 08/12 1120 167/72 08/12 0634 98.1 73 18 128/66 95 Room Air 08/11 2224 98.4 66 18 160/80 96 08/11 1500 98.8 72 20 150/90 95 Intake & Output 08/12 1600 08/12 0800 08/12 0000 Intake Total 360 Output Total Balance 360 Intake, Oral 360 Number 2 Bowel Movements Patient 135 lb 144 lb Weight Weight Standing Scale Measurement Method Physical Exam Other Physical Findings: He appears comfortable in no acute distress Skin multiple open pustules on his trunk and extremities Neck: Abdirizak catheter in the right IJ with no inflammation at the site Lungs crackles at the right base Heart regular rhythm with a 3/6 systolic murmur Extremities no cyanosis, clubbing or edema Results Last 24 Hours of Lab Results: Laboratory Tests 08/12 0720 Chemistry Sodium (137 - 145 mmol/L) 141 Potassium (3.5 - 5.1 mmol/L) 3.6 Chloride (98 - 107 mmol/L) 107 Carbon Dioxide (22 - 30 mmol/L) 20 L Anion Gap (5 - 16) 14 BUN (9 - 20 mg/dL) 35 H Creatinine (0.7 - 1.2 mg/dL) 9.5 *H Estimated GFR (>60 ml/min) 5 L BUN/Creatinine Ratio (7 - 25 %) 3.7 L Calcium (8.4 - 10.2 mg/dL) 8.5 Hematology CBC w Diff NO MAN DIFF REQ WBC (4.8 - 10.8 /CUMM) 6.3 RBC (4.70 - 6.10 /CUMM) 2.76 L Hgb (14.0 - 18.0 G/DL) 9.3 L Hct (42 - 52 %) 28.4 L MCV (80.0 - 94.0 FL) 102.7 H MCH (27.0 - 31.0 PG) 33.5 H MCHC (33.0 - 37.0 G/DL) 32.6 L RDW (11.5 - 14.5 %) 15.7 H Plt Count (130 - 400 /CUMM) 140 MPV (7.4 - 10.4 FL) 8.4 Gran % (42.2 - 75.2 %) 59.7 Lymphocytes % (20.5 - 51.1 %) 31.5 Monocytes % (1.7 - 9.3 %) 6.1 Eosinophils % (0 - 5 %) 2.5 Basophils % (0.0 - 2.0 %) 0.2 Absolute Granulocytes (1.4 - 6.5 /CUMM) 3.8 Absolute Lymphocytes (1.2 - 3.4 /CUMM) 2.0 Absolute Monocytes (0.10 - 0.60 /CUMM) 0.4 Absolute Eosinophils (0.0 - 0.7 /CUMM) 0.2 Absolute Basophils (0.0 - 0.2 /CUMM) 0 Last 24 Hours of Jarod Results: Blood cultures August 08 negative Assessment/Plan ID Impression: Stable, with temperatures and white blood cell count remaining normal, on Cefazolin Day 5 of treatment for Staph aureus sepsis secondary to an infected Abdirizak catheter, status post removal 5 days ago and replacement with a new non- tunneled catheter 3 days ago. He has severe aortic stenosis, increasing his risk for endocarditis, and a ARSEN, which should help direct the duration of therapy, is scheduled for later this week. The etiology of his rash, which has been present for over a year and for which he has sought Dermatology and ID evaluation, is unclear. Suggestion: 1. Await ARSEN 2. Continue Cefazolin 1.5 g IV after each dialysis
--- NOTE | 2017-08-12 13:01 | PN- Nephrology ---
Assessment/Plan Nephrology Assessment: ESRD. bacteremia. For ARSEN Saturday at 11. Will arrange dialysis early Sat prior to ARSEN. Suggestion: . Subjective Subjective: Patient comfortable. Dialyzed earlier today. Objective Vital Signs and I&Os M NAD 167/72 98.1 Lungs clear Cor RRR pos m Abd soft Ext neg edema Results Pertinent Lab Results: Laboratory Tests 08/12 08/11 0720 0751 Chemistry Sodium (137 - 145 mmol/L) 141 141 Potassium (3.5 - 5.1 mmol/L) 3.6 3.8 Chloride (98 - 107 mmol/L) 107 107 Carbon Dioxide (22 - 30 mmol/L) 20 L 20 L Anion Gap (5 - 16) 14 14 BUN (9 - 20 mg/dL) 35 H 28 H Creatinine (0.7 - 1.2 mg/dL) 9.5 *H 7.5 *H Estimated GFR (>60 ml/min) 5 L 7 L BUN/Creatinine Ratio (7 - 25 %) 3.7 L 3.7 L Calcium (8.4 - 10.2 mg/dL) 8.5 Hematology CBC w Diff NO MAN DIFF REQ NO MAN DIFF REQ WBC (4.8 - 10.8 /CUMM) 6.3 6.4 RBC (4.70 - 6.10 /CUMM) 2.76 L 2.87 L Hgb (14.0 - 18.0 G/DL) 9.3 L 9.7 L Hct (42 - 52 %) 28.4 L 29.6 L MCV (80.0 - 94.0 FL) 102.7 H 103.4 H MCH (27.0 - 31.0 PG) 33.5 H 33.8 H MCHC (33.0 - 37.0 G/DL) 32.6 L 32.7 L RDW (11.5 - 14.5 %) 15.7 H 16.2 H Plt Count (130 - 400 /CUMM) 140 136 MPV (7.4 - 10.4 FL) 8.4 8.4 Gran % (42.2 - 75.2 %) 59.7 59.4 Lymphocytes % (20.5 - 51.1 %) 31.5 30.9 Monocytes % (1.7 - 9.3 %) 6.1 7.0 Eosinophils % (0 - 5 %) 2.5 2.3 Basophils % (0.0 - 2.0 %) 0.2 0.4 Absolute Granulocytes (1.4 - 6.5 /CUMM) 3.8 3.8 Absolute Lymphocytes (1.2 - 3.4 /CUMM) 2.0 2.0 Absolute Monocytes (0.10 - 0.60 /CUMM) 0.4 0.4 Absolute Eosinophils (0.0 - 0.7 /CUMM) 0.2 0.1 Absolute Basophils (0.0 - 0.2 /CUMM) 0 0 08/10 08/10 0800 0600 Chemistry Sodium (137 - 145 mmol/L) 137 Cancelled Potassium (3.5 - 5.1 mmol/L) 3.6 Cancelled Chloride (98 - 107 mmol/L) 102 Cancelled Carbon Dioxide (22 - 30 mmol/L) 22 Cancelled Anion Gap (5 - 16) 13 Cancelled BUN (9 - 20 mg/dL) 45 H Cancelled Creatinine (0.7 - 1.2 mg/dL) 7.8 *H Cancelled Estimated GFR (>60 ml/min) 7 L BUN/Creatinine Ratio (7 - 25 %) 5.8 L Cancelled Hematology CBC w Diff NO MAN DIFF REQ WBC (4.8 - 10.8 /CUMM) 7.1 RBC (4.70 - 6.10 /CUMM) 2.73 L Hgb (14.0 - 18.0 G/DL) 9.4 L Hct (42 - 52 %) 27.9 L MCV (80.0 - 94.0 FL) 102.4 H MCH (27.0 - 31.0 PG) 34.7 H MCHC (33.0 - 37.0 G/DL) 33.8 RDW (11.5 - 14.5 %) 16.6 H Plt Count (130 - 400 /CUMM) 139 MPV (7.4 - 10.4 FL) 8.2 Gran % (42.2 - 75.2 %) 68.2 Lymphocytes % (20.5 - 51.1 %) 23.4 Monocytes % (1.7 - 9.3 %) 6.1 Eosinophils % (0 - 5 %) 1.9 Basophils % (0.0 - 2.0 %) 0.4 Absolute Granulocytes (1.4 - 6.5 /CUMM) 4.9 Absolute Lymphocytes (1.2 - 3.4 /CUMM) 1.7 Absolute Monocytes (0.10 - 0.60 /CUMM) 0.4 Absolute Eosinophils (0.0 - 0.7 /CUMM) 0.1 Absolute Basophils (0.0 - 0.2 /CUMM) 0 Serology Hep Bs Antigen (NONREACTIVE) NONREACTIVE Hep Bs Antibody (NONREACTIVE) REACTIVE
[2017-08-12 14:29] VITALS: BP 120/70
[2017-08-12 22:32] VITALS: BP 150/64
[2017-08-13 05:53] VITALS: BP 140/64
--- NOTE | 2017-08-13 07:21 | PN- Housestaff ---
Juve HENSON,Carmen 08/13/17 0721: Subjective Follow-up For: Catheter related blood stream infection with MSSA ESRD on dialysis s/p Nontunneled dialysis catheter placement Diarrhea Subjective: seen and examined Patient remains at baseline. He did still have episodes of diarrhea, however reports it is his baseline. He did have itching of his biltareal hand lesions. Otherwise no issues Review of Systems Constitutional: Reports: see HPI. Objective Last 24 Hrs of Vital Signs/I&O Vital Signs Date Time Temp Pulse Resp B/P B/P Pulse O2 O2 Flow FiO2 Mean Ox Delivery Rate 08/13 0553 97.9 72 20 140/64 96 Room Air 08/12 2232 98.4 75 18 150/64 95 Room Air 08/12 1429 98.2 70 20 120/70 96 08/12 1120 167/72 Intake & Output 08/13 0800 08/13 0000 08/12 1600 Intake Total 2460 Output Total 0 Balance 2460 Intake, IV 100 Intake, Oral 2360 Number 3 1 Bowel Movements Output, Urine 0 Patient 62.284 kg 61.008 kg Weight Physical Exam General Appearance: Alert, Oriented X3, Cooperative Skin: leisons on both his hands Skin Temp/Moisture Exam: Warm/Dry HEENT: Atraumatic, PERRLA, EOMI Neck: Supple Cardiovascular: Normal S1, Normal S2, pansystolic murmur with aortic radiation Lungs: Clear to Auscultation, Normal Air Movement, fine crackles at bases Abdomen: Normal Bowel Sounds, Soft, No Tenderness Neurological: Normal Gait, Normal Speech Extremities: No Clubbing, No Cyanosis Vascular: Normal Pulses Current Medications: Current Medications Sig/Harmeet Start time Last Medication Dose Route Stop Time Status Admin Acetaminophen 650 MG ONCE ONE 08/13 0300 DC 08/13 PO 08/13 0301 0249 Allopurinol 100 MG DAILY 08/07 1416 AC 08/13 PO 09 Amlodipine Besylate 10 MG DAILY 08/07 1416 AC 08/13 PO 0925 Cefazolin Sodium 1,500 MG ONCE ONE 08/13 1600 AC IV 08/13 1601 Cefazolin Sodium 1,500 MG MoWeFr@1200 08/12 1200 AC 08/12 Sodium Chloride 100 ML IV 1211 Cefazolin Sodium 1,500 MG 08/12 1000 CAN Sodium Chloride 100 ML IV Cinacalcet 30 MG DAILY 08/08 1000 AC 08/13 PO 0955 Cyanocobalamin 1,000 MCG DAILY 08/08 1000 AC 08/13 PO 0925 Diphenhydramine HCl 1 ZHANNA BID PRN 08/07 2015 AC 08/12 TOP 1916 Epoetin Bolivar 1,000 UNIT MoWeFr PRN 08/10 1015 AC IV Heparin Sodium 5,000 UNIT Q8 08/07 1428 AC 08/13 (Porcine) SC 0600 Hydroxyzine HCl 25 MG BID PRN 08/07 1430 AC 08/12 PO 1915 Levothyroxine Sodium 0.15 MG DAILY AC 08/08 0700 AC 08/13 PO 0600 Lidocaine 15 ML BID 08/09 1135 AC 08/13 PO 1010 Losartan Potassium 50 MG DAILY 08/08 1000 AC 08/13 PO 0924 Metoprolol Succinate 25 MG DAILY 08/08 1000 AC 08/13 PO 0955 Multivitamins 1 TAB DAILY 08/07 1417 AC 08/13 PO 0925 Omeprazole 20 MG DAILY AC 08/08 0700 AC 08/13 PO 0600 Paricalcitol 4 MCG MoWeFr PRN 08/10 1015 AC IV Patient Medication 1 ED ONE ONE 08/12 1515 DC Teaching ED 08/12 1516 Sevelamer Carbonate 800 MG WITH MEALS 08/07 1700 AC 08/13 PO 0802 Tamsulosin HCl 0.4 MG DAILY 08/08 1000 AC 08/13 PO 0925 Trazodone HCl 50 MG QPM 08/07 2200 AC 08/12 PO 2143 Zinc Oxide 1 ZHANNA BID 08/09 1225 AC 08/13 TOP 0934 Last 24 Hrs of Lab/Jarod Results Last 24 Hrs of Labs/Mics: Microbiology 08/12 1944 STOOL: Clostridium difficile Toxin A & B - RECD Assessment/Plan Assessment: Patient is 87-year-old male with past medical history of 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 Vital signs at presentation Tmax 99.0, pulse 94, blood pressure 130/72, SPO2 96% on 2 L of nasal cannula. Physical exam altered with pansystolic murmur, yellowish discharge from the catheter site. Labs did show H/H 11/32.9, MCV 102, platelet count 143, lactic acid 2.4 lymphocytes 1.9, absolute granulocyte 13.5, segmented neutrophils 89, Band cells 3, serum Na 137, K 3.9, Cl 100, HCo3 19, AG 17, BUN/cr 18/4.9, GFR 11, glucose 117, Calcium 9.5,Total bilirubin 1.5, AST 16, ALT 16, alkaline phosphatase 127, albumin 3.7.Blood cultures were already sent. Chest x-ray -Central vascular prominence without overt edema. No consolidation. CT abdomen and pelvis did show Small bilateral pleural effusions with Atrophic kidneys. Problem list: Catheter related blood stream infection with MSSA ESRD on dialysis - AVF bilateral nonfunctional HTN Hypothyroidism Moderate Multiple falls Sepsis secondary to Catheter related blood stream infection with MSSA Patient did have significant discharge from his catheter site. Tmax of 100.2 with Labs revealed elevated white count with lactic acidosis. Afebile overnight. Culture catheter tip and blood cultures grew MSSA. He got a single dose of IV vancomycin and IV ceftazidime after coming to hospital. Underwent IR guided catheter removal on the day of presentation. Underwent nontunneled dialysis catheter placement today. * IV cefazolin 1.5gm with dialysis M/W/F (today as he got dialysis today) * NPO mid night for ARSEN tomorrow. * TTE negative for vegetations. Typically patients with Catheter related infections needs 14 day course, however if found to have endocarditis needs 6 week course of antibiotics. So we will get ARSEN to rule out endocariditis (moderate ). Diarrhea He did have loose watery diarrhea -- reportedly baseline to have 3 per day. * C.diff negative ESRD on dialysis Dialysis M/W/F . Continue Sevelamir, cinacalcet, multivitamin. * Dialysis today to facilitate ARSEN tomorrow HTN Continue amlodipine 10 mg daily, losartan 50 mg daily. Hypothyroidism Continue levothyroxine home dose Benign prostatic hypertrophy Continue tamsulosin 0.4 mg daily Pain control with trazodone DVT prophylaxis Subcutaneous heparin CODE STATUS Full code Problem List: 1. MSSA (methicillin susceptible Staphylococcus aureus) infection 2. Hemodialysis catheter infection 3. Chronic kidney disease with end stage renal failure on dialysis 4. Gait instability Pain Ratin Pain Location: n/a Pain Goal: Pain 4 or less Pain Plan: tylenol prn Tomorrow's Labs & Rationales: none Gerard HENSON,Neli 08/13/17 1221: Attending MD Review Statement Attending Statement Attending MD Statement: examined this patient, discuss w/resident/PA/STRAIGHT PIN MAKING MACHINE OPERATOR, agreed w/resident/PA/STRAIGHT PIN MAKING MACHINE OPERATOR, reviewed EMR data (avail), discussed with nursing, discussed with case mgmt, reviewed images, amended to note Attending Assessment/Plan: Patient seen and examined, offers no complaints. Patient to get his dialysis today instead of tomorrow. Scheduled for ARSEN tomorrow. Vital Signs Date Time Temp Pulse Resp B/P B/P Pulse O2 O2 Flow FiO2 Mean Ox Delivery Rate 08/13 0955 82 148/70 08/13 0925 82 148/70 08/13 0925 82 148/70 08/13 0924 82 148/70 08/13 0553 97.9 72 20 140/64 96 Room Air 08/12 2232 98.4 75 18 150/64 95 Room Air 08/12 1429 98.2 70 20 120/70 96 on exam; aox3, nad. cv; s1,s2, rrr, + systolic murmur resp; clear abd; soft, nt, bs+ ext; no edema. no labs. A/P; 87 y/o M with pmh sig for aortic stenosis, previous TIA, ESRD status post obstructive uropathy on dialysis for 8 years on hemodialysis Saturday, prostate cancer in 2008 after chemotherapy and radiation, hypertension, hyperlipidemia, chronic diastolic congestive heart failure and gout with recent admission to [facility] with a fall/TIA. Patient received tunneled catheter placement in the right IJ secondary to blocked permanent access. Admitted with fever likely secondary to central line infection. Patient bacteremic with MSSA. Catheter tip also was positive for MSSA. Patient has received temporary/non-tunneled catheter for dialysis. Repeat cultures negative to date. Patient currently getting treated with IV cefazolin. Scheduled for ARSEN tomorrow. Dialysis will be done today. If ARSEN negative and blood cultures remain negative then likely he can receive permanent catheter for dialysis and discharged by the end of this week. He should be kept nothing by mouth after midnight tonight. Continue all other current meds. DVt px; hep sq.
--- NOTE | 2017-08-13 09:58 | PN- Cardiology ---
Subjective Subjective: Patient feels well. He denies chest pain or shortness of breath. Review of Systems: Eyes no blurred or double vision Ears no deafness or ringing Nose and throat no recurrent sinusitis Lungs per history of present illness Heart per history of present illness Abdomen no nausea vomiting Musculoskeletal occasional muscle and joint pains Psych no anxiety or depression Neuro without recurrent headache or seizures Endocrine no heat or cold intolerance Objective Vital Signs and I&Os Vital Signs Date Time Temp Pulse Resp B/P B/P Pulse O2 O2 Flow FiO2 Mean Ox Delivery Rate 08/13 924 82 148/70 08/13 924 82 148/70 08/13 09 82 148/70 08/13 0553 97.9 72 20 140/64 96 Room Air 08/12 2232 98.4 75 18 150/64 95 Room Air 08/12 1429 98.2 70 20 120/70 96 08/12 1120 167/72 Intake & Output 08/13 1600 08/13 0800 08/13 0000 08/12 1600 08/12 0800 08/12 0000 Intake Total 100 2460 360 Output Total 0 Balance 100 2460 360 Intake, IV 100 Intake, Oral 100 2360 360 Number 3 1 2 Bowel Movements Output, Urine 0 Patient 137 lb 135 lb 144 lb Weight Weight Standing Scale Measurement Method Physical Exam: Patient is a well-developed well-nourished male appearing in no acute distress HEENT is unremarkable Neck is supple there is no JVD Lungs are clear Heart regular rhythm S1 and S2 are normal no gallops or rubs 3/6 systolic ejection murmur at left sternal border Abdomen bowel sounds positive Extremities without edema Current Medications: Current Medications Sig/Harmeet Start time Last Medication Dose Route Stop Time Status Admin Acetaminophen 650 MG ONCE ONE 08/13 0300 DC 08/13 PO 08/13 0301 0249 Allopurinol 100 MG DAILY 08/07 1416 AC 08/13 PO 09 Amlodipine Besylate 10 MG DAILY 08/07 1416 AC 08/13 PO 09 Cefazolin Sodium 1,500 MG MoWeFr@1200 08/12 1200 AC 08/12 Sodium Chloride 100 ML IV 1211 Cefazolin Sodium 1,500 MG 08/12 1000 CAN Sodium Chloride 100 ML IV Cinacalcet 30 MG DAILY 08/08 1000 AC 08/11 PO 1039 Cyanocobalamin 1,000 MCG DAILY 08/08 1000 AC 08/13 PO 0925 Diphenhydramine HCl 1 ZHANNA BID PRN 08/07 2015 AC 08/12 TOP 1916 Epoetin Bolivar 1,000 UNIT MoWeFr PRN 08/10 1015 AC IV Heparin Sodium 5,000 UNIT Q8 08/07 1428 AC 08/13 (Porcine) SC 0600 Hydroxyzine HCl 25 MG BID PRN 08/07 1430 AC 08/12 PO 1915 Levothyroxine Sodium 0.15 MG DAILY AC 08/08 0700 AC 08/13 PO 0600 Lidocaine 15 ML BID 08/09 1135 AC 08/12 PO 2144 Losartan Potassium 50 MG DAILY 08/08 1000 AC 08/13 PO 0924 Metoprolol Succinate 25 MG DAILY 08/08 1000 AC 08/12 PO 1120 Multivitamins 1 TAB DAILY 08/07 1417 AC 08/13 PO 0925 Omeprazole 20 MG DAILY AC 08/08 0700 AC 08/13 PO 0600 Paricalcitol 4 MCG MoWeFr PRN 08/10 1015 AC IV Patient Medication 1 ED ONE ONE 08/12 1515 DC Teaching ED 08/12 1516 Sevelamer Carbonate 800 MG WITH MEALS 08/07 1700 AC 08/13 PO 0802 Tamsulosin HCl 0.4 MG DAILY 08/08 1000 AC 08/13 PO 0925 Trazodone HCl 50 MG QPM 08/07 2200 AC 08/12 PO 2143 Zinc Oxide 1 ZHANNA BID 08/09 1225 AC 08/13 TOP 0934 Results Last 48 Hrs of Labs/Mics: Laboratory Tests 08/12/17 0720: Anion Gap 14, Estimated GFR 5 L, BUN/Creatinine Ratio 3.7 L, Calcium 8.5, CBC w Diff NO MAN DIFF REQ, RBC 2.76 L, MCV 102.7 H, MCH 33.5 H, MCHC 32.6 L, RDW 15.7 H, MPV 8.4, Gran % 59.7, Lymphocytes % 31.5, Monocytes % 6.1, Eosinophils % 2.5, Basophils % 0.2, Absolute Granulocytes 3.8, Absolute Lymphocytes 2.0, Absolute Monocytes 0.4, Absolute Eosinophils 0.2, Absolute Basophils 0 Assessment/Plan Assessment/Plan 1. MSSA bacteremia, likely related to catheter. 2. End-stage renal disease on hemodialysis 3. Hypertension/HLD 4. Hypothyroidism 5. Moderate aortic stenosis 6. History of multiple falls with prior hip fx 7. history of heart failure with preserved ejection fraction, compensated 8. Mild aortic dilatation by echo Recommendations 1. Patient is to be dialyzed today and plan for ARSEN tomorrow. 2. Patient is to be nothing by mouth after midnight Continue telemetry? Not applicable
--- NOTE | 2017-08-13 10:27 | PN- Nephrology ---
Assessment/Plan Nephrology Assessment: ESRD. catheter related infection. f/u BC so far NGTD. For ARSEN tomorrow. Given storm coming in tomorrow unclear if I can get him dialyzed early enough for ARSEN tomorrow. Will do dialysis this afternoon so this is not an issue. Spoke with patient and nursing. He will need his antibiotic dose after dialysis today. Smith Chen MD Suggestion: . Subjective Subjective: Pt comfortable for ARSEN tomorrow. Objective Vital Signs and I&Os M NAD 148 / 70 82 97.9 Lungs clear Cor RRR pos m Abd soft Ext neg edema Results Pertinent Lab Results: 141 / 107 / 35 / 3.6 / 20 / 9.5\ Blood Cx 08/07 MSSA 08/08 NGTD
[2017-08-13 15:07] LABS: ABSOLUTE BASOPHIL COUNT 0 /CUMM (0.0-0.2); ABSOLUTE EOSINOPHIL COUNT 0.2 /CUMM (0.0-0.7); ABSOLUTE GRANULOCYTE CT 5.8 /CUMM (1.4-6.5); ABSOLUTE LYMPH COUNT 2.4 /CUMM (1.2-3.4); ABSOLUTE MONOCYTE COUNT 0.5 /CUMM (0.10-0.60); BASOPHIL % 0.3 % (0.0-2.0); EOSINOPHIL % 1.8 % (0-5); GRANULOCYTE % 65.4 % (42.2-75.2); MEAN CORPUSCULAR HGB 33.5 PG (27.0-31.0); MEAN CORPUSCULAR HGB CONC 32.3 G/DL (33.0-37.0); MEAN CORPUSCULAR VOLUME 103.7 FL (80.0-94.0); MEAN PLATELET VOLUME 8.4 FL (7.4-10.4); PLATELET COUNT 193 /CUMM (130-400); RBC DISTRIBUTION WIDTH 15.7 % (11.5-14.5); RED BLOOD CELL CT 2.98 /CUMM (4.70-6.10); WHITE BLOOD CELL COUNT 8.8 /CUMM (4.8-10.8)
[2017-08-13 17:35] VITALS: BP 138/60
[2017-08-13 22:20] VITALS: BP 148/62
[2017-08-14 06:20] VITALS: BP 128/66
--- NOTE | 2017-08-14 07:18 | PN- Housestaff ---
Juve HENSON,Carmen 08/14/17 0718: Subjective Follow-up For: - Catheter related blood stream infection with MSSA - ESRD on dialysis - s/p Nontunneled (joseph) dialysis catheter placement Subjective: Seen and examined Doing well. NPO since midnight. Anxious about the procedure. No overnight events. Review of Systems Constitutional: Reports: see HPI. Comments: ROS negative except the above Objective Last 24 Hrs of Vital Signs/I&O Vital Signs Date Time Temp Pulse Resp B/P B/P Pulse O2 O2 Flow FiO2 Mean Ox Delivery Rate 08/14 06 98.6 64 18 128/66 96 Room Air 08/13 2220 99.1 73 18 148/62 97 Room Air 08/13 1735 97.4 70 18 138/60 98 Room Air 08/13 1310 Room Air 2.0L 08/13 0955 82 148/70 08/13 0925 82 148/70 08/13 0925 82 148/70 08/13 0924 82 148/70 Intake & Output 08/14 0800 08/14 0000 08/13 1600 Intake Total 120 360 Output Total Balance 120 360 Intake, Oral 120 360 Number 4 1 3 Bowel Movements Patient 60.951 kg 60.328 kg Weight Weight Bed scale Measurement Method Physical Exam General Appearance: Alert, Oriented X3, Cooperative Skin: No Rashes, No Breakdown Skin Temp/Moisture Exam: Warm/Dry HEENT: Atraumatic, PERRLA, EOMI Neck: Supple Cardiovascular: Normal S1, Normal S2, systolic murmur with carotid upstrokes Lungs: Normal Air Movement, fine crackles at bases Abdomen: Normal Bowel Sounds, Soft, No Tenderness Neurological: Strength at 5/5 X4 Ext, Normal Tone, Sensation Intact, Cranial Nerves 3-12 NL Extremities: No Clubbing, No Cyanosis, No Edema Vascular: Normal Pulses, Pulses Symmetrical Current Medications: Current Medications Sig/Harmeet Start time Last Medication Dose Route Stop Time Status Admin Allopurinol 100 MG DAILY 08/07 141 AC 08/14 PO 920 Amlodipine Besylate 10 MG DAILY 08/07 141 AC 08/14 PO 920 Cefazolin Sodium 1,500 MG MoWeFr@1200 08/16 1200 AC Sodium Chloride 100 ML IV Cefazolin Sodium 1,500 MG ONCE ONE 08/13 1600 DC 08/13 Sodium Chloride 100 ML IV 03/20 1629 1744 Cefazolin Sodium 1,500 MG MoWeFr@1200 08/12 1200 DC 08/12 Sodium Chloride 100 ML IV 1211 Cinacalcet 30 MG DAILY 08/08 1000 AC 08/14 PO 0921 Cyanocobalamin 1,000 MCG DAILY 08/08 1000 AC 08/14 PO 0921 Diphenhydramine HCl 1 ZHANNA BID PRN 08/07 2015 AC 08/14 TOP 0553 Epoetin Bolivar 1,000 UNIT MoWeFr PRN 08/10 1015 AC IV Heparin Sodium 5,000 UNIT Q8 08/07 1428 AC 08/14 (Porcine) SC 1418 Hydroxyzine HCl 25 MG BID PRN 08/07 1430 AC 08/13 PO 1248 Levothyroxine Sodium 0.15 MG DAILY AC 08/08 0700 AC 08/14 PO 0552 Lidocaine 0 .STK-MED ONE 08/14 1031 DC TOP Lidocaine 15 ML BID 08/09 1135 AC 08/14 PO 0921 Losartan Potassium 50 MG DAILY 08/08 1000 AC 08/14 PO 0922 Metoprolol Succinate 25 MG DAILY 08/08 1000 AC 08/14 PO 0921 Multivitamins 1 TAB DAILY 08/07 1417 AC 08/14 PO 0921 Omeprazole 20 MG DAILY AC 08/08 0700 AC 08/14 PO 0552 Paricalcitol 4 MCG MoWeFr PRN 08/10 1015 AC IV Sevelamer Carbonate 800 MG WITH MEALS 08/07 1700 AC 08/14 PO 1418 Tamsulosin HCl 0.4 MG DAILY 08/08 1000 AC 08/14 PO 0922 Trazodone HCl 50 MG QPM 08/07 2200 AC 08/13 PO 2048 Zinc Oxide 1 ZHANNA BID 08/09 1225 AC 08/14 TOP 0922 Assessment/Plan Assessment: Patient is 87-year-old male with past medical history of 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 Vital signs at presentation Tmax 99.0, pulse 94, blood pressure 130/72, SPO2 96% on 2 L of nasal cannula. Physical exam altered with pansystolic murmur, yellowish discharge from the catheter site. Labs did show H/H 11/32.9, MCV 102, platelet count 143, lactic acid 2.4 lymphocytes 1.9, absolute granulocyte 13.5, segmented neutrophils 89, Band cells 3, serum Na 137, K 3.9, Cl 100, HCo3 19, AG 17, BUN/cr 18/4.9, GFR 11, glucose 117, Calcium 9.5,Total bilirubin 1.5, AST 16, ALT 16, alkaline phosphatase 127, albumin 3.7.Blood cultures were already sent. Chest x-ray -Central vascular prominence without overt edema. No consolidation. CT abdomen and pelvis did show Small bilateral pleural effusions with Atrophic kidneys. Problem list: Catheter related blood stream infection with MSSA ESRD on dialysis - AVF bilateral nonfunctional HTN Hypothyroidism Moderate Multiple falls Complicated bacteremia due to tunneled catheter sepsis with MSSA Patient did have significant discharge from his catheter site. Tmax of 100.2 with Labs revealed elevated white count with lactic acidosis. Afebile overnight. Culture catheter tip and blood cultures grew MSSA. He got a single dose of IV vancomycin and IV ceftazidime after coming to hospital. Underwent IR guided catheter removal on the day of presentation. Underwent nontunneled dialysis catheter placement today. * IV cefazolin 1.5gm with dialysis for atelast 4 weeks * ARSEN negative for vegetations. * Patient did have a hardware in his hip, filling criterial for complicated bacteremia requiring longer antibiotic course. Diarrhea Continues to have loose watery diarrhea. Appears to be baseline. * C.diff negative ESRD on dialysis Dialysis M/W/F. Continue Sevelamir, cinacalcet, multivitamin. Next dialysis saturday. * NPO from midnight for tunneled dialysis catheter. HTN Continue amlodipine 10 mg daily, losartan 50 mg daily. Hypothyroidism Continue levothyroxine home dose Benign prostatic hypertrophy Continue tamsulosin 0.4 mg daily Pain control with trazodone DVT prophylaxis Subcutaneous heparin CODE STATUS Full code Problem List: 1. MSSA (methicillin susceptible Staphylococcus aureus) infection 2. Hemodialysis catheter infection 3. Confusion Pain Ratin Pain Location: n/a Pain Goal: Pain 4 or less Pain Plan: tylenol Tomorrow's Labs & Rationales: none Neli Gee MD 08/14/17 1224: Attending Review Statement Attending Statement Attending MD Statement: examined this patient, discuss w/resident/PA/SCREW MACHINE TOOL SETTER, agreed w/resident/PA/SCREW MACHINE TOOL SETTER, reviewed EMR data (avail), discussed with nursing, discussed with case mgmt, reviewed images, amended to note Attending Assessment/Plan: Patient seen, going for ARSEN today. So far blood cultures remained negative. Patient getting cefazolin after dialysis. Per infectious disease, can proceed with tunneled catheter. We'll follow-up on the results of ARSEN. Patient has this chronic rash and has been followed by brush or broom cutter for that. Continue all current management. DVT prophylaxis: Heparin subcutaneous.
--- NOTE | 2017-08-14 08:30 | PN- Nephrology ---
Assessment/Plan Nephrology Assessment: Doing well. Dialyzed yesterday. For ARSEN today. Will plan next HD on Saturday. Smith Chen MD. Suggestion: . Subjective Subjective: Pt comfortable for ARSEN today. Objective Vital Signs and I&Os M NAD 128/66 98 64 Lungs clear Cor RRR Abd soft Ext neg edema Results Pertinent Lab Results: Laboratory Tests 08/13 08/12 1347 0720 Chemistry Sodium (137 - 145 mmol/L) 143 141 Potassium (3.5 - 5.1 mmol/L) 3.1 L 3.6 Chloride (98 - 107 mmol/L) 105 107 Carbon Dioxide (22 - 30 mmol/L) 22 20 L Anion Gap (5 - 16) 16 14 BUN (9 - 20 mg/dL) 23 H 35 H Creatinine (0.7 - 1.2 mg/dL) 7.6 *H 9.5 *H Estimated GFR (>60 ml/min) 7 L 5 L BUN/Creatinine Ratio (7 - 25 %) 3.0 L 3.7 L Glucose (65 - 99 mg/dL) 110 H Calcium (8.4 - 10.2 mg/dL) 9.1 8.5 Hematology CBC w Diff NO MAN DIFF REQ NO MAN DIFF REQ WBC (4.8 - 10.8 /CUMM) 8.8 6.3 RBC (4.70 - 6.10 /CUMM) 2.98 L 2.76 L Hgb (14.0 - 18.0 G/DL) 10.0 L 9.3 L Hct (42 - 52 %) 31.0 L 28.4 L MCV (80.0 - 94.0 FL) 103.7 H 102.7 H MCH (27.0 - 31.0 PG) 33.5 H 33.5 H MCHC (33.0 - 37.0 G/DL) 32.3 L 32.6 L RDW (11.5 - 14.5 %) 15.7 H 15.7 H Plt Count (130 - 400 /CUMM) 193 140 MPV (7.4 - 10.4 FL) 8.4 8.4 Gran % (42.2 - 75.2 %) 65.4 59.7 Lymphocytes % (20.5 - 51.1 %) 26.9 31.5 Monocytes % (1.7 - 9.3 %) 5.6 6.1 Eosinophils % (0 - 5 %) 1.8 2.5 Basophils % (0.0 - 2.0 %) 0.3 0.2 Absolute Granulocytes (1.4 - 6.5 /CUMM) 5.8 3.8 Absolute Lymphocytes (1.2 - 3.4 /CUMM) 2.4 2.0 Absolute Monocytes (0.10 - 0.60 /CUMM) 0.5 0.4 Absolute Eosinophils (0.0 - 0.7 /CUMM) 0.2 0.2 Absolute Basophils (0.0 - 0.2 /CUMM) 0 0
--- NOTE | 2017-08-14 10:39 | PN- Infect Dx ---
Subjective Subjective: Afebrile. He continues to complain of pruritus from his skin lesions Objective Last 24 Hrs of Vital Signs/I&O Vital Signs Date Time Temp Pulse Resp B/P B/P Pulse O2 O2 Flow FiO2 Mean Ox Delivery Rate 08/14 921 128/66 08/14 0922 128/66 08/14 0921 64 128/66 08/14 0921 128/66 08/14 0803 Room Air 2.0L 08/14 0620 98.6 64 18 128/66 96 Room Air 08/13 2220 99.1 73 18 148/62 97 Room Air 08/13 1735 97.4 70 18 138/60 98 Room Air 08/13 1310 Room Air 2.0L Intake & Output 08/14 1600 08/14 0800 08/14 0000 Intake Total 120 Output Total Balance 120 Intake, Oral 120 Number 4 1 Bowel Movements Patient 134 lb Weight Weight Bed scale Measurement Method Physical Exam Other Physical Findings: He appears comfortable in no acute distress Skin multiple open pustules on his trunk and extremities Neck Abdirizak catheter in the right IJ with no inflammation at the site Lungs are clear Heart regular rhythm with a 3/6 systolic murmur unchanged Extremities no cyanosis, clubbing or edema Results Last 24 Hours of Lab Results: Laboratory Tests 08/13 1347 Chemistry Sodium (137 - 145 mmol/L) 143 Potassium (3.5 - 5.1 mmol/L) 3.1 L Chloride (98 - 107 mmol/L) 105 Carbon Dioxide (22 - 30 mmol/L) 22 Anion Gap (5 - 16) 16 BUN (9 - 20 mg/dL) 23 H Creatinine (0.7 - 1.2 mg/dL) 7.6 *H Estimated GFR (>60 ml/min) 7 L BUN/Creatinine Ratio (7 - 25 %) 3.0 L Glucose (65 - 99 mg/dL) 110 H Calcium (8.4 - 10.2 mg/dL) 9.1 Hematology CBC w Diff NO MAN DIFF REQ WBC (4.8 - 10.8 /CUMM) 8.8 RBC (4.70 - 6.10 /CUMM) 2.98 L Hgb (14.0 - 18.0 G/DL) 10.0 L Hct (42 - 52 %) 31.0 L MCV (80.0 - 94.0 FL) 103.7 H MCH (27.0 - 31.0 PG) 33.5 H MCHC (33.0 - 37.0 G/DL) 32.3 L RDW (11.5 - 14.5 %) 15.7 H Plt Count (130 - 400 /CUMM) 193 MPV (7.4 - 10.4 FL) 8.4 Gran % (42.2 - 75.2 %) 65.4 Lymphocytes % (20.5 - 51.1 %) 26.9 Monocytes % (1.7 - 9.3 %) 5.6 Eosinophils % (0 - 5 %) 1.8 Basophils % (0.0 - 2.0 %) 0.3 Absolute Granulocytes (1.4 - 6.5 /CUMM) 5.8 Absolute Lymphocytes (1.2 - 3.4 /CUMM) 2.4 Absolute Monocytes (0.10 - 0.60 /CUMM) 0.5 Absolute Eosinophils (0.0 - 0.7 /CUMM) 0.2 Absolute Basophils (0.0 - 0.2 /CUMM) 0 Last 24 Hours of Jarod Results: Stool C. difficile August 12 negative Assessment/Plan ID Impression: Stable, with temperatures and white blood cell count remaining normal, on Cefazolin Day 7 of treatment for Staph aureus sepsis secondary to an infected Abdirizak catheter, status post removal 1 week ago and replacement with a new non- tunneled catheter 5 days ago. He is scheduled for a ARSEN later today to help determine the optimal duration of therapy. He does have hardware in the left femur status post a recent ORIF, which may suggest a "complicated" bacteremia that would require at least a 4 week course of treatment. The etiology of his rash, which has been present for over a year and for which he has sought Dermatology and ID evaluation, is unclear. Suggestion: 1. Await ARSEN 2. Further evaluation of his rash per Medicine 3. Can proceed with placement of a tunneled catheter so that the non-tunneled catheter can be removed 4. Continue Cefazolin 1.5 grams IV after each dialysis to plan on a minimum of 4 weeks of treatment
--- NOTE | 2017-08-14 11:42 | PN- Cardiology ---
Subjective Subjective: Doing well today and offers no new complaints. ARSEN was done with no complications. Objective Vital Signs and I&Os Vital Signs Date Time Temp Pulse Resp B/P B/P Pulse O2 O2 Flow FiO2 Mean Ox Delivery Rate 08/14 921 128/66 08/14 0922 128/66 08/14 0921 64 128/66 08/14 0921 128/66 08/14 0803 Room Air 2.0L 08/14 0620 98.6 64 18 128/66 96 Room Air 08/13 2220 99.1 73 18 148/62 97 Room Air 08/13 1735 97.4 70 18 138/60 98 Room Air 08/13 1310 Room Air 2.0L Intake & Output 08/14 1600 08/14 0800 08/14 0000 08/13 1600 08/13 0800 08/13 0000 Intake Total 120 360 100 Output Total Balance 120 360 100 Intake, Oral 120 360 100 Number 4 1 3 3 Bowel Movements Patient 134 lb 133 lb 137 lb Weight Weight Bed scale Measurement Method Physical Exam: General: no apparent distress. Alert. Eyes: No obvious scleral icterus. HEENT: No jugular venous distention or abnormal jugular venous pulsations. Cardiovascular: Normal intensity S1/S2. Regular, 3/6 systolic murmur Respiratory: Lungs clear to auscultation bilaterally. Abdomen: Soft, nontender with no guarding or rebound tenderness. Musculoskeletal: No clubbing or cyanosis noted Skin: Warm Neurologic: No gross focal deficits noted. Current Medications: Current Medications Sig/Harmeet Start time Last Medication Dose Route Stop Time Status Admin Allopurinol 100 MG DAILY 08/07 1416 AC 08/14 PO 920 Amlodipine Besylate 10 MG DAILY 08/07 1416 AC 08/14 PO 920 Cefazolin Sodium 1,500 MG ONCE ONE 08/13 1600 DC 08/13 Sodium Chloride 100 ML IV 08/13 1629 1744 Cefazolin Sodium 1,500 MG MoWeFr@1200 08/12 1200 AC 08/12 Sodium Chloride 100 ML IV 1211 Cinacalcet 30 MG DAILY 08/08 1000 AC 08/14 PO 09 Cyanocobalamin 1,000 MCG DAILY 08/08 1000 AC 08/14 PO 0921 Diphenhydramine HCl 1 ZHANNA BID PRN 08/07 2015 AC 08/14 TOP 0553 Epoetin Bolivar 1,000 UNIT MoWeFr PRN 08/10 1015 AC IV Heparin Sodium 5,000 UNIT Q8 08/07 1428 AC 08/14 (Porcine) SC 0552 Hydroxyzine HCl 25 MG BID PRN 08/07 1430 AC 08/13 PO 1248 Levothyroxine Sodium 0.15 MG DAILY AC 08/08 0700 AC 08/14 PO 0552 Lidocaine 0 .STK-MED ONE 08/14 1031 DC TOP Lidocaine 15 ML BID 08/09 1135 AC 08/14 PO 0921 Losartan Potassium 50 MG DAILY 08/08 1000 AC 08/14 PO 0922 Metoprolol Succinate 25 MG DAILY 08/08 1000 AC 08/14 PO 0921 Multivitamins 1 TAB DAILY 08/07 1417 AC 08/14 PO 0921 Omeprazole 20 MG DAILY AC 08/08 0700 AC 08/14 PO 0552 Paricalcitol 4 MCG MoWeFr PRN 08/10 1015 AC IV Sevelamer Carbonate 800 MG WITH MEALS 08/07 1700 AC 08/14 PO 0922 Tamsulosin HCl 0.4 MG DAILY 08/08 1000 AC 08/14 PO 0922 Trazodone HCl 50 MG QPM 08/07 2200 AC 08/13 PO 2048 Zinc Oxide 1 ZHANNA BID 08/09 1225 AC 08/14 TOP 0922 Results Last 48 Hrs of Labs/Mics: Laboratory Tests 08/13/17 1347: Anion Gap 16, Estimated GFR 7 L, BUN/Creatinine Ratio 3.0 L, Glucose 110 H, Calcium 9.1, CBC w Diff NO MAN DIFF REQ, RBC 2.98 L, MCV 103.7 H, MCH 33.5 H, MCHC 32.3 L, RDW 15.7 H, MPV 8.4, Gran % 65.4, Lymphocytes % 26.9, Monocytes % 5.6, Eosinophils % 1.8, Basophils % 0.3, Absolute Granulocytes 5.8, Absolute Lymphocytes 2.4, Absolute Monocytes 0.5, Absolute Eosinophils 0.2, Absolute Basophils 0 Microbiology 08/12 1944 STOOL: Clostridium difficile Toxin A & B - COMP Recent Imaging Studies: Transesophageal echocardiogram showed no evidence of obvious vegetations Assessment/Plan Assessment/Plan 1. MSSA bacteremia, likely related to catheter. ARSEN 08/14 with no vegetations. 2. End-stage renal disease on hemodialysis 3. Hypertension/HLD 4. Hypothyroidism 5. Moderate to severe aortic stenosis 6. History of multiple falls with prior hip fx 7. history of heart failure with preserved ejection fraction, compensated 8. Mild aortic dilatation by echo Doing well. I performed a transesophageal echocardiogram earlier without complication; there was no evidence of valvular vegetations. He appears euvolemic on exam. Dialysis schedule per renal. Mat Aguayo MD [facility] Continue telemetry? Not applicable
--- NOTE | 2017-08-14 12:29 | Proc Note Cardiology ---
Cardiology Procedure Procedure Date: 08/14/17 Cardiology Procedure(s): ARSEN Pre-Operative Diagnosis: Bacteremia Post-Operative Diagnosis: Bacteremia Estimated Blood Loss: none Anesthesia: propofol per anesthesia Procedure Findings: Refer to transesophageal echocardiogram report for details. No obvious evidence of valvular vegetations. Mat Aguayo MD [facility]
--- NOTE | 2017-08-14 13:21 | ECHOCARDIOGRAM REPORT ---
JESSICA, HO Age: 87 : Gender: M Exam Date: 08/14/2017 10:40 Exam Location: 2 [address] Ht (in): 63 Wt (lb): 145 BSA: 1.72 BP: 128 / 66 Ordering Physician: Erin Haddad MD Referring Physician: Erin Haddad MD Technologist: Dimitry Polk [facility] Room Number: 236-1 Indications: INFECTIVE ENDOCARDITIS, AORTIC STENOSIS Rhythm: Sinus Technical Quality: Good Medications Propofol administered by Anesthesiology. Ease of Transducer Insertion No Difficulty Complications None. Technical Difficulty None. FINDINGS Left Ventricle Left ventricular cavity size normal. Left ventricular wall thickness mildly increased. No obvious regional wall motion abnormalities. Left ventricular ejection fraction is estimated at 55 %. Right Ventricle Normal right ventricular size and function. Right Atrium Normal right atrial size. Left Atrium Mild left atrial dilatation. LA Appendage No thrombus detected in the left atrial appendage. IA Septum No shunt by Color Doppler or Bubble study. Mitral Valve Mild mitral annular calcification. Mild mitral regurgitation. Aortic Valve Trileaflet aortic valve. Diffuse thickening of the aortic valve cusps with reduced excursion. Moderate to severe aortic stenosis. Mild aortic regurgitation. Tricuspid Valve Structurally normal tricuspid valve. Trace to mild tricuspid regurgitation. Unable to estimate the right ventricular systolic pressure. Pulmonic Valve Pulmonic valve not well visualized, grossly normal. Physiologic pulmonic regurgitation. Pericardium No pericardial effusion. Great Vessels Mildly dilated ascending aorta. CONCLUSIONS Left ventricular cavity size normal. Left ventricular wall thickness mildly increased. No obvious regional wall motion abnormalities. Left ventricular ejection fraction is estimated at 55 %. Mild left atrial dilatation. No thrombus detected in the left atrial appendage. No shunt by Color Doppler or Bubble study. Mildly dilated ascending aorta. Moderate to severe aortic stenosis. No obvious vegetations. Fred Aguayo M.D. (Electronically Signed) Final Date: 14 August 2017 13:20 MEASUREMENTS (Male / Female) Normal Values 2D ECHO Ascending Aorta Diameter 4.0 cm
[2017-08-14 14:14] VITALS: BP 132/70
[2017-08-14 22:03] VITALS: BP 130/60
[2017-08-15 06:55] VITALS: BP 120/68
--- NOTE | 2017-08-15 07:28 | PN- Housestaff ---
See Addendum Subjective Follow-up For: NPO for tunneled catheter placement Complicated catheter related sepsis ESRD on dialysis Subjective: seen and examined He remains at baseline. Stable without any overnight issues. Review of Systems Constitutional: Reports: see HPI. Objective Last 24 Hrs of Vital Signs/I&O Vital Signs Date Time Temp Pulse Resp B/P B/P Pulse O2 O2 Flow FiO2 Mean Ox Delivery Rate 08/15 0655 98.4 80 20 120/68 95 Room Air 08/14 2203 98.6 69 20 130/60 95 08/14 1414 99.1 66 20 132/70 93 08/14 0922 128/66 08/14 0922 128/66 08/14 0921 64 128/66 08/14 0921 128/66 08/14 0803 Room Air 2.0L Intake & Output 08/15 0800 08/15 0000 08/14 1600 Intake Total 600 Output Total 2 Balance -2 600 Intake, Oral 600 Number 1 Bowel Movements Output, Stool 2 Patient 61.433 kg Weight Physical Exam General Appearance: Alert, Oriented X3, Cooperative Skin: No Rashes, small lesions on his upper extremities Skin Temp/Moisture Exam: Warm/Dry HEENT: Atraumatic, PERRLA, EOMI Neck: Supple, No JVD Cardiovascular: Normal S1, Normal S2, systolic murmur present Lungs: Clear to Auscultation, Normal Air Movement, fine crackles present at bases Abdomen: Normal Bowel Sounds, Soft, No Tenderness Neurological: Normal Gait, Normal Speech, Strength at 5/5 X4 Ext Extremities: No Clubbing, No Cyanosis, No Edema Vascular: Normal Pulses Current Medications: Current Medications Sig/Harmeet Start time Last Medication Dose Route Stop Time Status Admin Allopurinol 100 MG DAILY 08/07 1416 AC 08/15 PO 0828 Amlodipine Besylate 10 MG DAILY 08/07 1416 AC 08/15 PO 0828 Cefazolin Sodium 1,500 MG MoWeFr@1200 08/16 1200 AC Sodium Chloride 100 ML IV Cinacalcet 30 MG DAILY 08/08 1000 AC 08/15 PO 0828 Cyanocobalamin 1,000 MCG DAILY 08/08 1000 AC 08/15 PO 0828 Diphenhydramine HCl 1 ZHANNA BID PRN 08/07 2015 AC 08/15 TOP 0755 Epoetin Bolivar 1,000 UNIT MoWeFr PRN 08/10 1015 AC IV Fentanyl Citrate 0 .STK-MED ONE 08/15 1007 DC .ROUTE Heparin Sodium 0 .STK-MED ONE 08/15 0926 DC (Porcine) IV Heparin Sodium 5,000 UNIT Q8 08/07 1428 AC 08/15 (Porcine) SC 1219 Hydroxyzine HCl 25 MG BID PRN 08/07 1430 AC 08/13 PO 1248 Levothyroxine Sodium 0.15 MG DAILY AC 08/08 0700 AC 08/15 PO 0636 Lidocaine 0 .STK-MED ONE 08/15 0926 DC .ROUTE Lidocaine 15 ML BID 08/09 1135 AC 08/15 PO 0829 Lidocaine/Epinephrine 0 .STK-MED ONE 08/15 0926 DC .ROUTE Losartan Potassium 50 MG DAILY 08/08 1000 AC 08/15 PO 0828 Metoprolol Succinate 25 MG DAILY 08/08 1000 AC 08/15 PO 0828 Midazolam HCl 0 .STK-MED ONE 08/15 1007 DC .ROUTE Multivitamins 1 TAB DAILY 08/07 1417 AC 08/15 PO 0828 Omeprazole 20 MG DAILY AC 08/08 0700 AC 08/15 PO 0636 Paricalcitol 4 MCG MoWeFr PRN 08/10 1015 AC IV Sevelamer Carbonate 800 MG WITH MEALS 08/07 1700 AC 08/15 PO 1219 Tamsulosin HCl 0.4 MG DAILY 08/08 1000 AC 08/15 PO 0828 Trazodone HCl 50 MG QPM 08/07 2200 AC 08/14 PO 2152 Zinc Oxide 1 ZHANNA BID 08/09 1225 AC 08/15 TOP 0829 Assessment/Plan Assessment: Patient is 87-year-old male with past medical history of 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 Vital signs at presentation Tmax 99.0, pulse 94, blood pressure 130/72, SPO2 96% on 2 L of nasal cannula. Physical exam altered with pansystolic murmur, yellowish discharge from the catheter site. Labs did show H/H 32.9, MCV 102, platelet count 143, lactic acid 2.4 lymphocytes 1.9, absolute granulocyte 13.5, segmented neutrophils 89, Band cells 3, serum Na 137, K 3.9, Cl 100, HCo3 19, AG 17, BUN/cr 18/4.9, GFR 11, glucose 117, Calcium 9.5,Total bilirubin 1.5, AST 16, ALT 16, alkaline phosphatase 127, albumin 3.7.Blood cultures were already sent. Chest x-ray -Central vascular prominence without overt edema. No consolidation. CT abdomen and pelvis did show Small bilateral pleural effusions with Atrophic kidneys. Problem list: Complicated bacteremia due to tunneled catheter sepsis with MSSA ESRD on dialysis - AVF bilateral nonfunctional HTN Hypothyroidism Moderate Multiple falls Complicated bacteremia due to tunneled catheter sepsis with MSSA Patient did have significant discharge from his catheter site. Tmax of 100.2 with Labs revealed elevated white count with lactic acidosis. Afebile overnight. Culture catheter tip and blood cultures grew MSSA. He got a single dose of IV vancomycin and IV ceftazidime after coming to hospital. Underwent IR guided catheter removal on the day of presentation. Underwent nontunneled dialysis catheter placement today. * IV cefazolin 1.5gm with dialysis for 4 weeks * ARSEN negative for vegetations. * Patient did have a hardware in his hip, filling criterial for complicated bacteremia requiring longer antibiotic course. Diarrhea Continues to have loose watery diarrhea. Appears to be baseline. * C.diff negative ESRD on dialysis Dialysis M/W/F. Continue Sevelamir, cinacalcet, multivitamin. Next dialysis saturday. * Underwent IR guided tunneled catheter placement today. * Possible dialysis and likely discharge tomorrow HTN Continue amlodipine 10 mg daily, losartan 50 mg daily. Hypothyroidism Continue levothyroxine home dose Benign prostatic hypertrophy Continue tamsulosin 0.4 mg daily Pain control with trazodone DVT prophylaxis Subcutaneous heparin CODE STATUS Full code Problem List: 1. MSSA (methicillin susceptible Staphylococcus aureus) infection 2. Hemodialysis catheter infection 3. Weakness 4. Confusion 5. Chronic kidney disease with end stage renal failure on dialysis Pain Ratin Pain Location: n/a Pain Goal: Pain 4 or less Pain Plan: tylenol prn Tomorrow's Labs & Rationales: none
--- NOTE | 2017-08-15 13:00 | Discharge Summary ---
Visit Information Visit Dates Admission Date: 08/07/17 Discharge Date: 08/16/17 Hospital Course Course Attending Physician: Neli Gee MD Primary Care Physician: Becki HENSON,Reggie Harman Hospital Course: Patient is 87-year-old male with past medical history of 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 Vital signs at presentation Tmax 99.0, pulse 94, blood pressure 130/72, SPO2 96% on 2 L of nasal cannula. Physical exam altered with pansystolic murmur, yellowish discharge from the catheter site. Labs did show H/H 11/32.9, MCV 102, platelet count 143, lactic acid 2.4 lymphocytes 1.9, absolute granulocyte 13.5, segmented neutrophils 89, Band cells 3, serum Na 137, K 3.9, Cl 100, HCo3 19, AG 17, BUN/cr 18/4.9, GFR 11, glucose 117, Calcium 9.5,Total bilirubin 1.5, AST 16, ALT 16, alkaline phosphatase 127, albumin 3.7.Blood cultures were already sent. Chest x-ray -Central vascular prominence without overt edema. No consolidation. CT abdomen and pelvis did show Small bilateral pleural effusions with Atrophic kidneys. Problem list: Catheter related blood stream infection with MSSA ESRD on dialysis - AVF bilateral nonfunctional HTN Hypothyroidism Moderate Multiple falls Complicated bacteremia due to tunneled catheter sepsis with MSSA Patient did have significant discharge from his catheter site. Tmax of 100.2 with Labs revealed elevated white count with lactic acidosis at admission. Culture catheter tip and blood cultures grew MSSA at admission and remained negative since the second day of admission(08/08/17). Underwent IR guided catheter removal on the day of presentation f/b nontunneled dialysis catheter - started on IV cefazolin 1.5gm with dialysis. TTE followed by ARSEN negative for vegetations. Patient did have a hardware in his hip, filling criteria for complicated bacteremia requiring longer antibiotic course. On he underwent placement of a Tunneled (ENZO) catheter and removal of temporary dialysis catheter (nontunneled). * Must Continue IV cefazoline 1.5gm with dialysis M/W/F for 4 weeks -- till 09/05 (till dilaysis on 09/04/17) Diarrhea Continues to have loose watery diarrhea. Appears to be baseline. * C.diff negative ESRD on dialysis Dialysis M/W/F. Continue Sevelamir, cinacalcet, multivitamin. Next dialysis saturday. He underwent removal of his tunneled infected catheter. This is followed by placement of nontunneled catheter temporarily. After his cultures remained negative and ARSEN ruled out endocarditis, he underwent tunneled catheter placement. * underwent dialysis today with tunneled dialysis catheter. HTN Continue amlodipine 10 mg daily, losartan 50 mg daily. Hypothyroidism Continued levothyroxine home dose Benign prostatic hypertrophy Continued tamsulosin 0.4 mg daily Pain control with trazodone DVT prophylaxis Subcutaneous heparin CODE STATUS Full code Complications: none Allergies: Coded Allergies: lactose (Severe, DIARRHEA 08/11/17) Significant Procedures: CT abdomen and pelvis IMPRESSION: No acute findings in the abdomen or pelvis. No inflammatory changes. Small bilateral pleural effusions. Atrophic kidneys. No hydronephrosis. Bilateral calculi and vascular calcifications. Bilateral renal cysts. Additional hyperattenuating lesions noted which favor hemorrhagic or proteinaceous cysts. CXR on 08/07/17 IMPRESSION: Central vascular prominence without overt edema. No consolidation. Tunneled catheter removal on admission - 08/07/17 FINDINGS: The exit site of the catheter tunnel was nonerythematous and nontender. IMPRESSION: Successful removal of the tunneled central venous catheter in the right chest. Echocardiogram on 08/08/17 CONCLUSIONS Left ventricular cavity size normal. Left ventricular wall thickness mildly increased. No obvious regional wall motion abnormalities. Left ventricular ejection fraction is estimated at > 55 %. Normal right ventricular size and function. Mild left atrial dilatation. Moderate aortic stenosis (mean gradient 34 mmHg). No pericardial effusion. Mildly dilated proximal ascending aorta (4.0 cm). Unable to estimate the right ventricular systolic pressure. Tunneled catheter on 08/08/17 IMPRESSION: Successful placement of nontunneled hemodialysis catheter via the right internal jugular vein. ARSEN on 08/14/17 CONCLUSIONS Left ventricular cavity size normal. Left ventricular wall thickness mildly increased. No obvious regional wall motion abnormalities. Left ventricular ejection fraction is estimated at 55 %. Mild left atrial dilatation. No thrombus detected in the left atrial appendage. No shunt by Color Doppler or Bubble study. Mildly dilated ascending aorta. Moderate to severe aortic stenosis. No obvious vegetations. Tunneled catheter placement on 08/15/17 IMPRESSION: Right internal jugular venous temporary dialysis catheter exchanged for a tunneled permacatheter under fluoroscopic guidance without evidence of complications Pertinent Lab Results: as above Disposition Summary Disposition Principal Diagnosis: Catheter related sepsis - Tunneled dialysis catheter Additional Diagnosis: ESRD on dialysis - AVF bilateral nonfunctional HTN Hypothyroidism Moderate Multiple falls Discharge Disposition: SNF Discharge Instructions General Discharge Information Code Status: Full Code Patient's Diet: Renal dialysis diet Patient's Activity: as tolerated Follow-Up Instructions/Appts: Please follow up with your PCP in a week Please follow up with your Hand Collator in a week Please continue to receive IV antibiotics till 09/05/17 -- for 4 weeks on sat/sat /saturday after dialysis Medications at Discharge Discharge Medications: Continue taking these medications: Cinacalcet HCl (Sensipar) 30 MG TABLET 1 Tablet ORAL DAILY Comments: Last Taken: 08/16/17 Time: 1130 AM Allopurinol (Allopurinol) 100 MG TABLET 1 Tablet ORAL DAILY Comments: Last Taken: 08/16/17 Time: 11:30 AM Sevelamer Carbonate (Renvela) 800 MG TABLET 1 Tablet ORAL WITH MEALS Comments: Last Taken: 08/16/17 Time: 11:30 AM Tamsulosin HCl (Flomax) 0.4 MG CAP.ER.24H 1 Capsule ORAL DAILY Comments: Last Taken: 08/16/17 Time: 11:30 AM Metoprolol Succinate (Metoprolol Succinate) 25 MG TAB.ER.24H 1 Tablet ORAL DAILY Comments: Last Taken: 08/16/17 Time: 11:30 AM Nephro-Vitamins (Nephro-Tye Tablet) (Unknown Strength) TABLET 1 Tablet ORAL DAILY Comments: Last Taken: 08/16/17 Time: 1130 AM Travoprost (Travatan Z) 5 ML DROPS 1 Drop In the eye Every night Comments: NOT GIVEN IN THE HOSPITAL Hydroxyzine Hydrochloride (Atarax) 25 MG TABLET 1 Tablet ORAL TWICE DAILY as needed for itching Comments: Last Taken: 08/13/17 Time: 1230 PM Valsartan (Diovan) 80 MG TABLET 1 Tablet ORAL DAILY Comments: PT RECEIVED KENY IN HOSPITAL Last Taken: 08/16/17 Time: 11:30 AM Pantoprazole Sodium (Pantoprazole Sodium) 20 MG TABLET.DR 1 Tablet ORAL DAILY Comments: GIVEN PRILOSEC Last Taken: 08/16/17 Time: 630 AM Amlodipine Besylate (Amlodipine Besylate) 10 MG TABLET 1 Tablet ORAL DAILY Comments: Last Taken: 08/16/17 Time: 11:30 AM Trazodone HCl (Trazodone HCl) 50 MG TABLET 1 Tablet ORAL Every night Comments: Last Taken: 07/25/17 Time: 21:15 PM Cyanocobalamin (Vitamin B-12) 1,000 MCG TABLET 1 Tablet ORAL DAILY Comments: Last Taken: 08/16/17 Time: 1130 AM Levothyroxine Sodium (Levoxyl) 175 MCG TABLET 1 Tablet ORAL DAILY Comments: Last Taken: 08/16/17 Time: 630 AM Trazodone HCl (Trazodone HCl) 50 MG TABLET 12.5 Milligram ORAL Q8H as needed for ANXIETY & AGITATION Ceftriaxone Sodium (Ceftriaxone) 500 MG VIAL 1 Gram INTRAMUSC DAILY Guaifenesin (Guaifenesin) 100 MG/5 ML LIQUID 10 Milliliters ORAL THREE TIMES DAILY Comments: NOT GIVEN IN THE HOSPITAL Magnesium Hydroxide (Milk Of Magnesia) 400 MG/5 ML ORAL.SUSP 30 Milliliters ORAL DAILY as needed for CONSTIPATION Comments: NOT GIVEN IN THE HOSPITAL Bisacodyl (Bisacodyl) 10 MG SUPP.RECT 1 Suppository RECTAL as needed for CONSTIPATION Comments: NOT GIVEN IN [facility] Na Kayla,M-B/Ana MartinezBa (Fleet Enema) 19 GRAM-7 GRAM/118 ML ENEMA 1 Enema RECTAL DAILY as needed for CONSTIPATION Acetaminophen (Acetaminophen) 325 MG TABLET 2 Tablet ORAL Q4H as needed for PAIN/TEMP>100 Comments: NOT GIVEN IN THE HOSPITAL Acetaminophen (Acephen) 650 MG SUPP.RECT 1 SUPPOSITORY RECTALLY Q4H as needed for PAIN/TEMP>100 Comments: NOT GIVEN IN THE HOSPITAL Start taking the following new medications: Diphenhydramine HCl/Zinc Acet (Benadryl Itch Stopping Crm) 2 %-0.1 % CREAM..G. 1 Application On the skin 2 x Daily as needed as needed for ITCHING OF THE SKIN Qty = 1 No Refills Comments: Last Taken: 08/15/17 Time: 8 AM Cefazolin (Cefazolin 1 Gm-D5w Bag) 1 GRAM/50 ML PIGGYBACK 1.5 Vial INTRAVEN SATURDAY, SATURDAY AND SATURDAY Qty = 12 No Refills Copies To: Becki HENSON,Reggie Harman; Hector HENSON,Dominguez Mercedes Attending MD Review Statement Documenting Attending: Gerard HENSON,Neli
[2017-08-15 14:39] VITALS: BP 134/76
--- NOTE | 2017-08-15 17:40 | INTERVENTIONAL RADIOLOGY RPT ---
PROCEDURE: PERMACATHETER CONVERSION UNDER FLUOROSCOPIC GUIDANCE CLINICAL INFORMATION: 87-year-old patient with renal failure requiring dialysis. Temporary dialysis catheter placed on 08/09/2017 due to positive blood cultures. Conversion to a tunneled permacath now requested. COMPARISON: Temporary hemodialysis catheter placement procedure of 08/09/2017. ANIMAL CARE PROVIDER: Dequan Whitaker M.D. TECHNIQUE: The procedure was requested by Drs. Neli Gee. Informed consent was obtained from the patient prior to the procedure. During this process, the procedure and potential alternatives was explained, along with the intended outcome and benefits. The risks of the procedure, as well as the risk of not doing the procedure, were discussed. The patient was given the opportunity to ask questions regarding the procedure and appeared competent to make medical decisions. A signed consent form which documents this discussion was placed in the medical record. The patient was brought to the interventional radiology suite and a final Timeout procedure was performed. The patient was placed on the procedure table in the supine position. No sedation was used. The right neck and upper chest were sterilely prepped and draped. All elements of maximal sterile barrier technique followed including use of cap, mask, sterile gown, sterile gloves, a sterile full body drape, and hand hygiene. Also followed skin preparation with 2% chlorhexidine for cutaneous antisepsis. The tunnel track and right lower neck were anesthetized using 1% lidocaine and 1% lidocaine with epinephrine. A fresh 23 cm tip to cuff, 15.5 Turkish AshSplit permacatheter was tunneled to the right internal jugular venous access site. The temporary dialysis catheter was removed over a wire. A 16 Turkish peel-away sheath was inserted using standard Seldinger technique. The AshSplit permacath was advanced through the peel-away sheath until its tip was at the SVC-right atrial junction. The hub of the permacatheter was secured with 2-0 silk suture. A Biopatch was placed around the catheter at its entry site. Claves placed on the catheter port hubs. The catheter was flushed with heparinized saline. A sterile dressing was applied. The patient tolerated the procedure well. There was no evidence of complications. FINDINGS: Temporary dialysis catheter exchanged for a tunneled permacath placed via the right internal jugular vein with its tip at the SVC-right atrial junction under fluoroscopic guidance. FLUOROSCOPY TIME: 0.7 minutes ESTIMATED RADIATION DOSE: 0.46 Gy-cm squared IMPRESSION: Right internal jugular venous temporary dialysis catheter exchanged for a tunneled permacatheter under fluoroscopic guidance without evidence of complications.
[2017-08-15 22:39] VITALS: BP 156/64
[2017-08-16 06:54] VITALS: BP 154/70
--- NOTE | 2017-08-16 07:23 | PN- Housestaff ---
Juve HENSON,Carmen 08/16/17 0723: Subjective Follow-up For: Catheter related infection ESRD on dialysis Subjective: seen and examined Remains at baseline, continues to have itching on skin lesions Review of Systems Constitutional: Reports: see HPI. Objective Last 24 Hrs of Vital Signs/I&O Vital Signs Date Time Temp Pulse Resp B/P B/P Pulse O2 O2 Flow FiO2 Mean Ox Delivery Rate 08/16 0654 98.2 61 20 154/70 96 Room Air 08/15 2239 98.5 62 20 156/64 95 Room Air 08/15 1439 98.4 68 20 134/76 97 08/15 0828 120/68 08/15 0828 120/68 08/15 0828 120/68 08/15 0828 120/68 Intake & Output 08/16 0800 08/16 0000 08/15 1600 Intake Total 800 Output Total Balance 800 Intake, Oral 800 Patient 64.41 kg Weight Physical Exam General Appearance: Alert, Oriented X3, Cooperative, No Acute Distress Skin: No Rashes, No Breakdown Skin Temp/Moisture Exam: Warm/Dry HEENT: Atraumatic, PERRLA, EOMI Neck: Supple, No JVD Cardiovascular: Normal S1, Normal S2, No Murmurs Lungs: Clear to Auscultation, Normal Air Movement Abdomen: Normal Bowel Sounds, Soft, No Tenderness Neurological: Normal Gait, Normal Speech, Strength at 5/5 X4 Ext, Normal Tone Extremities: No Clubbing, No Cyanosis, No Edema Current Medications: Current Medications Sig/Harmeet Start time Last Medication Dose Route Stop Time Status Admin Allopurinol 100 MG DAILY 08/07 1416 AC 08/16 PO 1134 Amlodipine Besylate 10 MG DAILY 08/07 1416 AC 08/16 PO 1133 Cefazolin Sodium 1,500 MG MoWeFr@1200 08/16 1200 AC 08/16 Sodium Chloride 100 ML IV 1135 Cinacalcet 30 MG DAILY 08/08 1000 AC 08/16 PO 1133 Cyanocobalamin 1,000 MCG DAILY 08/08 1000 AC 08/16 PO 1134 Diphenhydramine HCl 1 ZHANNA BID 08/15 2200 AC 08/16 TOP 1132 Diphenhydramine HCl 1 ZHANNA BID PRN 08/07 2015 AC 08/15 TOP 0755 Epoetin Bolivar 1,000 UNIT MoWeFr PRN 08/10 1015 AC IV Heparin Sodium 5,000 UNIT Q8 08/07 1428 AC 08/16 (Porcine) SC 0631 Hydroxyzine HCl 25 MG BID PRN 08/07 1430 AC 08/13 PO 1248 Levothyroxine Sodium 0.15 MG DAILY AC 08/08 0700 AC 08/16 PO 0631 Lidocaine 15 ML BID 08/09 1135 AC 08/16 PO 1134 Losartan Potassium 50 MG DAILY 08/08 1000 AC 08/16 PO 1132 Metoprolol Succinate 25 MG DAILY 08/08 1000 AC 08/16 PO 1134 Multivitamins 1 TAB DAILY 08/07 1417 AC 08/16 PO 1133 Omeprazole 20 MG DAILY AC 08/08 0700 AC 08/16 PO 0631 Paricalcitol 4 MCG MoWeFr PRN 08/10 1015 AC IV Sevelamer Carbonate 800 MG WITH MEALS 08/07 1700 AC 08/16 PO 1135 Tamsulosin HCl 0.4 MG DAILY 08/08 1000 AC 08/16 PO 1132 Trazodone HCl 50 MG QPM 08/07 2200 AC 08/15 PO 2023 Zinc Oxide 1 ZHANNA BID 08/09 1225 AC 08/16 TOP 1132 Last 24 Hrs of Lab/Jarod Results Last 24 Hrs of Labs/Mics: Laboratory Tests 08/16/17 1000: Anion Gap 17 H, Estimated GFR 5 L, BUN/Creatinine Ratio 3.4 L, Glucose 115 H , Calcium 9.2, CBC w Diff NO MAN DIFF REQ, RBC 2.77 L, MCV 102.3 H, MCH 33.8 H, MCHC 33.1, RDW 15.9 H, MPV 7.6, Gran % 68.3, Lymphocytes % 25.4, Monocytes % 3.6, Eosinophils % 2.5, Basophils % 0.2, Absolute Granulocytes 5.1, Absolute Lymphocytes 1.9, Absolute Monocytes 0.3, Absolute Eosinophils 0.2, Absolute Basophils 0 Assessment/Plan Assessment: Patient is 87-year-old male with past medical history of 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 Vital signs at presentation Tmax 99.0, pulse 94, blood pressure 130/72, SPO2 96% on 2 L of nasal cannula. Physical exam altered with pansystolic murmur, yellowish discharge from the catheter site. Labs did show H/H 11/32.9, MCV 102, platelet count 143, lactic acid 2.4 lymphocytes 1.9, absolute granulocyte 13.5, segmented neutrophils 89, Band cells 3, serum Na 137, K 3.9, Cl 100, HCo3 19, AG 17, BUN/cr 18/4.9, GFR 11, glucose 117, Calcium 9.5,Total bilirubin 1.5, AST 16, ALT 16, alkaline phosphatase 127, albumin 3.7.Blood cultures were already sent. Chest x-ray -Central vascular prominence without overt edema. No consolidation. CT abdomen and pelvis did show Small bilateral pleural effusions with Atrophic kidneys. Problem list: Catheter related blood stream infection with MSSA ESRD on dialysis - AVF bilateral nonfunctional HTN Hypothyroidism Moderate Multiple falls Complicated bacteremia due to tunneled catheter sepsis with MSSA Patient did have significant discharge from his catheter site. Tmax of 100.2 with Labs revealed elevated white count with lactic acidosis at admission. Culture catheter tip and blood cultures grew MSSA at admission and remained negative since the second day of admission(08/08/17). Underwent IR guided catheter removal on the day of presentation f/b nontunneled dialysis catheter - started on IV cefazolin 1.5gm with dialysis. TTE followed by ARSEN negative for vegetations. Patient did have a hardware in his hip, filling criteria for complicated bacteremia requiring longer antibiotic course. On he underwent placement of a Tunneled (ENZO) catheter and removal of temporary dialysis catheter (nontunneled). * Must Continue IV cefazoline 1.5gm with dialysis M/W/F for 4 weeks -- till 09/05 (till dilaysis on 09/04/17) Diarrhea Continues to have loose watery diarrhea. Appears to be baseline. * C.diff negative ESRD on dialysis Dialysis M/W/F. Continue Sevelamir, cinacalcet, multivitamin. Next dialysis saturday. He underwent removal of his tunneled infected catheter. This is followed by placement of nontunneled catheter temporarily. After his cultures remained negative and ARSEN ruled out endocarditis, he underwent tunneled catheter placement. * underwent dialysis today with tunneled dialysis catheter. HTN Continue amlodipine 10 mg daily, losartan 50 mg daily. Hypothyroidism Continued levothyroxine home dose Benign prostatic hypertrophy Continued tamsulosin 0.4 mg daily Pain control with trazodone DVT prophylaxis Subcutaneous heparin CODE STATUS Full code Problem List: 1. MSSA (methicillin susceptible Staphylococcus aureus) infection 2. Hemodialysis catheter infection 3. Weakness 4. Confusion 5. Chronic kidney disease with end stage renal failure on dialysis Pain Ratin Pain Location: n/a Pain Goal: Pain 4 or less Pain Plan: tylenol prn Tomorrow's Labs & Rationales: none Neli Gee MD 08/16/17 1143: Attending MD Review Statement Attending Statement Attending MD Statement: examined this patient, discuss w/resident/PA/APPLICATION SPEC, agreed w/resident/PA/APPLICATION SPEC, reviewed EMR data (avail), discussed with nursing, discussed with case mgmt, reviewed images, amended to note Attending Assessment/Plan: Patient seen and examined, doing well. No acute events. Patient received his Vas-Cath yesterday. Noted infectious disease note about antibiotics duration. Patient will be discharged back to rehabilitation after dialysis today to complete the course of antibiotics as an outpatient. The rest of his home medications will be continued and we added topical Benadryl to help with his rash and itching.
[2017-08-16 08:05] LABS: ABSOLUTE BASOPHIL COUNT 0 /CUMM (0.0-0.2); ABSOLUTE EOSINOPHIL COUNT 0.2 /CUMM (0.0-0.7); ABSOLUTE GRANULOCYTE CT 5.1 /CUMM (1.4-6.5); ABSOLUTE LYMPH COUNT 1.9 /CUMM (1.2-3.4); ABSOLUTE MONOCYTE COUNT 0.3 /CUMM (0.10-0.60); BASOPHIL % 0.2 % (0.0-2.0); EOSINOPHIL % 2.5 % (0-5); GRANULOCYTE % 68.3 % (42.2-75.2); HEMATOCRIT 28.3 % (42-52); MEAN CORPUSCULAR HGB 33.8 PG (27.0-31.0); MEAN CORPUSCULAR HGB CONC 33.1 G/DL (33.0-37.0); MEAN CORPUSCULAR VOLUME 102.3 FL (80.0-94.0); MEAN PLATELET VOLUME 7.6 FL (7.4-10.4); PLATELET COUNT 175 /CUMM (130-400); RBC DISTRIBUTION WIDTH 15.9 % (11.5-14.5); RED BLOOD CELL CT 2.77 /CUMM (4.70-6.10); WHITE BLOOD CELL COUNT 7.5 /CUMM (4.8-10.8)
--- NOTE | 2017-08-16 08:44 | PN- Nephrology ---
Assessment/Plan Nephrology Assessment: ESRD on dialysis now. Tolerating well. ENZO placed yesterday working without problems. Dr. Rizvi's note noted. will need 4 weeks of antibiotic Rx. We can finish course as outpatient once stable enough for discharge. He will need a dose today after dialysis here. Smith Chen MD. Suggestion: . Subjective Subjective: Mr. Sawant is on dialysis now. ARSEN without vegetations. Objective Vital Signs and I&Os M NAD 154 / 70 61 98.2 Lungs clear to A Cor RRR Abd soft N/T Ext neg edema Results Pertinent Lab Results: labs pending
[2017-08-16] MEDS ORDERED: BENADRYL ITCH28.3 G1 TOP (10:18)
--- NOTE | 2017-08-16 11:39 | PN- Infect Dx ---
Subjective Subjective: Afebrile. He continues to complain of pruritus Objective Last 24 Hrs of Vital Signs/I&O Vital Signs Date Time Temp Pulse Resp B/P B/P Pulse O2 O2 Flow FiO2 Mean Ox Delivery Rate 08/16 0654 98.2 61 20 154/70 96 Room Air 08/15 2239 98.5 62 20 156/64 95 Room Air 08/15 1439 98.4 68 20 134/76 97 Intake & Output 08/16 1600 08/16 0800 08/16 0000 Intake Total 360 800 Output Total 0 Balance 360 800 Intake, IV 0 Intake, Oral 360 800 Number 1 Bowel Movements Output, Urine 0 Patient 142 lb Weight . Physical Exam Other Physical Findings: He appears comfortable in no acute distress Skin multiple open pustules on the extremities Neck tunneled catheter in the right IJ with no inflammation at the site Lungs are clear Heart regular rhythm with no murmur Extremities no cyanosis, clubbing or edema Results Last 24 Hours of Lab Results: Laboratory Tests 08/16 UNK Chemistry Sodium (137 - 145 mmol/L) 140 Potassium (3.5 - 5.1 mmol/L) 4.1 Chloride (98 - 107 mmol/L) 105 Carbon Dioxide (22 - 30 mmol/L) 19 L Anion Gap (5 - 16) 17 H BUN (9 - 20 mg/dL) 32 H Creatinine (0.7 - 1.2 mg/dL) 9.5 *H Estimated GFR (>60 ml/min) 5 L BUN/Creatinine Ratio (7 - 25 %) 3.4 L Glucose (65 - 99 mg/dL) 115 H Calcium (8.4 - 10.2 mg/dL) 9.2 Hematology CBC w Diff NO MAN DIFF REQ WBC (4.8 - 10.8 /CUMM) 7.5 RBC (4.70 - 6.10 /CUMM) 2.77 L Hgb (14.0 - 18.0 G/DL) 9.4 L Hct (42 - 52 %) 28.3 L MCV (80.0 - 94.0 FL) 102.3 H MCH (27.0 - 31.0 PG) 33.8 H MCHC (33.0 - 37.0 G/DL) 33.1 RDW (11.5 - 14.5 %) 15.9 H Plt Count (130 - 400 /CUMM) 175 MPV (7.4 - 10.4 FL) 7.6 Gran % (42.2 - 75.2 %) 68.3 Lymphocytes % (20.5 - 51.1 %) 25.4 Monocytes % (1.7 - 9.3 %) 3.6 Eosinophils % (0 - 5 %) 2.5 Basophils % (0.0 - 2.0 %) 0.2 Absolute Granulocytes (1.4 - 6.5 /CUMM) 5.1 Absolute Lymphocytes (1.2 - 3.4 /CUMM) 1.9 Absolute Monocytes (0.10 - 0.60 /CUMM) 0.3 Absolute Eosinophils (0.0 - 0.7 /CUMM) 0.2 Absolute Basophils (0.0 - 0.2 /CUMM) 0 Last 24 Hours of Jraod Results: No new cultures Recent Imaging Studies: ARSEN August 14 negative for any vegetations Assessment/Plan ID Impression: Stable, with temperatures and white blood cell count remaining normal, on Cefazolin Day 9 of treatment for Staph aureus sepsis secondary to an infected Abdirizak catheter, status post removal 9 days ago, status post placement of a tunneled catheter yesterday. He does have hardware in the left femur, status post a recent ORIF, suggesting the possibility of a "complicated" bacteremia that would require at least a 4 week course of treatment. The etiology of his rash, which has been present for over a year and for which he has sought Dermatology and ID evaluation, is unclear. Suggestion: 1. Dermatology reevaluation of his rash (can be as outpatient) 2. Continue Cefazolin 1.5 g IV after each dialysis to complete a 4 week course of treatment (until September 05)
[2017-08-16 11:44] VITALS: BP 150/80
[2017-08-16] MEDS ORDERED: CEFAZOLIN1 GM/50 M1 IV (12:17)
[2017-08-16 13:55] VITALS: BP 150/80
== END 2017-08-16 14:25 | DRG 314 ==
LOC: ERH 10:50 → ERHI 12:46 → 2NA 12:46 → ENRESERV 16:55 → ENTRNSPT 17:49 → EDTRNSPTSTS 18:19 → EDTRNSPT 18:19 → 2NA 18:46 → CMPTRNSPT 18:53 → 2NA 08-08 20:38 → ENPENDDIS 08-16 12:45 → ENTRNSPT 08-16 14:16 → 2NA 08-16 14:25 → EDTRNSPT 08-16 14:54 → EDTRNSPTSTS 08-16 14:54 → CMPTRNSPT 08-16 14:57
PROVIDERS: Emergency Medicine; Internal Medicine; Internal Medicine Nephrology; Student in an Organized Health Care Education/Training Program
PROC: 02PYX3Z Removal of Infusion Device from Great Vessel, External Approach (ICD-10-PCS; 2017-08-07)
PROC: B5181ZA Fluoroscopy of Superior Vena Cava using Low Osmolar Contrast, Guidance (ICD-10-PCS; 2017-08-09)
PROC: 02HV33Z Insertion of Infusion Device into Superior Vena Cava, Percutaneous Approach (ICD-10-PCS; 2017-08-09)
PROC: 5A1D70Z Performance of Urinary Filtration, Intermittent, Less than 6 Hours Per Day (ICD-10-PCS; 2017-08-10)
PROC: B246ZZ4 Ultrasonography of Right and Left Heart, Transesophageal (ICD-10-PCS; 2017-08-14)
PROC: 02PYX3Z Removal of Infusion Device from Great Vessel, External Approach (ICD-10-PCS; principal; 2017-08-15)
PROC: 0JH63XZ Insertion of Tunneled Vascular Access Device into Chest Subcutaneous Tissue and Fascia, Percutaneous Approach (ICD-10-PCS; principal; 2017-08-15)
PROC: B5181ZA Fluoroscopy of Superior Vena Cava using Low Osmolar Contrast, Guidance (ICD-10-PCS; principal; 2017-08-15)
PROC: 02HV33Z Insertion of Infusion Device into Superior Vena Cava, Percutaneous Approach (ICD-10-PCS; principal; 2017-08-15)
DX: T82.7XXA Infection and inflammatory reaction due to other cardiac and vascular devices, implants and grafts, initial encounter (principal); N18.6 End stage renal disease; A41.01 Sepsis due to Methicillin susceptible Staphylococcus aureus; I13.2 Hypertensive heart and chronic kidney disease with heart failure and with stage 5 chronic kidney disease, or end stage renal disease; I50.32 Chronic diastolic (congestive) heart failure; I35.0 Nonrheumatic aortic (valve) stenosis; N28.1 Cyst of kidney, acquired; E03.9 Hypothyroidism, unspecified; K21.9 Gastro-esophageal reflux disease without esophagitis; R21 Rash and other nonspecific skin eruption; E78.5 Hyperlipidemia, unspecified; Z99.2 Dependence on renal dialysis; Z85.46 Personal history of malignant neoplasm of prostate; M10.9 Gout, unspecified; Z90.49 Acquired absence of other specified parts of digestive tract; Z96.642 Presence of left artificial hip joint; N40.0 Benign prostatic hyperplasia without lower urinary tract symptoms; R26.89 Other abnormalities of gait and mobility; Z86.73 Personal history of transient ischemic attack (TIA), and cerebral infarction without residual deficits
CPT/HCPCS: 04007; 2NAP; 2NASP; 87070; 87184; 87205; 36415; 36592; 71045; 74176; 77001; 82436; 87040; 87147; 93306; 93325; C1752; C1769; J0690; J0713; J0885; J1644; J2501

== ENCOUNTER 2017-08-24 17:26 | Emergency (ER) | payer OTHER, MEDICARE ==
[~2017-08-24 17:26] MED LIST changes: +ACEPHEN650 M1 PR; +ACETAMINOPHEN325 M2 PO; +BENADRYL ITCH28.3 G1 TOP; +BISACODYL10 M1 RC; +CEFAZOLIN1 GM/50 M1 IV; +CEFTRIAXONE500 MG IM; +FLEET ENEMA133 ML RC; +GUAIFENESI100 MG/5 M PO; +LEVOXYL175 MCG PO; +MILK OF MA400 MG/52 PO; +NEPHRO PO
--- NOTE | 2017-08-24 18:22 | ED GENERAL ADULT ---
History of Present Illness General Chief Complaint: General Adult Stated Complaint: BIBA FOR PORT BLEEDING Source: patient, old records, W10 Exam Limitations: no limitations Vital Signs & Intake/Output Vital Signs & Intake/Output Vital Signs Date Time Temp Pulse Resp B/P B/P Pulse O2 O2 Flow FiO2 Mean Ox Delivery Rate 08/24 185 188/89 08/24 1859 188/89 08/24 1859 188/89 08/24 1742 Room Air 08/24 1735 98.7 68 18 188/89 96 Room Air Allergies Coded Allergies: lactose (Severe, DIARRHEA 08/11/17) Triage Note: PT BIBA FROM ECF WITH C/O BLEEDING TO DIALYSIS CATHETER INSERTION SITE. PT WAS SEEN HERE EARLIER FOR SAME. PT ARRIVES A&O. HYPERTENSIVE. DRESSING FROM HOSPITAL IN PLACE WITH VISIBLE BLOOD. NO ACTIVE BLEEDING NOTED WITH DRESSING REMOVAL. Triage Nurses Notes Reviewed? yes Onset: Abrupt Duration: day(s): (1), changing over time, continues in ED Timing: single episode today Injury Environment: home Severity: mild, moderate No Modifying Factors: none HPI: 87-year-old male past medical history of end-stage renal disease on dialysis, CHF, TIA presents for evaluation of a rebleeding dialysis catheter. Patient was seen here earlier today for same thing. He had aN ENZO cath placed 9 days ago in the right chest. He was seen here for bleeding at the site. The area was wrapped with Surgicel bleeding was controlled he was discharged back to his ECF facility. PCF reports that they noted bleeding coming through the dressing so they sent him back. They also noted that they felt like his heartbeat was irregular. Patient denies any concerns. No chest pain shortness of breath dizziness or lightheadedness. No nausea vomiting palpitations. He does not take blood thinners. He's been eating and drinking normally feels well. Mental status is at baseline. (Matthew ZARCO,Norris) Reconcile Medications Allopurinol 100 MG TABLET 1 TAB PO DAILY GOUT (Reported) Amlodipine Besylate 10 MG TABLET 1 TAB PO DAILY HEART (Reported) Cefazolin (Cefazolin 1 Gm-D5w Bag) 1 GRAM/50 ML PIGGYBACK 1.5 Vial IV Saturday blood infection Cinacalcet HCl (Sensipar) 30 MG TABLET 1 TAB PO DAILY KIDNEY DISEASE ( Reported) Cyanocobalamin (Vitamin B-12) 1,000 MCG TABLET 1 TAB PO DAILY VITAMIN SUPPORT (Reported) Hydroxyzine Hydrochloride (Atarax) 25 MG TABLET 1 TAB PO BID PRN itching ( Reported) Levothyroxine Sodium (Levoxyl) 175 MCG TABLET 1 TAB PO DAILY AC THYROID ( Reported) Metoprolol Succinate 25 MG TAB.ER.24H 1 TAB PO DAILY HEART/BP (Reported) Nephro-Vitamins (Nephro-Tye Tablet) (Unknown Strength) TABLET 1 TAB PO DAILY SUPPLEMENT (Reported) Pantoprazole Sodium 20 MG TABLET.DR 1 TAB PO DAILY GI (Reported) Sevelamer Carbonate (Renvela) 800 MG TABLET 1 TAB PO WITH MEALS kidney ( Reported) Tamsulosin HCl (Flomax) 0.4 MG CAP.ER.24H 1 CAP PO DAILY PROSTATE (Reported) Travoprost (Travatan Z) 5 ML DROPS 1 GTT OPH QPM BOTH EYES (Reported) Trazodone HCl 50 MG TABLET 1 TAB PO QPM SLEEP (Reported) Valsartan (Diovan) 80 MG TABLET 1 TAB PO DAILY HEART (Reported) (Libra HENSON,Stacy) Past History Travel History Traveled to [place] past 21 day No Medical History Any Pertinent Medical History? 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 No (Norris Peacock) Review of Systems Review of Systems Constitutional: Reports: no symptoms. EENTM: Reports: no symptoms. Respiratory: Reports: no symptoms. Cardiovascular: Reports: no symptoms. GI: Reports: no symptoms. Genitourinary: Reports: no symptoms. Musculoskeletal: Reports: no symptoms. Skin: Reports: no symptoms. Neurological/Psychological: Reports: no symptoms. Hematologic/Endocrine: Reports: bleeding. Immunologic/Allergic: Reports: no symptoms. All Other Systems: Reviewed and Negative (Norris Peacock) Physical Exam Physical Exam General Appearance: well developed/nourished, no apparent distress, alert, awake Head: atraumatic, normal appearance Eyes: Bilateral: normal appearance, PERRL, EOMI. Ears, Nose, Throat: hearing grossly normal Neck: normal inspection, supple, full range of motion, NO jvd Respiratory: normal breath sounds, no respiratory distress, AN ENZO CATH IS PRESENT IN THE RIGHT CHEST. nO SURROUNDING ERYTHEMA. sMALL AMOUNT OF DRIED BLOOD NOTED AROUND THE AREA WHERE THE CATHETER IS SUTURED TO THE CHEST. nO BLEEDING AT THE INSERTION SITE. nO SURROUNDING ERYTHEMA DISCHARGE OR PAIN TO PALPATION. Cardiovascular: regular rate/rhythm, normal peripheral pulses Peripheral Pulses: 2+ radial (R), 2+ radial (L) Gastrointestinal: soft, non-tender Back: normal inspection, normal range of motion Extremities: normal inspection, normal range of motion, no edema Neurologic/Psych: no motor/sensory deficits, awake, alert, oriented x 3 Skin: intact, normal color, warm/dry Lymphatic: no anterior cervical yousif Core Measures ACS in differential dx? No CVA/TIA Diagnosis: No Sepsis Present: No Sepsis Focused Exam Completed? No (Norris Peacock) Progress Differential Diagnoses I considered the following diagnoses in my evaluation of the patient: [Bleeding from catheter site, catheter site infection, A. fib, PVCs] Plan of Care: Orders Procedure Date/time Status EKG 08/24 1741 Active Patient seen and evaluated. Does not appear to be any bleeding from the catheter site. There is some dried blood in the area but no active bleeding. The area was cleaned with Betadine additional Surgicel was applied sterile dressing applied. An EKG was obtained which showed PVCs but otherwise was unchanged. Patient is asymptomatic he feels well no chest pain or shortness breath. Patient will be sent back to the [facility] with instructions to follow up with cardiology keep catheter site clean and dry or signs of infection. Follow- up as needed. Discussed cautions case discussed with Dr. HOWE she agrees. Initial ED EKG: normal sinus rhythm, LVH, nonspecific ST T wave chg, pvc Prior EKG: unchanged (other than pvc) (Norris Peacock) Departure Departure Disposition: HOME OR SELF CARE Condition: Stable Clinical Impression Primary Impression: Bleeding from dialysis shunt Qualifiers: Encounter type: initial encounter Qualified Code: T82.838A - Hemorrhage due to vascular prosthetic devices, implants and grafts, initial encounter Referrals: Reggie Connell MD (PCP/Family) Additional Instructions: Follow-up with primary care doctor and cardiology for recheck. Keep cath site clean and dry. Change dressing daily. Look out For signs of infection. Return with any concerns. Departure Forms: Customer Survey General Discharge Information (Norris Peacock) PA/WELT ROUGHER Co-Sign Statement Statement: ED Attending supervision documentation- [X] I saw and evaluated the patient. I have also reviewed all the pertinent lab results and diagnostic results. I agree with the findings and the plan of care as documented in the PA's/WELT ROUGHER's documentation. [X] I have reviewed the ED Record and agree with the PA's/WELT ROUGHER's documentation. [] Additions or exceptions (if any) to the PAs/WELT ROUGHER's note and plan are summarized below: [] (Libra HENSON,Stacy) Critical Care Note Critical Care Note Critical Care Time: non-applicable (Norris Peacock)
[2017-08-24 19:42] VITALS: BP 150/68
== END 2017-08-24 19:48 ==
LOC: ERH 17:26
DX: T82.838A Hemorrhage due to vascular prosthetic devices, implants and grafts, initial encounter (principal)
CPT/HCPCS: 93005; 93010; J3490

== ENCOUNTER 2017-08-27 09:41 | Inpatient (IN) | payer OTHER, MEDICARE ==
[~2017-08-27] VITALS: Ht 157.5 cm; Wt 65.3 kg
--- NOTE | 2017-08-27 10:33 | ED MVC/FALL/TRAUMA COMPLAINT ---
History of Present Illness General Chief Complaint: Fall Stated Complaint: FALL Source: patient, EMS Exam Limitations: no limitations Vital Signs & Intake/Output Vital Signs & Intake/Output Vital Signs Date Time Temp Pulse Resp B/P B/P Pulse O2 O2 Flow FiO2 Mean Ox Delivery Rate 08/30 0703 98.0 66 20 140/80 95 Room Air 04/ 2213 98.2 101 20 180/80 96 Room Air 08/29 1528 98.2 64 20 130/70 95 04/ 0810 98.0 76 20 122/72 04 0810 98.0 76 20 122/72 ED Intake and Output 08/30 0000 08/29 1200 Intake Total 930 130 Output Total Balance 930 130 Intake, IV 10 10 Intake, Oral 920 120 Patient 145 lb 145 lb Weight Allergies Coded Allergies: lactose (Severe, DIARRHEA 08/11/17) Reconcile Medications Acetaminophen (Tylenol Extra Strength) 500 MG TABLET 1 TAB PO Q8 PRN PAIN SCALE 1-5 Allopurinol 100 MG TABLET 1 TAB PO DAILY GOUT (Reported) Amlodipine Besylate 10 MG TABLET 1 TAB PO DAILY HEART (Reported) Cefazolin (Cefazolin 1 Gm-D5w Bag) 1 GRAM/50 ML PIGGYBACK 1.5 Vial IV Saturday blood infection STOP ON 09/05. Cinacalcet HCl (Sensipar) 30 MG TABLET 1 TAB PO DAILY KIDNEY DISEASE ( Reported) Cyanocobalamin (Vitamin B-12) 1,000 MCG TABLET 1 TAB PO DAILY VITAMIN SUPPORT (Reported) Epoetin Bolivar (Procrit) 3,000 UNIT/ML VIAL 1 VIAL IV Saturday PRN WITH HD Epoetin Bolivar (Procrit) 2,000 UNIT/ML VIAL 1 VIAL IV Saturday PRN WITH HD Hydroxyzine Hydrochloride (Atarax) 25 MG TABLET 1 TAB PO BID PRN itching ( Reported) Levothyroxine Sodium (Levoxyl) 175 MCG TABLET 1 TAB PO DAILY AC THYROID ( Reported) Metoprolol Succinate 25 MG TAB.ER.24H 1 TAB PO DAILY HEART/BP (Reported) Nephro-Vitamins (Nephro-Tye Tablet) (Unknown Strength) TABLET 1 TAB PO DAILY SUPPLEMENT (Reported) Pantoprazole Sodium 20 MG TABLET.DR 1 TAB PO DAILY GI (Reported) Paricalcitol (Zemplar) 5 MCG/ML VIAL 1 VIAL IV Saturday PRN WITH HD Sevelamer Carbonate (Renvela) 800 MG TABLET 1 TAB PO WITH MEALS kidney ( Reported) Tamsulosin HCl (Flomax) 0.4 MG CAP.ER.24H 1 CAP PO DAILY PROSTATE (Reported) Tramadol HCl (Ultram) 50 MG TABLET 1 TAB PO TIDPRN PRN PAIN SCALE 5-10 Travoprost (Travatan Z) 5 ML DROPS 1 GTT OPH QPM BOTH EYES (Reported) Trazodone HCl 50 MG TABLET 1 TAB PO QPM SLEEP (Reported) Valsartan (Diovan) 80 MG TABLET 1 TAB PO DAILY HEART (Reported) Triage Note: PT BIBA FROM [facility] FOR TRIP AND FALL AT 0730 TODAY. PT STATES HE TRIED TO GET UP USING SIDE RAIL AND FELL BACK DOWN HITTING BACK OF HEAD, DENIES LOC, DENIES THINNERS. STATES HE IS HEARING WHISTLING IN BOTH EARS. STATES ALL OVER PAIN INCLUDING KIDNEYS AND BACK OF HEAD Triage Nurses Notes Reviewed? yes Onset: Morning (7:30a) Duration: hour(s): HPI: Patient presents for evaluation of injury sustained status post fall at about 7: 30 this morning while at rehabilitation facility. Patient states that he attempted to go to the bathroom but felt lightheaded and dizzy followed by weakness in the legs. He tried to grab the railing but was unable to do so. Patient states he fell to the floor. He is experiencing an occipital pain as well as a bilateral mid back pain. The patient denies loss of consciousness. Patient denies headache, chest pain or shortness of breath. The patient does refer multiple episodes of nonbloody diarrhea daily over the past few months. Patient states he had 3 episodes of diarrhea containing mucous 3 times yesterday. Past History Travel History Traveled to [place] past 21 day No Medical History Any Pertinent Medical History? 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 No Review of Systems Review of Systems Constitutional: Reports: no symptoms. Eyes: Reports: no symptoms. Ears, Nose, Throat, Mouth: Reports: no symptoms. Respiratory: Reports: no symptoms. Cardiovascular: Reports: no symptoms. Gastrointestinal/Abdominal: Reports: no symptoms. Genitourinary: Reports: no symptoms. Musculoskeletal: Reports: see HPI. Skin: Reports: no symptoms. Neurological/Psychological: Reports: no symptoms. All Other Systems: Reviewed and Negative Physical Exam Physical Exam General Appearance: see below Comments: Gen.: Well-nourished, well-developed, no acute respiratory distress. Head: Normocephalic, atraumatic, tenderness over the occipital lobes bilaterally without erythema soft tissue swelling or ecchymoses Eyes: Normal inspection bilaterally, elizabeth, EOMI Ears: Normal inspection bilaterally Nose: Normal inspection Throat/mouth : Moist mucosa Neck: Supple, full range of motion, no goiter, nontender Heart: Regular rate and rhythm, systolic murmur Lungs: Clear to auscultation bilaterally with normal air entry Chest: Nontender Back: Normal range of motion, nontender Abdomen: Soft, nontender, nondistended, normal bowel sounds Pelvis: Stable and nontender Extremities: Normal range of motion grossly, no tenderness, no cyanosis clubbing or edema Neurologic: Cranial nerves grossly intact, speech is clear Skin: warm and dry and without ecchymoses or soft tissue swelling or erythema Psychiatric: Calm, cooperative, no apparent delusions or hallucinations Core Measures ACS in differential dx? No CVA/TIA Diagnosis No Sepsis Present: No Sepsis Focused Exam Completed? No Progress Differential Diagnosis: HEAD TRAUMA, CONCUSSION, CERVICAL SPINE STRAIN/FRACTURE, THORACIC SPINE STRAIN/FRACTURE Plan of Care: Orders Procedure Date/time Status PT Evaluate & Treat 08/29 UNK Active Therapeutic Activities 08/29 UNK Complete PT EVAL LOW COMPLEX 20 MIN 08/29 UNK Complete Gait Training 08/29 UNK Complete Patient Safety Monitor 08/29 UNK Complete Nursing Misc 08/29 UNK Active Current Medications Sig/Harmeet Start time Last Medication Dose Stop Time Status Admin Tramadol HCl 50 MG Q6 PRN 08/29 1015 AC 08/29 (Ultram) 1641 Levothyroxine Sodium 0.2 MG DAILY AC 08/29 0700 AC 08/30 (Synthroid) 0619 Epoetin Bolivar 3,000 UNIT Saturday .. 08/28 1230 AC (Epogen Inj 3000 (DIALYSIS PATIENTS) Epoetin Bolivar 2,000 UNIT Saturday .. 08/28 1230 AC (Epogen Inj 2000 (DIALYSIS PATIENTS) Paricalcitol 5 MCG Saturday .. 08/28 1230 AC (Zemplar Inj. 2MCG/ ML) Diphenhydramine HCl 1 ZHANNA Q6 PRN 08/28 1030 AC 08/29 (Benadryl) 0901 Ketorolac 15 MG Q4-6 PRN 08/28 1030 AC 08/29 Tromethamine 0900 (Toradol) Allopurinol 100 MG DAILY 08/28 1000 AC 08/29 (Zyloprim) 0810 Cefazolin Sodium 1,000 MG 08/28 1000 AC 08/28 (Kefzol-Ancef Inj) 0901 Multivitamins 1 TAB DAILY 08/28 1000 AC 08/29 (Nephrocaps) 0810 Latanoprost 1 GTT AT BEDTIME 08/27 2200 AC 08/29 (Xalatan) 202 Trazodone HCl 50 MG QPM 08/27 2200 AC 08/29 (Desyrel) 202 Sevelamer Carbonate 800 MG WITH MEALS 08/27 1700 AC 08/29 (Renvela) 1641 Heparin Sodium 5,000 UNIT Q8 08/27 1647 AC 08/30 (Porcine) 0619 Cinacalcet 30 MG DAILY 08/27 1619 AC 08/29 (Sensipar) 0810 Tamsulosin HCl 0.4 MG DAILY 08/27 1450 AC 08/29 (Flomax) 0810 Amlodipine Besylate 10 MG DAILY 08/27 1449 AC 08/29 (Norvasc) 0810 Initial ED EKG: rate (61), LVH Prior EKG: unchanged Comments: 08/27/2017 11:30:05 AM Thong continues to have severe back pain despite acetaminophen, morphine ordered. 08/27/2017 1:50:00 PM per radiologist, head: nad. cspine: degen change with canal stenosis. thoracic: degen changes with fx t9/t10 osteophytes with t9 body involved, lumbar: nad. d/w CAROLEE Sims of the neurosurgical service, who reviewed patient's CAT scan and recommends tlso brace via biometrics. f/u with ortho. Departure Departure Disposition: STILL A PATIENT Condition: Stable Clinical Impression Primary Impression: Thoracic spine fracture Qualifiers: Encounter type: initial encounter Thoracic vertebra fracture level: T9 Fracture type: closed Fracture morphology: other fracture Qualified Code: S22.078A - Other fracture of T9-T10 vertebra, initial encounter for closed fracture Secondary Impressions: History of renal failure Referrals: Becki HENSON,Reggie Harman (PCP/Family) Departure Forms: Customer Survey General Discharge Information Prescriptions: Current Visit Scripts Epoetin Bolivar (Procrit) 1 VIAL IV Saturday PRN WITH HD #30 VIAL Epoetin Bolivar (Procrit) 1 VIAL IV Saturday PRN WITH HD #30 VIAL Paricalcitol (Zemplar) 1 VIAL IV Saturday PRN WITH HD #30 VIAL Cefazolin (Cefazolin 1 Gm-D5w Bag) 1.5 Vial IV Saturday #3 BAG STOP ON 09/05. Acetaminophen (Tylenol Extra Strength) 1 TAB PO Q8 PRN PAIN SCALE 1-5 #10 TAB Tramadol HCl (Ultram) 1 TAB PO TIDPRN PRN PAIN SCALE 5-10 #90 TAB Admission Note Spoke With: Valentino Pace MD Documentation of Exam: Documentation of any treatments & extenuating circumstances including Concerns Regarding Discharge (functional status, medication knowledge or non-compliance, living conditions, etc.) that warrant an admission rather than observation: Patient presents for evaluation of severe back pain status post fall prior to arrival. Unfortunately, this patient has suffered a thoracic spine fracture with resulting debilitating severe back pain. He is unable to be treated as an outpatient because at this point he is so incapacitated by intractable back pain he could not comply with outpatient treatment. I feel he now requires hospitalization for IV narcotic pain relievers and muscle relaxers, neurosurgical evaluation, feeding for a back brace and physical therapy evaluation. Given his past history of renal failure he will also require a nephrology consultation and dialysis tomorrow to prevent electrolyte abnormalities and acidosis. Given his advanced age and multiple medical comorbidities I feel he will require a multiple day hospitalization.
[2017-08-27 11:22] LABS: ABSOLUTE BASOPHIL COUNT 0 /CUMM (0.0-0.2); ABSOLUTE EOSINOPHIL COUNT 0 /CUMM (0.0-0.7); ABSOLUTE GRANULOCYTE CT 6.2 /CUMM (1.4-6.5); ABSOLUTE LYMPH COUNT 1.8 /CUMM (1.2-3.4); ABSOLUTE MONOCYTE COUNT 0.5 /CUMM (0.10-0.60); BASOPHIL % 0.4 % (0.0-2.0); EOSINOPHIL % 0.5 % (0-5); GRANULOCYTE % 72.4 % (42.2-75.2); HEMATOCRIT 30.4 % (42-52); MEAN CORPUSCULAR HGB 34.4 PG (27.0-31.0); MEAN CORPUSCULAR HGB CONC 32.9 G/DL (33.0-37.0); MEAN CORPUSCULAR VOLUME 104.4 FL (80.0-94.0); MEAN PLATELET VOLUME 7.8 FL (7.4-10.4); PLATELET COUNT 153 /CUMM (130-400); RBC DISTRIBUTION WIDTH 17.3 % (11.5-14.5); RED BLOOD CELL CT 2.91 /CUMM (4.70-6.10); WHITE BLOOD CELL COUNT 8.5 /CUMM (4.8-10.8)
--- NOTE | 2017-08-27 13:52 | CT SCAN REPORT ---
EXAMINATION: CT HEAD, CERVICAL, THORACIC, AND LUMBAR SPINE WITHOUT CONTRAST CLINICAL INFORMATION: Status post fall. Occipital pain. History of subdural. Back pain. COMPARISON: Head CT from 07/23/2017. CT abdomen and pelvis from 08/07/2017. TECHNIQUE: Contiguous axial imaging from the skull base to the vertex was performed without contrast. CT scanning of the total spine was performed without contrast. Coronal and sagittal reformatted images were acquired. DLP: 968, 1183 mGy-cm. FINDINGS: I was asked by our operations expert to interpret this study (head, cervical, thoracic and lumbar spine CT) at 1:15 PM on 08/27/2017. Head: There appears to have been resolution of the heterogeneous small right frontal convexity subdural hematoma relative to 07/23/2017 and near complete resolution of the small left convexity subdural hematoma. No new intracranial hemorrhage is evident. There is moderate prominence of the ventricles, sulci, and extra-axial CSF spaces, unchanged. There is moderate hypoattenuation in the bihemispheric white matter compatible with chronic microangiopathy, unchanged. There is a small platelike chronic lacunar infarct in the posterior right lentiform nucleus, unchanged. Prominent perivascular spaces versus additional chronic lacunar infarcts are seen in the left subinsular region, unchanged. No significant mass effect or shift the normally midline structures. No acute osseous abnormality. The imaged paranasal sinuses are clear. There is a progressive right mastoid effusion without opacification of the right middle ear cavity. The left mastoid air cells are clear. No acute soft tissue abnormalities are visualized. Cervical spine: There is a moderate levoconvex cervical scoliosis. There is no evidence of fracture or obvious traumatic subluxation. There is no prevertebral soft tissue swelling. The atlantoaxial and atlantooccipital articulations are maintained. There is multilevel spondylosis. There is near complete intervertebral disc height loss asymmetrically on the right at C4-C5 and bilaterally at C5-C6. There is mild intervertebral disc height loss elsewhere in the spine. There is partially calcified disc protrusion/disc osteophyte complexes at C3-C4, C4-C5, and C5-C6 which appear to moderately narrow the canal at C3-C4 and C4-C5 and fairly substantially narrow the canal is asymmetrically on the left at C5-C6. If there are any symptoms of myelopathy, correlation with MRI of the cervical spine is suggested to assess the cord. There is partially mineralized pannus posterior to the dens which also mildly flattens the ventral thecal sac. There is moderate right-sided foraminal narrowing at C4-C5 and severe left-sided foraminal narrowing at C5-C6. No cervical adenopathy. No gross abnormalities of the pharyngeal or laryngeal contours. No discrete thyroid lesions. There is an elongated lymph node in the right paratracheal region of the thoracic inlet measuring 7 mm in short axis. The lung apices are also clear without pneumothorax. Thoracic/lumbar spine: There are 12 rib-bearing thoracic vertebral bodies. Vertebral body height is maintained. Sagittal alignment is maintained. There are nearly confluent anterior syndesmophytes/osteophytes as well as some right lateral syndesmophytes visualized. There is lucency across the anterior/right-sided syndesmophyte/osteophyte at T9-T10, which was just within the imaged volume on the prior CT abdomen, and was not definitively present. Best appreciated on the coronal reformatted images the fracture extends across the posteroinferior right corner of the T9 vertebral body. No visualized rib fractures the posterior elements are intact. There is mild multilevel disc osteophyte complex. There is asymmetric mild narrowing of the canal on the right at T9-T10. There is asymmetric moderate right-sided foraminal stenosis at T9-T10. There are 5 nonrib-bearing lumbar type vertebral bodies. There is some confluent anterior osteophytes present in the lumbar region as well. There is patchy demineralization without compression deformities. There is mild loss of intervertebral disc height with some intradiscal mineralization at L2-L3. There is some ankylosis across the spinous processes. No evidence of lumbar spinal fractures. There is coarsening of the trabeculation in the right iliac bone with some cortical thickening raising the possibility of Paget disease, unchanged. There is no high-grade lumbar canal stenosis. There is moderate bilateral foraminal stenosis at L4-L5 and L5-S1. There is heavy atherosclerotic calcification in the aortic arch which is also dilated measuring up to 3.6 cm. There are scattered mediastinal lymph nodes including a right paratracheal/right precarinal lymph node measuring 9 mm in short axis and a right paratracheal lymph node measuring 1 cm in short axis. These are nonspecific. There is a dual lumen dialysis catheter seen extending into the superior vena cava and proximal right atrium. There are coronary calcifications, and calcifications at the aortic valve. No pericardial effusion. There are small bilateral pleural effusions and platelike opacification as well as some airspace opacification in the left upper lobe and both lower lobes. There is an oval fluid attenuating structure within the caudate lobe of the liver, unchanged. There are clips from prior cholecystectomy. Heavy vascular calcifications are seen within the visualized aorta and abdominal branches without abdominal aortic aneurysm. The kidneys are atrophic with scattered vascular and nonspecific calcifications as well as small hypoattenuating lesions arising from them bilaterally. There is a calcified 5 mm lesion within the right kidney. There is a slightly high attenuation lesion measuring 5 mm in the lower pole of the right kidney. These appear unchanged. There is nonspecific presacral stranding, unchanged. Support Teacher image demonstrates radiopaque seeds in the expected location of the prostate and partially visualized left femoral hardware. There are degenerative changes of the SI joints with anterior bridging osteophytes. IMPRESSION: Head: 1. Resolution of the small right frontal convexity subdural hematoma relative to the prior study of 07/23/2017. Near-complete resolution of the left frontal convexity subdural hematoma. No new intracranial hemorrhage. 2. Moderate chronic microangiopathy and volume loss with small scattered chronic lacunar infarcts. No acute intracranial abnormality. Cervical spine: 1. No evidence of fracture or traumatic subluxation. There is a moderate levoconvex cervical scoliosis and multilevel spondylosis. 2. There is moderate canal stenosis at C3-C4 and C4-C5 and fairly high-grade left-sided canal stenosis at C5-C6. If there are any symptoms of myelopathy, correlation with MRI of the cervical spine is suggested to assess the cord. Thoracic/lumbar spine: 1. Newly apparent lucency across an anterior/right lateral osteophyte/syndesmophyte at T9-T10, and extending posteriorly to involve the right inferior endplate of T9, relative to a prior study of 08/07/2017, suggesting an acute/subacute nondisplaced fracture. 2. Small bilateral pleural effusions as well as some scattered platelike and airspace opacification in the visualized lungs bilaterally, similar to 08/07/2017. Nonspecific mediastinal lymph nodes measuring up to 1 cm in short axis. 3. Atrophic kidneys with scattered calcifications and scattered bilateral oval lesions, incompletely assessed but stable. There is a dual-lumen right-sided dialysis catheter extending into the right atrium. 4. Dilated aortic arch measuring up to 3.6 cm in diameter. Heavy vascular calcifications throughout the imaged chest, abdomen, and pelvis. Our operations expert is paging the referring provider.
--- NOTE | 2017-08-27 14:15 | RADIOLOGY REPORT ---
EXAMINATION: XR THORACOLUMBAR SPINE CLINICAL INFORMATION: Status post fall with bilateral mid back pain COMPARISON: CT scan obtained earlier the same day. TECHNIQUE: AP and lateral views of the thoracic and lumbar spine with swimmer's views of the cervicothoracic spine. FINDINGS: There is a right internal jugular approach central venous catheter with tip in the right atrium. Calcified, tortuous thoracic aorta. Right upper quadrant cholecystectomy clips are present. There is contiguous bridging anterior syndesmophytes throughout the thoracolumbar spine. The lucency through an anterior syndesmophyte at T9-T10 which was seen on the earlier CT scan is subtly appreciable by x-ray. There is no malalignment however. No new thoracic compression fracture. Diffuse osteopenia limits further evaluation. There is lower lumbar facet arthropathy and degenerative disc disease. There is calcification of the distal abdominal aorta. Left hip hardware is present. There is a vascular stent in the left axilla. The degenerative changes of the cervical spine were better seen on the prior CT scan compared to the current swimmer's view. IMPRESSION: The lucency through an anterior syndesmophyte at the T9-T10 level which was seen on the earlier CT scan is subtly appreciable by x-ray. There is diffuse osteopenia. Degenerative changes of the cervical, thoracic, and lumbar spine are seen with additional degenerative changes better shown on earlier CT scan.
--- NOTE | 2017-08-27 15:51 | History & Physical ---
Quinton HENSON,[facility] 08/27/17 1550: General Information and HPI MD Statement: I have seen and personally examined HO LOPEZ and documented this H&P. The patient is a 87 year old M who presented with a patient stated chief complaint of [back pain]. Source of Information: patient Exam Limitations: no limitations History of Present Illness: The patient is a 87-year-old gentleman with past medical history of ESRD on hemodialysis since 2018 Saturday and Saturday, moderate aortic stenosis, hypertension, hypothyroidism, multiple TIAs in the past. The patient was brought in from [place] on 08/27 after a mechanical fall. She was discharged to [place] on 08/16 after being treated for complicated bacteremia due to tunneled catheter sepsis with MSSA with IV cefazolin. The patient was in usual state of health until today. He decided to go to restroom earlier during the morning and rang the meyer. When nobody came immediately the patient decided to go to the restroom by himself. In the bathroom patient felt weakness in his legs and tried to grab the railing but fell on the floor and hit his back. Immediately after the fall the patient started experiencing pain in his back and nursing and the staff at short-term rehabilitation came to his aid. Patient denies any loss of consciousness. He denies any head trauma, denies any seizure-like activity or tongue bite. He also denies any palpitation or dizziness, chest pain or any other prodromal symptoms before the fall. On review of system patient reports 3 episodes of nonbloody diarrhea today. Of note he is currently being treated with IV cefazolin for Complicated bacteremia due to tunneled catheter sepsis with MSSA . The course will finished on 09/05. The dose is administered with dialysis. During the encounter patient was in severe pain even on slightest of movement. Allergies/Medications Allergies: Coded Allergies: lactose (Severe, DIARRHEA 08/11/17) Home Med list Acetaminophen (Tylenol Extra Strength) 500 MG TABLET 1 TAB PO Q8 PRN PAIN SCALE 1-5 Allopurinol 100 MG TABLET 1 TAB PO DAILY GOUT (Reported) Amlodipine Besylate 10 MG TABLET 1 TAB PO DAILY HEART (Reported) Cefazolin (Cefazolin 1 Gm-D5w Bag) 1 GRAM/50 ML PIGGYBACK 1.5 Vial IV ANGELA WED ANDRES blood infection STOP ON 09/05. Cinacalcet HCl (Sensipar) 30 MG TABLET 1 TAB PO DAILY KIDNEY DISEASE ( Reported) Cyanocobalamin (Vitamin B-12) 1,000 MCG TABLET 1 TAB PO DAILY VITAMIN SUPPORT (Reported) Epoetin Bolivar (Procrit) 3,000 UNIT/ML VIAL 1 VIAL IV Saturday PRN WITH HD Epoetin Bolivar (Procrit) 2,000 UNIT/ML VIAL 1 VIAL IV Saturday PRN WITH HD Hydroxyzine Hydrochloride (Atarax) 25 MG TABLET 1 TAB PO BID PRN itching ( Reported) Levothyroxine Sodium (Levoxyl) 175 MCG TABLET 1 TAB PO DAILY AC THYROID ( Reported) Metoprolol Succinate 25 MG TAB.ER.24H 1 TAB PO DAILY HEART/BP (Reported) Nephro-Vitamins (Nephro-Tye Tablet) (Unknown Strength) TABLET 1 TAB PO DAILY SUPPLEMENT (Reported) Pantoprazole Sodium 20 MG TABLET.DR 1 TAB PO DAILY GI (Reported) Paricalcitol (Zemplar) 5 MCG/ML VIAL 1 VIAL IV Saturday PRN WITH HD Sevelamer Carbonate (Renvela) 800 MG TABLET 1 TAB PO WITH MEALS kidney ( Reported) Tamsulosin HCl (Flomax) 0.4 MG CAP.ER.24H 1 CAP PO DAILY PROSTATE (Reported) Tramadol HCl (Ultram) 50 MG TABLET 1 TAB PO TIDPRN PRN PAIN SCALE 5-10 Travoprost (Travatan Z) 5 ML DROPS 1 GTT OPH QPM BOTH EYES (Reported) Trazodone HCl 50 MG TABLET 1 TAB PO QPM SLEEP (Reported) Valsartan (Diovan) 80 MG TABLET 1 TAB PO DAILY HEART (Reported) Past History Travel History Traveled to [place] past 21 day No Medical History Neurological: TIA, status post recent subdural hematomas EENT: NONE Cardiovascular: diastolic CHF, hypertension, hyperlipidemia Respiratory: NONE Gastrointestinal: GERD Hepatic: NONE Renal: KIDNEY FAILURE DIALYSIS M,W,F Musculoskeletal: gout Psychiatric: NONE Endocrine: hypothyroidism Blood Disorders: NONE Cancer(s): prostate cancer 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 Acute Rehab Who Do You Live With? spouse, child Services at Home: Nursing ETOH Use: denies use Illicit Drug Use: denies illicit drug use Functional Ability ADLs Independent: dressing, eating, toileting, bathing. Ambulation: independent, cane Review of Systems Review of Systems Constitutional: Reports: see HPI. Denies: diaphoresis, weakness. EENTM: Reports: no symptoms. Cardiovascular: Denies: chest pain, orthopena. Respiratory: Denies: cough, orthopnea, sputum production. GI: Reports: no symptoms. Genitourinary: Reports: no symptoms. Musculoskeletal: Reports: muscle pain. Exam & Diagnostic Data Last 24 Hrs of Vital Signs/I&O Vital Signs Date Time Temp Pulse Resp B/P B/P Pulse O2 O2 Flow FiO2 Mean Ox Delivery Rate 08/27 1655 97.8 65 16 194/93 96 Room Air 08/27 1544 96 Room Air 08/27 1543 97.9 64 18 212/93 96 Room Air 08/27 1542 97.9 64 18 221/93 08/27 1436 98.0 82 18 188/87 97 Room Air 08/27 1203 98.2 70 19 172/74 98 Room Air 08/27 0953 97.9 72 20 178/78 97 Room Air Intake & Output 08/27 1600 / 0800 08/27 0000 Intake Total Output Total Balance Patient 155 lb Weight Weight Reported by Patient Measurement Method Physical Exam General Appearance Alert, Oriented X3, Cooperative Skin No Rashes HEENT Atraumatic Neck Supple Cardiovascular Normal S1, Normal S2, systolic murmur, ejection? Lungs clear ant feilds Abdomen Normal Bowel Sounds, Soft, No Tenderness Extremities No Cyanosis, No Edema Body Front and Back (Adult) 1) dialysis catheter, site clean no tenderness Last 24 Hrs of Labs/Jarod: Laboratory Tests 08/27/17 1115: Free T4 0.90, Total T3 0.65 L, TSH &T3 &Free T4 Intrp 10.700 H 08/27/17 1115: Anion Gap 20 H, Estimated GFR 7 L, BUN/Creatinine Ratio 5.7 L, Glucose 155 H , Calcium 9.0, Troponin I 0.07, CBC w Diff NO MAN DIFF REQ, RBC 2.91 L, MCV 104.4 H, MCH 34.4 H, MCHC 32.9 L, RDW 17.3 H, MPV 7.8, Gran % 72.4, Lymphocytes % 21.2, Monocytes % 5.5, Eosinophils % 0.5, Basophils % 0.4, Absolute Granulocytes 6.2, Absolute Lymphocytes 1.8, Absolute Monocytes 0.5, Absolute Eosinophils 0, Absolute Basophils 0 Microbiology 08/27 1705 STOOL: Clostridium difficile Toxin A & B - ORD Diagnostic Data EKG Results normal sinus rhythm, some LVH and no acute ST-T wave changes. Other Results XRY-THORACOLUMBAR SPINE IMPRESSION: The lucency through an anterior syndesmophyte at the T9-T10 level which was seen on the earlier CT scan is subtly appreciable by x-ray. There is diffuse osteopenia. Degenerative changes of the cervical, thoracic, and lumbar spine are seen with additional degenerative changes better shown CAT - CT CERV SPINE WO IV CONTRAST; CT HEAD WO IV CONTRAST; CT LUMB SPINE WO IV CONTRAST; CT THOR SPINE WO IV CONTRAST Cervical spine: 1. No evidence of fracture or traumatic subluxation. There is a moderate levoconvex cervical scoliosis and multilevel spondylosis. 2. There is moderate canal stenosis at C3-C4 and C4-C5 and fairly high-grade left-sided canal stenosis at C5-C6. If there are any symptoms of myelopathy, correlation with MRI of the cervical spine is suggested to assess the cord. Thoracic/lumbar spine: 1. Newly apparent lucency across an anterior/right lateral osteophyte/ syndesmophyte at T9-T10, and extending posteriorly to involve the right inferior endplate of T9, relative to a prior study of 08/07/2017, suggesting an acute/ subacute nondisplaced fracture. 2. Small bilateral pleural effusions as well as some scattered platelike and airspace opacification in the visualized lungs bilaterally, similar to 2017. Nonspecific mediastinal lymph nodes measuring up to 1 cm in short axis. 3. Atrophic kidneys with scattered calcifications and scattered bilateral oval lesions, incompletely assessed but stable. There is a dual-lumen right sided dialysis catheter extending into the right atrium. 4. Dilated aortic arch measuring up to 3.6 cm in diameter. Heavy vascular calcifications throughout the imaged chest, abdomen, and pelvis. Assessment/Plan Assessment: The patient is a 87-year-old gentleman with past medical history of ES RD on hemodialysis since 2018 Saturday and Saturday, moderate aortic stenosis, hypertension, hypothyroidism, on multiple TIAs in the past. The patient was brought in from [place] on 08/27 after a mechanical fall. Vitals on presentation BP elevated to 178/78 Pertinent labs on admission with/H 10/30.4, creatinine 7.2, and BUN 41, anion gap 20, GFR 7 Imaging findings see above In ED patient received morphine and IV Tylenol for pain relief and metoprolol 25 mg and losartan 25 mg by mouth for blood pressure control The patient is being admitted to general medicine floor and is being treated and evaluated for following conditions #Mechanical fall resulting in fracture of thoracic spine Most likely cause of fall was in dehydration versus generalized deconditioning -Monitor vitals -Check orthostatics -Gentle IV hydration -Adequate analgesia lidocaine patch, Tylenol IV, Percocet and IV morphine -Orthopedic evaluation -PT evaluation -Short-term rehabilitation on discharge #ESRD on hemodialysis Patient follows schedule of Saturday and Saturday -Plan for dialysis tomorrow -Nephrology consult -Continue sevelamer and sensipar #HX of Complicated bacteremia due to tunneled catheter sepsis with MSSA. currently being treated -Continue cefazoline 1.5gm with dialysis // -The course will finish on 09/05. #Diarrhea Reports ongoing diarrhea had 2 episodes of nonbloody diarrhea today before presenting Most likely secondary to antibiotic use -We will check C. difficile #History of hypertension Patient presented with elevated blood pressure and was persistently having higher blood pressure readings in the ED most likely secondary to pain received metoprolol 25 mg and losartan 25 -Most recent 170/80 -Continue losartan and amlodipine at home doses #Chronic medical conditions hypothyroidism, BPH, gout Continue levothyroxine tamsulosin and allopurinol #Renal dialysis diet/DVT prophylaxis with ALPS and subcutaneous heparin/full code As Ranked By This Provider Problem List: 1. Thoracic spine fracture Qualifiers Encounter type: initial encounter Thoracic vertebra fracture level: T9 Fracture type: closed Fracture morphology: other fracture Qualified Code: S22.078A - Other fracture of T9-T10 vertebra, initial encounter for closed fracture Core Measures/Misc (02/10) Acute Coronary Syndrome ACS Diagnosis: No Congestive Heart Failure Congestive Heart Failure Diagnosis No Cerebrovascular Accident CVA/TIA Diagnosis: No VTE (View Protocol) VTE Risk Factors Age>40 No Mechanical VTE Prophylaxis d/t N/A MechProphylax Ordered No VTE Pharm Prophylaxis d/t NA PharmProphylax ordered Sepsis (View protocol) Sepsis Present: No Marvin Senior 08/27/17 1706: Resident Review Statement Resident Statement: examined this patient, discussed with general internal medicine physician Other Findings: Patient is a 87-year-old male with past medical history of ESRD on hemodialysis( m/w/f) since 2007, moderate as, multiple TIAs, hypertension, hypothyroidism, multiple falls who was brought in by ambulance for a fall at the rehabilitation facility this morning. As per the facility patient attempted to go to the bathroom this morning by himself and had an unwitnessed fall on his way there. He felt lightheaded, dizzy, weak in his legs and try to grab the railing but was unable to do so. He fell down hitting the back of his head on the floor. He experienced occipital pain and mid back pain and cried for help. He denied any loss of consciousness, vision changes, headaches, chest pain, palpitations, nausea, vomiting, seizure- like activity, tongue bite, urinary and bowel incontinence. Patient reports that over the past few days he has been having multiple episodes of nonbloody diarrhea. Denies any recent travel, sick contacts, change in diet, other GI symptoms. Patient has been recently on antibiotics secondary to MSSA infection. His by mouth intake has been good lately. His vitals were significant for a blood pressure 178/78 EKG showed normal sinus rhythm, some LVH and no acute ST-T wave changes. Labs significant for hemoglobin of 10/30.4, BUN 41/creatinine 7.2, anion gap 20, GFR 7 troponin 0.07, low T3 [address] was negative for any acute changes Spine CT showed lucency across anterior/right lateral osteophyte/syndesmophyte at T9-T10 suggesting acute/subacute nondisplaced fracture of T T9/T10. Small bilateral pleural effusion and some airspace opacification seen in the lungs bilaterally.(old) Exam General: Awake, alert, oriented 3, in moderate distress HEENT; PERRLA, EOMI Chest: Dialysis port on right chest wall(clean), normal breath sounds CVS: S1 and S2 heard, systolic murmur Abdomen: Bowel sounds positive Extremities: Normal pulses, no edema Assessment and plan Fall likely secondary to dehydration History of MSSA bacteremia on cefazolin End-stage renal disease on dialysis Diarrhea Hypothyroidism Hypertension Plan Admit to [facility] Vitals per protocol Check orthostatics Hydration with gentle IV fluids at 75 cc an hour Continuous cefazolin with dialysis(09/05 is the last dose) Ruleout C. difficile Orthopedics was contacted by ED physician, conservative management. Patient will be provided a brace via biometrics Pain control with IV morphine 4 mg every 4 when necessary(please note patient has ESRD hydromorphone would be a better choice) PT consult Nephrology consult for dialysis tomorrow Continue Nephro-Tye, and Renvela Continue all other home medications DVT prophylaxis subcutaneous heparin Full code Renal dialysis diet Angel Pace MD 08/27/17 2116: Attending MD Review Statement Attending Statement Attending MD Statement: examined this patient, discuss w/resident/PA/LACING STRING CUTTER, agreed w/resident/PA/LACING STRING CUTTER, reviewed EMR data (avail) Attending Assessment/Plan: 87M PMH ESRD on hemodialysis since 2018 Saturday and Saturday, moderate aortic stenosis, hypertension, hypothyroidism, multiple TIAs, recently discharged from after treatment for sepsis secondary to mSSA infection of tunneled catheter, was at [facility] when he had a mechanical fall and complained of severe back pain, found to have thoracic spinal fracture. Patient complains only of pain that is relieved by Morphine, otherwise well. Will admit patient for neurosurgical input, PT eval, pain control, continue home medications, DVT PPx.
[2017-08-27 17:36] VITALS: BP 170/80
[2017-08-27 22:48] VITALS: BP 190/90
[2017-08-27 23:00] VITALS: BP 170/90
[2017-08-28 00:08] VITALS: BP 156/84
[2017-08-28 06:20] VITALS: BP 158/80
--- NOTE | 2017-08-28 08:37 | PN- Housestaff ---
See Addendum Quinton HENSON,[place] 08/28/17 0836: Subjective Follow-up For: Thoracic fracture Subjective: Patient seen and examined. On resting comfortably. Having breakfast. He seemed improved than yesterday. As per patient morphine is really helping with the pain. The patient was later evaluated by the team in the morning when patient complained of severe pain with minimal movement. Denies any fevers chills. Chest pain palpitations no bowel movement since admission Review of Systems Constitutional: Reports: see HPI. Objective Last 24 Hrs of Vital Signs/I&O Vital Signs Date Time Temp Pulse Resp B/P B/P Pulse O2 O2 Flow FiO2 Mean Ox Delivery Rate 08/28 09 98.4 75 20 158/80 08/28 0902 98.4 75 20 158/80 08/28 0620 98.4 75 20 158/80 95 Room Air / 0008 65 156/84 08/27 2300 170/90 08/27 2254 170/90 08/27 2248 98.0 66 20 190/90 95 Room Air / 1736 97.9 68 20 170/80 95 /03 1655 97.8 65 16 194/93 96 Room Air 08/27 1544 96 Room Air 08/27 1543 97.9 64 18 212/93 96 Room Air 04/ 1542 97.9 64 18 221/93 Intake & Output 08/28 1600 08/28 0800 08/28 0000 Intake Total 10 110 Output Total Balance 10 110 Intake, IV 10 10 Intake, Oral 100 Number 0 Bowel Movements Patient 156 lb 150 lb Weight Weight Bed scale Reported by Patient Measurement Method Physical Exam General Appearance: Alert, Oriented X3, Cooperative, Mild Distress Skin: No Rashes HEENT: Atraumatic Cardiovascular: Normal S1, Normal S2 Lungs: Clear to Auscultation Abdomen: Soft, No Tenderness Neurological: Normal Speech, Normal Tone, Sensation Intact, Cranial Nerves 3-12 NL Extremities: No Edema Current Medications: Current Medications Sig/Harmeet Start time Last Medication Dose Route Stop Time Status Admin Allopurinol 100 MG DAILY 08/28 1000 AC 08/28 PO 0902 Amlodipine Besylate 10 MG DAILY 08/27 1449 AC 08/28 PO 0902 Cefazolin Sodium 1,000 MG 08/28 1000 AC 08/28 IV 0901 Cinacalcet 30 MG DAILY 08/27 1619 AC 08/28 PO 0901 Diphenhydramine HCl 1 ZHANNA Q6 PRN 08/28 1030 AC TOP Diphenhydramine HCl 1 ZHANNA ONCE ONE 08/28 0200 DC 08/28 TOP 08/28 0201 0358 Epoetin Bolivar 3,000 UNIT Saturday .. 08/28 1230 AC IV Epoetin Bolivar 2,000 UNIT Saturday .. 08/28 1230 AC IV Heparin Sodium 5,000 UNIT Q8 08/27 1647 AC 08/28 (Porcine) SC 0559 Ketorolac 15 MG Q4-6 PRN 08/28 1030 AC 08/28 Tromethamine IV 1028 Latanoprost 1 GTT AT BEDTIME 08/27 2200 AC 08/27 OPH 2028 Levothyroxine Sodium 0.2 MG DAILY AC 08/29 0700 AC PO Levothyroxine Sodium 0.175 MG DAILY AC 08/27 1450 DC 08/27 PO 1542 Losartan Potassium 25 MG ONCE ONE 08/27 2100 DC 08/27 PO 08/27 2101 2254 Losartan Potassium 25 MG ONCE ONE 08/27 1500 DC 04 PO 08/27 1501 1542 Metoprolol Succinate 25 MG ONCE ONE 08/27 1515 DC 08/27 PO 08/27 1516 1542 Metoprolol Tartrate 25 MG DAILY 08/27 1450 CAN PO Morphine Sulfate 2 MG Q4P PRN 08/28 1030 AC IV Morphine Sulfate 4 MG Q4P PRN 08/27 1900 DC 08/28 IV 0919 Morphine Sulfate 2 MG Q4P PRN 08/27 1700 DC IV Multivitamins 1 TAB DAILY 08/28 1000 AC 08/28 PO 0902 Paricalcitol 5 MCG Saturday .. 08/28 1230 AC IV Sevelamer Carbonate 800 MG WITH MEALS 08/27 1700 AC 08/28 PO 0853 Sodium Chloride 1,000 ML Q13H 08/27 1715 DC 08/27 IV 1837 Tamsulosin HCl 0.4 MG DAILY 08/27 1450 AC 08/28 PO 0902 Trazodone HCl 50 MG QPM 08/27 2200 AC 08/27 PO 202 Last 24 Hrs of Lab/Jarod Results Last 24 Hrs of Labs/Mics: Laboratory Tests 08/28/17 1230: Anion Gap 19 H, Estimated GFR 6 L, BUN/Creatinine Ratio 5.8 L, Calcium 7.8 L , Phosphorus 6.0 H, Magnesium 1.2 L, Albumin 3.4 L, CBC w Diff NO MAN DIFF REQ, RBC 2.66 L, MCV 104.5 H, MCH 34.4 H, MCHC 32.9 L, RDW 17.5 H, MPV 7.9, Gran % 66.3, Lymphocytes % 23.3, Monocytes % 8.0, Eosinophils % 2.0, Basophils % 0.4, Absolute Granulocytes 4.5, Absolute Lymphocytes 1.6, Absolute Monocytes 0.5 , Absolute Eosinophils 0.1, Absolute Basophils 0 Microbiology 08/27 1705 STOOL: Clostridium difficile Toxin A & B - CAN Cancelled: SPECIMEN NOT RECEIVED IN LABORATORY Assessment/Plan Assessment: The patient is a 87-year-old gentleman with past medical history of ES RD on hemodialysis since 2018 Saturday and Saturday, moderate aortic stenosis, hypertension, hypothyroidism, on multiple TIAs in the past. The patient was brought in from [place] on 08/27 after a mechanical fall. Vitals on presentation BP elevated to 178/78 Pertinent labs on admission with/H 03/25.4, creatinine 7.2, and BUN 41, anion gap 20, GFR 7 Imaging findings significant for thoracic fracture T10 He is currently being treated evaluated for following conditions #Mechanical fall resulting in fracture of thoracic spine Most likely cause of fall was in dehydration versus generalized deconditioning. There was no neurological deficit on examination -Adequate analgesia lidocaine patch, Tylenol IV, Percocet and IV morphine. We are going to decrease her dose of IV morphineh and try IV Toradol -Patient has been evaluated by orthopedics who recommended conservative management there is no role of IR or surgical intervention. -PT evaluation, Short-term rehabilitation on discharge #ESRD on hemodialysis Patient follows schedule of Saturday and Saturday -Patient is going to be hemodialyzed today next dialysis will be on Wednesday 08/30 -Continue sevelamer and sensipar #HX of Complicated bacteremia due to tunneled catheter sepsis with MSSA. currently being treated -Continue cefazoline 1.5gm with dialysis M/W/F -The course was finished on 09/05. #Diarrhea Most likely secondary to antibiotic use -We will check C. difficile -No bowel movement since admission #History of hypertension Patient presented with elevated blood pressure and was persistently having higher blood pressure readings in the ED most likely secondary to pain received metoprolol 25 mg and losartan 25 -Most recent 170/80 -Continue losartan and amlodipine at home doses #Chronic medical conditions hypothyroidism, BPH, gout Continue levothyroxine tamsulosin and allopurinol #Renal dialysis diet/DVT prophylaxis with ALPS and subcutaneous heparin/full code Problem List: 1. Thoracic spine fracture Pain Ratin Pain Location: back Pain Goal: Pain 4 or less Pain Plan: prn Tomorrow's Labs & Rationales: none labs only with gwen Haile MD,Aure[place]ongreza 08/28/17 1156: Attending MD Review Statement Attending Statement Attending MD Statement: examined this patient, discuss w/resident/PA/MACHINE CANDLE MOLDER, agreed w/resident/PA/MACHINE CANDLE MOLDER, reviewed EMR data (avail), discussed with nursing, discussed with case mgmt, amended to note Attending Assessment/Plan: Patient seen and examined. Continues to complain of back pain. Somewhat relieved with analgesic regimen and rest but aggravated with minimal movement. He is afebrile. He is hemodynamically stable. He is scheduled for hemodialysis today. Recommendations: -Optimize pain control. Begin patient on IV Toradol in addition to morphine for breakthrough pain. Due to his advanced age would recommend reducing dose of morphine. -Awaiting evaluation by the orthopedic service. Physical therapy consultation following orthopedic evaluation. -No need to repeat CBCs daily he shows no evidence of an active infection. -Serum chemistry will be ordered as needed by the dialysis service. -Continue antibiotic therapy with IV cefazolin for his previous MSSA line sepsis.
--- NOTE | 2017-08-28 13:13 | PN- Orthopedic ---
Surgical Brief Attending Note Brief Attending Note: The patient is an 87-year-old male status post fall was admitted with complaints of intractable low back pain and mid back pain. On physical exam patient's awake alert. Examination of the low back and mid back reveals tennis palpation throughout the entire thoracolumbar spine. He has moderate spinal muscular's chair spasm. There are no open wounds or pressure sores. Bilateral upper extremity exam is within normal limits bilateral lower extremity exam is within normal limits. Both bilateral and low upper and lower extremities are neurovascularly intact. He has symmetric reflexes. CT scan of the thoracic spine shows a shortened fracture subacute to acute of a T10 and endplate and osteophyte. Cervical spine shows significant central stenosis. Assessment 87-year-old male with back pain. No surgical intervention needed. No need for interventional radiology at this point. Control patient's pain and continue with physical therapy.
[2017-08-28 13:31] LABS: ABSOLUTE BASOPHIL COUNT 0 /CUMM (0.0-0.2); ABSOLUTE EOSINOPHIL COUNT 0.1 /CUMM (0.0-0.7); ABSOLUTE GRANULOCYTE CT 4.5 /CUMM (1.4-6.5); ABSOLUTE LYMPH COUNT 1.6 /CUMM (1.2-3.4); ABSOLUTE MONOCYTE COUNT 0.5 /CUMM (0.10-0.60); BASOPHIL % 0.4 % (0.0-2.0); GRANULOCYTE % 66.3 % (42.2-75.2); HEMATOCRIT 27.8 % (42-52); MEAN CORPUSCULAR HGB 34.4 PG (27.0-31.0); MEAN CORPUSCULAR HGB CONC 32.9 G/DL (33.0-37.0); MEAN CORPUSCULAR VOLUME 104.5 FL (80.0-94.0); MEAN PLATELET VOLUME 7.9 FL (7.4-10.4); PLATELET COUNT 156 /CUMM (130-400); RBC DISTRIBUTION WIDTH 17.5 % (11.5-14.5); RED BLOOD CELL CT 2.66 /CUMM (4.70-6.10); WHITE BLOOD CELL COUNT 6.8 /CUMM (4.8-10.8)
--- NOTE | 2017-08-28 13:52 | Cons- Nephrology ---
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 He now comes in because of a mechanical fall at his [facility] where he was for short-term rehabilitation. He has been complaining of back pain. Thoracic/lumbar spine films suggest a possible acute/subacute nondisplaced fracture involving the right inferior endplate of T9. Past medical history as noted above. He is normally dialyzed on Wednesdays and Fridays and has been on dialysis since 2009. Medications: See below Allergies no known drug allergies Family history positive for cardiac disease and CVA but negative for any renal disease Social history he used to work at the [employer] and retired many years ago. He neither smokes nor drinks. Allergies/Medications Allergies: Coded Allergies: lactose (Severe, DIARRHEA 08/11/17) Home Med List: Allopurinol 100 MG TABLET 1 TAB PO DAILY GOUT (Reported) Amlodipine Besylate 10 MG TABLET 1 TAB PO DAILY HEART (Reported) Cefazolin (Cefazolin 1 Gm-D5w Bag) 1 GRAM/50 ML PIGGYBACK 1.5 Vial IV Saturday blood infection Cinacalcet HCl (Sensipar) 30 MG TABLET 1 TAB PO DAILY KIDNEY DISEASE ( Reported) Cyanocobalamin (Vitamin B-12) 1,000 MCG TABLET 1 TAB PO DAILY VITAMIN SUPPORT (Reported) Hydroxyzine Hydrochloride (Atarax) 25 MG TABLET 1 TAB PO BID PRN itching ( Reported) Levothyroxine Sodium (Levoxyl) 175 MCG TABLET 1 TAB PO DAILY AC THYROID ( Reported) Metoprolol Succinate 25 MG TAB.ER.24H 1 TAB PO DAILY HEART/BP (Reported) Nephro-Vitamins (Nephro-Tye Tablet) (Unknown Strength) TABLET 1 TAB PO DAILY SUPPLEMENT (Reported) Pantoprazole Sodium 20 MG TABLET.DR 1 TAB PO DAILY GI (Reported) Sevelamer Carbonate (Renvela) 800 MG TABLET 1 TAB PO WITH MEALS kidney ( Reported) Tamsulosin HCl (Flomax) 0.4 MG CAP.ER.24H 1 CAP PO DAILY PROSTATE (Reported) Travoprost (Travatan Z) 5 ML DROPS 1 GTT OPH QPM BOTH EYES (Reported) Trazodone HCl 50 MG TABLET 1 TAB PO QPM SLEEP (Reported) Valsartan (Diovan) 80 MG TABLET 1 TAB PO DAILY HEART (Reported) Review of Systems Review of Systems: Constitutional: Reports: see HPI. Denies: diaphoresis, weakness. EENTM: Reports: no symptoms. Cardiovascular: Denies: chest pain, orthopena. Respiratory: Denies: cough, orthopnea, sputum production. GI: Reports: no symptoms. Genitourinary: Reports: no symptoms. Musculoskeletal: Reports: muscle pain. Past History Travel History Traveled to [place] past 21 day No Medical History Blood Transfusion Hx: No Neurological: TIA, status post recent subdural hematomas EENT: NONE Cardiovascular: diastolic CHF, hypertension, hyperlipidemia Respiratory: NONE Gastrointestinal: GERD Hepatic: NONE Renal: KIDNEY FAILURE DIALYSIS M,W,F Musculoskeletal: gout Psychiatric: NONE Endocrine: hypothyroidism Blood Disorders: NONE Cancer(s): prostate cancer TRAVEL ATTENDANTS/Reproductive: NONE Other Medical Hx: herpes zoster, gout, subdural hematoma Surgical History Surgical History: appendectomy, cholecystectomy, exploratory laparotomy secondary to bowel obstruction status post left hip ORIF February 2017 Family History Relations & Conditions If Any: Relation not specified for: *No pertinent family history Psychosocial History Where Do You Live? Acute Rehab Who Do You Live With? spouse, child Services at Home: Nursing Smoking Status: Never Smoked ETOH Use: denies use Illicit Drug Use: denies illicit drug use Functional Ability ADLs Independent: dressing, eating, toileting, bathing. Ambulation: independent, cane Exam & Diagnostic Data Vital Signs and I&O Vital Signs Date Time Temp Pulse Resp B/P B/P Pulse O2 O2 Flow FiO2 Mean Ox Delivery Rate 08/28 0902 98.4 75 20 158/80 08/28 0902 98.4 75 20 158/80 08/28 0620 98.4 75 20 158/80 95 Room Air 08/28 0008 65 156/84 08/27 2300 170/90 08/27 2254 170/90 08/27 2248 98.0 66 20 190/90 95 Room Air 04/03 1736 97.9 68 20 170/80 95 04/03 1655 97.8 65 16 194/93 96 Room Air / 1544 96 Room Air 04/ 1543 97.9 64 18 212/93 96 Room Air 04/ 1542 97.9 64 18 221/93 04/ 1436 98.0 82 18 188/87 97 Room Air Intake & Output 08/28 1600 08/28 04008/26 0400 Intake Total 10 110 Output Total Balance 10 110 Intake, IV 10 10 Intake, Oral 100 Number 0 Bowel Movements Patient 156 lb 150 lb 155 lb Weight Weight Bed scale Reported by Patient Reported by Patient Measurement Method Physical Exam: General: Well-developed elderly white male in no acute distress Skin: No rash or jaundice HEENT: Conjunctivae pink, sclerae anicteric, mucous membranes moist Neck: Without masses or thyromegaly, no supraclavicular or cervical adenopathy Chest: Few bibasilar rales Heart: Regular rate and rhythm without S3 or rub; there is a right IJ tunneled dialysis catheter in place Abdomen: Soft and nontender without palpable masses or organomegaly Extremities: Without cyanosis or edema; the left upper arm AVF is without bruit Neuro: No focal findings, no asterixis or myoclonus Assessment/Plan Assessment/Recommendations Assessment: 87-year-old gentleman with dialysis-dependent end-stage renal disease who suffered a mechanical fall and is complaining of back pain. Orthopedic surgery has seen the patient and does not feel that any surgical intervention is indicated. He is due for his regularly scheduled dialysis today. Recommendations: 1. Hemodialysis today in progress with ultrafiltration to his target weight over 3 hours as tolerated 2. Continue outpatient medications and diet 3. Pain control 4. Physical therapy 5. Next hemodialysis will be scheduled for Wednesday 08/30 Thank you. Will follow along with you while he is in the hospital.
[2017-08-28 15:56] VITALS: BP 130/70
[2017-08-28] MEDS ORDERED: PROCRIT2000 UNIT/ IV (17:18)
[2017-08-28] MEDS ORDERED: MORPHINE SU4 MG/1 M2 IV (17:18)
[2017-08-28] MEDS ORDERED: CEFAZOLIN1 GM/50 M1 IV (17:18)
[2017-08-28] MEDS ORDERED: ZEMPLAR5 MCG/1 ML IV (17:18)
[2017-08-28] MEDS ORDERED: PROCRIT3000 UNIT/ IV (17:18)
[2017-08-28] MEDS ORDERED: KETOROLAC15 MG/1 M1 IV (17:18)
[2017-08-28] MEDS ORDERED: TYLENOL EXTRA500 M2 PO (17:18)
--- NOTE | 2017-08-28 17:21 | Patient Discharge Instructions ---
Discharge Instructions General Discharge Information You were seen/treated for: Fracture of thoracic spine Watch for these problems: Fever, shortness of breath, urinary incontinence, stool incontinence. Chest pain palpitations Special Instructions: -Please follow-up with your primary care doctor after discharge -Please follow-up with orthopedics within 1 month of discharge -Please continue your dialysis schedule -Please continue antibiotic therapy along with dialysis -Your antibiotic course will finish on 09/05 Diet Recommended Diet: Renal Dialysis Acute Coronary Syndrome Inclusion Criteria At DC or during hospital stay patient has or had the following: ACS DIAGNOSIS No Discharge Core Measures Meds if any: Prescribed or Continued at Discharge Meds if any: NOT Prescribed or Continued at Discharge Congestive Heart Failure Inclusion Criteria At DC or during hospital stay patient has or had the following: CHF DIAGNOSIS No Discharge Core Measures Meds if any: Prescribed or Continued at Discharge Meds if any: NOT Prescribed or Continued at Discharge Cerebrovascular accident Inclusion Criteria At DC or during hospital stay patient has or had the following: CVA/TIA Diagnosis No Discharge Core Measures Meds if any: Prescribed or Continued at Discharge Meds if any: NOT Prescribed or Continued at Discharge Venous thromboembolism Inclusion Criteria VTE Diagnosis No VTE Type NONE VTE Confirmed by (Test) NONE Discharge Core Measures - Per Current guidelines, there needs to be overlap - treatment for the first 5 days of Warfarin therapy. - If discharged on Warfarin prior to 5 days of - overlap therapy, the patient will need to be - assessed for post discharge needs including - *Post discharge parental anticoagulation - *Warfarin and/or parental anticoagulation education - *Follow up date to check INR post discharge At least 5 days overlap therapy as Inpatient No Meds if any: Prescribed or Continued at Discharge Note: Overlap Therapy is Warfarin and Anticoagulant Meds if any: NOT Prescribed or Continued at Discharge
[2017-08-28 22:17] VITALS: BP 130/80
--- NOTE | 2017-08-29 07:21 | PN- Housestaff ---
Quinton HENSON,[facility] 08/29/17 0721: Subjective Follow-up For: Thoracic spine fracture ESRD on hemodialysis Subjective: Patient seen and examined. Resting comfortably. Complains of of pain in the back which is being controlled with pain medication. No overnight acute events Yesterday patient's site of dialysis catheter was maintained. INR was contacted and at the recommendation we applied pressure and changed the dressing, and the bleeding stopped. Overnight there was oozing from the catheter site, the dressing was reinforced by pressure was not applied. In the morning I reached out to IR, he believes it is most likely bleeding from the catheter after dialysis is because of heparin. Pressure should be applied at the site. However the patient is going to go down to IR to be evaluated if he needs a stitch or not. Will get in touch with IR again for further recommendations. Review of Systems Constitutional: Reports: see HPI. Objective Last 24 Hrs of Vital Signs/I&O Vital Signs Date Time Temp Pulse Resp B/P B/P Pulse O2 O2 Flow FiO2 Mean Ox Delivery Rate 08/29 08 98.0 76 20 122/72 08/29 0810 98.0 76 20 122/72 08/29 0728 98.0 76 20 122/72 96 Room Air 08/28 2217 98.5 68 20 130/80 96 Room Air 08/28 1556 98.2 72 20 130/70 95 Room Air Intake & Output 08/29 1600 08/29 0800 08/29 0000 Intake Total 130 140 Output Total Balance 130 140 Intake, IV 10 20 Intake, Oral 120 120 Patient 145 lb Weight Physical Exam General Appearance: Alert, Oriented X3, No Acute Distress Cardiovascular: Normal S1, Normal S2 Lungs: Clear to Auscultation Abdomen: Normal Bowel Sounds, Soft Extremities: No Cyanosis Current Medications: Current Medications Sig/Harmeet Start time Last Medication Dose Route Stop Time Status Admin Allopurinol 100 MG DAILY 08/28 1000 AC 08/29 PO 0810 Amlodipine Besylate 10 MG DAILY 08/27 1449 AC 08/29 PO 0810 Cefazolin Sodium 1,000 MG 08/28 1000 AC 08/28 IV 0901 Cinacalcet 30 MG DAILY 08/27 1619 AC 08/29 PO 0810 Diphenhydramine HCl 1 ZHANNA Q6 PRN 08/28 1030 AC 08/29 TOP 0901 Epoetin Bolivar 3,000 UNIT Saturday .. 08/28 1230 AC IV Epoetin Bolivar 2,000 UNIT Saturday .. 08/28 1230 AC IV Heparin Sodium 5,000 UNIT Q8 08/27 1647 AC 08/29 (Porcine) SC 0517 Ketorolac 15 MG Q4-6 PRN 08/28 1030 AC 08/29 Tromethamine IV 0900 Latanoprost 1 GTT AT BEDTIME 08/27 2200 AC 08/28 OPH 203 Levothyroxine Sodium 0.2 MG DAILY AC 08/29 0700 AC 08/29 PO 0516 Morphine Sulfate 2 MG Q4P PRN 08/28 1030 DC 08/29 IV 0900 Multivitamins 1 TAB DAILY 08/28 1000 AC 08/29 PO 0810 Paricalcitol 5 MCG Saturday .. 08/28 1230 AC IV Sevelamer Carbonate 800 MG WITH MEALS 08/27 1700 AC 08/29 PO 0810 Tamsulosin HCl 0.4 MG DAILY 08/27 1450 AC 08/29 PO 0810 Tramadol HCl 50 MG Q6 PRN 08/29 1015 AC PO Trazodone HCl 50 MG QPM 08/27 2200 AC 08/28 PO 2031 Last 24 Hrs of Lab/Jarod Results Last 24 Hrs of Labs/Mics: Laboratory Tests 08/28/17 1520: 08/28/17 1230: Anion Gap 19 H, Estimated GFR 6 L, BUN/Creatinine Ratio 5.8 L, Calcium 7.8 L , Phosphorus 6.0 H, Magnesium 1.2 L, Albumin 3.4 L, CBC w Diff NO MAN DIFF REQ, RBC 2.66 L, MCV 104.5 H, MCH 34.4 H, MCHC 32.9 L, RDW 17.5 H, MPV 7.9, Gran % 66.3, Lymphocytes % 23.3, Monocytes % 8.0, Eosinophils % 2.0, Basophils % 0.4, Absolute Granulocytes 4.5, Absolute Lymphocytes 1.6, Absolute Monocytes 0.5 , Absolute Eosinophils 0.1, Absolute Basophils 0 Assessment/Plan Assessment: The patient is a 87-year-old gentleman with past medical history of ES RD on hemodialysis since 2018 Saturday and Saturday, moderate aortic stenosis, hypertension, hypothyroidism, on multiple TIAs in the past. The patient was brought in from [place] on 08/27 after a mechanical fall. Vitals on presentation BP elevated to 178/78 Pertinent labs on admission with/H 10/30.4, creatinine 7.2, and BUN 41, anion gap 20, GFR 7 Imaging findings significant for thoracic fracture T10 He is currently being treated evaluated for following conditions #Mechanical fall resulting in fracture of thoracic spine Most likely cause of fall was in dehydration versus generalized deconditioning. There was no neurological deficit on examination -Adequate analgesia lidocaine patch, Tylenol IV, Percocet and IV morphine. We are going to decrease her dose of IV morphineh and try IV Toradol -Patient has been evaluated by orthopedics who recommended conservative management there is no role of IR or surgical intervention. -PT evaluation, Short-term rehabilitation on discharge #Bleeding from the tunneled dialysis catheter Patient has been having complaint of bleeding from the tunneled dialysis catheter after dialysis every time for past few dialysis. Yesterday patient was applied and dressing was changed. Overnight patient continued to have oozing from the catheter site. Dressing was reinforced higher pressure was not applied. IR has been contacted in the morning. They do not believe that it needs to be a stitch placed to his control the bleeding just application of pressure will be enough. Most likely cause of the bleeding is use of heparin in dialysis. Nephrology service has been contacted and will also be informed. #ESRD on hemodialysis Patient follows schedule of Saturday and Saturday -Patient is going to be hemodialyzed on Wednesday 08/30 -Continue sevelamer, sensipar -Epogen alpha 5000 units, paricalcitol with HD #HX of Complicated bacteremia due to tunneled catheter sepsis with MSSA. currently being treated -Continue cefazoline 1.5gm with dialysis M/W/ -The course was finished on 09/05. #Diarrhea Most likely secondary to antibiotic use -C. difficile has not been sent since the patient has not had any loose bowel movement since his admission #History of hypertension Patient presented with elevated blood pressure and was persistently having higher blood pressure readings in the ED most likely secondary to pain received metoprolol 25 mg and losartan 25 -Continue losartan and amlodipine at home doses -BP pressure in acceptable rang #Chronic medical conditions hypothyroidism, BPH, gout Continue levothyroxine tamsulosin and allopurinol #Renal dialysis diet/DVT prophylaxis with ALPS and subcutaneous heparin/full code Problem List: 1. ESRD (end stage renal disease) on dialysis Pain Ratin Pain Location: back Pain Goal: Pain 4 or less Pain Plan: prn Tomorrow's Labs & Rationales: with dialysis Stephenie Haile MD 08/29/17 1251: Attending MD Review Statement Attending Statement Attending MD Statement: examined this patient, discuss w/resident/PA/LINUX ENGINEER, agreed w/resident/PA/LINUX ENGINEER, reviewed EMR data (avail), discussed with nursing, discussed with case mgmt, amended to note Attending Assessment/Plan: Patient seen and examined. Resting comfortably. Not in any acute distress. Reports that her back pain has improved significantly. Patient was seen by the orthopedic service and conservative management is recommended. He was bleeding from dialysis access overnight. He has been evaluated by the IR service and bleeding controlled. He is medically stable to be discharged. He will be discharged from the pain regimen for his back pain and will require physical therapy. He is to continue his antibiotic therapy for the history of MSSA infection of his dialysis access site.
[2017-08-29 07:28] VITALS: BP 122/72
--- NOTE | 2017-08-29 09:56 | Discharge Summary ---
Visit Information Visit Dates Admission Date: 08/27/17 Discharge Date: 08/31/2017 Hospital Course Course Attending Physician: Stephenie Haile MD Primary Care Physician: Reggie Connlel MD Hospital Course: The patient is a 87-year-old gentleman with past medical history of ESRD on hemodialysis since 2017 and Saturday, moderate aortic stenosis, hypertension, hypothyroidism, multiple TIAs in the past,was brought in from [place] on 08/27 after a mechanical fall. CT scan of the thoracic spine showed an acute/subacute nondisplaced fracture involving the right inferior endplate of T9. Cervical spine showed significant central stenosis. Patient was treated in the hospital for #Mechanical fall resulting in fracture of thoracic spine: Fall was likely mechanical and there was no neurological Deficits on examination. Pain was controlled with lidocaine patch, Tylenol, Percocet and IV morphine. Patient was evaluated by orthopedics who recommended conservative management and no surgical intervention. Physical therapy worked with patient while in the hospital. He was discharged to short-term rehabilitation with outpatient orthopedic follow- up. #ESRD on hemodialysis: Patient normally receives dialysis on Saturday// Saturday. He received dialysis while in the hospital. He was continued on Nephro -Tye,sevelamer and sensipar.Next hemodialysis will be scheduled for Wednesday 08/30. #HX of Complicated bacteremia due to tunneled catheter sepsis with MSSA: The patient had a hh history of MSSA bacteremia due to dialysis catheter infection in the past and was continued on IV cefazolin which was dosed with dialysis. He had a new tunneled IJ catheter on his right chest catheter put in at last admission which was used for dialysis. Postdialysis patient had bleeding from the catheter site.IR was consulted, they did not feel the need to put a stitch to stop the bleeding,dressing was reinforced and pressure was applied and the bleeding stopped. There was no signs of infection at this admission. #Diarrhea: Diarrhea was present at admission, however C. difficile test was canceled that patient had no diarrhea during the hospital stay. Continued all other home medications DVT prophylaxis subcutaneous heparin Full code Renal dialysis diet Complications: Bleeding form Eliu cath Allergies: Coded Allergies: lactose (Severe, DIARRHEA 08/11/17) Disposition Summary Disposition Principal Diagnosis: #Mechanical fall resulting in fracture of thoracic spine Additional Diagnosis: #ESRD on hemodialysis #HX of Complicated bacteremia due to tunneled catheter sepsis with MSSA Discharge Disposition: SNF Discharge Instructions General Discharge Information Code Status: Full Code Patient's Diet: Renal dialysis diet Patient's Activity: as tolerated Follow-Up Instructions/Appts: -Please follow-up with your primary care doctor after discharge -Please follow-up with orthopedics within 1 month of discharge -Please continue your dialysis schedule -Please continue antibiotic therapy along with dialysis -Your Cefazolin course will finish on 09/05 Medications at Discharge Discharge Medications: Continue taking these medications: Cinacalcet HCl (Sensipar) 30 MG TABLET 1 Tablet ORAL DAILY Comments: Last Taken: 08/31/17 Time: 0900 AM Allopurinol (Allopurinol) 100 MG TABLET 1 Tablet ORAL DAILY Comments: Last Taken: 08/31/17 Time: 0900 AM Sevelamer Carbonate (Renvela) 800 MG TABLET 1 Tablet ORAL WITH MEALS Comments: Last Taken: 08/31/17 Time: 0900 AM Tamsulosin HCl (Flomax) 0.4 MG CAP.ER.24H 1 Capsule ORAL DAILY Comments: Last Taken: 08/31/17 Time: 0900 AM Metoprolol Succinate (Metoprolol Succinate) 25 MG TAB.ER.24H 1 Tablet ORAL DAILY Comments: DID NOT TAKE IN THE HOSPITAL Nephro-Vitamins (Nephro-Tye Tablet) (Unknown Strength) TABLET 1 Tablet ORAL DAILY Comments: Last Taken: 08/31/17 Time: 0900 AM Travoprost (Travatan Z) 5 ML DROPS 1 Drop In the eye Every night Comments: NOT GIVEN IN THE HOSPITAL Hydroxyzine Hydrochloride (Atarax) 25 MG TABLET 1 Tablet ORAL TWICE DAILY as needed for itching Comments: DID NOT ADMINISTER IN HOSPITAL Valsartan (Diovan) 80 MG TABLET 1 Tablet ORAL DAILY Comments: DID NOT RECEIVE IN HOSPITAL Pantoprazole Sodium (Pantoprazole Sodium) 20 MG TABLET.DR 1 Tablet ORAL DAILY Comments: NOT GIVEN IN THE HOSPITAL Amlodipine Besylate (Amlodipine Besylate) 10 MG TABLET 1 Tablet ORAL DAILY Comments: Last Taken: 08/31/17 Time: 0900 AM Cyanocobalamin (Vitamin B-12) 1,000 MCG TABLET 1 Tablet ORAL DAILY Comments: DID NOT ADMINISTER IN HOSPITAL Levothyroxine Sodium (Levoxyl) 175 MCG TABLET 1 Tablet ORAL DAILY BEFORE BREAKFAST Comments: Last Taken: 08/31/17 Time: 630 AM Start taking the following new medications: Tramadol HCl (Ultram) 50 MG TABLET 1 Tablet ORAL EVERY 12 HOURS as needed for PAIN SCALE 5-10 Qty = 90 No Refills Comments: Last Taken:08/29/17 Time:1600 Epoetin Bolivar (Procrit) 3,000 UNIT/ML VIAL 1 VIAL INTRAVEN SATURDAY, SATURDAY AND SATURDAY as needed for WITH HD Qty = 30 No Refills Epoetin Bolivar (Procrit) 2,000 UNIT/ML VIAL 1 VIAL INTRAVEN SATURDAY, SATURDAY AND SATURDAY as needed for WITH HD Qty = 30 No Refills Paricalcitol (Zemplar) 5 MCG/ML VIAL 1 VIAL INTRAVEN SATURDAY, SATURDAY AND SATURDAY as needed for WITH HD Qty = 30 No Refills Acetaminophen (Tylenol Extra Strength) 500 MG TABLET 1 Tablet ORAL EVERY 8 HOURS as needed for PAIN SCALE 1-5 Qty = 10 No Refills Comments: HAS NOT BEEN ADMINISTERED IN HOSPITAL The following medications have been changed: Old: Trazodone HCl (Trazodone HCl) 50 MG TABLET 1 Tablet ORAL Every night New: Trazodone HCl (Trazodone HCl) 50 MG TABLET 1 Tablet ORAL Every night as needed for INSOMIA Qty = 20 Instructions: HOLD FOR CONFUSION Comments: Last Taken: 08/29/17 Time: 21:15 PM Old: Cefazolin (Cefazolin 1 Gm-D5w Bag) 1 GRAM/50 ML PIGGYBACK 1.5 Vial INTRAVEN SATURDAY, SATURDAY AND SATURDAY Qty = 12 New: Cefazolin (Cefazolin 1 Gm-D5w Bag) 1 GRAM/50 ML PIGGYBACK 1.5 Vial INTRAVEN SATURDAY, SATURDAY AND SATURDAY Qty = 3 Instructions: STOP ON 09/05. Copies To: Hector HENSON,Dominguez Mercedes; Shelbi HENSON,Dennis Martínez
[2017-08-29] MEDS ORDERED: IBUPROFEN400 M1 PO (10:05)
[2017-08-29] MEDS ORDERED: ULTRAM50 M1 PO (10:05)
--- NOTE | 2017-08-29 11:09 | Event Note ---
Event Note Event Note: Patient has been having complaint of bleeding from the tunneled dialysis catheter after dialysis every time for past few dialysis. Yesterday patient was applied and dressing was changed. Overnight patient continued to have oozing from the catheter site. Dressing was reinforced higher pressure was not applied. IR has been contacted in the morning. They do not believe that it needs to be a stitch placed to his control the bleeding just application of pressure will be enough. Most likely cause of the bleeding is use of heparin in dialysis. Nephrology service has been contacted. I talked to Dominguez Young MD and informed him of current situation. The patient lost his dialysis spot for tomorrow. Hence he will be staying in the hospital, he will get dialysis in the morning and will be discharged to [place]
[2017-08-29 15:28] VITALS: BP 130/70
--- NOTE | 2017-08-29 17:07 | PN- Nephrology ---
Assessment/Plan Nephrology Assessment: 1. ESRD 2. Nondisplaced fracture T9 following mechanical fall 3. Bruising from dialysis catheter site yesterday with no clear-cut etiology 4. Other comorbidities as noted Suggestion: 1. Hemodialysis scheduled for tomorrow. He receives no heparin with his dialysis session and his dialysis catheter has not been packed with heparin as an outpatient 2. Physical therapy/mobilize/short term rehabilitation Subjective Subjective: Patient feels no different today. He continues to have a multitude of somatic complaints which has also in general been true as an outpatient. There was a significant amount of oozing from his dialysis catheter insertion site after dialysis yesterday which responded only to prolong compression. Evaluated by IR who did not feel that suturing or catheter manipulation/replacement was necessary. Labs reviewed. Dialysis clearance adequate as measured by a URR of 70% yesterday. Objective Vital Signs and I&Os Vital Signs Date Time Temp Pulse Resp B/P B/P Pulse O2 O2 Flow FiO2 Mean Ox Delivery Rate 08/29 1528 98.2 64 20 130/70 95 08/29 0810 98.0 76 20 122/72 08/29 0810 98.0 76 20 122/72 08/29 0728 98.0 76 20 122/72 96 Room Air 08/28 2217 98.5 68 20 130/80 96 Room Air Intake & Output 08/29 0400 08/28 1600 08/28 0400 08/27 1600 08/27 0400 Intake Total 870 140 10 110 Output Total Balance 870 140 10 110 Intake, IV 10 20 10 10 Intake, Oral 860 120 100 Number 0 Bowel Movements Patient 145 lb 156 lb 150 lb 155 lb Weight Weight Bed scale Reported by Patient Reported by Patient Measurement Method Physical Exam: General: Well-developed elderly white male in no acute distress Skin: No rash or jaundice HEENT: Conjunctivae pink, sclerae anicteric, mucous membranes moist Neck: Without masses or thyromegaly, no supraclavicular or cervical adenopathy Chest: Few bibasilar rales Heart: Regular rate and rhythm without S3 or rub; there is a right IJ tunneled dialysis catheter in place Abdomen: Soft and nontender without palpable masses or organomegaly Extremities: Without cyanosis or edema; the left upper arm AVF is without bruit Neuro: No focal findings, no asterixis or myoclonus Results Pertinent Lab Results: Laboratory Tests 08/28 08/28 08/28 1520 1230 0600 Chemistry Sodium (137 - 145 mmol/L) 139 Cancelled Potassium (3.5 - 5.1 mmol/L) 4.6 Cancelled Chloride (98 - 107 mmol/L) 100 Cancelled Carbon Dioxide (22 - 30 mmol/L) 21 L Cancelled Anion Gap (5 - 16) 19 H Cancelled BUN (9 - 20 mg/dL) 15 50 H Cancelled Creatinine (0.7 - 1.2 mg/dL) 8.6 *H Cancelled Estimated GFR (>60 ml/min) 6 L BUN/Creatinine Ratio (7 - 25 %) 5.8 L Cancelled Calcium (8.4 - 10.2 mg/dL) 7.8 L Phosphorus (2.5 - 4.5 mg/dL) 6.0 H Magnesium (1.6 - 2.3 mg/dL) 1.2 L Albumin (3.5 - 5.0 g/dL) 3.4 L Hematology CBC w Diff NO MAN DIFF REQ Cancelled WBC (4.8 - 10.8 /CUMM) 6.8 Cancelled RBC (4.70 - 6.10 /CUMM) 2.66 L Cancelled Hgb (14.0 - 18.0 G/DL) 9.1 L Cancelled Hct (42 - 52 %) 27.8 L Cancelled MCV (80.0 - 94.0 FL) 104.5 H Cancelled MCH (27.0 - 31.0 PG) 34.4 H Cancelled MCHC (33.0 - 37.0 G/DL) 32.9 L Cancelled RDW (11.5 - 14.5 %) 17.5 H Cancelled Plt Count (130 - 400 /CUMM) 156 Cancelled MPV (7.4 - 10.4 FL) 7.9 Cancelled Gran % (42.2 - 75.2 %) 66.3 Lymphocytes % (20.5 - 51.1 %) 23.3 Monocytes % (1.7 - 9.3 %) 8.0 Eosinophils % (0 - 5 %) 2.0 Basophils % (0.0 - 2.0 %) 0.4 Absolute Granulocytes (1.4 - 6.5 /CUMM) 4.5 Absolute Lymphocytes (1.2 - 3.4 /CUMM) 1.6 Absolute Monocytes (0.10 - 0.60 /CUMM) 0.5 Absolute Eosinophils (0.0 - 0.7 /CUMM) 0.1 Absolute Basophils (0.0 - 0.2 /CUMM) 0 08/27 08/27 1115 1115 Chemistry Sodium (137 - 145 mmol/L) 143 Potassium (3.5 - 5.1 mmol/L) 4.1 Chloride (98 - 107 mmol/L) 102 Carbon Dioxide (22 - 30 mmol/L) 22 Anion Gap (5 - 16) 20 H BUN (9 - 20 mg/dL) 41 H Creatinine (0.7 - 1.2 mg/dL) 7.2 *H Estimated GFR (>60 ml/min) 7 L BUN/Creatinine Ratio (7 - 25 %) 5.7 L Glucose (65 - 99 mg/dL) 155 H Calcium (8.4 - 10.2 mg/dL) 9.0 Troponin I (<0.11 ng/ml) 0.07 Free T4 (0.85 - 1.93 ng/dL) 0.90 Total T3 (0.97 - 1.69 ng/mL) 0.65 L TSH &T3 &Free T4 Intrp (0.27 - 4.20 uIU/mL) 10.700 H Hematology CBC w Diff NO MAN DIFF REQ WBC (4.8 - 10.8 /CUMM) 8.5 RBC (4.70 - 6.10 /CUMM) 2.91 L Hgb (14.0 - 18.0 G/DL) 10.0 L Hct (42 - 52 %) 30.4 L MCV (80.0 - 94.0 FL) 104.4 H MCH (27.0 - 31.0 PG) 34.4 H MCHC (33.0 - 37.0 G/DL) 32.9 L RDW (11.5 - 14.5 %) 17.3 H Plt Count (130 - 400 /CUMM) 153 MPV (7.4 - 10.4 FL) 7.8 Gran % (42.2 - 75.2 %) 72.4 Lymphocytes % (20.5 - 51.1 %) 21.2 Monocytes % (1.7 - 9.3 %) 5.5 Eosinophils % (0 - 5 %) 0.5 Basophils % (0.0 - 2.0 %) 0.4 Absolute Granulocytes (1.4 - 6.5 /CUMM) 6.2 Absolute Lymphocytes (1.2 - 3.4 /CUMM) 1.8 Absolute Monocytes (0.10 - 0.60 /CUMM) 0.5 Absolute Eosinophils (0.0 - 0.7 /CUMM) 0 Absolute Basophils (0.0 - 0.2 /CUMM) 0 04/03 1048 Urines Urine Color Cancelled Urine Clarity Cancelled Urine pH Cancelled Ur Specific [place] Cancelled Urine Protein Cancelled Urine Ketones Cancelled Urine Nitrite Cancelled Urine Bilirubin Cancelled Urine Urobilinogen Cancelled Ur Leukocyte Esterase Cancelled Ur Microscopic Cancelled Urine Hemoglobin Cancelled Urine Glucose Cancelled
[2017-08-29 22:13] VITALS: BP 180/80
[2017-08-30 07:03] VITALS: BP 140/80
--- NOTE | 2017-08-30 08:25 | PN- Housestaff ---
See Addendum Subjective Follow-up For: Thoracic fracture Subjective: Patient seen and examined. He was sleeping. Was arousable only to sternal rub. Vital signs temperature 99.1, respiratory rate 18, heart rate 62, blood pressure 160/80, oxygen saturation 93% on room air blood sugar 77 Overnight patient was confused and trying to get out of the bed and court monitor was ordered. Patient was reevaluated in a.m. rounds with Dr. Haile and resident He continues to be in similar state has not eaten his breakfast this is not his baseline. I went over his medication list trazodone 50 mg was given at 8 PM which is his home medication and tramadol was given at 4 PM yesterday. I have DC'd these medication. -We will get a fresh set of labs including CBCs, BP, TSH, free T4. We'll also get an EKG UPDATE: re evaluated the pt , he was getting dialyzed, clinically improved asking about lunch Review of Systems Constitutional: Reports: see HPI. Objective Last 24 Hrs of Vital Signs/I&O Vital Signs Date Time Temp Pulse Resp B/P B/P Pulse O2 O2 Flow FiO2 Mean Ox Delivery Rate 08/30 0703 98.0 66 20 140/80 95 Room Air / 2213 98.2 101 20 180/80 96 Room Air 04/ 1528 98.2 64 20 130/70 95 Intake & Output 08/30 1600 08/30 0800 08/30 0000 Intake Total 400 190 Output Total Balance 400 190 Intake, IV 10 Intake, Oral 400 180 Patient 147 lb Weight Physical Exam General Appearance: Arousable with painful stimulus Lungs: Clear to Auscultation Abdomen: Normal Bowel Sounds, Soft, No Tenderness Current Medications: Current Medications Sig/Harmeet Start time Last Medication Dose Route Stop Time Status Admin Allopurinol 100 MG DAILY 08/28 1000 AC 08/29 PO 0810 Amlodipine Besylate 10 MG DAILY 08/27 1449 AC 08/29 PO 0810 Cefazolin Sodium 1,000 MG 08/28 1000 AC 08/28 IV 0901 Cinacalcet 30 MG DAILY 08/27 1619 AC 08/29 PO 0810 Diphenhydramine HCl 1 ZHANNA Q6 PRN 08/28 1030 DC 08/29 TOP 0901 Epoetin Bolivar 3,000 UNIT Saturday .. 08/28 1230 AC IV Epoetin Bolivar 2,000 UNIT Saturday .. 08/28 1230 AC IV Heparin Sodium 5,000 UNIT Q8 08/27 1647 AC 08/30 (Porcine) SC 0619 Ketorolac 15 MG Q4-6 PRN 08/28 1030 AC 08/29 Tromethamine IV 0900 Latanoprost 1 GTT AT BEDTIME 08/27 2200 AC 08/29 OPH 2025 Levothyroxine Sodium 0.2 MG DAILY AC 08/29 0700 AC 08/30 PO 0619 Multivitamins 1 TAB DAILY 08/28 1000 AC 08/29 PO 0810 Naloxone HCl 0.4 MG ONCE ONE 08/30 0830 DC IV 08/30 0831 Paricalcitol 5 MCG Saturday .. 08/28 1230 AC IV Sevelamer Carbonate 800 MG WITH MEALS 08/27 1700 AC 08/29 PO 1641 Tamsulosin HCl 0.4 MG DAILY 08/27 1450 AC 08/29 PO 0810 Tramadol HCl 50 MG Q8 08/30 1400 CAN PO Tramadol HCl 50 MG Q6 PRN 08/29 1015 DC 08/29 PO 1641 Trazodone HCl 50 MG QPM 08/27 2200 DC 08/29 PO 2025 Assessment/Plan Assessment: The patient is a 87-year-old gentleman with past medical history of ES RD on hemodialysis since 2018 Saturday and Saturday, moderate aortic stenosis, hypertension, hypothyroidism, on multiple TIAs in the past. The patient was brought in from [place] on 08/27 after a mechanical fall. Vitals on presentation BP elevated to 178/78 Pertinent labs on admission with/H 10/30.4, creatinine 7.2, and BUN 41, anion gap 20, GFR 7 Imaging findings significant for thoracic fracture T10 He is currently being treated evaluated for following conditions #AMS Patient has was very difficut to arouse in the morning, there was an episode of confusion overnight, which court monitor was placed however patient did not require any restraints. -Differentials at this point include medication induced however he received last morphine dose yesterday afternoon, Ultram at 4 PM and on trazodone at 8 PM yesterday. Versus metabolic derangement inconsideration of his CKD and uremia, he is scheduled for dialysis today. He is not hypoglycemic, he might be hypoxemic or hypercapnic. -Get an EKG -CBC BEP -Dialysis now -ABGs Patient mentation has improved. He is resting comfortably alert and oriented. Does not appear to be confused anymore currently getting dialyzed 1 hours left. EKG did not show any changes. ABG 7.33/76/45 BUN is 52. Worse than before. It is a possibility that he might have become a bit uremic causing changes in mentation. Other explanation can be medication induced and trazodone is his home medication and ultram and morphine were given in the afternoon and evening of yesterday respectively. With a history of ESRD it is a possibility they were not being appropriately cleared because trazodone was has not been studied in patient with renal failure should be used with caution. Ultram might be the culprit, and dialysis patient should have increased dosing interval to every 12 hours on the days without dialysis. Patient received only one dose of her time but it could have contributed his change in mentation. #Mechanical fall resulting in fracture of thoracic spine Most likely cause of fall was in dehydration versus generalized deconditioning. There was no neurological deficit on examination -Adequate analgesia lidocaine patch, Tylenol IV. -Patient has been evaluated by orthopedics who recommended conservative management there is no role of IR or surgical intervention. -PT evaluation, Short-term rehabilitation on discharge #Bleeding from the tunneled dialysis catheter Patient has been having complaint of bleeding from the tunneled dialysis catheter after dialysis every time for past few dialysis. on 08/28 Pressure was applied and dressing was changed. Overnight patient continued to have oozing from the catheter site. Dressing was reinforced however pressure was not applied. IR was contacted in the morning. They do not believe that stitch needs to be placed, to his control the bleeding just application of pressure will be enough. -Nephrology servicehas also been informed,no clear-cut etiology - he does not receive heparin with dialysis and his catheter ports are not packed with heparin post dialysis #ESRD on hemodialysis Patient follows schedule of Saturday and Saturday -Patient is going to be hemodialyzed today -Continue sevelamer, sensipar -Epogen alpha 5000 units, paricalcitol with HD #HX of Complicated bacteremia due to tunneled catheter sepsis with MSSA. currently being treated -Continue cefazoline 1.5gm with dialysis M// -The course was finished on 09/05. #Diarrhea Most likely secondary to antibiotic use -C. difficile has not been sent since the patient has not had any loose bowel movement since his admission #History of hypertension Patient presented with elevated blood pressure and was persistently having higher blood pressure readings in the ED most likely secondary to pain received metoprolol 25 mg and losartan 25 -Continue losartan and amlodipine at home doses -BP pressure in acceptable rang #Chronic medical conditions hypothyroidism, BPH, gout Continue levothyroxine tamsulosin and allopurinol #Renal dialysis diet/DVT prophylaxis with ALPS and subcutaneous heparin/full code Problem List: 1. ESRD (end stage renal disease) 2. Altered mental status Pain Ratin Pain Location: thoracic fracture Pain Goal: Pain 4 or less Pain Plan: prn avoid narcotics Tomorrow's Labs & Rationales: labs with dialysis
[2017-08-30 12:23] LABS: ABSOLUTE BASOPHIL COUNT 0 /CUMM (0.0-0.2); ABSOLUTE EOSINOPHIL COUNT 0.3 /CUMM (0.0-0.7); ABSOLUTE GRANULOCYTE CT 3.4 /CUMM (1.4-6.5); ABSOLUTE LYMPH COUNT 1.9 /CUMM (1.2-3.4); ABSOLUTE MONOCYTE COUNT 0.5 /CUMM (0.10-0.60); BASOPHIL % 0.3 % (0.0-2.0); EOSINOPHIL % 4.7 % (0-5); GRANULOCYTE % 56.1 % (42.2-75.2); MEAN CORPUSCULAR HGB 34.5 PG (27.0-31.0); MEAN CORPUSCULAR HGB CONC 32.6 G/DL (33.0-37.0); MEAN CORPUSCULAR VOLUME 105.9 FL (80.0-94.0); MEAN PLATELET VOLUME 8.2 FL (7.4-10.4); PLATELET COUNT 159 /CUMM (130-400); RBC DISTRIBUTION WIDTH 17.7 % (11.5-14.5); RED BLOOD CELL CT 2.55 /CUMM (4.70-6.10); WHITE BLOOD CELL COUNT 6.1 /CUMM (4.8-10.8)
--- NOTE | 2017-08-30 12:45 | PN- Nephrology ---
Assessment/Plan Nephrology Assessment: 1. ESRD 2. Nondisplaced fracture T9 following mechanical fall 3. Bleeding from dialysis catheter site 2 days ago with no clear-cut etiology - he does not receive heparin with dialysis and his catheter ports are not packed with heparin post dialysis 4. Other comorbidities as noted Suggestion: 1. Hemodialysis today with ultrafiltration to his target weight as tolerated over 3 hours 2. Short-term rehabilitation 3. Next hemodialysis after today will be scheduled for Saturday 09/02 Subjective Subjective: Patient seems more comfortable today and specifically is not complaining of any pain. Seen with hemodialysis which is currently in progress. Objective Vital Signs and I&Os Vital Signs Date Time Temp Pulse Resp B/P B/P Pulse O2 O2 Flow FiO2 Mean Ox Delivery Rate 08/30 0703 98.0 66 20 140/80 95 Room Air 08/29 2213 98.2 101 20 180/80 96 Room Air 08/29 1528 98.2 64 20 130/70 95 Intake & Output 08/30 1600 08/30 0400 08/29 1600 08/29 0400 08/28 1600 08/28 0400 Intake Total 400 190 870 140 10 110 Output Total Balance 400 190 870 140 10 110 Intake, IV 10 10 20 10 10 Intake, Oral 400 180 860 120 100 Number 0 Bowel Movements Patient 147 lb 145 lb 156 lb 150 lb Weight Weight Bed scale Reported by Patient Measurement Method Physical Exam: General: Well-developed, elderly white male in NAD Skin: No rash or jaundice HEENT: Conjunctivae pink, sclerae anicteric, mucous membranes moist Neck: Without masses or thyromegaly, no supraclavicular or cervical adenopathy Chest: Clear to P&A Heart: Regular rate and rhythm without S3 or rub Abdomen: Soft and nontender without palpable masses or organomegaly Extremities: Without cyanosis or edema Neuro: Awake and alert, no focal findings, no asterixis or myoclonus Results Pertinent Lab Results: Laboratory Tests 08/30 08/30 1145 1110 Blood Gas pH (7.35 - 7.45 PH) 7.33 L pCO2 (35 - 45 TORR) 45 pO2 (80 - 100 TORR) 76 L HCO3 (21 - 28 MEQ/L) 23 ABG O2 Sat (Measured) (>96.0 %) 91.0 L P-50 (Temp Corrected) N Carboxyhemoglobin (1.5 - 5.0 %) 1.7 O2 Concentration % .21 O2 Delivery Method RA Chemistry Sodium (137 - 145 mmol/L) 139 Potassium (3.5 - 5.1 mmol/L) 4.8 Chloride (98 - 107 mmol/L) 99 Carbon Dioxide (22 - 30 mmol/L) 24 Anion Gap (5 - 16) 16 BUN (9 - 20 mg/dL) 52 H Creatinine (0.7 - 1.2 mg/dL) 8.2 *H Estimated GFR (>60 ml/min) 6 L BUN/Creatinine Ratio (7 - 25 %) 6.3 L Hematology CBC w Diff NO MAN DIFF REQ WBC (4.8 - 10.8 /CUMM) 6.1 RBC (4.70 - 6.10 /CUMM) 2.55 L Hgb (14.0 - 18.0 G/DL) 8.8 L Hct (42 - 52 %) 27.0 L MCV (80.0 - 94.0 FL) 105.9 H MCH (27.0 - 31.0 PG) 34.5 H MCHC (33.0 - 37.0 G/DL) 32.6 L RDW (11.5 - 14.5 %) 17.7 H Plt Count (130 - 400 /CUMM) 159 MPV (7.4 - 10.4 FL) 8.2 Gran % (42.2 - 75.2 %) 56.1 Lymphocytes % (20.5 - 51.1 %) 31.3 Monocytes % (1.7 - 9.3 %) 7.6 Eosinophils % (0 - 5 %) 4.7 Basophils % (0.0 - 2.0 %) 0.3 Absolute Granulocytes (1.4 - 6.5 /CUMM) 3.4 Absolute Lymphocytes (1.2 - 3.4 /CUMM) 1.9 Absolute Monocytes (0.10 - 0.60 /CUMM) 0.5 Absolute Eosinophils (0.0 - 0.7 /CUMM) 0.3 Absolute Basophils (0.0 - 0.2 /CUMM) 0 Miscellaneous Phlebotomy Draw Site RIGHT RADIAL 08/30 08/28 08/28 1021 1520 1230 Chemistry Sodium (137 - 145 mmol/L) Cancelled 139 Potassium (3.5 - 5.1 mmol/L) Cancelled 4.6 Chloride (98 - 107 mmol/L) Cancelled 100 Carbon Dioxide (22 - 30 mmol/L) Cancelled 21 L Anion Gap (5 - 16) Cancelled 19 H BUN (9 - 20 mg/dL) Cancelled 15 50 H Creatinine (0.7 - 1.2 mg/dL) Cancelled 8.6 *H Estimated GFR (>60 ml/min) 6 L BUN/Creatinine Ratio (7 - 25 %) Cancelled 5.8 L Calcium (8.4 - 10.2 mg/dL) 7.8 L Phosphorus (2.5 - 4.5 mg/dL) 6.0 H Magnesium (1.6 - 2.3 mg/dL) 1.2 L Albumin (3.5 - 5.0 g/dL) 3.4 L TSH (0.270 - 4.200 uIU/mL) 10.500 H Hematology CBC w Diff Cancelled NO MAN DIFF REQ WBC (4.8 - 10.8 /CUMM) Cancelled 6.8 RBC (4.70 - 6.10 /CUMM) Cancelled 2.66 L Hgb (14.0 - 18.0 G/DL) Cancelled 9.1 L Hct (42 - 52 %) Cancelled 27.8 L MCV (80.0 - 94.0 FL) Cancelled 104.5 H MCH (27.0 - 31.0 PG) Cancelled 34.4 H MCHC (33.0 - 37.0 G/DL) Cancelled 32.9 L RDW (11.5 - 14.5 %) Cancelled 17.5 H Plt Count (130 - 400 /CUMM) Cancelled 156 MPV (7.4 - 10.4 FL) Cancelled 7.9 Gran % (42.2 - 75.2 %) 66.3 Lymphocytes % (20.5 - 51.1 %) 23.3 Monocytes % (1.7 - 9.3 %) 8.0 Eosinophils % (0 - 5 %) 2.0 Basophils % (0.0 - 2.0 %) 0.4 Absolute Granulocytes (1.4 - 6.5 /CUMM) 4.5 Absolute Lymphocytes (1.2 - 3.4 /CUMM) 1.6 Absolute Monocytes (0.10 - 0.60 /CUMM) 0.5 Absolute Eosinophils (0.0 - 0.7 /CUMM) 0.1 Absolute Basophils (0.0 - 0.2 /CUMM) 0 04/04 0600 Chemistry Sodium Cancelled Potassium Cancelled Chloride Cancelled Carbon Dioxide Cancelled Anion Gap Cancelled BUN Cancelled Creatinine Cancelled BUN/Creatinine Ratio Cancelled Hematology CBC w Diff Cancelled WBC Cancelled RBC Cancelled Hgb Cancelled Hct Cancelled MCV Cancelled MCH Cancelled MCHC Cancelled RDW Cancelled Plt Count Cancelled MPV Cancelled
[2017-08-30 22:39] VITALS: BP 160/70
[2017-08-31 06:19] VITALS: BP 168/86
--- NOTE | 2017-08-31 09:58 | PN- Housestaff ---
See Addendum Subjective Follow-up For: T9-T10 fracture Subjective: Seen and examined. Resting comfortably at the right oriented. Stable to be discharged home today Review of Systems Constitutional: Reports: see HPI. Objective Last 24 Hrs of Vital Signs/I&O Vital Signs Date Time Temp Pulse Resp B/P B/P Pulse O2 O2 Flow FiO2 Mean Ox Delivery Rate 08/31 1121 99.0 83 20 168/86 08/31 0921 83 168/86 08/31 0921 83 168/86 08/31 0619 99.0 83 20 168/86 94 Room Air 08/30 2239 99.0 81 20 160/70 93 Room Air Intake & Output 08/31 1600 08/31 0800 08/31 0000 Intake Total 50 300 Output Total Balance 50 300 Intake, IV 20 Intake, Oral 50 280 Number 1 Bowel Movements Patient 144 lb Weight Weight Bed scale Measurement Method Physical Exam General Appearance: Alert, Cooperative Cardiovascular: Normal S1, Normal S2 Lungs: Clear to Auscultation Current Medications: Current Medications Sig/Harmeet Start time Last Medication Dose Route Stop Time Status Admin Allopurinol 100 MG DAILY 08/28 1000 AC 08/31 PO 0921 Amlodipine Besylate 10 MG DAILY 08/27 1449 AC 08/31 PO 0921 Cefazolin Sodium 1,000 MG 08/28 1000 AC 08/30 IV 1837 Cinacalcet 30 MG DAILY 08/27 1619 AC 08/31 PO 0921 Epoetin Bolivar 3,000 UNIT Saturday .. 08/28 1230 AC IV Epoetin Bolivar 2,000 UNIT Saturday .. 08/28 1230 AC IV Heparin Sodium 5,000 UNIT Q8 08/27 1647 AC 08/31 (Porcine) SC 0624 Ketorolac 15 MG Q4-6 PRN 08/28 1030 AC 08/31 Tromethamine IV 1142 Latanoprost 1 GTT AT BEDTIME 08/27 2200 AC 08/30 OPH 2241 Levothyroxine Sodium 0.2 MG DAILY AC 08/29 0700 AC 08/31 PO 0626 Multivitamins 1 TAB DAILY 08/28 1000 AC 08/31 PO 0923 Naloxone HCl 0.4 MG ONCE ONE 08/30 0830 CAN IV 08/30 0831 Paricalcitol 5 MCG Saturday .. 08/28 1230 AC IV Sevelamer Carbonate 800 MG WITH MEALS 08/27 1700 AC 08/31 PO 1144 Tamsulosin HCl 0.4 MG DAILY 08/27 1450 AC 08/31 PO 0921 Last 24 Hrs of Lab/Jarod Results Last 24 Hrs of Labs/Mics: Laboratory Tests 08/31/17 0755: Troponin I 0.08 Assessment/Plan Assessment: The patient is a 87-year-old gentleman with past medical history of ES RD on hemodialysis since 2017 and Saturday, moderate aortic stenosis, hypertension, hypothyroidism, on multiple TIAs in the past. The patient was brought in from [place] on 08/27 after a mechanical fall. Vitals on presentation BP elevated to 178/78 Pertinent labs on admission with/H 10/30.4, creatinine 7.2, and BUN 41, anion gap 20, GFR 7 Imaging findings significant for thoracic fracture T10 He is currently being treated evaluated for following conditions #AMS-resolved -Differentials at this point include medication induced however he received last morphine dose yesterday afternoon, Ultram at 4 PM and on trazodone at 8 PM yesterday. Versus metabolic derangement inconsideration of his CKD and uremia, he is scheduled for dialysis today. He is not hypoglycemic, he might be hypoxemic or hypercapnic. ABG 7.33/76/45 BUN is 52. Worse than before. It is a possibility that he might have become a bit uremic causing changes in mentation. Other explanation can be medication induced and trazodone is his home medication and ultram and morphine were given in the afternoon and evening of yesterday respectively. With a history of ESRD it is a possibility they were not being appropriately cleared because trazodone with renal failure should be used with caution. Ultram might be the culprit, and dialysis patient should have increased dosing interval to every 12 hours on the days without dialysis. Patient received only one dose of her time but it could have contributed his change in mentation. Patient mentation has improved. He is resting comfortably alert and oriented. #Mechanical fall resulting in fracture of thoracic spine Most likely cause of fall was in dehydration versus generalized deconditioning. There was no neurological deficit on examination -Adequate analgesia lidocaine patch, Tylenol IV. -Patient has been evaluated by orthopedics who recommended conservative management there is no role of IR or surgical intervention. -PT evaluation, Short-term rehabilitation on discharge #Bleeding from the tunneled dialysis catheter Patient has been having complaint of bleeding from the tunneled dialysis catheter after dialysis every time for past few dialysis. on 08/28 Pressure was applied and dressing was changed. Overnight patient continued to have oozing from the catheter site. Dressing was reinforced however pressure was not applied. IR was contacted in the morning. They do not believe that stitch needs to be placed, to his control the bleeding just application of pressure will be enough. -Nephrology servicehas also been informed,no clear-cut etiology - he does not receive heparin with dialysis and his catheter ports are not packed with heparin post dialysis #ESRD on hemodialysis Patient follows schedule of Saturday and Saturday -Patient is going to be hemodialyzed today -Continue sevelamer, sensipar -Epogen alpha 5000 units, paricalcitol with HD #EKG changes Yesterday EKG was done which showed ST depressions in V4 5 and 6 on cardiology was consulted patient remains asymptomatic. Troponin levels were within normal limits no complaint of shortness of breath chest pain or palpitations. #HX of Complicated bacteremia due to tunneled catheter sepsis with MSSA. currently being treated -Continue cefazoline 1.5gm with dialysis M/W/ -The course was finished on 09/05. #Diarrhea Most likely secondary to antibiotic use -C. difficile has not been sent since the patient has not had any loose bowel movement since his admission #History of hypertension Patient presented with elevated blood pressure and was persistently having higher blood pressure readings in the ED most likely secondary to pain received metoprolol 25 mg and losartan 25 -Continue losartan and amlodipine at home doses -BP pressure in acceptable rang #Chronic medical conditions hypothyroidism, BPH, gout Continue levothyroxine tamsulosin and allopurinol #Renal dialysis diet/DVT prophylaxis with ALPS and subcutaneous heparin/full code Problem List: 1. ESRD (end stage renal disease) on dialysis Pain Ratin Pain Location: back Pain Goal: Pain 4 or less Pain Plan: prn Tomorrow's Labs & Rationales: n/a
[2017-08-31] MEDS ORDERED: TRAZODONE HCL50 M1 PO (10:13)
[2017-08-31] MEDS ORDERED: ULTRAM50 M1 PO (10:13)
[2017-08-31 11:21] VITALS: BP 168/86
== END 2017-08-31 13:00 | DRG 551 ==
LOC: ERH 09:41 → 2NA 15:25 → ERHI 15:25 → ENRESERV 16:25 → ENTRNSPT 16:47 → EDTRNSPTSTS 16:50 → EDTRNSPT 16:50 → 2NA 17:02 → CMPTRNSPT 17:12 → 2NA 08-28 08:26 → ENPENDDIS 08-31 09:40 → 2NA 08-31 13:00
PROVIDERS: Emergency Medicine; Internal Medicine; Internal Medicine Nephrology
PROC: 5A1D70Z Performance of Urinary Filtration, Intermittent, Less than 6 Hours Per Day (ICD-10-PCS; principal; 2017-08-28)
DX: S22.079A Unspecified fracture of T9-T10 vertebra, initial encounter for closed fracture (principal); N18.6 End stage renal disease; I13.2 Hypertensive heart and chronic kidney disease with heart failure and with stage 5 chronic kidney disease, or end stage renal disease; E86.0 Dehydration; M48.02 Spinal stenosis, cervical region; I50.32 Chronic diastolic (congestive) heart failure; I35.0 Nonrheumatic aortic (valve) stenosis; E03.9 Hypothyroidism, unspecified; R41.82 Altered mental status, unspecified; Z86.73 Personal history of transient ischemic attack (TIA), and cerebral infarction without residual deficits; Z91.011 Allergy to milk products; K21.9 Gastro-esophageal reflux disease without esophagitis; E78.5 Hyperlipidemia, unspecified; Z99.2 Dependence on renal dialysis; W18.30XA Fall on same level, unspecified, initial encounter; Y84.8 Other medical procedures as the cause of abnormal reaction of the patient, or of later complication, without mention of misadventure at the time of the procedure; T85.838A Hemorrhage due to other internal prosthetic devices, implants and grafts, initial encounter; M10.9 Gout, unspecified; Z90.49 Acquired absence of other specified parts of digestive tract; R19.7 Diarrhea, unspecified; Z91.81 History of falling; Y92.129 Unspecified place in nursing home as the place of occurrence of the external cause; Z85.46 Personal history of malignant neoplasm of prostate
CPT/HCPCS: 2NASP; 36415; 72080; 82436; 93005; 93010; 96372; 96374; 96375; 97110-GO; 97116-GO; 97161-GP; 97530-GO; J0131; J0690; J0885; J1644; J2501